=== PATIENT | male | born 1950 | race Caucasian/White ===

== ENCOUNTER 2020-01-06 12:21 | Emergency (ER) | payer MEDICARE, SELFPAY ==
[2020-01-06 12:32] VITALS: BMI 20.9
[2020-01-06 12:35] VITALS: BP 123/62; PULSE 83; RESP 16; TEMP 36.8; O2SAT 92
--- NOTE | 2020-01-06 12:52 | ED_ITS ---
HPI - Extremity Problem General: Chief complaint: Extremity Problem,Nontraumatic Stated complaint: wound check Time Seen by Provider: 01/06/20 12:42 Source: patient and family Mode of arrival: ambulatory Limitations: no limitations History of Present Illness: HPI Narrative: Patient is a 69-year-old male who presents to ED today for evaluation of his bilateral lower extremities. Patient apparently was seen by PCP and recommended to come here for evaluation. Patient tells me over the past 6 months he has had lower extremity swelling and yellow blistering/crusting with ulcer formation to his legs. He admittedly had not been seen for this previously due to COVID and canceling/unavailability of appointments. He states over the past 3 weeks he has noticed redness to both legs. Patient states he has not been running fevers. He has never seen wound care for the extremities. He has no history of CHF or fluid overload. 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 He normally wears 2-3L O2 continuously at home. He has not had to increase this. He does complain of feeling a little short of breath today. He has not had a cough or chest pain. He denies orthop cody or PND. MD Complaint: extremity pain and extremity swelling Onset (ago): month(s) Location: left, right and lower extremity Associated symptoms: Deny chest pain or fever(s) Review of Systems Const: Denies: fever(s), chills or body aches ENMT: Denies: odynophagia Card: Reports: swelling of feet/ankles and dyspnea on exertion (chronic ); Denies: chest pain, palpitations, irregular heart rhythm, edema, lightheadedness, syncope, pre-syncope, orthopnea or acrocyanosis Resp: Reports: dyspnea (chronic ); Denies: productive cough, change in phlegm color or hemoptysis GI: Denies: abdominal pain, nausea or vomiting Musc: Reports: extremity pain and extremity swelling; Denies: neck pain, back pain, joint pain, joint swelling or joint redness Skin/Breast: Reports: changes in skin color (bilateral LEs) Neuro: Denies: numbness in extremities, weakness in extremities or sensory changes Physical Exam Const: COMMON NORMALS: patient oriented x3, no limitations and alert Resp: COMMON NORMALS: normal respiratory effort Cardio: COMMON NORMALS: regular rate and regular rhythm RATE: regular rate RHYTHM: regular rhythm GI: COMMON NORMALS: Normal to inspection, nondistended, normoactive bowel sounds present, Soft to palpation, non-tender, No hepatosplenomegaly present and no masses INSPECTION: Yes normal to inspection PALPATION: Yes Soft to palpation and Yes No hepatosplenomegaly present Extremity: OTHER: bilateral 1+ pitting edema to lower extremities; there is redness/warmth to bilateral lower legs; pt has yellow blistering/crusting to bilateral anterior lower legs with small superficial ulcerations present Neuro: COMMON NORMALS: patient oriented x3 SENSORIUM/ORIENTATION: Yes alert Skin: OTHER: see extremity assessment Course Vital Signs: Vital signs: Vital Signs Temperature 98.2 F 01/06/20 12:35 Pulse Rate 83 01/06/20 12:35 Respiratory Rate 18 01/06/20 13:09 Blood Pressure 123/62 01/06/20 12:35 Pulse Oximetry 92 01/06/20 12:35 MDM - Extremity (Nontraumatic) MDM Narrative: Medical decision making narrative: Patient clinically appears well. He is not tachycardic or febrile. He has not had to increase his oxygen at home. He does not complain of orthopnea or PND. Patient's BNP slightly elevated at 335. CXR showing no fluid overload. He has bilateral lower extremity redness, yellow/purulent ulcerations, and pitting edema. We have set patient up with wound care on Sunday for evaluation. He will be placed on antibiotics and will place him on 3 days of Lasix for the swelling. Patient slightly supratherapeutic on his INR. He was given dosing instructions for this. Recommend he follow-up with PCP for INR recheck early next week. Return to ED precautions given. Lab Data: Labs: Lab Results 01/06/20 01/06/20 01/06/20 Range/Units 13:05 13:05 13:05 WBC 8.1 (4.0-10.0) 10^3/ uL RBC 4.16 (4.1-5.3) 10^6/u L Hgb 13.7 (11.7-16.6) g/dL Hct 41.9 L (42.0-52.0) % MCV 100.7 H (80-94) fL MCH 32.9 (28.0-34.0) pg MCHC 32.7 (30.0-36.0) g/dL RDW 13.1 (12.1-15.1) % Plt Count 281 (130-400) 10^3/c mm MPV 9.5 (7.4-10.4) fL Neut % (Auto) 76.6 % Lymph % (Auto) 11.7 % Desoto % (Auto) 8.8 % Eos % (Auto) 2.3 % Baso % (Auto) 0.4 % Neut # (Auto) 6.2 (1.8-7.7) 10^3/u L Lymph # (Auto) 1.0 (0.8-4.8) 10^3/u L Desoto # (Auto) 0.7 (0.2-0.9) 10^3/u L Eos # (Auto) 0.2 (0.0-0.8) 10^3/u L Baso # (Auto) 0.0 (0.0-0.1) 10^3/u L Nucleated RBC % (a uto) 0 % Nucleated RBCs # 0.0 /100WBC PT 35.80 H (10.5-13.3) SECO NDS INR 3.42 H (0.8-1.2) Sodium 139 (136-145) mmol/L Potassium 4.9 (3.5-5.1) mmol/L Chloride 99 (98-107) mmol/L Carbon Dioxide 33 H (22-29) mmol/L Anion Gap 11.9 (5-19) BUN 10 (8-23) mg/dL Creatinine 0.7 (0.7-1.2) mg/dL GFR Calculation 111.5 (90-130) mL/min Glucose 127 H (65-115) mg/dL Calculated Osmolal ity 286 (285-295) mOsm/k g Lactate (0.5-2.2) mmol/L Calcium 9.4 (8.5-10.5) mg/dL Total Bilirubin 0.5 (0.15-1.2) mg/dL AST 26 (0-40) U/L ALT 18 (0-41) U/L Alkaline Phosphata se 99 (40-130) IU/L C-Reactive Protein 27.0 H (0.0-4.9) mg/L NT-Pro-B Natriuret Pep (0-125) pg/mL Total Protein 7.0 (6.6-8.7) g/dL Albumin 4.1 (3.5-5.2) g/dL Globulin 2.9 (1.3-4.6) g/dL 01/06/20 01/06/20 Range/Units 13:05 13:05 WBC (4.0-10.0) 10^3/ uL RBC (4.1-5.3) 10^6/u L Hgb (11.7-16.6) g/dL Hct (42.0-52.0) % MCV (80-94) fL MCH (28.0-34.0) pg MCHC (30.0-36.0) g/dL RDW (12.1-15.1) % Plt Count (130-400) 10^3/c mm MPV (7.4-10.4) fL Neut % (Auto) % Lymph % (Auto) % Desoto % (Auto) % Eos % (Auto) % Baso % (Auto) % Neut # (Auto) (1.8-7.7) 10^3/u L Lymph # (Auto) (0.8-4.8) 10^3/u L Desoto # (Auto) (0.2-0.9) 10^3/u L Eos # (Auto) (0.0-0.8) 10^3/u L Baso # (Auto) (0.0-0.1) 10^3/u L Nucleated RBC % (a uto) % Nucleated RBCs # /100WBC PT (10.5-13.3) SECO NDS INR (0.8-1.2) Sodium (136-145) mmol/L Potassium (3.5-5.1) mmol/L Chloride (98-107) mmol/L Carbon Dioxide (22-29) mmol/L Anion Gap (5-19) BUN (8-23) mg/dL Creatinine (0.7-1.2) mg/dL GFR Calculation (90-130) mL/min Glucose (65-115) mg/dL Calculated Osmolal ity (285-295) mOsm/k g Lactate 1.4 (0.5-2.2) mmol/L Calcium (8.5-10.5) mg/dL Total Bilirubin (0.15-1.2) mg/dL AST (0-40) U/L ALT (0-41) U/L Alkaline Phosphata se (40-130) IU/L C-Reactive Protein (0.0-4.9) mg/L NT-Pro-B Natriuret Pep 335 H (0-125) pg/mL Total Protein (6.6-8.7) g/dL Albumin (3.5-5.2) g/dL Globulin (1.3-4.6) g/dL Imaging Data^: CXR: Radiologist's impression: [address] [place] [address] XRay Report Signed Patient: Damon King Unit #: [id number] : 1950 7 Age/Sex: 69 / M ADM Date: 01/06/20 Loc: ER Room/Bed: Attending Dr: Ordering Provider/Ordering MD: Jacklyn Khan Date of Service: 01/06/20 Procedure(s): XR chest 1V portable [id number] Accession Number(s): [id number] Report Number: [id number] WS: [id number] PORTABLE CHEST HISTORY: chest pain COMPARISON: 03/10/2019 Pulmonary hyperexpansion. RIGHT apical pleural thickening and scarring is stable. No pneumonia. Normal vasculature. No pleural effusion or pneumothorax. Cardiac size: Normal. Mediastinum/Aorta: Mild atherosclerosis aorta. Prior median sternotomy and cardiac valve replacement. No osseous abnormality seen. XR/XR chest 1V portable [id number] IMPRESSION: Severe chronic emphysema with stable RIGHT apical scarring. Dictated By: Ashlyn Bacon DO Signed By: Ashlyn Bacon DO Signed Date/Time: 01/06/20 1437 DD/ 1436 Discharge Plan Discharge Patient Disposition: Home, Self-Care Clinical Impression: Bilateral edema of lower extremity, Supratherapeutic INR, Bilateral lower leg cellulitis Emphysema/COPD Qualifiers: Emphysema type: unspecified Qualified Code(s): J43.9 - Emphysema, unspecified Condition: Stable Prescriptions: New Lasix 20 mg tablet 20 mg PO DAILY Qty: 3 RF: 0 Keflex 500 mg capsule 500 mg PO Q6H 7 Days Qty: 28 RF: 0 Discharge Orders: Discharge Order (Routine); Ordered 01/06/20 Ordered By: Jacklyn Khan Referrals: Ekaterina Callahan DO [Emergency Department] - 01/12/20 10:30 am () Alexandru Gaspar MD [Primary Care Provider] - Activity Restrictions/Additional Instructions: As discussed we have set you up with wound care on Sunday for evaluation and treatment of your lower legs. I have put you on 3 days of Lasix to help with the swelling. I want you to take 1/2 of your 2mg warfarin tomorrow and then continue normal dose of 2mg on and take 2mg on Sunday (instead of your 2.5mg scheduled dose). From then on continue your normal 2mg daily dose. Please follow up with primary care as soon as possible. Coding Level of Care Code ED Field Technician for Chg Fwd Exam Expanded Problem Focused
[2020-01-06 13:09] VITALS: RESP 18
[2020-01-06 13:14] LABS: Basophils % 0.4 %; Eosinophils # 0.2 10^3/uL (0.0-0.8); Eosinophils % 2.3 %; Hematocrit 41.9 % (42.0-52.0); Hemoglobin 13.7 g/dL (11.7-16.6); Lymphocytes % 11.7 %; Mean Corpuscular HGB Conc 32.7 g/dL (30.0-36.0); Mean Corpuscular Hemoglobin 32.9 pg (28.0-34.0); Mean Corpuscular Volume 100.7 fL (80-94); Mean Platelet Volume 9.5 fL (7.4-10.4); Monocytes # 0.7 10^3/uL (0.2-0.9); Monocytes % 8.8 %; Neutrophils # 6.2 10^3/uL (1.8-7.7); Neutrophils % 76.6 %; Nucleated Red Blood Cells % 0 %; Platelet Count 281 10^3/cmm (130-400); Red Blood Count 4.16 10^6/uL (4.1-5.3); Red Cell Distribution Width 13.1 % (12.1-15.1); White Blood Count 8.1 10^3/uL (4.0-10.0)
[2020-01-06 13:25] LABS: INR 3.42 (0.8-1.2)
[2020-01-06 13:27] LABS: Lactate (Lactic Acid level) 1.4 mmol/L (0.5-2.2)
[2020-01-06 13:31] LABS: Alanine Aminotransferase 18 U/L (0-41); Albumin Level 4.1 g/dL (3.5-5.2); Alkaline Phosphatase 99 IU/L (40-130); Anion Gap 11.9 (5-19); Aspartate Amino Transferase 26 U/L (0-40); Blood Urea Nitrogen 10 mg/dL (8-23); Calcium 9.4 mg/dL (8.5-10.5); Carbon Dioxide 33 mmol/L (22-29); Chloride 99 mmol/L (98-107); Creatinine Clr Calc Pharmacy 90.7603; Globulin 2.9 g/dL (1.3-4.6); Glomerular Filtration Rate 111.5 mL/min (90-130); Glucose 127 mg/dL (65-115); Osmolality Calculated 286 mOsm/kg (285-295); Potassium 4.9 mmol/L (3.5-5.1); Sodium 139 mmol/L (136-145); Total Bilirubin 0.5 mg/dL (0.15-1.2)
[2020-01-06] MEDS: vancomycin 1,000 MG in sodium chloride 0.9% 250 ML 166 MG IV (14:02)
[2020-01-06 14:11] LABS: NT Pro B Type Natriuretic Pept 335 pg/mL (0-125)
--- NOTE | 2020-01-06 14:11 | XR_ITS ---
WS: [id number] PORTABLE CHEST HISTORY: chest pain COMPARISON: 03/10/2019 Pulmonary hyperexpansion. RIGHT apical pleural thickening and scarring is stable. No pneumonia. Valerie l vasculature. No pleural effusion or pneumothorax. Cardiac size: Normal. Mediastinum/Aorta: Mild atherosclerosis aorta. Prior median sternotomy and cardiac valve replacement. No osseous abnormality seen. XR/XR chest 1V portable [id number] IMPRESSION: Severe chronic emphysema with stable RIGHT apical scarring.
--- NOTE | 2020-01-06 14:36 | DCPLANNER ---
hydroelectric production manager was asked to schedule a follow up appointment for patient with Wound Care. hydroelectric production manager called the Wound Care clinic, spoke with Magdalene, gave clinic patients information. A follow up appointment is scheduled for Sunday, January 12, 2020 at 10:[address] Callahan. hydroelectric production manager informed patient and ED physician of the scheduled appointment.
[2020-01-06 15:09] VITALS: BP 151/82; PULSE 82; RESP 22; O2SAT 97
[2020-01-06] MEDS: FUROsemide 10 mg/mL SDV 2mL 20 MG IVP (15:17)
[2020-01-06] MEDS: HYDROcodone-acetaminophen 5-325 mg Tablet 1 TAB PO (15:18)
[2020-01-06 15:41] VITALS: PULSE 82; RESP 22; O2SAT 97
--- NOTE | 2020-01-13 13:27 | DCPLANNER ---
Patient did attend follow up appointment scheduled for 01.06.20 with Wound Care.
== END 2020-01-06 15:44 | disposition home or self-care (01) ==
PROVIDERS: Emergency Provider Physician Assistant; PCP Family Medicine
DX: J43.9 Emphysema, unspecified (principal); R60.0 Localized edema; L03.116 Cellulitis of left lower limb; L03.115 Cellulitis of right lower limb; R07.9 Chest pain, unspecified
CPT/HCPCS: 12345; 36415; 71045; 80053; 83605; 83880; 85025; 85610; 86140; 96360; 96361; 96375; 99283; J1940; J3370; J7050

== ENCOUNTER 2020-01-12 10:24 | Outpatient (CLI) | payer MEDICARE, SELFPAY ==
[2020-01-12 12:56] LABS: INR 2.84 (0.8-1.2)
== END 2020-01-12 10:25 | disposition home or self-care (01) ==
LOC: WOUND 10:27
PROVIDERS: PCP Family Medicine; Visit Provider Emergency Medicine
DX: I96 Gangrene, not elsewhere classified (principal); L97.822 Non-pressure chronic ulcer of other part of left lower leg with fat layer exposed; L97.812 Non-pressure chronic ulcer of other part of right lower leg with fat layer exposed
CPT/HCPCS: 36415; 85610; 87070; 87077; 87176; 87186; 87205; G0463

== ENCOUNTER 2020-01-19 14:05 | Outpatient (CLI) | payer MEDICARE, SELFPAY | END 2020-01-19 14:06 | disposition home or self-care (01) | LOC: WOUND 14:09 | PROVIDERS: Visit Provider Emergency Medicine | DX: I96 Gangrene, not elsewhere classified (principal); L97.822 Non-pressure chronic ulcer of other part of left lower leg with fat layer exposed; L97.812 Non-pressure chronic ulcer of other part of right lower leg with fat layer exposed | CPT/HCPCS: 11042; 11045; 87070; 87077; 87176; 87186; 87205 ==

== ENCOUNTER 2020-02-06 16:54 | Outpatient (CLI) | payer MEDICARE, SELFPAY | END 2020-02-06 16:55 | disposition home or self-care (01) | LOC: LAB 16:58 | PROVIDERS: PCP Family Medicine; Visit Provider Family Medicine | DX: Z79.01 Long term (current) use of anticoagulants (principal) | CPT/HCPCS: 85610 ==

== ENCOUNTER 2020-02-09 14:54 | Outpatient (CLI) | payer MEDICARE, SELFPAY | END 2020-02-09 14:55 | disposition home or self-care (01) | LOC: WOUND 14:55 | PROVIDERS: PCP Family Medicine; Visit Provider Emergency Medicine | DX: I89.0 Lymphedema, not elsewhere classified (principal); L97.812 Non-pressure chronic ulcer of other part of right lower leg with fat layer exposed; L97.822 Non-pressure chronic ulcer of other part of left lower leg with fat layer exposed | CPT/HCPCS: 11042; 11045 ==

== ENCOUNTER 2020-02-23 15:08 | Outpatient (CLI) | payer MEDICARE, SELFPAY | END 2020-02-23 15:09 | disposition home or self-care (01) | LOC: WOUND 15:09 | PROVIDERS: PCP Family Medicine; Visit Provider Emergency Medicine | DX: I89.0 Lymphedema, not elsewhere classified (principal); L97.822 Non-pressure chronic ulcer of other part of left lower leg with fat layer exposed | CPT/HCPCS: 11042 ==

== ENCOUNTER 2020-02-27 12:30 | Outpatient (CLI) | payer MEDICARE, SELFPAY ==
--- NOTE | 2020-02-27 12:36 | USCV_ITS ---
Damon King Age: 69 Gender: M : 1950 Exam Date: 02/27/2020 13:12 Ordering Phys: Ekaterina Callahan DO Technologist: Dillon Greene Exam Location: [facility] [place]_ Indication: HISTORY: PROCEDURES: FINDINGS: There is no evidence of bilateral deep vein thrombosis. No evidence of superficial thrombosis in the bilateral saphenous system. No evidence of reflux was noted in the bilateral deep venous system. No venous reflux noted in the bilateral greater saphenous vein. No venous reflux noted in the bilateral small saphenous vein. Hypoechoic areas were noted in the subcutaneous tissue, bilaterally CONCLUSIONS No evidence of DVT in the above-mentioned identifiable veins. No significant venous reflux were noted Features of fluid retention/edema bilaterally Dr Yuval Morgan MD [facility] (Electronically Signed) Final Date: 28 February 2020 20:44 S
== END 2020-02-27 12:31 | disposition home or self-care (01) ==
LOC: US 12:33
PROVIDERS: PCP Family Medicine; Visit Provider Emergency Medicine
DX: M79.604 Pain in right leg (principal); M79.605 Pain in left leg; L53.9 Erythematous condition, unspecified; L97.829 Non-pressure chronic ulcer of other part of left lower leg with unspecified severity; L97.819 Non-pressure chronic ulcer of other part of right lower leg with unspecified severity
CPT/HCPCS: 93970

== ENCOUNTER 2020-03-02 15:12 | Outpatient (CLI) | payer MEDICARE, SELFPAY ==
--- NOTE | 2020-03-02 15:17 | USCV_ITS ---
Christine Damon Age: 69 Gender: M : 1950 Exam Date: 03/02/2020 15:09 Ordering Phys: Ekaterina Callahan DO Technologist: Dillon Greeen [place] [facility] [place]: PAIN REDNESS NON HEALING ULCER RIGHT LEFT Brachial 120.00 mmHg Brachial 113.00 mmHg FINDINGS PVR waveforms suggesting blunting of the dicrotic notch on the right side at the level of the angle Delayed peaking low amplitude waveforms at the level of the left ankle Severely diminished waveforms at the above-knee and below-knee levels bilaterally CONCLUSIONS 1. Features suggestive of mild arterial disease, based on the PVR waveforms at the right ankle. However the abnormal PVR waveforms at the above knee and the below-knee levels and the lack of detectable waveforms on the toes may suggest severe arterial disease. 2. Features of severe obstructive arterial disease on the left side Compared to the study from 11/06/2017, there is marketed worsening of the disease on both sides Dr Yuval Morgan MD [facility] (Electronically Signed) Final Date: 03 March 2020 23:21 S
== END 2020-03-02 15:13 | disposition home or self-care (01) ==
LOC: US 15:13
PROVIDERS: PCP Family Medicine; Visit Provider Emergency Medicine
DX: M79.604 Pain in right leg (principal); M79.605 Pain in left leg; L53.9 Erythematous condition, unspecified; L97.829 Non-pressure chronic ulcer of other part of left lower leg with unspecified severity; L97.819 Non-pressure chronic ulcer of other part of right lower leg with unspecified severity
CPT/HCPCS: 93923

== ENCOUNTER 2020-03-15 16:12 | Outpatient (CLI) | payer MEDICARE, SELFPAY ==
[2020-03-15 16:45] LABS: Basophils % 0.3 %; Eosinophils # 0.3 10^3/uL (0.0-0.8); Eosinophils % 3.2 %; Hematocrit 40.3 % (42.0-52.0); Hemoglobin 13.3 g/dL (11.7-16.6); Lymphocytes # 0.9 10^3/uL (0.8-4.8); Lymphocytes % 9.1 %; Mean Corpuscular Hemoglobin 31.2 pg (28.0-34.0); Mean Corpuscular Volume 94.6 fL (80-94); Mean Platelet Volume 11.2 fL (7.4-10.4); Monocytes # 0.8 10^3/uL (0.2-0.9); Monocytes % 7.6 %; Neutrophils # 8.26 10^3/uL (1.8-7.7); Neutrophils % 79.5 %; Nucleated Red Blood Cells % 0 %; Platelet Count 268 10^3/cmm (130-400); Red Blood Count 4.26 10^6/uL (4.1-5.3); Red Cell Distribution Width 13.6 % (12.1-15.1); White Blood Count 10.4 10^3/uL (4.0-10.0)
[2020-03-15 18:07] LABS: Alanine Aminotransferase 22 U/L (0-41); Albumin Level 3.9 g/dL (3.5-5.2); Alkaline Phosphatase 135 IU/L (40-130); Aspartate Amino Transferase 27 U/L (0-40); Blood Urea Nitrogen 6 mg/dL (8-23); Calcium 8.6 mg/dL (8.5-10.5); Carbon Dioxide 33 mmol/L (22-29); Chloride 91 mmol/L (98-107); Globulin 2.8 g/dL (1.3-4.6); Glomerular Filtration Rate 164.4 mL/min (90-130); Glucose 125 mg/dL (65-115); Osmolality Calculated 279 mOsm/kg (285-295); Sodium 136 mmol/L (136-145); Thyroid Stimulating Hormone 2.98 uIU/mL (0.27-4.20); Total Bilirubin 0.5 mg/dL (0.15-1.2); Total Protein 6.7 g/dL (6.6-8.7)
== END 2020-03-15 16:13 | disposition home or self-care (01) ==
LOC: LAB 16:16
PROVIDERS: PCP Family Medicine; Visit Provider Family Medicine
DX: I87.2 Venous insufficiency (chronic) (peripheral) (principal)
CPT/HCPCS: 80053; 84443; 85025

== ENCOUNTER 2020-03-17 15:25 | Outpatient (CLI) | payer MEDICARE, SELFPAY | END 2020-03-17 15:26 | disposition home or self-care (01) | LOC: WOUND 15:26 | PROVIDERS: PCP Family Medicine; Visit Provider Emergency Medicine | DX: I89.0 Lymphedema, not elsewhere classified (principal); L97.822 Non-pressure chronic ulcer of other part of left lower leg with fat layer exposed | CPT/HCPCS: 11042 ==

== ENCOUNTER 2020-03-19 16:22 | Outpatient (CLI) | payer MEDICARE, SELFPAY | END 2020-03-19 16:23 | disposition home or self-care (01) | LOC: LAB 16:23 | PROVIDERS: PCP Family Medicine; Visit Provider Family Medicine | DX: I87.2 Venous insufficiency (chronic) (peripheral) (principal) | CPT/HCPCS: 85610 ==

== ENCOUNTER 2020-03-22 15:10 | Outpatient (CLI) | payer MEDICARE, SELFPAY | END 2020-03-22 15:11 | disposition home or self-care (01) | LOC: WOUND 15:11 | PROVIDERS: PCP Family Medicine; Visit Provider Nurse Practitioner Family | DX: I89.0 Lymphedema, not elsewhere classified (principal); L97.822 Non-pressure chronic ulcer of other part of left lower leg with fat layer exposed | CPT/HCPCS: 11042 ==

== ENCOUNTER 2020-04-05 13:54 | Outpatient (CLI) | payer MEDICARE, SELFPAY | END 2020-04-05 13:55 | disposition home or self-care (01) | PROVIDERS: PCP Family Medicine; Visit Provider Nurse Practitioner Family | DX: Z09 Encounter for follow-up examination after completed treatment for conditions other than malignant neoplasm (principal) | CPT/HCPCS: 99212; A6545 ==

== ENCOUNTER 2020-04-05 22:35 | Emergency (ER) | payer MEDICARE, SELFPAY ==
[2020-04-05 22:37] VITALS: BP 166/80; PULSE 109; RESP 24; TEMP 37; O2SAT 100; BMI 20.3
--- NOTE | 2020-04-05 22:48 | CTR_ITS ---
PROCEDURE INFORMATION: Exam: CT Head Without Contrast Exam date and time: 04/05/2020 11:07 PM Age: 69 years old Clinical indication: Weakness, extremity; Right; Prior surgery; Surgery date: 6+ months; Additional info: Right arm weakness TECHNIQUE: Imaging protocol: Computed tomography of the head without contrast. Radiation optimization: All CT scans at this facility use at least one of these dose optimization techniques: automated exposure control; mA and/or kV adjustment per patient size (includes targeted exams where dose is matched to clinical indication); or iterative reconstruction. 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 No midline shift, mass, fluid collection, or evidence of acute hemorrhage. Cerebral ventricles: No ventriculomegaly. Bones/joints: Unremarkable. No acute fracture. Paranasal sinuses: Visualized sinuses are unremarkable. No fluid levels. Mastoid air cells: Visualized mastoid air cells are well aerated. Soft tissues: Unremarkable. CT/CT head wo con* [id number] IMPRESSION: 1. No acute intracranial abnormality. 2. 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 Radiation Dose CTDIVOL = (mGy): DLP = 1448.15 (mGy-cm)
--- NOTE | 2020-04-05 22:48 | ED_ITS ---
HPI - Extremity Problem General: Chief complaint: Extremity Problem,Nontraumatic Stated complaint: UNABLE TO OPEN HAND Time Seen by Provider: 04/05/20 22:41 History of Present Illness: HPI Narrative: Patient arrived via ambulance with a history of unable to open right hand fully here for the last hour or so family is concerned about possible stroke he had a stroke proximately 10 years ago. Patient is able to open his hand fully now and closed without problems has no other neuro deficits has no other complaints that he is hand seems to be doing much better now. MD Complaint: other (Earlier this evening unable to open right hand fully) Onset (ago): hour(s) Associated symptoms: Reports no associated symptoms; Deny chest pain, fever(s) or rash Review of Systems Const: Denies: fever(s), chills or body aches Eyes: Denies: change in vision or blurry vision ENMT: Denies: throat pain or nasal congestion Card: Denies: chest pain or dyspnea on exertion Resp: Denies: dyspnea, productive cough or non-productive cough GI: Denies: abdominal pain, nausea or vomiting : Denies: difficulty urinating Musc: Denies: extremity pain Skin/Breast: Denies: rash Neuro: Reports: other (Patient states he was unable to open his right hand fully for a while is able to do it now though); Denies: headache(s) Psych: Denies: anxiety or depression Ramon/Lymph: Denies: easy bruising Physical Exam Const: COMMON NORMALS: no acute distress, average body habitus and patient oriented x3 HENMT: COMMON NORMALS: normocephalic HEAD & SCALP: normal to inspection and normocephalic FACE & SINUS: normal facial exam Eye: COMMON NORMALS: conjunctivae normal GENERAL EYE: appearance normal, both eyes and all related structures CONJUNCTIVA: Yes conjunctivae normal Neck/C-Spine: COMMON NORMALS: no JVD Chest: COMMONS NORMALS: normal inspection of the chest Resp: COMMON NORMALS: normal respiratory effort and clear to auscultation bilaterally AUSCULTATION: clear to auscultation bilaterally Cardio: COMMON NORMALS: no JVD, regular rate and regular rhythm RATE: regular rate RHYTHM: regular rhythm GI: COMMON NORMALS: Normal to inspection, nondistended, normoactive bowel sounds present Extremity: COMMON NORMALS: normal to inspection and full ROM Neuro: COMMON NORMALS: patient oriented x3, CN's II-XII intact bilaterally, moves all extremities, no focal motor deficits and no sensory deficits noted SENSORY EXAM: Yes extremities (Normal remove hand open and closed without difficulty. Normal pulse good distal neuro) Course Vital Signs: Vital signs: Vital Signs Temperature 98.6 F 04/05/20 22:37 Pulse Rate 88 04/06/20 01:07 Respiratory Rate 18 04/06/20 01:07 Blood Pressure 150/60 04/06/20 01:07 Pulse Oximetry 97 04/06/20 01:07 Discharge Plan Discharge Patient Disposition: Home Clinical Impression: Nerve compression Condition: Stable Prescriptions: No Action Lasix 20 mg tablet 20 mg PO DAILY Qty: 3 RF: 0 Discharge Orders: Discharge Order (Routine); Ordered 04/05/20 Ordered By: Armando Sequeira Referrals: Alexandru Gaspar MD [Primary Care Provider] - Discharge Diet: Usual diet Discharge Activity: Resume usual activity Activity Restrictions/Additional Instructions: Follow-up with your family medical provider as needed Discharge Date/Time: 04/06/20 01:09 Coding Level of Care Code ED Drinking Water Technician for Chg Fwd Exam Comprehensive
[2020-04-06 01:07] VITALS: BP 150/60; PULSE 88; RESP 18; O2SAT 97
== END 2020-04-06 01:09 | disposition home or self-care (01) ==
PROVIDERS: Emergency Provider Nurse Practitioner Family; PCP Family Medicine
DX: G58.9 Mononeuropathy, unspecified (principal)
CPT/HCPCS: 12345; 70450; 99281

== ENCOUNTER 2020-04-07 16:18 | Outpatient (CLI) | payer MEDICARE, SELFPAY ==
[2020-04-07 19:27] LABS: INR 3.41 (0.8-1.2)
== END 2020-04-07 16:19 | disposition home or self-care (01) ==
LOC: LAB 16:28
PROVIDERS: PCP Family Medicine; Visit Provider Family Medicine
DX: I87.2 Venous insufficiency (chronic) (peripheral) (principal)
CPT/HCPCS: 85610

== ENCOUNTER 2020-09-13 13:41 | Outpatient (CLI) | payer MEDICARE, SELFPAY | END 2020-09-13 13:42 | disposition home or self-care (01) | LOC: WOUND 13:42 | PROVIDERS: PCP Family Medicine; Visit Provider Nurse Practitioner Family | DX: I96 Gangrene, not elsewhere classified (principal); L97.529 Non-pressure chronic ulcer of other part of left foot with unspecified severity; L97.519 Non-pressure chronic ulcer of other part of right foot with unspecified severity | CPT/HCPCS: G0463 ==

== ENCOUNTER 2020-09-13 15:01 | Inpatient (IN) | payer MEDICARE, SELFPAY ==
[2020-09-13] VITALS (12 sets, daily range): BP systolic 109–137; BP diastolic 60–78; PULSE 97–126; RESP 14–20; TEMP 36.7; O2SAT 95–100; BMI 20.8
--- NOTE | 2020-09-13 15:05 | ECG_ITS ---
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 Measurements Intervals [place]aling Rate: 114 P: 255 MT: 85 QRS: -70 QRSD: 118 T: 38 QT: 353 QTc: 486 Interpretive Statements Multifocal atrial tachycardia LEFT AXIS DEVIATION [QRS AXIS < -30] RIGHT BUNDLE BRANCH BLOCK [120+ ms QRS DURATION, UPRIGHT V1, 40+ ms S IN I/aVL/V4/V5/V6] Compared to ECG 05/21/2018 14:45:46 Multifocal atrial tachycardia is present Left-axis deviation now present Sinus rhythm no longer present Myocardial infarct finding no longer present Electronically Signed On 09-13-2020 23:59:30 CDT by Yuval Morgan M.D. [id number]
--- NOTE | 2020-09-13 15:23 | XR_ITS ---
WS: [id number] XR foot LT min 3V* [id number] REASON FOR EXAM: foot ulcers FINDINGS: Moderate bony demineralization. Hammertoe deformity. Moderate joint space narrowing in the MIP and DIP joints with subchondral sclero sis. No fracture or dislocation. Metatarsals are intact. No significant abnormality in the midfoot. No significant abnormality in the hindfoot. XR/XR foot LT min 3V* [id number] IMPRESSION: No fracture or dislocation. 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
--- NOTE | 2020-09-13 15:23 | XR_ITS ---
WS: [id number] XR tibia fibula LT 2V [id number] REASON FOR EXAM: leg ulcers FINDINGS: No fracture or other focal bony abnormality. No soft tissue abnormality. XR/XR tibia fibula LT 2V [id number] IMPRESSION: No acute abnormality.
--- NOTE | 2020-09-13 15:23 | XR_ITS ---
WS: [id number] XR tibia fibula RT 2V [id number] REASON FOR EXAM: leg ulcers FINDINGS: No fracture or other focal bony abnormality. No significant soft tissue abnormality. XR/XR tibia fibula RT 2V [id number] IMPRESSION: No acute abnormality. There is extensive calcification of both the right and left distal superficial femoral arteries. Very likely there is significantly diminished blood flow perh aps even occlusion of these arteries. The blood flow below both knees is likely diminished.
--- NOTE | 2020-09-13 15:23 | XR_ITS ---
WS: [id number] XR foot RT min 3V* [id number] REASON FOR EXAM: foot ulcers FINDINGS: Moderate bony demineralization. Moderate narrowing of the MIP and DIP joints of the toes with subchondral sclerosis. Mild hammertoe d eformities. No focal abnormality of the metatarsals. No significant abnormality of the midfoot. No significant abnormality of the hindfoot. XR/XR foot RT min 3V* [id number] IMPRESSION: No acute abnormality.
[2020-09-13 15:27] LABS: Basophils % 0.2 %; Eosinophils % 0.3 %; Hematocrit 42.5 % (42.0-52.0); Hemoglobin 14.3 g/dL (11.7-16.6); Lymphocytes # 0.5 10^3/uL (0.8-4.8); Lymphocytes % 4.5 %; Mean Corpuscular HGB Conc 33.6 g/dL (30.0-36.0); Mean Corpuscular Hemoglobin 32.6 pg (28.0-34.0); Mean Corpuscular Volume 96.8 fL (80-94); Mean Platelet Volume 9.5 fL (7.4-10.4); Monocytes # 0.7 10^3/uL (0.2-0.9); Monocytes % 6.5 %; Neutrophils # 9.38 10^3/uL (1.8-7.7); Neutrophils % 88.2 %; Nucleated Red Blood Cells % 0 %; Platelet Count 310 10^3/cmm (130-400); Red Blood Count 4.39 10^6/uL (4.1-5.3); Red Cell Distribution Width 14.4 % (12.1-15.1); White Blood Count 10.6 10^3/uL (4.0-10.0)
[2020-09-13 15:46] LABS: Alanine Aminotransferase 46 U/L (0-41); Albumin Level 4.1 g/dL (3.5-5.2); Alkaline Phosphatase 163 IU/L (40-130); Anion Gap 11.3 (5-19); Aspartate Amino Transferase 42 U/L (0-40); Blood Urea Nitrogen 10 mg/dL (8-23); Calcium 9.3 mg/dL (8.5-10.5); Carbon Dioxide 40 mmol/L (22-29); Chloride 82 mmol/L (98-107); Creatine Phosphokinase 83 U/L (39-308); Globulin 3.6 g/dL (1.3-4.6); Glucose 153 mg/dL (65-115); Osmolality Calculated 272 mOsm/kg (285-295); Potassium 3.3 mmol/L (3.5-5.1); Sodium 130 mmol/L (136-145); Total Protein 7.7 g/dL (6.6-8.7)
[2020-09-13 16:40] LABS: Add Urine Microscopic? NO
[2020-09-13 16:44] LABS: Urine Appearance Clear (CLEAR); Urine Color Yellow (Yellow); pH Urine 7 (5-7)
[2020-09-13 16:45] LABS: Bilirubin Urine Neg (Negative); Blood Urine Neg (Negative); Glucose Urine UA Norm (Normal); Ketones Urine Negative (Negative); Leukocyte Esterase Urine Negative (Negative); Nitrate Urine Negative (Negative); Protein Urine Neg (Negative); Specific Gravity, Urine 1.005 (1.005-1.030); Urobilinogen Urine Norm (Negative)
[2020-09-13 17:25] LABS: INR 6.51 (0.8-1.2)
--- NOTE | 2020-09-13 18:19 | ED_ITS ---
HPI - Wound/Laceration General: Chief Complaint: Wound/Laceration Stated Complaint: BILATERAL LEG WOUNDS Time Seen by Provider: 09/13/20 15:02 History of Present Illness: HPI narrative: 70-year-old male presents emergency room he has been trying to care for his own wounds at home for the last several months. He has bilateral leg wounds he has wrapped wrappings removed with extremely foul odor combination of caked and dry skin and mucousy eschars. He is not able to clean the wounds do not appear to have been attended to properly for weeks he has an ulcer on the lateral aspect of the right leg. He had wound care up until April of last year. Onset (ago): week(s) Extremity Location: Bilateral: lower leg, ankle and foot Place: home Associated symptoms: Reports chills, fever(s) and pain; Denies nausea or vomiting Review of Systems Const: Reports: fever(s) and chills ENMT: Denies: throat pain, ear or mastoid pain, nasal discharge or nasal congestion Card: Denies: chest pain, edema, dyspnea on exertion or orthopnea Resp: Denies: dyspnea, productive cough or non-productive cough GI: Denies: abdominal pain, nausea, vomiting, hematemesis, coffee ground emesis, diarrhea, constipation, bloating, hematochezia or melena : Denies: flank pain, dysuria, urinary frequency or urinary urgency Skin/Breast: Denies: rash or pruritus [facility] ED PFSH: Medical History Bilateral carotid artery stenosis BPH (benign prostatic hyperplasia) Chronic anticoagulation coumadin, for mechanical AVR COPD (chronic obstructive pulmonary disease) CVA (cerebral vascular accident) Depression GERD (gastroesophageal reflux disease) History of PFTs (~08/2018) 08/20: severe obstructive ventilatory defect, no significant bronchodilator response, severely reduced diffusion capacity Hyperlipidemia Hypertension Nicotine dependence, cigarettes, with other nicotine-induced disorders On home oxygen therapy 3L BNC continuous Osteoarthritis Pulmonary hypertension Right renal artery stenosis >60% Severe peripheral arterial disease Surgical History History of angioplasty of peripheral vessel (~2017) in 2018, unsuccessful by Dr Putnam and later also Dr Calixto per old records, referred to [facility] History of aortic valve replacement (~2008) Dr Bolton, mechanical History of CEA (carotid endarterectomy) right ~2008, left ~2010 History of ear surgery History of testicular surgery right orchiectomy for undescended testicle as a child Family History Other CAD (coronary artery disease) Diabetes Social History Smoking and tobacco status: current every day smoker cigarettes Number of cigarettes per day: 11-20 Alcohol intake: current Alcohol intake frequency: 0-2 Drinks per Day Alcohol use comment: 1 oz whiskey daily with coke Substance/Drug Use: never Household members: family and other Details: son + Physical Exam Const: COMMON NORMALS: no acute distress GENERAL APPEARANCE: cooperative and comfortable HENMT: COMMON NORMALS: normocephalic, atraumatic and hearing grossly normal bilaterally HEAD & SCALP: normocephalic and atraumatic Neck/C-Spine: COMMON NORMALS: no JVD Resp: COMMON NORMALS: normal respiratory effort, No retractions, No use of accessory muscles and clear to auscultation bilaterally AUSCULTATION: clear to auscultation bilaterally Cardio: COMMON NORMALS: no JVD, regular rate, regular rhythm and No murmurs present (Cardio) RATE: regular rate RHYTHM: regular rhythm GI: COMMON NORMALS: Soft to palpation and No hepatosplenomegaly present AUSCULTATION: Yes normoactive bowel sounds PALPATION: Yes Soft to palpation, No Tenderness to palpation present (GI), No Guarding due to palpation present (GI) and Yes No hepatosplenomegaly present Extremity: COMMON NORMALS: normal to inspection, capillary refill normal, no clubbing, cyanosis or edema, no calf tenderness and no pedal edema Skin: NARRATIVE SKIN EXAM: Patient has dry scaled lesions all the way to the level of the knee. There is a few ulcers in various areas laterally particularly noted one on the right lateral calf. He had dressings on the legs that appear to have been in place for some time from the malleolus to the knees. These were taken down with trauma barbara. On the feet there were loose Telfa dressings when these were removed there is a mucousy eschar essentially taking the toes together. The tips of the big toe bilaterally have partial-thickness ulcerations through them there is no exposed bone that I could see. X-rays of the lower legs and toes show no signs of osteomyelitis. The toes are reddened and erythematous around the ulcers as well bilaterally. Particularly noted involvement of the great toe. Course Vital Signs: Vital signs: Vital Signs Temperature 97.3 F L 09/14/20 07:22 Pulse Rate 90 09/14/20 07:22 Respiratory Rate 17 09/14/20 07:22 Blood Pressure 95/58 09/14/20 07:22 Pulse Oximetry 96 09/14/20 07:22 MDM - Wound/Laceration MDM Narrative: Medical decision making narrative: Patient require admission for debridement of the wounds and further assessment evaluation as well as IV antibiotics. Given the extent of this I do not believe it can be accomplished on an outpatient basis. Suspect patient will also need placement for long-term care with ADLs and particularly his wound care. He had previously had home health but it does not look like he has had any visits from and since April. Lab Data: Labs: Lab Results 09/13/20 09/13/20 09/13/20 Range/Units 14:30 15:19 15:19 WBC 10.6 H (4.0-10.0) 10^3/ uL RBC 4.39 (4.1-5.3) 10^6/u L Hgb 14.3 (11.7-16.6) g/dL Hct 42.5 (42.0-52.0) % MCV 96.8 H (80-94) fL MCH 32.6 (28.0-34.0) pg MCHC 33.6 (30.0-36.0) g/dL RDW 14.4 (12.1-15.1) % Plt Count 310 (130-400) 10^3/c mm MPV 9.5 (7.4-10.4) fL Neut % (Auto) 88.2 % Lymph % (Auto) 4.5 % Lawrence % (Auto) 6.5 % Eos % (Auto) 0.3 % Baso % (Auto) 0.2 % Neut # (Auto) 9.38 H (1.8-7.7) 10^3/u L Lymph # (Auto) 0.5 L (0.8-4.8) 10^3/u L Lawrence # (Auto) 0.7 (0.2-0.9) 10^3/u L Eos # (Auto) 0.0 (0.0-0.8) 10^3/u L Baso # (Auto) 0.0 (0.0-0.1) 10^3/u L Nucleated RBC % (a uto) 0 % Nucleated RBCs # 0.0 /100WBC PT 59.70 H (12.1-14.9) SECO NDS INR 6.51 H* (0.8-1.2) Sodium (136-145) mmol/L Potassium (3.5-5.1) mmol/L Chloride (98-107) mmol/L Carbon Dioxide (22-29) mmol/L Anion Gap (5-19) BUN (8-23) mg/dL Creatinine (0.7-1.2) mg/dL GFR Calculation Glucose (65-115) mg/dL Calculated Osmolal ity (285-295) mOsm/k g Calcium (8.5-10.5) mg/dL Total Bilirubin (0.15-1.2) mg/dL AST (0-40) U/L ALT (0-41) U/L Alkaline Phosphata se (40-130) IU/L Creatine Kinase (39-308) U/L Total Protein (6.6-8.7) g/dL Albumin (3.5-5.2) g/dL Globulin (1.3-4.6) g/dL Urine Color Yellow (Yellow) Urine Appearance Clear (CLEAR) Urine pH 7 (5-7) Ur Specific Gravit y 1.005 (1.005-1.030) Urine Protein Neg (Negative) Urine Glucose (UA) Norm (Normal) Urine Ketones Negative (Negative) Urine Blood Neg (Negative) Urine Nitrate Negative (Negative) Urine Bilirubin Neg (Negative) Urine Urobilinogen Norm (Negative) mg/dL Ur Leukocyte Eve ase Negative (Negative) 09/13/20 Range/Units 15:19 WBC (4.0-10.0) 10^3/ uL RBC (4.1-5.3) 10^6/u L Hgb (11.7-16.6) g/dL Hct (42.0-52.0) % MCV (80-94) fL MCH (28.0-34.0) pg MCHC (30.0-36.0) g/dL RDW (12.1-15.1) % Plt Count (130-400) 10^3/c mm MPV (7.4-10.4) fL Neut % (Auto) % Lymph % (Auto) % Lawrence % (Auto) % Eos % (Auto) % Baso % (Auto) % Neut # (Auto) (1.8-7.7) 10^3/u L Lymph # (Auto) (0.8-4.8) 10^3/u L Lawrence # (Auto) (0.2-0.9) 10^3/u L Eos # (Auto) (0.0-0.8) 10^3/u L Baso # (Auto) (0.0-0.1) 10^3/u L Nucleated RBC % (a uto) % Nucleated RBCs # /100WBC PT (12.1-14.9) SECO NDS INR (0.8-1.2) Sodium 130 L (136-145) mmol/L Potassium 3.3 L (3.5-5.1) mmol/L Chloride 82 L (98-107) mmol/L Carbon Dioxide 40 H (22-29) mmol/L Anion Gap 11.3 (5-19) BUN 10 (8-23) mg/dL Creatinine 0.5 L (0.7-1.2) mg/dL GFR Calculation Not Reportable Glucose 153 H (65-115) mg/dL Calculated Osmolal ity 272 L (285-295) mOsm/k g Calcium 9.3 (8.5-10.5) mg/dL Total Bilirubin 1.0 (0.15-1.2) mg/dL AST 42 H (0-40) U/L ALT 46 H (0-41) U/L Alkaline Phosphata se 163 H (40-130) IU/L Creatine Kinase 83 (39-308) U/L Total Protein 7.7 (6.6-8.7) g/dL Albumin 4.1 (3.5-5.2) g/dL Globulin 3.6 (1.3-4.6) g/dL Urine Color (Yellow) Urine Appearance (CLEAR) Urine pH (5-7) Ur Specific Gravit y (1.005-1.030) Urine Protein (Negative) Urine Glucose (UA) (Normal) Urine Ketones (Negative) Urine Blood (Negative) Urine Nitrate (Negative) Urine Bilirubin (Negative) Urine Urobilinogen (Negative) mg/dL Ur Leukocyte Eve ase (Negative) Discharge Plan Discharge Patient Disposition: Admitted As Inpatient Admit Provider: Cricket Madrigal Clinical Impression: Bilateral lower leg cellulitis, Supratherapeutic INR, Pulmonary hypertension, COPD (chronic obstructive pulmonary disease), Severe peripheral arterial disease, Chronic anticoagulation, Ischemic ulcer of both feet, H/O mechanical aortic valve replacement Condition: Stable Coding Level of Care Code ED [employer] for Jose Roberto Washburn
[2020-09-13] MEDS: morphine 4 mg/mL SDV 1 mL IVP (18:37)
[2020-09-13] MEDS: vancomycin 1,000 MG in sodium chloride 0.9% 250 ML 250 MG IV (18:39)
--- NOTE | 2020-09-13 21:02 | P.HP_ITS ---
Providers/Chief Complaint Admitting Physician: Dr. Cates Primary Care Provider: Carmen Bernardo NP Chief Complaint: Sent from wound care clinic, bilateral leg wounds History of Present Illness Damon King is a 70 year old male who was sent to the emergency room from wound care clinic today. He has previously followed there due to non-pressure ulcers of both feet and lower extremities related to severe peripheral artery disease. He had not been seen there for several months. Reports he was trying to manage the wounds at home. He had last been seen in April or May and per Dr. Morgan's note at that time the wounds were nearly completely healed. They came back sometime in the interim. Getting specific details as to when they started looking as bad as they currently do is challenging but from best I can gather he started noticing the black appearance to his distal toes within the last few days. His son saw them and made Mr. King go back to the wound care clinic. There, wounds to both feet today were suggestive of early gangrene and he was sent to the emergency room for further evaluation and initiation of treatment. Imaging studies which included plain films of both feet and both tib/fib's showed no acute bony abnormalities and there was no mention of any air. Extensive calcification of both the right and left distal superficial femoral arteries though was however noted. He was given a dose of vancomycin. He denies any recent fevers. He reports taking his medications as prescribed. Denies any recent antibiotics or adjustments to his Coumadin dosing. INR was noted to be 6. Denies any problems with bleeding. He is chronically short of b reath but denies that it is any change from baseline. He has managed to cut down smoking from 2 packs a day to less than 1 pack a day with the help of Chantix. He is chronically on oxygen at 3 L by nasal cannula. Reports his oxygen saturations at baseline are in the 90s but with exertion will drop into the mid to upper 80s even with oxygen on. Has not had any chest pain, dizziness, falls or syncope. His legs always hurt. When he gets up to try to walk he reports the pain is up to a 7 out of 10. After he takes a few steps the pain improves to around 5 out of 10. Currently at rest he reports pain at 6 out of 10. He has not had his hydrocodone or gabapentin today. He had received some morphine in the emergency room with temporary improvement. He is being admitted to inpatient status for continued evaluation and treatment of wounds to both feet. Family indicated to ER physician that even with them at home it is difficult to manage the wounds and placement may need to be considered. Review of Systems Const: Reports: malaise; Denies: fever(s) or chills Eyes: Denies: change in vision ENMT: Reports: nasal congestion; Denies: throat pain Card: Reports: edema, dyspnea on exertion and leg pain with exertion; Denies: chest pain or palpitations Resp: Reports: dyspnea, productive cough and non-productive cough; Denies: pain on inspiration or hemoptysis GI: Denies: abdominal pain, nausea, diarrhea or constipation : Denies: difficulty urinating Musc: Reports: extremity pain (Both legs particularly at both feet) Skin/Breast: Reports: erythema (Limited to the forefoot), skin tenderness, sores (Toes of both feet, left greater than right), new lesions (Toes of both feet), changes in skin color (At toes of both feet) and other (Chronic skin changes to both legs distally) Neuro: Denies: numbness in extremities or weakness in extremities Psych: Reports: anxiety; Denies: depression Ramon/Lymph: Denies: easy bruising or easy bleeding Medications/Allergies Home Medications Medication Instructions Recorded Confirmed Last Taken Type atorvastatin 80 mg tablet 80 mg PO DAILY@209904/08/20 09/13/20 09/12/20 History budesonide-formoterol HFA 80 2 puff INHALATION BID@07,209904/08/20 09/13/20 09/13/20 History mcg-4.5 mcg/actuation aerosol inhaler gabapentin 300 mg capsule 300 mg PO TID@04/08/20 09/13/20 09/13/20 History hydrocodone 10 mg-acetaminophen 1 tab PO Q6H PRN 04/08/20 09/13/20 Unknown History 325 mg tablet metoprolol tartrate 25 mg tablet 25 mg PO BID@0700,209904/08/20 09/13/20 09/13/20 History potassium chloride 10 mEq 10 meq PO DAILY@0700 04/08/20 09/13/20 09/13/20 History tablet,extended release quetiapine 50 mg tablet 50 mg PO BID@0700,2100 04/08/20 09/13/20 09/13/20 History tamsulosin 0.4 mg capsule 0.4 mg PO DAILY@0700 04/08/20 09/13/20 09/13/20 History warfarin 2 mg tablet See Rx Instructions .ROUTE .COMPLEX 04/08/20 09/13/20 09/12/20 History Allergy Relief (cetirizine) 1 mg PO BID@0700,209909/13/20 09/13/20 09/13/20 History amlodipine 5 mg PO DAILY@0700 09/13/20 09/13/20 09/13/20 History furosemide 40 mg PO DAILY@0700 09/13/20 09/13/20 09/12/20 History varenicline [Chantix Starting 1 ea PO BID@0700,209909/13/20 09/13/20 09/13/20 History Month Box] warfarin See Rx Instructions .ROUTE .COMPLEX 09/13/20 09/13/20 09/13/20 History Allergies Allergy/AdvReac Type Severity Reaction Status Date / Time divalproex sodium AdvReac Mild nausea Verified 04/08/20 15:03 [From Depakote] PFSH Acute PFSH: Medical History (Updated 09/13/20 @ 22:28 by Jocelyn Cates MD) Bilateral carotid artery stenosis BPH (benign prostatic hyperplasia) Chronic anticoagulation coumadin, for mechanical AVR COPD (chronic obstructive pulmonary disease) CVA (cerebral vascular accident) Depression GERD (gastroesophageal reflux disease) History of PFTs (~08/2018) 08/20: severe obstructive ventilatory defect, no significant bronchodilator response, severely reduced diffusion capacity Hyperlipidemia Hypertension Nicotine dependence, cigarettes, with other nicotine-induced disorders On home oxygen therapy 3L [facility] continuous Osteoarthritis Pulmonary hypertension Right renal artery stenosis >60% Severe peripheral arterial disease Surgical History (Updated 09/13/20 @ 22:30 by Jocelyn Cates MD) History of angioplasty of peripheral vessel (~2017) in 2018, unsuccessful by Dr Putnam and later also Dr Calixto per old records, referred to [facility] [place] History of aortic valve replacement (~2008) Dr Bolton, mechanical History of CEA (carotid endarterectomy) right ~2008, left ~2010 History of ear surgery History of testicular surgery right orchiectomy for undescended testicle as a child Family History Other CAD (coronary artery disease) Diabetes Social History (Updated 09/13/20 @ 21:41 by Jocelyn Cates MD) Smoking and tobacco status: current every day smoker cigarettes Number of cigarettes per day: 11-20 Alcohol intake: current Alcohol intake frequency: 0-2 Drinks per Day Alcohol use comment: 1 oz whiskey daily with coke Substance/Drug Use: never Household members: family and other Details: son + Vitals/I&O/Wt Last Vital Signs Temp 98.0 F 09/13/20 15:02 Pulse 103 H 09/13/20 20:41 Resp 15 09/13/20 20:41 BP 134/78 09/13/20 20:41 Pulse Ox 96 09/13/20 20:41 09/13/20 09/13/20 09/13/20 06:59 14:59 22:59 Intake Total 250 / 250 Balance 250 / 250 Weight last 48 hrs Weight 62.142 kg Physical Exam Const: OTHER: Alert, oriented x3, cooperative but uncomfortable due to pain and anxious understandably HENMT: OTHER: Normocephalic atraumatic, moist mucus membranes, clear rhinorrhea, hard of hearing Eye: OTHER: Pupils equally round and reactive to light, extraocular movements intact Neck/C-Spine: OTHER: Supple, JVD to around 9 cm Resp: OTHER: Scattered wheezes and bibasilar Rales, no rhonchi, no accessory muscle use noted, oxygen in place Cardio: OTHER: Tachycardic but regular rhythm, mechanical valve click noted, 2/6 systolic murmur loudest at the left upper sternal border GI: OTHER: Abdomen soft, nontender, nondistended with positive bowel sounds : OTHER: Deferred Extremity: OTHER: Peripheral pulses are dopplerable only. Noted at the dorsa lis pedis on the right and posterior tibialis on the left. Pain limits ability to adequately check capillary refill but appears delayed at all toes. Legs are cool to touch from the ankles down comparatively. Skin findings as noted below. Pitting edema is noted most prominently at the feet and ankle area during attempts to get Doppler pulse and to a lesser degree pretibial although this is hindered by chronic skin changes and pain. No appreciable pain in the upper calf or popliteal area bilaterally. Edema is noted in the thighs. Neuro: OTHER: Face symmetric, speech clear, moves all extremities, no tremors noted Psych: OTHER: Patient can get tearful when talking about his legs but when he can hear well enough he follows discussion appropriately with normal affect Skin: OTHER: Extensive stasis changes with hyperkeratosis noted to both lower extremities. Both feet with erythema from midfoot to toes. Left involves first through fourth toes and right first through third toes. There is eschar formation noted to the distal end of both great toes extending more proximally on the left. Toes 1, 2 and 3 bilaterally with areas of purulence, not as odorous as I would expect given the appearance. Unable to separate toes due to degree of pain. No leaking of purulent material currently. No serous drainage noted. Fourth toes are reddish in color, fifth toes are pink in color bilaterally. Skin is tender with minimal palpation or touching. Beyond the e schar formation, no areas are purple/bluish in color. Patient does have some scabs noted to his upper chest and arms, a scab on his left knee. No large bruises are noted. Data : 09/13/20 15:19 09/13/20 15: Other Labs: Laboratory Last Values WBC 10.6 10^3/uL (4.0-10.0) H 09/13/20 15: RBC 4.39 10^6/uL (4.1-5.3) 09/13/20 15: Hgb 14.3 g/dL (11.7-16.6) 09/13/20 15: Hct 42.5 % (42.0-52.0) 09/13/20 15: MCV 96.8 fL (80-94) H 09/13/20 15: MCH 32.6 pg (28.0-34.0) 09/13/20 15: MCHC 33.6 g/dL (30.0-36.0) 09/13/20 15:19 RDW 14.4 % (12.1-15.1) 09/13/20 15: Plt Count 310 10^3/cmm (130-400) 09/13/20 15: MPV 9.5 fL (7.4-10.4) 09/13/20 15: Neut % (Auto) 88.2 % 09/13/20 15:19 Lymph % (Auto) 4.5 % 09/13/20 15:19 [place] % (Auto) 6.5 % 09/13/20 15:19 Eos % (Auto) 0.3 % 09/13/20 15:19 Baso % (Auto) 0.2 % 09/13/20 15: Neut # (Auto) 9.38 10^3/uL (1.8-7.7) H 09/13/20 15:19 Lymph # (Auto) 0.5 10^3/uL (0.8-4.8) L 09/13/20 15:19 [place] # (Auto) 0.7 10^3/uL (0.2-0.9) 09/13/20 15: Eos # (Auto) 0.0 10^3/uL (0.0-0.8) 09/13/20 15: Baso # (Auto) 0.0 10^3/uL (0.0-0.1) 09/13/20 15: Nucleated RBC % (auto) 0 % 09/13/20 15: Nucleated RBCs # 0.0 /100WBC 09/13/20 15: PT 59.70 SECONDS (12.1-14.9) H 09/13/20 15: INR 6.51 (0.8-1.2) H* 09/13/20 15: Sodium 130 mmol/L (136-145) L 09/13/20 15: Potassium 3.3 mmol/L (3.5-5.1) L 09/13/20 15:19 Chloride 82 mmol/L (98-107) L 09/13/20 15:19 Carbon Dioxide 40 mmol/L (22-29) H 09/13/20 15: Anion Gap 11.3 (5-19) 09/13/20 15: BUN 10 mg/dL (8-23) 09/13/20 15:19 Creatinine 0.5 mg/dL (0.7-1.2) L 09/13/20 15:19 GFR Calculation Not Reportable 09/13/20 15: Glucose 153 mg/dL (65-115) H 09/13/20: Calculated Osmolality 272 mOsm/kg (285-295) L 09/13/20 15: Calcium 9.3 mg/dL (8.5-10.5) 09/13/20 15: Total Bilirubin 1.0 mg/dL (0.15-1.2) 09/13/20 15: AST 42 U/L (0-40) H 09/13/20 15: ALT 46 U/L (0-41) H 09/13/20 15: Alkaline Phosphatase 163 IU/L (40-130) H 09/13/20 15: Creatine Kinase 83 U/L (39-308) 09/13/20 15: Total Protein 7.7 g/dL (6.6-8.7) 09/13/20 15: Albumin 4.1 g/dL (3.5-5.2) 09/13/20 15: Globulin 3.6 g/dL (1.3-4.6) 09/13/20 15: Urine Color Yellow (Yellow) 09/13/20 14:30 Urine Appearance Clear (CLEAR) 09/13/20 14:30 Urine pH 7 (5-7) 09/13/20 14:30 Ur Specific [place] 1.005 (1.005-1.030) 09/13/20 14:30 Urine Protein Neg (Negative) 09/13/20 14:30 Urine Glucose (UA) Norm (Normal) 09/13/20 14:30 Urine Ketones Negative (Negative) 09/13/20 14:30 Urine Blood Neg (Negative) 09/13/20 14:30 Urine Nitrate Negative (Negative) 09/13/20 14:30 Urine Bilirubin Neg (Negative) 09/13/20 14:30 Urine Urobilinogen Norm mg/dL (Negative) 09/13/20 14:30 Ur Leukocyte Esterase Negative (Negative) 09/13/20 14:30 Micro: Microbiology 09/13/20 16:02 Blood Culture - Preliminary Blood SPECIMEN COLLECTED 09/13/20 15: Blood Culture - Preliminary Blood SPECIMEN COLLECTED Bilateral plain films of the lower extremities: Radiologist's impression: Impressions Foot X-Ray RT 09/13/20 15:23 IMPRESSION: No acute abnormality. Foot X-Ray LT 09/13/20 15:23 IMPRESSION: No fracture or dislocation. 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 Tibia/Fibula X-Ray RT 09/13/20 15:23 IMPRESSION: No acute abnormality. There is extensive calcification of both the right and left distal superficial femoral arteries. Very likely there is significantly diminished blood flow perhaps even occlusion of these arteries. The blood flow below both knees is likely diminished. Tibia/Fibula X-Ray LT 09/13/20 15:23 IMPRESSION: No acute abnormality. EKG 1: I personally reviewed and interpreted this EKG as follows: My Interpretation: Tachycardic junctional rhythm at 114, RBBB, no acute st segment changes. QTc 486. Other data: Doppler Arterial US BLE 03/2020 CONCLUSIONS 1. Features suggestive of mild arterial disease, based on the PVR waveforms at the right ankle. However the abnormal PVR waveforms at the above knee and the below-knee levels and the lack of detectable waveforms on the toes may suggest severe arterial disease. 2. Features of severe obstructive arterial disease on the left side Compared to the study from 11/06/2017, there is marketed worsening of the disease on both sides Venous duplex BLE 01/2020 CONCLUSIONS No evidence of DVT in the above-mentioned identifiable veins. No significant venous reflux were noted Features of fluid retention/edema bilaterally A&P Assessment and plan (1) Ischemic ulcer of both feet: With significant pain though currently dopplerable pulses bilaterally as noted Status: Acute Qualifiers: Non-pressure ulcer stage: unspecified non-pressure ulcer stage Q ualified Code(s): L97.519 - Non-pressure chronic ulcer of other part of right foot with unspecified severity; L97.529 - Non-pressure chronic ulcer of other part of left foot with unspecified severity (2) Bilateral lower leg cellulitis: With chronic as well as acute components. Chronic is more pertinent proximally with acute findings distally bilaterally midfoot to toes, left more prominent than right presently. Status: Acute (3) Severe peripheral arterial disease: Previously identified, not amendable to peripheral angiography. Had been referred to [facility] [place] but had clinical improvement in wounds from what I can discern and did not opt to pursue surgical intervention. Status: Chronic (4) Hyperglycemia: without known history of diabetes Status: Acute (5) Supratherapeutic INR: Currently at 6, denies change in medications or Coumadin dosing Status: Acute (6) S/P AVR: Mechanical Status: Chronic (7) Hypertension: Currently at lower range of normal on home medications of amlodipine, metoprolol and Lasix Status: Chronic Qualifiers: Hypertension type: essential hypertension Qualified Code(s): I10 - Essential (primary) hypertension (8) COPD (chronic obstructive pulmonary disease): Not currently acute, chronically on oxygen at 3 L by nasal cannula with exertional hypoxemia Status: Chronic Qualifiers: COPD type: emphysema Emphysema type: unspecified Qualified Code(s): J43.9 - Emphysema, unspecified (9) Nicotine dependence, cigarettes, with other nicotine-induced disorders: Has cut down from 2 packs a day to less than 1 pack a day, is on Chantix to help with attempts at smoking cessation Status: Chronic Additional A&P Information Pain related to peripheral artery disease 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, not currently controlled Hyponatremia, hypochloremia and hypokalemia, related to current volume status Minimal elevation in transaminases History of right renal artery stenosis reported in records Benign prostatic hypertrophy on Flomax Pain related to peripheral artery disease on hydrocodone and gabapentin chronically, not currently controlled Hyperlipidemia on simvastatin Inpatient admission Broad-spectrum antibiotics currently with vancomycin and Zosyn Blood cultures were collected in the emergency room Check sed rate, CRP, lactic acid Check CTA of the lower extremities to evaluate blood flow given findings of severe abnormalities on last attempted ultrasound. I do not think he would tolerate an attempt at a vascular ultrasound from a pain standpoint presently. Covid testing in anticipation of possibility of surgical intervention Hold Coumadin, daily INR We will need to initiate heparin drip or Lovenox once INR is below 2.5 Surgical consultation with wound care provider, may ultimately require BKA rather than just debridement depending on results of CTA and clinical course Cardiology consultation to assist with management the setting of a mechanical valve, chronic anticoagulation, known severe PAD and high probability of needing surgical debridement or even potentially more invasive surgical intervention. I have discussed the case with Dr. Natalie Burnett amlodipine Continue home metoprolol IV diuresis presently, monitoring I's and O's closely, 2 L fluid restriction presently Check BNP Check echocardiogram to evaluate current ejection fraction given volume overlo ad, known mechanical aortic valve and potential for surgery Continue home simvastatin Check hemoglobin A1c, monitor blood sugars for need to intervene Electrolytes in the morning, replace as needed Recheck transaminases in the morning Continue home Flomax Continue home gabapentin and hydrocodone, as needed morphine on top of this, starting at low doses secondary to borderline pressures Continue home long-acting inhaler and add as needed albuterol Continue home oxygen at 3 L by nasal cannula, known to have exertional hypoxemia based on his report Have currently held home Chantix and Seroquel As needed nicotine patch With current INR, pharmacological DVT prophylaxis is contraindicated With severity of peripheral artery disease and current wounds to feet, mechanical DVT prophylaxis is contraindicated Case management for consideration of placement post discharge, family had indicated to ER provider that he would need this but I am not clear if patient concurs presently Supportive care otherwise Full code Attestations Medical Necessity Statement*: Anticipated stay greater than 2 midnights in a gentleman with known severe peripheral artery disease presenting with ischemic ulcers to both feet. He has a currently supratherapeutic INR and is on anticoagulation chronically due to a mechanical aortic valve. Anticipate need for surgical debridement in the very least, IV antibiotics and possibility of amputation. Other issues and plans as noted above. 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
[2020-09-13] MEDS: morphine 4 mg/mL SDV 1 mL 2 MG IVP (22:06)
[2020-09-13] MEDS: sodium chloride 0.9% 1,000 ML 100 ML IV (22:08)
[2020-09-13] MEDS: piperacillin-tazobactam 3.375 GM in sodium chloride 0.9% (plus) 50 ML IV (23:03)
--- NOTE | 2020-09-13 23:10 | PC.PHAR ---
Vancomycin is dosed at 1500mg IVPB every12 hours to produce a predicted trough level of 14.91 (population based pharmacokinetic analysis) A trough level has been ordered from the lab to confirm and adjust if needed. The Zosyn is dose at 3.375gm IVPB every 8 hours on the basis of the creatinine clearance of 78.9.
[2020-09-13] MEDS: FUROsemide 10 mg/mL SDV 2mL 20 MG IVP (23:32)
[2020-09-13] MEDS: gabapentin 300 mg Capsule PO (23:32)
[2020-09-13] MEDS: atorvastatin 40 mg Tablet 80 MG PO (23:32)
[2020-09-13] MEDS: potassium chloride ER 20 mEq Tablet PO (23:32)
[2020-09-13] MEDS: metoprolol tartrate 25 mg Tablet PO (23:32)
[2020-09-13 23:57] LABS: C Reactive Protein 21.2 mg/L (0.0-4.9)
[2020-09-14] VITALS (13 sets, daily range): BP systolic 89–134; BP diastolic 54–78; PULSE 76–110; RESP 15–18; TEMP 36.2–37.4; O2SAT 92–100
[2020-09-14 00:19] LABS: Erythrocyte Sedimentation Rate 13 mm/hr (0-10)
[2020-09-14] MEDS: HYDROcodone-acetaminophen 10-325 mg Tablet 1 TAB PO ×2 (03:02→21:37)
--- NOTE | 2020-09-14 05:35 | PC.NURSE ---
0245 Covid swab obtained for pre procedure rule out. Patient placed on contact/droplet precautions. Patient tolerated well.
[2020-09-14 05:49] LABS: Basophils % 0.2 %; Eosinophils # 0.1 10^3/uL (0.0-0.8); Eosinophils % 0.9 %; Hematocrit 39.3 % (42.0-52.0); Hemoglobin 12.7 g/dL (11.7-16.6); Lymphocytes # 0.4 10^3/uL (0.8-4.8); Lymphocytes % 2.9 %; Mean Corpuscular HGB Conc 32.3 g/dL (30.0-36.0); Mean Corpuscular Hemoglobin 32.4 pg (28.0-34.0); Mean Corpuscular Volume 100.3 fL (80-94); Mean Platelet Volume 9.6 fL (7.4-10.4); Monocytes % 7.3 %; Neutrophils # 11.73 10^3/uL (1.8-7.7); Neutrophils % 88.3 %; Nucleated Red Blood Cells % 0 %; Platelet Count 296 10^3/cmm (130-400); Red Blood Count 3.92 10^6/uL (4.1-5.3); Red Cell Distribution Width 14.6 % (12.1-15.1); White Blood Count 13.3 10^3/uL (4.0-10.0)
[2020-09-14 06:03] LABS: Alanine Aminotransferase 34 U/L (0-41); Alkaline Phosphatase 122 IU/L (40-130); Anion Gap 5.5 (5-19); Aspartate Amino Transferase 35 U/L (0-40); Blood Urea Nitrogen 7 mg/dL (8-23); Calcium 8.2 mg/dL (8.5-10.5); Chloride 87 mmol/L (98-107); Globulin 2.7 g/dL (1.3-4.6); Glucose 132 mg/dL (65-115); Osmolality Calculated 276 mOsm/kg (285-295); Potassium 3.5 mmol/L (3.5-5.1); Sodium 133 mmol/L (136-145); Total Bilirubin 0.9 mg/dL (0.15-1.2); Total Protein 5.7 g/dL (6.6-8.7)
[2020-09-14] MEDS: vancomycin 1,500 MG/300 ML PIGGYBACK 150 MG IV (06:04)
[2020-09-14 06:13] LABS: Estmated Average Glucose 140; Hemoglobin A1C 6.5 % (4.0-6.0); Magnesium 1.9 mg/dL (1.7-2.3); NT Pro B Type Natriuretic Pept 701 pg/mL (0-125); Phosphorus 3.8 mg/dL (2.5-4.5)
[2020-09-14] MEDS: gabapentin 300 mg Capsule PO ×3 (06:14→21:37)
[2020-09-14] MEDS: metoprolol tartrate 25 mg Tablet PO ×2 (06:14→21:37)
[2020-09-14] MEDS: potassium chloride ER 10 mEq Tablet PO (06:14)
[2020-09-14] MEDS: tamsulosin 0.4 mg Capsule PO (06:14)
[2020-09-14 06:17] LABS: INR 6.85 (0.8-1.2)
[2020-09-14 06:20] LABS: Carbon Dioxide 44 mmol/L (22-29)
[2020-09-14] MEDS: cetirizine 10 mg Tablet PO (08:08)
[2020-09-14] MEDS: piperacillin-tazobactam 3.375 GM in sodium chloride 0.9% (plus) 50 ML IV ×3 (08:10→23:09)
[2020-09-14] MEDS: acetaminophen 325 mg Tablet 650 MG PO ×2 (08:14→18:13)
--- NOTE | 2020-09-14 09:00 | CT_ITS ---
WS: [id number] CTA ABDOMINAL AORTA WITH RUNOFF TECHNIQUE: Contrast enhanced CTA of the abdominal aorta with bilateral lower extremity runoff. Multip lanar reformatted images were obtained. MIP reformats were also reviewed. CLINICAL INFORMATION: bilateral foot wounds/gangrene, known severe PAD COMPARISON: None. DLP: 917.[address] scans at [facility] use at least one of these dose optimization techniques: automat ed exposure control; mA and/or kV adjustment per patient size (includes targeted exams where dose is matched to clinical indication); or iterative reconstruction. FINDINGS: Dense vascular calcification involving the common iliac arteries bilaterally. Distal aorta is not included on this examination. Large right hydrocele. Sigmoid constipation. Small amount of micaela e fluid in the pelvis. Subcutaneous edema in both lower extremities extending to the ankles. RIGHT: Right common iliac artery is patent with dense vascular calcification. Moderate to severe sten osis involving the proximal right external iliac artery which remains patent. Internal iliac artery i s densely calcified but patent. Right common femoral artery is densely calcified with multisegmental severe stenosis. Severe stenosis involving the superficial femoral artery origin. Superficial femora l artery is occluded just distal to the origin. Deep femoral artery is patent. Superficial femoral ar adia is occluded in the thigh with reconstitution at the adductor hiatus. Multisegmental severe steno sis involving the popliteal artery with only intermittent flow visualized. Densely calcified poor run off to the right lower extremity. Dominant peroneal artery. LEFT: Dense calcified common iliac artery which is patent. Severe stenosis at the external iliac irvin ry origin. Densely calcified iliac artery is patent. External iliac artery remains patent to the comm on femoral artery origin. Severe stenosis with occlusion of the common femoral artery in the groin. S uperficial femoral artery is occluded. Deep femoral artery is patent. Superficial femoral artery melony ins occluded to the popliteal hiatus. Tiny amount of intermittent flow in the popliteal artery which is densely calcified with intermittent occlusion. Densely calcified trifurcation with poor two-vessel runoff to the ankle. Dominant peroneal and Posterior tibial arteries. CT/[id number] IMPRESSION: 1. Poor bilateral lower extremity runoff with poor inflow. 2. Single vessel runoff to the right lower extremity and two-vessel runoff to the left lower extremity. 3. Bilateral superficial femoral arteries are occluded with high-grade heavily calcified stenosis involving the popliteal arteries bilaterally with intermitt ent flow. 4. Both common iliac arteries are patent and heavily calcified. 5. Left common femoral artery is occluded. Severe stenosis right common femora l artery.
--- NOTE | 2020-09-14 11:24 | P.CONIM_ITS ---
Providers/Reason For Consult Consulting Physican/Specialty*: Dr. Estrada, Cardiology Reason for Consult*: Mechanical AVR on Coumadin and need for surgery or debridement Attending Physician: Cricket Madrigal MD Primary Care Provider: Carmen Bernardo NP History of Present Illness History of Present Illness Damon King is a 70 year old male with complex and long history of peripheral vascular disease. He is known to have carotid artery stenosis s/p bilateral endarterectomy. Patient was diagnosed with bilateral SFA occlusions, iliac disease and underwent prior peripheral angiography in 04/2018. Subsequent attempted intervention to the right SFA, right external iliac system by Dr. Santi art was performed on May 21 2018, but unsuccessful due to inability to obtain adequate access. At one point he was scheduled for left common femoral artery endarterectomy followed by left femoral-popliteal bypass surgery but subsequently changed his mind did not follow-up. He continues to smoke. Patient also has H/O mechanical aortic valve [place] [address] Bolton, mechanical prosthesis on chronic coumadin, HTN, HLD and COPD on oxygen 3 L at baseline. He was seen by Dr. Morgan in 04/2020. He has history of noncompliance. He was sent to the ER from wound care for black appearing toes in both feet. He has a history of poorly healing bilateral lower extremity wound for which he was being followed by wound care in the past. He presented to the wound care yesterday with bilateral lower feet discoloration and pain. From wound care, he was sent to ER for further evaluation. On arrival to the ER he underwent x-rays which did not show any acute abnormalities. He was started on vancomycin, Zosyn and INR was noted to be 6. I have been asked to assist in evaluating further management given supratherapeutic INR, mechanical aortic valve and possible need of debridement/surgery. At the time of evaluation patient complains of significant pain in bilateral legs and feet and is tender to touch. He denies having any chest or abdominal pain or URI or UTI-like symptoms. He underwent CTA aorta with runoff earlier today. Review of Systems Const: Reports: malaise; Denies: fever(s) or chills Eyes: Denies: change in vision ENMT: Reports: nasal congestion; Denies: throat pain Card: Reports: edema, dyspnea on exertion and leg pain with exertion; Denies: chest pain or palpitations Resp: Reports: dyspnea, productive cough and non-productive cough; Denies: pain on inspiration or hemoptysis GI: Denies: abdominal pain, nausea, diarrhea or constipation : Denies: difficulty urinating Musc: Reports: extremity pain (Both legs particularly at both feet) Skin/Breast: Reports: erythema (Limited to the forefoot), skin tenderness, sores (Toes of both feet, left greater than right), new lesions (Toes of both feet), changes in skin color (At toes of both feet) and other (Chronic skin changes to both legs distally) Neuro: Denies: numbness in extremities or weakness in extremities Psych: Reports: anxiety; Denies: depression Ramon/Lymph: Denies: easy bruising or easy bleeding Meds/Allergies Home Medications and Allergies Home Medications Medication Instructions Recorded Confirmed Last Taken Type atorvastatin 80 mg tablet 80 mg PO DAILY@209904/08/20 09/13/20 09/12/20 History budesonide-formoterol HFA 80 2 puff INHALATION BID@07,209904/08/20 09/13/20 09/13/20 History mcg-4.5 mcg/actuation aerosol inhaler gabapentin 300 mg capsule 300 mg PO TID@04/08/20 09/13/20 09/13/20 History hydrocodone 10 mg-acetaminophen 1 tab PO Q6H PRN 04/08/20 09/13/20 Unknown History 325 mg tablet metoprolol tartrate 25 mg tablet 25 mg PO BID@0700,209904/08/20 09/13/20 09/13/20 History potassium chloride 10 mEq 10 meq PO DAILY@0700 04/08/20 09/13/20 09/13/20 History tablet,extended release quetiapine 50 mg tablet 50 mg PO BID@0700,209904/08/20 09/13/20 09/13/20 History tamsulosin 0.4 mg capsule 0.4 mg PO DAILY@0700 04/08/20 09/13/20 09/13/20 History warfarin 2 mg tablet See Rx Instructions .ROUTE .COMPLEX 04/08/20 09/13/20 09/12/20 History Allergy Relief (cetirizine) 1 mg PO BID@0700,209909/13/20 09/13/20 09/13/20 History amlodipine 5 mg PO DAILY@0700 09/13/20 09/13/20 09/13/20 History furosemide 40 mg PO DAILY@0700 09/13/20 09/13/20 09/12/20 History varenicline [Chantix Starting 1 ea PO BID@0700,2100 09/13/20 09/13/20 09/13/20 History Month Box] warfarin See Rx Instructions .ROUTE .COMPLEX 09/13/20 09/13/20 09/13/20 History Allergies Allergy/AdvReac Type Severity Reaction Status Date / Time divalproex sodium AdvReac Mild nausea Verified 04/08/20 15:03 [From Depakote] Current Medications Current Medications Generic Name Dose Route Start Last Admin Trade Name Freq PRN Reason Stop Dose Admin Acetaminophen 650 mg 09/13/20 22:39 09/14/20 08:14 Acetaminophen 325 Mg Tablet PO 650 mg Q6H PRN Administration Mild/Mod Pain Or Temp >/= 101 Atorvastatin Calcium 80 mg 09/13/20 22:45 09/13/20 23:32 Atorvastatin 40 Mg Tablet PO 80 mg BEDTIME NICHOL Administration Cetirizine HCl 10 mg 09/14/20 09:00 09/14/20 08:08 Cetirizine 10 Mg Tablet PO 10 mg DAILY NICHOL Administration Furosemide 20 mg 09/13/20 23:00 09/13/20 23:32 Furosemide 10 Mg/Ml Sdv 2ml IVP 20 mg Q12H NICOHL Administration Gabapentin 300 mg 09/13/20 22:50 09/14/20 06:14 Gabapentin 300 Mg Capsule PO 300 mg TID@ NICHOL Administration Piperacillin Sod/Tazobactam 50 mls @ 12.5 mls/hr 09/13/20 23:00 09/14/20 08:10 Sod 3.375 gm/ Sodium Chloride IV 12.5 mls/hr Q8H NICHOL Administration Protocol As Directed Vancomycin/PEG/NADA/Lysine/Water 1,500 mg in 300 mls @ 150 mls/hr 09/14/20 06:30 09/14/20 10:47 Vancocin IV Infused Q12H NICHOL Infusion Metoprolol Tartrate 25 mg 09/13/20 22:50 09/14/20 06:14 Metoprolol Tartrate 25 Mg Tablet PO 25 mg BID@0700,2100 NICHOL Administration Morphine Sulfate 2 mg 09/13/20 21:22 09/13/20 22:06 Morphine 4 Mg/Ml Sdv 1 Ml IVP 2 mg Q4H PRN Administration SEVERE PAIN Potassium Chloride 10 meq 09/14/20 07:00 09/14/20 06:14 Potassium Chloride Er 10 Meq Tablet PO 10 meq DAILY@0700 NICHOL Administration Tamsulosin HCl 0.4 mg 09/14/20 07:00 09/14/20 06:14 Tamsulosin 0.4 Mg Capsule PO 0.4 mg DAILY@0700 NICHOL Administration PFSH Acute PFSH: Medical History Bilateral carotid artery stenosis BPH (benign prostatic hyperplasia) Chronic anticoagulation coumadin, for mechanical AVR COPD (chronic obstructive pulmonary disease) CVA (cerebral vascular accident) Depression GERD (gastroesophageal reflux disease) History of PFTs (~08/2018) 08/20: severe obstructive ventilatory defect, no significant bronchodilator response, severely reduced diffusion capacity Hyperlipidemia Hypertension Nicotine dependence, cigarettes, with other nicotine-induced disorders On home oxygen therapy 3L BNC continuous Osteoarthritis Pulmonary hypertension Right renal artery stenosis >60% Severe peripheral arterial disease Surgical History History of angioplasty of peripheral vessel (~2017) in 2018, unsuccessful by Dr Putnam and later also Dr Calixto per old records, referred to [facility] [place] History of aortic valve replacement (~2008) Dr Bolton, mechanical History of CEA (carotid endarterectomy) right ~2008, left ~2010 History of ear surgery History of testicular surgery right orchiectomy for undescended testicle as a child Family History Other CAD (coronary artery disease) Diabetes Social History Smoking and tobacco status: current every day smoker cigarettes Number of cigarettes per day: 11-20 Alcohol intake: current Alcohol intake frequency: 0-2 Drinks per Day Alcohol use comment: 1 oz whiskey daily with coke Substance/Drug Use: never Household members: family and other Details: son + Vitals/I&O/Wt Last Vital Signs Temp 97.2 F L 09/14/20 10:31 Pulse 76 09/14/20 10:31 Resp 16 09/14/20 10:31 BP 99/65 09/14/20 10:31 Pulse Ox 99 09/14/20 10:31 09/13/20 09/14/20 09/14/20 22:59 06:59 14:59 Intake Total 370 / 370 976.667 / 1346.667 300 / 300 Output Total 1500 / 1500 200 / 200 Balance 370 / 370 -523.333 / -153.333 100 / 100 Weight last 48 hrs Weight 137 lb Physical Exam Narrative: EXAM NARRATIVE: GENERAL: Averagely built and averagely nourished HEENT: Extraocular movement intact. Pupils equal round reactive to light. No pallor or icterus. NECK: no jugular venous distention. No carotid bruit. CARDIOVASCULAR SYSTEM: S1-S2 regular. Mechanical heart sounds present. no murmur rubs or gallops. RESPIRATORY SYSTEM: Midline sternotomy scar noted, chest clear to auscultation anteriorly. No wheezes rhonchi or rubs heard. No use of accessory muscles. ABDOMEN: Soft, nontender and nondistended. Normal bowel sounds present. EXTREMITIES: No cyanosis or clubbing. Right big toe second and third toe with blackish discoloration (dry gangrene); erythema noted on feet extending all the way to knees. Bilateral feet and legs tender to touch and movement. No palpable pulses; monophasic Doppler signals in right dorsalis pedis noted. 1+ femoral bilaterally PRE BILLING SPECIALIST: Patient is alert oriented ?3. No focal neurological deficits. SKIN: Chronic skin induration and changes bilaterally below knee consistent with chronic vascular disease. Data Micro: Micro: Microbiology 09/13/20 16:02 Blood Culture - Pr eliminary Blood SPECIMEN [facility] 09/13/20 15:19 Blood Culture - Pr eliminary Blood SPECIMEN [facility] Imaging^: Echo: I personally reviewed and interpreted this imaging study as follows: My impression: (11/06/2017) CONCLUSIONS Normal left ventricular cavity size. Mild left ventricular hypertrophy. Normal left ventricular systolic function. No regional wall motion abnormalities. Rhythm precludes evaluation of diastolic function. Left ventricular ejection fraction is estimated at 65 %. Normal right ventricular size and systolic function. Severe pulmonary hypertension, RVSP 63.8 mmHg. Structurally normal mitral valve. Moderate mitral valve regurgitation. Aortic valve is a prosthetic valve. It appears to be a mechanical prosthesis. It is well seated. There is no significant aortic stenosis. There is the expected amount of prosthetic valve stenosis. No significant aortic insufficiency. Study compared to prior echocardiogram of 09/05/11; pulmonary artery pressure is now 64 mmHg. Previously measured at 32 mmHg. Otherwise, no significant change Other Data: Other data: Peripheral angiogram April 2020 Conclusions #1. Severe diffuse disease with heavy calcification the right iliac artery. #2. Total occlusion of the right superficial femoral artery with reconstitution at the distal segment and 1 vessel runoff below the knee. #3. Total occlusion of the left common femoral and superficial femoral artery with reconstitution in the distal segment. 2 vessel runoff below the knee. CTA aorta with runoff IMPRESSION: 1. Poor bilateral lower extremity runoff with poor inflow. 2. Single vessel runoff to the right lower extremity and two-vessel runoff to the left lower extremity. 3. Bilateral superficial femoral arteries are occluded with high-grade heavily calcified stenosis involving the popliteal arteries bilaterally with intermittent flow. 4. Both common iliac arteries are patent and heavily calcified. 5. Left common femoral artery is occluded. Severe stenosis right common femoral artery. Transthoracic echocardiogram May 2018 Normal left ventricular cavity size. Mild left ventricular hypertrophy. Normal left ventricular systolic function. No regional wall motion abnormalities. Rhythm precludes evaluation of diastolic function. Left ventricular ejection fraction is estimated at 65 %. Normal right ventricular size and systolic function. Severe pulmonary hypertension, RVSP 63.8 mmHg. Structurally normal mitral valve. Moderate mitral valve regurgitation. Aortic valve is a prosthetic valve. It appears to be a mechanical prosthesis. It is well seated. There is no significant aortic stenosis. There is the expected amount of prosthetic valve stenosis. No significant aortic insufficiency. Study compared to prior echocardiogram of 09/05/11; pulmonary artery pressure is now 64 mmHg. Previously measured at 32 mmHg. Otherwise, no significant change A&P Assessment and plan (1) Dry gangrene: Status: Acute (2) Severe peripheral arterial disease: I spoke with Dr. Segovia as well as Dr. Montgomery about the patient. Unfortunately at this point patient does not have many good options. -He presently has bilateral cellulitis as well as dry gangrene affecting his left foot. -Continue with IV antibiotics and hold off on warfarin. -He may eventually need revascularization either in form of femoral popliteal bypass/peripheral intervention if feasible along with amputation (extent of amputation probably would be decided based on attempts/extent of success in revascularizing his legs). -Resume heparin gtt once INR <2.5. No signs of active bleeding. -Hemodynamically patient remains stable. -Analgesia as per primary team Status: Chronic (3) H/O mechanical aortic valve replacement: Status: Acute (4) Supratherapeutic INR: Status: Acute Additional A&P Information Bilateral cellulitis Chronic active smoker Severe COPD on home oxygen History of noncompliance For allowing me to participate in patient's care. Please feel free to call with questions or concerns. Consult Attestations Medical Necessity Statement: Needs hospital stay for CLI, severe peripheral vascular disease dry gangrene and cellulitis Time Spent in Patient Care: Greater than 35 minutes (>than 50% of time spent in counselling and/or direct pt care on unit) . 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
[2020-09-14] MEDS: FUROsemide 10 mg/mL SDV 2mL 20 MG IVP (13:06)
[2020-09-14] MEDS: morphine 4 mg/mL SDV 1 mL 2 MG IVP (13:06)
--- NOTE | 2020-09-14 13:14 | P.PN_ITS ---
Subjective Subjective: Interval history: This morning I discussed pain level Mr. King is endorsing 12/09 He was moaning in pain when I entered the room Discussed case with Dr. Estrada and Dr. Segovia Patient stopped going to wound care clinic for his nonhealing arterial ulcers, had intervention in 2017 for bilateral SFA occlusion status post intervention to the right SFA, right iliac by Dr. Garcia May 21, could not get adequate access. INR worsening for mechanical prosthesis history of aortic valve replacement [address] Bolton. Vitals/I&O/Wt Last Vital Signs Temp 97.2 F L 09/14/20 10:31 Pulse 76 09/14/20 10:31 Resp 16 09/14/20 13:06 BP 99/65 09/14/20 10:31 Pulse Ox 99 09/14/20 13:06 09/13/20 09/14/20 09/14/20 22:59 06:59 14:59 Intake Total 370 / 370 976.667 / 1346.667 590 / 590 Output Total 1500 / 1500 700 / 700 Balance 370 / 370 -523.333 / -153.333 -110 / -110 Weight last 48 hrs Weight 62.142 kg Physical Exam Narrative: EXAM NARRATIVE: Patient was seen and examined at the bedside He was moaning in pain when entered the room S1, S2 systolic murmur appreciated, no active cardiac CHF Patient was in semi-Padilla position doing well on 3 to nasal cannula Abdomen soft nontender Lower extremity very sensitive to touch Arterial ulcer dry gangrene of left toes with purulent cellulitis, cellulitis extending up to his [place] laterally however no purulence around tibial area Extremely weak pulses dorsalis pedis EOMI, PERRLA no active neurological deficits Data : 09/14/20 05:23 09/14/20 05:23 Micro: Microbiology 09/13/20 16:02 Blood Culture - Preliminary Blood SPECIMEN COLLECTED 09/13/20 15:19 Blood Culture - Preliminary Blood SPECIMEN COLLECTED Other data: CONCLUSIONS Normal left ventricular cavity size. Mild left ventricular hypertrophy. Normal left ventricular systolic function. No regional wall motion abnormalities. Rhythm precludes evaluation of diastolic function. Left ventricular ejection fraction is estimated at 65 %. Normal right ventricular size and systolic function. Severe pulmonary hypertension, RVSP 63.8 mmHg. Structurally normal mitral valve. Moderate mitral valve regurgitation. Aortic valve is a prosthetic valve. It appears to be a mechanical prosthesis. It is well seated. There is no significant aortic stenosis. There is the expected amount of prosthetic valve stenosis. No significant aortic insufficiency. Study compared to prior echocardiogram of 09/05/11; pulmonary artery pressure is now 64 mmHg. Previously measured at 32 mmHg. Otherwise, no significant change A&P Assessment and plan (1) Dry gangrene: Status: Acute (2) Bilateral lower leg cellulitis: Status: Acute (3) H/O mechanical aortic valve replacement: Status: Acute (4) Supratherapeutic INR: Status: Acute (5) Ischemic ulcer of both feet: Status: Acute (6) Chronic anticoagulation: Status: Chronic (7) Nicotine dependence, cigarettes, with other nicotine-induced disorders: Status: Chronic (8) On home oxygen therapy: Status: Chronic Additional A&P Information Severe peripheral vascular disease with dry gangrene of left toe Purulent cellulitis also noticed Nonhealing chronic ulcers, unsuccessful intervention right SFA by Dr. Wilson in 2018 Extremely tender to touch Patient experiencing pain at rest Currently not on heparin secondary to supratherapeutic INR Hemoglobin stable, creatinine is normal I have discussed his case with Dr. Segovia and Dr. Estrada. We will follow up with cardiology recommendations I will escalate his analgesia to Dilaudid from [place] and continue SNRI CTA of lower extremity revealed 1. Poor bilateral lower extremity runoff with poor inflow. 2. Single vessel runoff to the right lower extremity and two-vessel runoff to the left lower extremity. 3. Bilateral superficial femoral arteries are occluded with high-grade heavily calcified stenosis involving the popliteal arteries bilaterally with intermittent flow. 4. Both common iliac arteries are patent and heavily calcified. 5. Left common femoral artery is occluded. Severe stenosis right common femoral artery. History of mechanical aortic valve [address] Bolton Supratherapeutic INR currently Coumadin on hold not on anticoagulating agent Low systolic blood pressure, hemoglobin stable Supratherapeutic INR No active bleeding His coagulopathy has not been reversed, hold Coumadin for next 48 hours once his creatinine is less than 3 we will start heparin Contraction alkalosis with hypokalemia Most likely because of Lasix 40 mg that he was taking at home , no active vomiting Clinically looks euvolemic Chronic hypoxic respiratory failure without acute exacerbation continue 2 L oxygen supplementation Full code Cardiac diet DVT prophylaxis not indicated due to supratherapeutic INR Guarded prognosis Attestations Medical Necessity Statement*: Continue inpatient hospitalization for management of dry gangrene severe vasculopathy Time Spent in Patient Care: 40mins including coordination of care with Dr. Juliette Estrada Coding Level of Care Code Acute Cell Operation Supervisor for g Fwd Diagnoses Dry gangrene I96 Bilateral lower leg cellulitis L03.116; L03.115 H/O mechanical aortic valve replacement Z95.2 Supratherapeutic INR R79.1 Ischemic ulcer of both feet L97.519; L97.529 Chronic anticoagulation Z79.01 Nicotine dependence, cigarettes, with other nicotine-induced disorders F17.218 On home oxygen therapy Z99.81
[2020-09-14] MEDS: HYDROmorphone 1 mg/mL INJ 1 mL 0.4 MG IVP (15:28)
[2020-09-14] MEDS: lidocaine 2% viscous 15 mL UDC TOPICAL (15:29)
[2020-09-14 16:18] LABS: Coronavirus Test Green County Not Detected
--- NOTE | 2020-09-14 16:52 | PM.CONSULT ---
Providers/Reason For Consult Consulting Physican/Specialty*: Dr. Segovia/cardiothoracic surgery Reason for Consult*: Severe peripheral vascular disease with dry gangrene left foot Attending Physician: Cricket Madrigal MD Primary Care Provider: Carmen Bernardo NP History of Present Illness History of Present Illness Damon King is a 70 year old male who was admitted to [facility] yesterday afternoon after originally presenting to the wound care clinic with bilateral lower extremity severe ischemic changes including dry gangrene of the left lower extremity as well as cellulitis of the lower extremities bilaterally. He has a long history of peripheral vascular disease and prior interventions including an attempted intervention in a retrograde fashion to the occluded left SFA last year by Dr. Putnam. Mr. King has a long history tobacco use and currently states he smokes greater than 1 pack/day. There is a history of prior peripheral intervention in 2018 to the lower extremities though it is unclear exactly which vessels received therapy and the mechanism of that therapy. Previous AVR by Dr. Bolton in 2010 with mechanical prosthesis. He currently is on Coumadin and noted to be supratherapeutic with an INR of 6 upon admission. Currently he has been Placed on vancomycin. Vital signs are stable. Temperature 99.3. White count is 13,000. I spoke with Dr. Madrigal on the phone earlier today and I been asked to assess surgical options in relation to his current condition. His feet bilaterally are quite tender to any manipulation but he appears to be reasonably comfortable at rest. Review of Systems Const: Reports: fatigue Card: Reports: dyspnea on exertion, leg pain with exertion and acrocyanosis; Denies: palpitations or syncope Resp: Reports: dyspnea; Denies: pain on inspiration, hemoptysis or chest congestion GI: Denies: abdominal pain, nausea or vomiting Musc: Reports: extremity pain, limited range of motion and muscle cramps Neuro: Reports: numbness in extremities, weakness in extremities and difficulty walking; Denies: headache(s) Meds/Allergies Home Medications and Allergies Home Medications Medication Instructions Recorded Confirmed Last Taken Type atorvastatin 80 mg tablet 80 mg PO DAILY@209904/08/20 09/13/20 09/12/20 History budesonide-formoterol HFA 80 2 puff INHALATION BID@0700,209904/08/20 09/13/20 09/13/20 History mcg-4.5 mcg/actuation aerosol inhaler gabapentin 300 mg capsule 300 mg PO TID@,04/08/20 09/13/20 09/13/20 History hydrocodone 10 mg-acetaminophen 1 tab PO Q6H PRN 04/08/20 09/13/20 Unknown History 325 mg tablet metoprolol tartrate 25 mg tablet 25 mg PO BID@0700,2100 04/08/20 09/13/20 09/13/20 History potassium chloride 10 mEq 10 meq PO DAILY@0700 04/08/20 09/13/20 09/13/20 History tablet,extended release quetiapine 50 mg tablet 50 mg PO BID@0700,2100 04/08/20 09/13/20 09/13/20 History tamsulosin 0.4 mg capsule 0.4 mg PO DAILY@0700 04/08/20 09/13/20 09/13/20 History warfarin 2 mg tablet See Rx Instructions .ROUTE .COMPLEX 04/08/20 09/13/20 09/12/20 History Allergy Relief (cetirizine) 1 mg PO BID@0700,209909/13/20 09/13/20 09/13/20 History amlodipine 5 mg PO DAILY@0700 09/13/20 09/13/20 09/13/20 History furosemide 40 mg PO DAILY@0700 09/13/20 09/13/20 09/12/20 History varenicline [Chantix Starting 1 ea PO BID@0700,209909/13/20 09/13/20 09/13/20 History Month Box] warfarin See Rx Instructions .ROUTE .COMPLEX 09/13/20 09/13/20 09/13/20 History Allergies Allergy/AdvReac Type Severity Reaction Status Date / Time divalproex sodium AdvReac Mild nausea Verified 04/08/20 15:03 [From Depakote] Current Medications Current Medications Generic Name Dose Route Start Last Admin Trade Name Freq PRN Reason Stop Dose Admin Acetaminophen 650 mg 09/13/20 22:39 09/14/20 08:14 Acetaminophen 325 Mg Tablet PO 650 mg Q6H PRN Administration Mild/Mod Pain Or Temp >/= 101 Atorvastatin Calcium 80 mg 09/13/20 22:45 09/13/20 23:32 Atorvastatin 40 Mg Tablet PO 80 mg BEDTIME NICHOL Administration Gabapentin 300 mg 09/13/20 22:50 09/14/20 15:29 Gabapentin 300 Mg Capsule PO 300 mg TID@ NICHOL Administration Hydromorphone HCl 0.4 mg 09/14/20 10:31 09/14/20 15:28 Hydromorphone 1 Mg/Ml Inj 1 Ml IVP 0.4 mg Q4H PRN Administration PAIN Piperacillin Sod/Tazobactam 50 mls @ 12.5 mls/hr 09/13/20 23:00 09/14/20 15:29 Sod 3.375 gm/ Sodium Chloride IV 50 mls/hr Q8H NICHOL Administration Protocol As Directed Vancomycin/PEG/NADA/Lysine/Water 1,500 mg in 300 mls @ 150 mls/hr 09/14/20 06:30 09/14/20 10:47 Vancocin IV Infused Q12H NICHOL Infusion Metoprolol Tartrate 25 mg 09/13/20 22:50 09/14/20 06:14 Metoprolol Tartrate 25 Mg Tablet PO 25 mg BID@0700,2100 NICHOL Administration Potassium Chloride 10 meq 09/14/20 07:00 09/14/20 06:14 Potassium Chloride Er 10 Meq Tablet PO 10 meq DAILY@0700 NICHOL Administration Tamsulosin HCl 0.4 mg 09/14/20 07:00 09/14/20 06:14 Tamsulosin 0.4 Mg Capsule PO 0.4 mg DAILY@0700 NICHOL Administration PFSH Acute PFSH: Medical History Bilateral carotid artery stenosis BPH (benign prostatic hyperplasia) Chronic anticoagulation coumadin, for mechanical AVR COPD (chronic obstructive pulmonary disease) CVA (cerebral vascular accident) Depression GERD (gastroesophageal reflux disease) History of PFTs (~08/2018) 08/20: severe obstructive ventilatory defect, no significant bronchodilator response, severely reduced diffusion capacity Hyperlipidemia Hypertension Nicotine dependence, cigarettes, with other nicotine-induced disorders On home oxygen therapy 3L BNC continuous Osteoarthritis Pulmonary hypertension Right renal artery stenosis >60% Severe peripheral arterial disease Surgical History History of angioplasty of peripheral vessel (~2017) in 2018, unsuccessful by Dr Putnam and later also Dr Calixto per old records, referred to [facility] History of aortic valve replacement (~2008) Dr Bolton, mechanical History of CEA (carotid endarterectomy) right ~2008, left ~2010 History of ear surgery History of testicular surgery right orchiectomy for undescended testicle as a child Family History Other CAD (coronary artery disease) Diabetes Social History Smoking and tobacco status: current every day smoker cigarettes Number of cigarettes per day: 11-20 Alcohol intake: current Alcohol intake frequency: 0-2 Drinks per Day Alcohol use comment: 1 oz whiskey daily with coke Substance/Drug Use: never Household members: family and other Details: son + Vitals/I&O/Wt Last Vital Signs Temp 99.3 F 09/14/20 14:42 Pulse 100 09/14/20 14:42 Resp 15 09/14/20 15:28 BP 111/69 09/14/20 14:42 Pulse Ox 92 09/14/20 15:28 09/14/20 09/14/20 09/14/20 06:59 14:59 22:59 Intake Total 976.667 / 1346.667 590 / 590 Output Total 1500 / 1500 1350 / 1350 Balance -523.333 / -153.333 -760 / -760 Weight last 48 hrs Weight 137 lb Physical Exam Const: COMMON NORMALS: patient oriented x3 Neck/C-Spine: COMMON NORMALS: supple; negative for full ROM GENERAL: Yes normal visual inspection, Yes trachea midline, No anterior neck swelling and No tracheal deviation CAROTIDS: No bruit Chest: COMMONS NORMALS: normal inspection of the chest CHEST: Yes Symmetrical chest wall rise OTHER: Healed sternotomy incision. Sternum stable to palpation. Easily palpable sternal wires. Resp: EFFORT & INSPECTION: Yes able to speak in complete sentences, Yes symmetric chest movement and Yes prolonged expiratory phase AUSCULTATION: abnormal I/E ratio Cardio: COMMON NORMALS: regular rate and regular rhythm; negative for No gallops present (Cardio) and negative for No murmurs present (Cardio) RATE: regular rate RHYTHM: regular rhythm HEART SOUNDS: Murmur heart sound present systolic Location: left sternal border Intensity: II/ Timing: mid BRUITS: no carotid bruits PERIPHERAL PULSES: femoral pulses present positive right 1+ and positive left 2+, popliteal pulses not present, posterior tibial pulses not present and dorsalis pedis pulses not present OTHER: Easily audible prosthetic valve click GI: COMMON NORMALS: Normal to inspection, nondistended, normoactive bowel sounds present, Soft to palpation, non-tender and no bruits PALPATION: Yes Soft to palpation Extremity: COMMON NORMALS: negative for full ROM, negative for capillary refill normal and negative for no clubbing, cyanosis or edema GENERAL: Yes cyanosis, Yes edema and Yes mottling OTHER: Chronic skin changes below the knees bilaterally consistent with chronic vascular disease. Dry gangrenous changes to the right great toe second toe and portion of the third toe. There is erythema on the dorsum up to near the ankle of the left foot as well as erythema of the right lower extremity from the ankle to just below the knee. Both legs are moderately tender to any type of manipulation particular the feet. He has no palpable pulses from the knee distally on either side which is not surprising. Interestingly he does have palpable groin pulses left actually greater than right, though clearly this may not actually represent the degree of flow through these severely calcified vessel which are easily seen on plain tibial/fibular films. I have personally reviewed the CTA performed earlier today. Severe calcific disease from the iliac system distally bilaterally. Bilateral SFA occlusions as well as what appears to be a left common femoral artery occlusion. Poor runoff distally what appears to be one vessel on the right and two-vessel on the left. Neuro: COMMON NORMALS: patient oriented x3 GAIT: Yes Unable to assess gait OTHER: For static and hypoesthesia of the lower extremities from mid calf region distally consistent with his chronic vascular disease. Data Micro: Micro: Microbiology 09/13/20 16:02 Blood Culture - Pr eliminary Blood NEGATIVE TO CUCO E 09/13/20 15:19 Blood Culture - Pr eliminary Blood NEGATIVE TO CUCO E A&P Assessment and plan (1) Dry gangrene: This is a very difficult situation for Mr. King. He clearly has a dry gangrene of the distal aspect of the left forefoot, particular involving his right great toe second toe and portion of the third toe. There is cellulitis of the dorsum of the left foot as well as cellulitis more intensely of the right lower extremity from the ankle proximally to just below the knee. He has severe calcific disease and prior interventions in 2018 in an attempt intervention valiantly by Dr. Putnam last year through a retrograde fashion of the left popliteal artery which was unsuccessful. Tertiary referral did not provide any further success. While he does have palpable pulses in the femoral region left, actually greater than right, this does not portend necessarily adequate flow. As well due to his severe calcific disease these may be very difficult vessel to intervene on either percutaneously or through an open technique. He also remains supratherapeutic with an INR of 6. To the chronic skin changes of the lower extremities bilaterally, it is unclear at this time relation to both skin integrity and also his vascular status at what level amputation might have a high degree of success if it were not above the knee. As he is now on his first full hospital day and initiation of antibiotics, I think it would be prudent to consider continued IV antibiotic therapy and assessment of his cellulitis response. As well, his INR will need to become more appropriate for any type of interventional therapy, whether close or open could be considered. It is my initial impression that I doubt we will have much success with any approach though in an attempt to save as much of the lower extremity, I feel some improvement in his vascular status will probably be required. My initial impression would be to continue IV antibiotic therapy allow his coagulation parameters become more normalized and also await the learned opinion of our interventional colleagues as to whether they feel there is an approach that they may build to provide for him due to his overall debilitated condition he is a poor candidate for open procedure though this may be the only option we have. If this were the case, it would most probably be some type of bypass initiating in the iliac arteries. Given his asthenic and rather cachectic body frame this would probably be above the inguinal ligament, though target vessels distally are clearly questionable given the severe calcific nature as well as poor runoff to the feet bilaterally. Despite the limitation of the dry gangrene to the distal left forefoot, it is certainly unclear at this time as to whether we can save his leg below the knee. Also of concern is the cellulitis noted in the right leg from just below knee to ankle. I could actually foresee this unfortunate situation resulting in potential for bilateral AKA's. We will await his response to antibiotic treatment and medical management, stabilization of his coagulation parameters, and the input from our interventional colleagues. Status: Acute Consult Attestations Medical Necessity Statement: Severe PVD with tissue loss Time Spent in Patient Care: Greater than 35 minutes Coding Level of Care Code Acute [employer] [facility] Fwd Diagnoses Dry gangrene I96
[2020-09-14] MEDS: sennosides-docusate Tablet 1 TAB PO (18:13)
[2020-09-14] MEDS: vancomycin 1,500 MG/300 ML PIGGYBACK 300 MG IV (19:19)
[2020-09-14] MEDS: atorvastatin 40 mg Tablet 80 MG PO (21:37)
--- NOTE | 2020-09-14 22:54 | USCV_ITS ---
Damon King Age: 70 Gender: M : 1950 Exam Date: 09/14/2020 06:06 Ordering Phys: Jocelyn Cates MD Technologist: Ely Henry Exam Location: [facility] [place] Indication: PREP OP BP: 106 / 62 HR: 88 Rhythm: Other Technical Quality: Adequate MEASUREMENTS (Male / Female) Normal Values 2D ECHO LV Diastolic Diameter PLAX 3.3 cm 4.2 - 5.9 / 3.9 - 5.3 cm LV Systolic Diameter PLAX 2.4 cm IVS Diastolic Thickness 1.0 cm 0.6 - 1.0 / 0.6 - 0.9 cm IVS Systolic Thickness 1.1 cm LVPW Diastolic Thickness 1.6 cm 0.6 - 1.0 / 0.6 - 0.9 cm LVPW Systolic Thickness 1.3 cm LVOT Diameter 2.0 cm LV Ejection Fraction 2D Teich 55.1 % LV Ejection Fraction MOD 2C 39.9 % LV Ejection Fraction 2C AL 37.9 % LA Diameter 3.2 cm LA Width 3.3 cm LA Height 3.6 cm RA Width 3.6 cm RA Height 3.7 cm Aorta at Sinotubular Diameter 3.5 cm M-MODE LV Diastolic Diameter MM 4.4 cm 4.2 - 5.9 / 3.9 - 5.3 cm LV Systolic Diameter MM 2.1 cm LV Ejection Fraction MM Teich 83.5 % IVS Diastolic Thickness MM 0.8 cm 0.6 - 1.0 / 0.6 - 0.9 cm IVS Systolic Thickness MM 1.2 cm LVPW Diastolic Thickness MM 1.1 cm 0.6 - 1.0 / 0.6 - 0.9 cm LVPW Systolic Thickness MM 1.3 cm RV Diastolic Diameter MM 0.8 cm Aortic Annulus Diameter 2.5 cm LA Ao Ratio MM 1.5 MV E Point Septal Separation 0.0 cm DOPPLER AV Peak Velocity 245.0 cm/s LVOT Peak Velocity 101.0 cm/s AV Area Cont Eq vti 1.6 cm squared AV Area Cont Eq pk 1.3 cm squared MV Area PHT 4.5 cm squared MV E' Velocity 61.5 cm/s Mitral E to MV E' Ratio 10.9 Mitral E to LV E' Lateral Ratio 11.6 Mitral E to LV E' Septal Ratio 10.2 TR Peak Velocity 271.9 cm/s TR Peak Gradient 29.6 mmHg TR Mean Velocity 207.2 cm/s TR Mean Gradient 19.2 mmHg TR Velocity Time Integral 67.7 cm TV Peak E Velocity 78.0 cm/s Right Atrial Pressure 8.0 mmHg Pulmonary Artery Systolic Pressu 37.6 mmHg PV Peak Velocity 95.0 cm/s RV Acceleration Time 0.1 s RV Ejection Time 0.3 s RV AcT/ET 0.5 FINDINGS Left Ventricle Normal left ventricular cavity size. Normal left ventricular systolic function. Left ventricular ejection fraction is estimated at 60 %. Grade I/IV diastolic dysfunction (abnormal relaxation filling pattern), normal to mildly elevated filling pressures. Right Ventricle The right ventricle is normal in size and function. Mild pulmonary hypertension, RVSP 37.6 mmHg. Right Atrium The right atrium is normal in size. Left Atrium The left atrium is normal in size. Mitral Valve Moderately thickened mitral valve. Mild mitral annular calcification. No mitral valve stenosis. Mild mitral valve regurgitation. Aortic Valve Prosthetic aortic valve sitting in normal position without significant valvular or paravalvular leak. Tricuspid Valve Moderate tricuspid valve regurgitation. Pulmonic Valve Structurally normal pulmonic valve without significant stenosis. There is no pulmonic regurgitation. Pericardium Normal pericardium without effusion. Aorta Normal ascending aorta dimension. CONCLUSIONS 1-Normal left ventricular cavity size. Normal left ventricular systolic function. Left ventricular ejection fraction is estimated at 60 %. Grade I/IV diastolic dysfunction (abnormal relaxation filling pattern), normal to mildly elevated filling pressures. 2-The right ventricle is normal in size and function. Mild pulmonary hypertension, RVSP 37.6 mmHg. 3-Moderately thickened mitral valve. Mild mitral annular calcification. No mitral valve stenosis. Mild mitral valve regurgitation. 4-Prosthetic aortic valve sitting in normal position without significant valvular or paravalvular leak. 5-Moderate tricuspid valve regurgitation. 6-There is no pericardial effusion. 7-Right atrial pressure is around 5 mm of mercury. 8-When compared to the prior echocardiogram dated 06 Nov 2017 there is improvement in pulmonary artery systolic pressure from 68 mmHg which was severe to mild 37 mmHg. Cricket Montgomery MD (Electronically Signed) Final Date: 14 September 2020 19:14 S
[2020-09-15] VITALS (17 sets, daily range): BP systolic 95–134; BP diastolic 53–75; PULSE 78–110; RESP 16–20; TEMP 36.6–37.1; O2SAT 88–100
[2020-09-15] MEDS: HYDROmorphone 1 mg/mL INJ 1 mL 0.4 MG IVP ×2 (02:01→09:25)
[2020-09-15] MEDS: HYDROcodone-acetaminophen 10-325 mg Tablet 1 TAB PO ×2 (03:17→10:11)
[2020-09-15 05:47] LABS: Basophils % 0.3 %; Eosinophils # 0.2 10^3/uL (0.0-0.8); Hematocrit 36.9 % (42.0-52.0); Hemoglobin 11.8 g/dL (11.7-16.6); Lymphocytes # 0.6 10^3/uL (0.8-4.8); Lymphocytes % 4.7 %; Mean Platelet Volume 9.7 fL (7.4-10.4); Monocytes # 0.9 10^3/uL (0.2-0.9); Monocytes % 7.1 %; Neutrophils # 10.35 10^3/uL (1.8-7.7); Neutrophils % 85.6 %; Nucleated Red Blood Cells % 0 %; Platelet Count 269 10^3/cmm (130-400); Red Blood Count 3.69 10^6/uL (4.1-5.3); Red Cell Distribution Width 14.6 % (12.1-15.1); White Blood Count 12.1 10^3/uL (4.0-10.0)
[2020-09-15] MEDS: tamsulosin 0.4 mg Capsule PO (05:57)
[2020-09-15] MEDS: potassium chloride ER 10 mEq Tablet PO (05:57)
[2020-09-15] MEDS: metoprolol tartrate 25 mg Tablet PO ×2 (05:57→21:45)
[2020-09-15] MEDS: gabapentin 300 mg Capsule PO ×3 (05:58→21:43)
[2020-09-15] MEDS: vancomycin 1,500 MG/300 ML PIGGYBACK 150 MG IV ×2 (05:58→17:48)
[2020-09-15 06:10] LABS: Blood Urea Nitrogen 7 mg/dL (8-23); Calcium 8.2 mg/dL (8.5-10.5); Chloride 91 mmol/L (98-107); Glucose 135 mg/dL (65-115); Osmolality Calculated 284 mOsm/kg (285-295); Sodium 137 mmol/L (136-145)
[2020-09-15 06:13] LABS: Anion Gap 4.5 (5-19); INR 5.95 (0.8-1.2); Potassium 3.5 mmol/L (3.5-5.1)
[2020-09-15 06:14] LABS: Carbon Dioxide 45 mmol/L (22-29)
[2020-09-15] MEDS: FUROsemide 20 mg Tablet PO (08:44)
[2020-09-15] MEDS: sennosides-docusate Tablet 1 TAB PO ×2 (08:45→17:48)
[2020-09-15] MEDS: piperacillin-tazobactam 3.375 GM in sodium chloride 0.9% (plus) 50 ML IV ×3 (09:24→23:37)
--- NOTE | 2020-09-15 10:20 | PC.NURSE ---
using the urinal
--- NOTE | 2020-09-15 13:00 | P.PN_ITS ---
Subjective Subjective: Interval history: Patient was seen and examined this morning. He was moaning in pain when I entered the room however he rates his pain 5-6 which I believe is a confounder. I requested his nurse to give him IV Dilaudid if he rates his pain 5-6 along p.o. opioids. Systolic blood pressure soft heart rate in 90s, he has stayed afebrile white count is improving hemoglobin stable INR is 5.9 Patient is not endorsing chest pain shortness of breath abdominal pain is a bit distressed because of lower extremity constant pain at rest Vitals/I&O/Wt Last Vital Signs Temp 98.0 F 09/15/20 11:11 Pulse 94 09/15/20 11:11 Resp 18 09/15/20 11:11 BP 108/56 09/15/20 11:11 Pulse Ox 93 09/15/20 11:11 09/14/20 09/15/20 09/15/20 22:59 06:59 14:59 Intake Total 710 / 1300 50 / 1350 420 / 420 Output Total 375 / 1725 150 / 1875 200 / 200 Balance 335 / -425 -100 / -525 220 / 220 Weight last 48 hrs Weight 62.142 kg Physical Exam Narrative: EXAM NARRATIVE: elderly male He was moaning in pain when I entered the room, he is constantly moving his lower extremities due to pain However lower extremities are much more drY and less purulent as compared to yesterday, dry gangrene left TOES, hyperemia of right toes noted, cellulitis extending from foot up till knees with mild regression and improvement Loud S1, S2 no signs of heart failure Abdomen soft nontender Bilateral breath sound without adventitial rhonchi or crackles Distressed secondary to pain EOMI, PERRLA no acute neurological deficits Data : 09/15/20 05:17 09/15/20 05:17 Micro: Microbiology 09/13/20 16:02 Blood Culture - Preliminary Blood NEGATIVE TO DATE 09/13/20 15:19 Blood Culture - Preliminary Blood NEGATIVE TO DATE A&P Assessment and plan (1) Dry gangrene: Status: Acute (2) H/O mechanical aortic valve replacement: Status: Acute (3) Hyperglycemia: Status: Acute (4) Bilateral lower leg cellulitis: Status: Acute (5) Supratherapeutic INR: Status: Acute (6) Ischemic ulcer of both feet: Status: Acute (7) Chronic anticoagulation: Status: Chronic (8) Nicotine dependence, cigarettes, with other nicotine-induced disorders: Status: Chronic (9) On home oxygen therapy: Status: Chronic (10) Severe peripheral arterial disease: Status: Chronic (11) Bilateral carotid artery stenosis: Status: Chronic (12) Pulmonary hypertension: Status: Chronic Additional A&P Information Dry gangrene with underlying severe peripheral vascular disease Purulent cellulitis seems to be improving today Improvement in leukocytosis also noted he has stayed afebrile Nonhealing chronic arterial ulcers Patient is moaning in pain while laying flat in bed, will uptitrate his opioid regimen, noted overnight p.o. opioids were also added Not anticoagulated due to supratherapeutic INR will start once INR is less than 2.5, discussed with Dr. Estrada, appreciate cardiology and cardiothoracic re commendations Continue IV antibiotics, although he has poor vascular supply but his purulence has definitely decreased in last 24 hours I do believe this is due to mild collateral blood flow that he has in his extremities, I discussed with the patient the complications of peripheral vascular disease, poor vascular supply and risk of bilateral amputation, patient seemed very receptive of this infor mation, did not asked me to many questions I believe due to his lower extremity pain, will discuss with him again Mechanical aortic valve [address] Bolton Currently off Coumadin supratherapeutic INR, there is some literature supporting drug to drug interaction with Tylenol and Coumadin, would avoid opioids with Tylenol Start heparin once INR less than 2.5 No active bleeding hemodynamically stable Chronic hypoxic respiratory failure currently doing well on 2 L nasal cannula Contraction alkalosis potassium is better today He is not on diuretics I do believe his p.o. intake is poor, he is a negative balance of about 200 mL, total urine output 1375 mL he is also on 2 L fluid restriction input is only 1.2 L I will hydrate him gently, will start him on normal saline lower maintenance rat e can discontinue tomorrow morning Full code Cardiac diet DVT prophylaxis not indicated due to supratherapeutic INR not a candidate to be on SCDs because of peripheral vascular disease Attestations Medical Necessity Statement*: Anticipating prolonged hospitalization due to peripheral vascular disease supratherapeutic INR and cellulitis Time Spent in Patient Care: 35mins Coding Level of Care Code Acute Brim [employer] for [facility] Diagnoses Dry gangrene I96 H/O mechanical aortic valve replacement Z95.2 Hyperglycemia R73.9 Bilateral lower leg cellulitis L03.116; L03.115 Supratherapeutic INR R79.1 Ischemic ulcer of both feet L97.519; L97.529 Chronic anticoagulation Z79.01 Nicotine dependence, cigarettes, with other nicotine-induced disorders F17.218 On home oxygen therapy Z99.81 Severe peripheral arterial disease I73.9 Bilateral carotid artery stenosis I65.23 Pulmonary hypertension I27.20
[2020-09-15] MEDS: HYDROmorphone 1 mg/mL INJ 1 mL 0.5 MG IVP (13:52)
[2020-09-15] MEDS: sodium chloride 0.9% 1,000 ML 30 ML IV (14:08)
[2020-09-15] MEDS: oxyCODONE 5 mg IR Tab/Cap 10 MG PO ×2 (17:48→21:43)
[2020-09-15] MEDS: atorvastatin 40 mg Tablet 80 MG PO (21:43)
--- NOTE | 2020-09-15 21:52 | PM.PN ---
Subjective Subjective: Interval history: I have been asked by Dr. Estrada and Dr. Segovia to assist in patient's care for possible revascularization. He has critical limb ischemia with gangrene us left foot. When I walked in the room patient was complaining of moderate to high pain in the toes of the left foot more than right. He is on oxycodone and Dilaudid. His INR is more than 5.0 Vitals/I&O/Wt Last Vital Signs Temp 98.7 F 09/15/20 20:00 Pulse 108 H 09/15/20 20:21 Resp 16 09/15/20 21:43 BP 122/67 09/15/20 20:00 Pulse Ox 92 09/15/20 20:21 09/15/20 09/15/20 09/15/20 06:59 14:59 22:59 Intake Total 50 / 1350 590 / 590 590 / 1180 Output Total 150 / 1875 200 / 200 Balance -100 / -525 390 / 390 590 / 980 Physical Exam Narrative: EXAM NARRATIVE: GENERAL: Patient is alert, awake and oriented x3. Moderate distress. Not in good mood, flail physique NECK: No jugular vein distension. HEENT: No cyanosis. No icterus. No pallor. HEART: Regular S1 and S2. No murmur, rub or gallop. LUNGS: Decreased breathing bilaterally. CENTRAL NERVOUS SYSTEM: Grossly nonfocal. EXTREMITIES: Lower extremities excoriating skin, warm, gangrenous toes Data : 09/16/20 02:40 09/16/20 02:40 A&P Assessment and plan (1) Dry gangrene: Status: Acute (2) Severe peripheral arterial disease: This is a complicated patient with severe peripheral vascular disease in the past attempts were made to revascularize but remained unsuccessful. I have reviewed his films and willing to give another attempt through popliteal approach in a hope if I can go through left common femoral artery chances of which are low but worth attempting as patient at the moment is not in favor of bypass or surgical approach. He appeared to be in a lot of pain I would therefore add morphine instead of Dilaudid which will be discontinued for breakthrough pain as according to patient is not helping him and he refusing it due to not liking it. In between we can also use Toradol since his renal function is good. I have detailed discussion with the patient though he was in pain but he would like me to attempt to revascularize. Currently his INR is more than 5.0 he has mechanical aortic valve I would like to bring INR around 1.7 before attempting revascularization. I have detailed discussion with the patient as he is high risk. I have explained all risk benefit and alternative for the procedure. He understand the risk of acute limb ischemia during the procedure leading to amputation of the leg above the knee. He understand the risk of major minor bleed, he understand the risk of retroperitoneal hemorrhage and laceration or perforation of the vasculature leading to urgent or emergent surgery or in worse case scenario . He would like to proceed with it. Continue IV antibiotics. Status: Chronic (3) H/O mechanical aortic valve replacement: INR is supratherapeutic Status: Acute (4) Supratherapeutic INR: Warfarin on hold continue to monitor Status: Acute Additional A&P Information Bilateral cellulitis Chronic active smoker Severe COPD on home oxygen History of noncompliance For allowing me to participate in patient's care. Please feel free to call with questions or concerns. 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
[2020-09-16] VITALS (15 sets, daily range): BP systolic 117–133; BP diastolic 65–74; PULSE 85–105; RESP 16–20; TEMP 36.4–36.9; O2SAT 92–98
[2020-09-16 02:50] LABS: Basophils % 0.3 %; Eosinophils # 0.2 10^3/uL (0.0-0.8); Eosinophils % 1.6 %; Hematocrit 39.8 % (42.0-52.0); Hemoglobin 12.7 g/dL (11.7-16.6); Lymphocytes # 0.6 10^3/uL (0.8-4.8); Lymphocytes % 4.3 %; Mean Corpuscular HGB Conc 31.9 g/dL (30.0-36.0); Mean Corpuscular Hemoglobin 32.3 pg (28.0-34.0); Mean Corpuscular Volume 101.3 fL (80-94); Mean Platelet Volume 9.5 fL (7.4-10.4); Monocytes % 6.8 %; Neutrophils # 12.21 10^3/uL (1.8-7.7); Neutrophils % 86.6 %; Nucleated Red Blood Cells % 0 %; Platelet Count 277 10^3/cmm (130-400); Red Blood Count 3.93 10^6/uL (4.1-5.3); Red Cell Distribution Width 14.5 % (12.1-15.1); White Blood Count 14.1 10^3/uL (4.0-10.0)
[2020-09-16 03:02] LABS: INR 3.92 (0.8-1.2)
[2020-09-16 03:11] LABS: Anion Gap 5.7 (5-19); Blood Urea Nitrogen 7 mg/dL (8-23); Calcium 8.2 mg/dL (8.5-10.5); Chloride 91 mmol/L (98-107); Glucose 126 mg/dL (65-115); Osmolality Calculated 286 mOsm/kg (285-295); Potassium 3.7 mmol/L (3.5-5.1); Sodium 138 mmol/L (136-145)
[2020-09-16 03:15] LABS: Carbon Dioxide 45 mmol/L (22-29)
--- NOTE | 2020-09-16 03:18 | PC.NURSE ---
FAMILY UPDATED: THIS NURSE CALLED AND SPOKE WITH THE PATIENT'S SON ABOUT THE NEW OPTIONS BROUGHT TO HIM FOR TREATMENT FROM DR. NIX. IF THE PATIENT'S INR IMPROVED, HE WOULD CONSIDER TAKING THE PATIENT DOWN FOR A CATH. REPORTED THAT THE PATIENT STATES HE UNDERSTANDS WHAT TO EXPECT WITH THE PROCEDURE. THE SEVERITY OF THE GANGRENE WAS ALSO EXPLAINED TO THE PATIENT WELL THE OUTCOME WITHOUT PROPER TREATMENT, TO WHICH STATES HE UNDERSTANDS. THIS ALL WAS ALSO EXPLAINED TO THE SON.
[2020-09-16] MEDS: morphine 4 mg/mL SDV 1 mL 2 MG IVP ×4 (03:51→17:40)
[2020-09-16] MEDS: ketorolac 30 mg/mL INJ 15 MG IVP ×4 (04:37→21:04)
[2020-09-16] MEDS: vancomycin 1,500 MG/300 ML PIGGYBACK 150 MG IV ×2 (06:06→19:02)
[2020-09-16] MEDS: tamsulosin 0.4 mg Capsule PO (06:07)
[2020-09-16] MEDS: potassium chloride ER 10 mEq Tablet PO (06:07)
[2020-09-16] MEDS: gabapentin 300 mg Capsule PO ×3 (06:07→20:53)
[2020-09-16] MEDS: oxyCODONE 5 mg IR Tab/Cap 10 MG PO (06:07)
[2020-09-16] MEDS: metoprolol tartrate 25 mg Tablet PO ×2 (06:07→20:53)
[2020-09-16] MEDS: piperacillin-tazobactam 3.375 GM in sodium chloride 0.9% (plus) 50 ML IV ×3 (08:15→23:46)
[2020-09-16] MEDS: sennosides-docusate Tablet 1 TAB PO (08:15)
--- NOTE | 2020-09-16 11:40 | P.PN_ITS ---
Subjective Subjective: Interval history: Cardiology/Dr. Montgomery added morphine and anti-inflammatory medication which seemed to help with his leg pain, today patient endorsed that his pain seems to be little bit well controlled, he is denying chest pain shortness of breath abdominal pain, he is endorsing anorexia has had no bowel movement yet however passing flatus Today INR 3.9 Hemoglobin stable, creatinine 0.4 Purulent cellulitis seems to be improving however no good blood supply of bilateral lower extremities with dry gangrene left toes Fluid restriction 2 L, Vitals/I&O/Wt Last Vital Signs Temp 97.9 F 09/16/20 11:26 Pulse 96 09/16/20 11:26 Resp 16 09/16/20 11:26 BP 120/69 09/16/20 11:26 Pulse Ox 97 09/16/20 11:26 09/15/20 09/16/20 09/16/20 22:59 06:59 14:59 Intake Total 590 / 1180 50 / 1230 300 / 300 Output Total 50 / 250 375 / 625 100 / 100 Balance 540 / 930 -325 / 605 200 / 200 Physical Exam Narrative: EXAM NARRATIVE: Patient was sitting in semi-Padilla position saturating well on 2 L nasal Did not complain of active chest pain, S1, S2 loud systolic murmur all over precordium No active signs of CHF Abdomen soft nontender bowel sounds present No active neurological deficit EOMI, PERRLA Bilateral lower extremity arterial ulcers left dry gangrene his toes, cellulitis seems to be improving, less purulent drainage as compared to yesterday, legs with skin wrinkling Poor vascular pulsation of lower extremities, extremely tender to touch Data : 09/16/20 02:40 09/16/20 02:40 A&P Assessment and plan (1) Dry gangrene: Status: Acute (2) H/O mechanical aortic valve replacement: Status: Acute (3) Bilateral lower leg cellulitis: Status: Acute (4) Supratherapeutic INR: Status: Acute (5) Ischemic ulcer of both feet: Status: Acute (6) Chronic anticoagulation: Status: Chronic (7) On home oxygen therapy: Status: Chronic (8) Nicotine dependence, cigarettes, with other nicotine-induced disorders: Status: Chronic (9) Severe peripheral arterial disease: Status: Chronic (10) COPD (chronic obstructive pulmonary disease): Status: Chronic (11) Pulmonary hypertension: Status: Chronic Additional A&P Information Dry gangrene with underlying severe peripheral vascular disease Patient has stayed afebrile, there is mild worsening of leukocytosis Hemoglobin stable Blood cultures negative to date Purulent cellulitis of the left leg seems to be improving Continue IV antibiotics patient stopped going to wound care clinic for his nonhealing arterial ulcers, had 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 Putnam May 21, could not get adequate access. Yesterday cardiology recommendations reviewed, will start heparin once INR less than 2.5, he is awaiting vascular intervention subjective to correction of INR, he is also at risk of bilateral leg amputation if his vascular intervention failed, patient knows all the risk factors and complications and is very receptive of his prognosis and current clinical findings, right now he is very anxious for vascular intervention because of worsening of pain however today anti-inflammatory morphine seem to decrease his pain intensity Mechanical aortic valve, start heparin once INR less than 2.5 No active chest pain shortness of breath signs of heart failure Mechanical aortic valve 2010 Dr. Bolton Contraction alkalosis: Discontinued Lasix 09/16 I kept him on normal saline for about 10 to 12 hours yesterday however his bi carb is still 45, his p.o. 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
--- NOTE | 2020-09-16 14:08 | PC.SOCIAL ---
IMM update: Pg 2 IMM update given to patient. Patient verbalized an understanding, initialed, dated, and copy placed in chart.
[2020-09-16] MEDS: acetaminophen 325 mg Tablet 650 MG PO (14:19)
--- NOTE | 2020-09-16 15:48 | PC.NURSE ---
Pt has been complaining of pain today in his legs. Have been rotating pain medication and lidocaine gel. Patient is resting in bed and appears to be pain free at this time. nurse will continue to monitor
[2020-09-16 18:59] LABS: Vancomycin Trough 12.7 ug/mL (10-15)
[2020-09-16] MEDS: atorvastatin 40 mg Tablet 80 MG PO (20:54)
--- NOTE | 2020-09-16 21:22 | PM.PN ---
Subjective Subjective: Interval history: Patient is sleepy denies at the moment any pain places at rest Medications: Reviewed: Yes Vitals/I&O/Wt Last Vital Signs Temp 98.0 F 09/16/20 19:51 Pulse 89 09/16/20 20:26 Resp 18 09/16/20 20:26 BP 133/74 09/16/20 19:51 Pulse Ox 96 09/16/20 20:26 09/16/20 09/16/20 09/16/20 06:59 14:59 22:59 Intake Total 50 / 1230 590 / 590 650 / 1240 Output Total 375 / 625 100 / 100 Balance -325 / 605 490 / 490 650 / 1140 Physical Exam Narrative: EXAM NARRATIVE: GENERAL: Patient is alert, awake and oriented x3. Moderate distress. Not in good mood, flail physique NECK: No jugular vein distension. HEENT: No cyanosis. No icterus. No pallor. HEART: Regular S1 and S2. No murmur, rub or gallop. LUNGS: Decreased breathing bilaterally. CENTRAL NERVOUS SYSTEM: Grossly nonfocal. EXTREMITIES: Lower extremities excoriating skin, warm, gangrenous toes Data : 09/16/20 02:40 09/16/20 02:40 Other Labs: LP: 917.[address] scans at [facility] use at least one of these dose optimization techniques: automated exposure control; mA and/or kV adjustment per patient size (includes targeted exams where dose is matched to clinical indication); or iterative reconstruction. FINDINGS: Dense vascular calcification involving the common iliac arteries bilaterally. Distal aorta is not included on this examination. Large right hydrocele. Sigmoid constipation. Small amount of free fluid in the pelvis. Subcutaneous edema in both lower extremities extending to the ankles. RIGHT: Right common iliac artery is patent with dense vascular calcification. Moderate to severe stenosis involving the proximal right external iliac artery which remains patent. Internal iliac artery is densely calcified but patent. Right common femoral artery is densely calcified with multisegmental severe stenosis. Severe stenosis involving the superficial femoral artery origin. Superficial femoral artery is occluded just distal to the origin. Deep femoral artery is patent. Superficial femoral artery is occluded in the thigh with reconstitution at the adductor hiatus. Multisegmental severe stenosis involving the popliteal artery with only intermittent flow visualized. Densely calcified poor runoff to the right lower extremity. Dominant peroneal artery. LEFT: Dense calcified common iliac artery which is patent. Severe stenosis at the external iliac artery origin. Densely calcified iliac artery is patent. External iliac artery remains patent to the common femoral artery origin. Severe stenosis with occlusion of the common femoral artery in the groin. Superficial femoral artery is occluded. Deep femoral artery is patent. Superficial femoral artery remains occluded to the popliteal hiatus. Tiny amount of intermittent flow in the popliteal artery which is densely calcified with intermittent occlusion. Densely calcified trifurcation with poor two-vessel runoff to the ankle. Dominant peroneal and Posterior tibial [place]. [place] [id number] IMPRESSION: 1. Poor bilateral lower extremity runoff with poor inflow. 2. Single vessel runoff to the right lower extremity and two-vessel runoff to the left lower extremity. 3. Bilateral superficial femoral arteries are occluded with high-grade heavily calcified stenosis involving the popliteal arteries bilaterally with intermittent flow. 4. Both common iliac arteries are patent and heavily calcified. 5. Left common femoral artery is occluded. Severe stenosis right common femoral artery. A&P Assessment and plan (1) Dry gangrene: Status: Acute (2) Severe peripheral arterial disease: This is a complicated patient with severe peripheral vascular disease in the past attempts were made to revascularize but remained unsuccessful. I have reviewed his films and willing to give another attempt through popliteal approach in a hope if I can go through left common femoral artery chances of which are low but worth attempting as patient at the moment is not in favor of bypass or surgical approach. He appeared to be in a lot of pain I would therefore add morphine instead of Dilaudid which will be discontinued for breakthrough pain as according to patient is not helping him and he refusing it due to not liking it. In between we can also use Toradol since his renal function is good. I have detailed discussion with the patient though he was in pain but he would like me to attempt to revascularize. Currently his INR is more than 5.0 he has mechanical aortic valve I would like to bring INR around 1.7 before attempting revascularization. I have detailed discussion with the patient as he is high risk. I have explained all risk benefit and alternative for the procedure. He understand the risk of acute limb ischemia during the procedure leading to amputation of the leg above the knee. He understand the risk of major minor bleed, he understand the risk of retroperitoneal hemorrhage and laceration or perforation of the vasculature leading to urgent or emergent surgery or in worse case scenario . He would like to proceed with it. Continue IV antibiotics. Patient INR is 3.9 tomorrow I will ask for left lower leg vascular ultrasound to assess anterior tibial/posterior tibial for possible access. Patient is little confused and not showed about the procedure. I will talk to his family and him tomorrow. Status: Chronic (3) H/O mechanical aortic valve replacement: INR is supratherapeutic. Continue to hold warfarin Status: Acute (4) Supratherapeutic INR: Warfarin on hold continue to monitor Status: Acute Additional A&P Information Bilateral cellulitis Chronic active smoker Severe COPD on home oxygen History of noncompliance For allowing me to participate in patient's care. Please feel free to call with questions or concerns. Attestations Medical Necessity Statement*: Patient require continuation hospitalization for above defined care. 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
--- NOTE | 2020-09-16 21:30 | PC.NURSE ---
Streetcar Operator arrived to discuss the procedure with the patient, and that the aviation electronic warfare operator needed to identify points of entry for the procedure via ultrasound.
[2020-09-17] VITALS (14 sets, daily range): BP systolic 107–156; BP diastolic 55–90; PULSE 78–115; RESP 16–24; TEMP 36.1–36.9; O2SAT 90–98
[2020-09-17] MEDS: morphine 4 mg/mL SDV 1 mL 2 MG IVP ×2 (00:39→06:11)
[2020-09-17] MEDS: ketorolac 30 mg/mL INJ 15 MG IVP ×3 (01:12→23:18)
[2020-09-17] MEDS: acetaminophen 325 mg Tablet 650 MG PO ×2 (02:18→09:41)
[2020-09-17] MEDS: sodium chloride 0.9% 1,000 ML 30 ML IV (05:12)
[2020-09-17] MEDS: vancomycin 1,500 MG/300 ML PIGGYBACK 150 MG IV ×2 (06:13→18:06)
[2020-09-17 06:22] LABS: Basophils % 0.2 %; Eosinophils # 0.3 10^3/uL (0.0-0.8); Eosinophils % 2.2 %; Hematocrit 37.9 % (42.0-52.0); Hemoglobin 12.1 g/dL (11.7-16.6); Lymphocytes # 0.7 10^3/uL (0.8-4.8); Lymphocytes % 4.8 %; Mean Corpuscular HGB Conc 31.9 g/dL (30.0-36.0); Mean Corpuscular Hemoglobin 32.5 pg (28.0-34.0); Mean Corpuscular Volume 101.9 fL (80-94); Mean Platelet Volume 9.8 fL (7.4-10.4); Monocytes # 0.9 10^3/uL (0.2-0.9); Monocytes % 6.6 %; Neutrophils # 11.86 10^3/uL (1.8-7.7); Neutrophils % 85.8 %; Nucleated Red Blood Cells % 0 %; Platelet Count 248 10^3/cmm (130-400); Red Blood Count 3.72 10^6/uL (4.1-5.3); Red Cell Distribution Width 14.6 % (12.1-15.1); White Blood Count 13.8 10^3/uL (4.0-10.0)
[2020-09-17] MEDS: metoprolol tartrate 25 mg Tablet PO ×2 (06:36→21:03)
[2020-09-17] MEDS: gabapentin 300 mg Capsule PO ×3 (06:36→21:03)
[2020-09-17] MEDS: tamsulosin 0.4 mg Capsule PO (06:36)
[2020-09-17] MEDS: potassium chloride ER 10 mEq Tablet PO (06:37)
[2020-09-17] MEDS: piperacillin-tazobactam 3.375 GM in sodium chloride 0.9% (plus) 50 ML IV ×3 (06:45→23:18)
[2020-09-17 07:23] LABS: Anion Gap 7.5 (5-19); Blood Urea Nitrogen 11 mg/dL (8-23); Calcium 8.1 mg/dL (8.5-10.5); Carbon Dioxide 39 mmol/L (22-29); Chloride 94 mmol/L (98-107); Glucose 127 mg/dL (65-115); Osmolality Calculated 285 mOsm/kg (285-295); Potassium 3.5 mmol/L (3.5-5.1); Sodium 137 mmol/L (136-145)
[2020-09-17] MEDS: sennosides-docusate Tablet 1 TAB PO (08:10)
[2020-09-17] MEDS: HYDROmorphone 1 mg/mL INJ 1 mL 2 MG IVP (10:28)
--- NOTE | 2020-09-17 15:12 | P.PN_ITS ---
Subjective Subjective: Interval history: Afebrile, hemodynamically stable. No acute overnight events Medications: Reviewed: Yes Vitals/I&O/Wt Last Vital Signs Temp 97.7 F 09/17/20 14:46 Pulse 111 H 09/17/20 14:46 Resp 16 09/17/20 14:46 BP 156/85 09/17/20 14:46 Pulse Ox 92 09/17/20 14:46 09/17/20 09/17/20 09/17/20 06:59 14:59 22:59 Intake Total 1080 / 2320 350 / 350 Output Total 300 / 400 150 / 150 Balance 780 / 1920 200 / 200 Data : 09/17/20 05:40 09/17/20 05:40 A&P Assessment and plan (1) Dry gangrene: Status: Acute (2) H/O mechanical aortic valve replacement: Status: Acute (3) Bilateral lower leg cellulitis: Status: Acute (4) Supratherapeutic INR: Status: Acute (5) Ischemic ulcer of both feet: Status: Acute (6) Chronic anticoagulation: Status: Chronic (7) On home oxygen therapy: Status: Chronic (8) Nicotine dependence, cigarettes, with other nicotine-induced disorders: Has cut down from 2 packs a day to less than 1 pack a day, is on Chantix to help with attempts at smoking cessation Status: Chronic (9) Severe peripheral arterial disease: Status: Chronic (10) COPD (chronic obstructive pulmonary disease): Not currently acute, chronically on oxygen at 3 L by nasal cannula with exertional hypoxemia Status: Chronic (11) Pulmonary hypertension: Status: Chronic Additional A&P Information Dry gangrene with underlying severe peripheral vascular disease Patient has stayed afebrile, stable leukocytosis Hemoglobin stable Blood cultures negative to date Purulent cellulitis of the left leg seems to be improving Continue IV antibiotics plan for peripheral angiogram once INR <2. 5 patient knows all the risk factors and complications and is very receptive of his prognosis and current clinical findings, right now he is very anxious for vascular intervention because of worsening of pain Mechanical aortic valve, start heparin once INR less than 2.5 No active chest pain shortness of breath signs of heart failure Mechanical aortic valve 2010 Dr. Bolton Contraction alkalosis: Discontinued Lasix 09/16 I kept him on normal saline for about 10 to 12 hours yesterday however his bicarb is still 45, his p.o. 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
[2020-09-17] MEDS: TRAMadol 50 mg Tablet PO (17:58)
[2020-09-17] MEDS: sodium chloride 0.9% 1,000 ML 50 ML IV (17:58)
--- NOTE | 2020-09-17 20:52 | P.PN_ITS ---
Subjective Subjective: Interval history: Patient states pain is not under control he would like to get more medicine. Advised patient that due to narcotics analgesics breathing suppression can happen. He will says that he is not sure about any intervention he would like to discuss it tomorrow. I have given the him the option to go to [place] with vascular surgery Dr. Sean Friend but at the moment he declined it. Medications: Reviewed: Yes Vitals/I&O/Wt Last Vital Signs Temp 98.5 F 09/17/20 19:12 Pulse 89 09/17/20 20:01 Resp 16 09/17/20 20:01 BP 154/89 09/17/20 19:12 Pulse Ox 95 09/17/20 20:01 09/17/20 09/17/20 09/17/20 06:59 14:59 22:59 Intake Total 1080 / 2320 350 / 350 50 / 400 Output Total 300 / 400 150 / 150 50 / 200 Balance 780 / 1920 200 / 200 0 / 200 Physical Exam Narrative: EXAM NARRATIVE: GENERAL: Patient is alert, awake and oriented x3. Moderate distress, flail physique NECK: No jugular vein distension. HEENT: No cyanosis. No icterus. No pallor. HEART: Regular S1 and S2. No murmur, rub or gallop. LUNGS: Decreased breathing bilaterally. CENTRAL NERVOUS SYSTEM: Grossly nonfocal. EXTREMITIES: Lower extremities excoriating skin, warm, gangrenous toes bilaterally Data : 09/17/20 05:40 09/17/20 05:40 A&P Assessment and plan (1) Dry gangrene: Status: Acute (2) Severe peripheral arterial disease: This is a complicated patient with severe peripheral vascular disease in the past attempts were made to revascularize but remained unsuccessful. I have reviewed his films and willing to give another attempt through popliteal approach in a hope if I can go through left common femoral artery chances of which are low but worth attempting as patient at the moment is not in favor of bypass or surgical approach. He appeared to be in a lot of pain I would therefore add morphine instead of Dilaudid which will be discontinued for breakthrough pain as according to patient is not helping him and he refusing it due to not liking it. In between we can also use Toradol since his renal function is good. I have detailed discussion with the patient though he was in pain but he would like me to attempt to revascularize. Currently his INR is more than 5.0 he has mechanical aortic valve I would like to bring INR around 1.7 before attempting revascularization. I have detailed discussion with the patient as he is high risk. I have explained all risk benefit and alternative for the procedure. He understand the risk of acute limb ischemia during the procedure leading to amputation of the leg above the knee. He understand the risk of major minor bleed, he understand the risk of retroperitoneal hemorrhage and laceration or perforation of the vasculature leading to urgent or emergent surgery or in worse case scenario . He would like to proceed with it. Continue IV antibiotics. Patient INR is 3.9 tomorrow I will ask for left lower leg vascular ultrasound to assess anterior tibial/posterior tibial for possible access. Patient is little confused and not showed about the procedure. I will talk to his family and him tomorrow. Today INR is 3.0 we will continue holding warfarin patient is not ready yet will discuss him again tomorrow morning. Patient has been given option for vascular surgery which he declined he does not wanted to be cut open. I will discontinue Dilaudid and start patient on had oxycodone for breakthrough pain we will use Toradol and morphine Status: Chronic (3) H/O mechanical aortic valve replacement: INR is supratherapeutic. Continue to hold warfarin, INR 3.0 Status: Acute (4) Supratherapeutic INR: Continue to hold warfarin Status: Acute Additional A&P Information Bilateral cellulitis Chronic active smoker Severe COPD on home oxygen History of noncompliance For allowing me to participate in patient's care. Please feel free to call with questions or concerns. Attestations Medical Necessity Statement*: Patient require continuation hospitalization for above defined care. 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
[2020-09-17] MEDS: atorvastatin 40 mg Tablet 80 MG PO (21:03)
--- NOTE | 2020-09-17 21:44 | USCV_ITS ---
ChristineDamon haddad Age: 70 Gender: M : 1950 Exam Date: 09/17/2020 06:11 Ordering Phys: Cricket Montgomery MD Technologist: Kaley Thayer [place] [facility] [place]AL FOR [place]ESS Findings EQUINE DENTIST and DPA were identified, no blood flow identified. POP was identified with monophasic flow. Conclusions Possible occlusion of the posterior tibial and dorsalis pedis arteries Popliteal artery appears to be patent Diffuse moderate to heavy heterogeneous plaques are noted in the popliteal artery, which was found to be patent Dr Yuval Morgan MD [facility] (Electronically Signed) Final Date: 17 September 2020 22:35 S
[2020-09-18] VITALS (17 sets, daily range): BP systolic 138–165; BP diastolic 70–83; PULSE 75–114; RESP 15–22; TEMP 36.1–36.8; O2SAT 94–98
[2020-09-18] MEDS: ketorolac 30 mg/mL INJ 15 MG IVP ×3 (04:04→13:35)
[2020-09-18] MEDS: morphine 4 mg/mL SDV 1 mL 2 MG IVP ×3 (05:09→13:35)
[2020-09-18] MEDS: metoprolol tartrate 25 mg Tablet PO ×2 (06:00→22:05)
[2020-09-18] MEDS: gabapentin 300 mg Capsule PO ×3 (06:00→22:05)
[2020-09-18] MEDS: potassium chloride ER 10 mEq Tablet PO (06:00)
[2020-09-18] MEDS: tamsulosin 0.4 mg Capsule PO (06:01)
[2020-09-18] MEDS: diphenhydrAMINE 50 mg Capsule PO (06:04)
[2020-09-18 07:36] LABS: Basophils % 0.3 %; Eosinophils # 0.3 10^3/uL (0.0-0.8); Eosinophils % 2.3 %; Hematocrit 34.3 % (42.0-52.0); Hemoglobin 10.9 g/dL (11.7-16.6); Lymphocytes # 0.5 10^3/uL (0.8-4.8); Lymphocytes % 4.6 %; Mean Corpuscular HGB Conc 31.8 g/dL (30.0-36.0); Mean Corpuscular Hemoglobin 32.2 pg (28.0-34.0); Mean Corpuscular Volume 101.2 fL (80-94); Mean Platelet Volume 9.5 fL (7.4-10.4); Monocytes # 0.8 10^3/uL (0.2-0.9); Neutrophils # 9.69 10^3/uL (1.8-7.7); Neutrophils % 85.5 %; Nucleated Red Blood Cells % 0 %; Platelet Count 234 10^3/cmm (130-400); Red Blood Count 3.39 10^6/uL (4.1-5.3); Red Cell Distribution Width 14.5 % (12.1-15.1); White Blood Count 11.3 10^3/uL (4.0-10.0)
[2020-09-18 07:50] LABS: INR 2.62 (0.8-1.2)
[2020-09-18] MEDS: vancomycin 1,500 MG/300 ML PIGGYBACK 150 MG IV ×2 (07:50→17:24)
[2020-09-18] MEDS: piperacillin-tazobactam 3.375 GM in sodium chloride 0.9% (plus) 50 ML IV ×2 (07:53→14:50)
[2020-09-18 07:55] LABS: Anion Gap 7.7 (5-19); Blood Urea Nitrogen 12 mg/dL (8-23); Calcium 8.1 mg/dL (8.5-10.5); Carbon Dioxide 38 mmol/L (22-29); Chloride 100 mmol/L (98-107); Glucose 122 mg/dL (65-115); Osmolality Calculated 295 mOsm/kg (285-295); Potassium 3.7 mmol/L (3.5-5.1); Sodium 142 mmol/L (136-145)
[2020-09-18] MEDS: sennosides-docusate Tablet 1 TAB PO (07:55)
[2020-09-18] MEDS: TRAMadol 50 mg Tablet PO (09:24)
[2020-09-18] MEDS: acetaminophen 325 mg Tablet 650 MG PO ×2 (10:06→14:53)
--- NOTE | 2020-09-18 10:12 | PC.SOCIAL ---
IMM Updated Updated pt on Pg 2 IMM. No questions voiced. Provided pt a copy. Initialed, dated, & timed copy in chart.
--- NOTE | 2020-09-18 11:03 | PC.NURSE ---
pt stated earlier that if he is restin to keep the lights off and not bother him. pt was sleeping for vitals will retry in a little bit.
--- NOTE | 2020-09-18 16:33 | PM.PN ---
Subjective Subjective: Interval history: Patient seen in bed sitting somewhat upright. He is complaining of severe pain and states his current pain regimen is not adequate. He also states that when he wants the pain meds it takes a while before he actually received some. He explained to me his regimen he used at home of hydrocodone 10 mg tablets 4 times a day. He says that this was fairly effective. Also he said he is frustrated not eating. He states every day the surgeons place him on n.p.o. status and then do not perform a procedure. I explained to him that we are waiting for his INR to drift down to a safe level for procedure. Medications: Reviewed: Yes Vitals/I&O/Wt Last Vital Signs Temp 97.3 F L 09/18/20 15:05 Pulse 101 H 09/18/20 15:05 Resp 18 09/18/20 15:05 BP 138/77 09/18/20 15:05 Pulse Ox 97 09/18/20 15:05 09/18/20 09/18/20 09/18/20 06:59 14:59 22:59 Intake Total 550 / 1250 1350 / 1350 Output Total 100 / 470 Balance 450 / 780 1350 / 1350 Physical Exam Narrative: EXAM NARRATIVE: General patient is a thin man in mild distress due to pain. He appears slightly older than stated age of 70 Heart: Normal S1 with mechanical S2. No murmur auscultated. Regular rate Lungs: Severely diminished breath sounds throughout with prolonged expiratory phase. Expiratory wheezes also heard throughout. Abdomen: Thin soft nontender nondistended normal bowel sounds Extremities bilateral lower extremities with skin thickening on anterior aspect of lower extremity. Erythema of bilateral toes with necrotic tissue particularly on the left lateral toes Data : 09/18/20 07:25 09/18/20 07:25 Micro: Microbiology 09/13/20 16:02 Blood Culture - Final Blood NO GROWTH AFTER 5 DAYS 09/13/20 15:19 Blood Culture - Final Blood NO GROWTH AFTER 5 DAYS A&P Assessment and plan (1) Dry gangrene: Awaiting INR to drop below 2. Plans for angiogram? May require amputation. Place on oral medications scheduled with prn breakthrough pain meds available. Status: Acute (2) H/O mechanical aortic valve replacement: INR goal of 2.5-3.5. presented with INR of 6. Today he is 2.6. Status: Acute (3) Bilateral lower leg cellulitis: on antibiotics Status: Acute (4) Supratherapeutic INR: improving while holding coumadin. Anticipate close to 2 tomorrow. Then would start heparin which can be held 2 hours prior to procedure or continued if angiogram. I do not anticipate being able to perform procedure until Sunday. will allow to eat. Status: Acute (5) Chronic anticoagulation: for MVR Status: Chronic (6) Nicotine dependence, cigarettes, with other nicotine-induced disorders: was on chantix having some success. was down to 1 ppd. Status: Chronic (7) On home oxygen therapy: he says he was taking off oxygen while smoking. Status: Chronic (8) S/P AVR: as above Status: Chronic (9) Severe peripheral arterial disease: as above Status: Chronic (10) Hypertension: Status: Chronic Qualifiers: Hypertension type: essential hypertension Qualified Code(s): I10 - Essential (primary) hypertension (11) Bilateral carotid artery stenosis: Status: Chronic (12) Hyperlipidemia: continue home meds Status: Chronic Qualifiers: Hyperlipidemia type: mixed hyperlipidemia Qualified Code(s): E78.2 - Mixed hyperlipidemia (13) COPD (chronic obstructive pulmonary disease): Status: Chronic (14) Pulmonary hypertension: Status: Chronic Attestations Medical Necessity Statement*: dry gangrene. pain management Coding Level of Care Code Acute Respiratory Technician for [facility] Diagnoses Dry gangrene I96 H/O mechanical aortic valve replacement Z95.2 Bilateral lower leg cellulitis L03.116; L03.115 Supratherapeutic INR R79.1 Chronic anticoagulation Z79.01 Nicotine dependence, cigarettes, with other nicotine-induced disorders F17.218 On home oxygen therapy Z99.81 S/P AVR Z95.2 Severe peripheral arterial disease I73.9 Hypertension I10 Hypertension type: essential hypertension Bilateral carotid artery stenosis I65.23 Hyperlipidemia E78.2 Hyperlipidemia type: mixed hyperlipidemia COPD (chronic obstructive pulmonary disease) J44.9 Pulmonary hypertension I27.20
[2020-09-18] MEDS: oxyCODONE-APAP 10-325 mg Tablet 1 TAB PO ×2 (16:42→21:10)
--- NOTE | 2020-09-18 20:18 | PM.PN ---
Subjective Subjective: Interval history: INR is 2.4. Pain is better controlled. Medications: Reviewed: Yes Vitals/I&O/Wt Last Vital Signs Temp 98.2 F 09/18/20 19:38 Pulse 101 H 09/18/20 19:38 Resp 18 09/18/20 19:38 BP 165/73 09/18/20 19:38 Pulse Ox 94 09/18/20 19:38 09/18/20 09/18/20 09/18/20 06:59 14:59 22:59 Intake Total 550 / 1250 1350 / 1350 1290 / 2640 Output Total 100 / 470 Balance 450 / 780 1350 / 1350 1290 / 2640 Physical Exam Narrative: EXAM NARRATIVE: GENERAL: Patient is alert, awake and oriented x3. Moderate distress, flail physique NECK: No jugular vein distension. HEENT: No cyanosis. No icterus. No pallor. HEART: Regular S1 and S2. No murmur, rub or gallop. LUNGS: Decreased breathing bilaterally. CENTRAL NERVOUS SYSTEM: Grossly nonfocal. EXTREMITIES: Lower extremities excoriating skin, warm, gangrenous toes bilaterally Data : 09/19/20 05:05 09/19/20 05:05 Micro: Microbiology 09/13/20 16:02 Blood Culture - Final Blood NO GROWTH AFTER 5 DAYS 09/13/20 15:19 Blood Culture - Final Blood NO GROWTH AFTER 5 DAYS A&P Assessment and plan (1) Dry gangrene: Status: Acute (2) Severe peripheral arterial disease: This is a complicated patient with severe peripheral vascular disease in the past attempts were made to revascularize but remained unsuccessful. I have reviewed his films and willing to give another attempt through popliteal approach in a hope if I can go through left common femoral artery chances of which are low but worth attempting as patient at the moment is not in favor of bypass or surgical approach. He appeared to be in a lot of pain I would therefore add morphine instead of Dilaudid which will be discontinued for breakthrough pain as according to patient is not helping him and he refusing it due to not liking it. In between we can also use Toradol since his renal function is good. I have detailed discussion with the patient though he was in pain but he would like me to attempt to revascularize. Currently his INR is more than 5.0 he has mechanical aortic valve I would like to bring INR around 1.7 before attempting revascularization. I have detailed discussion with the patient as he is high risk. I have explained all risk benefit and alternative for the procedure. He understand the risk of acute limb ischemia during the procedure leading to amputation of the leg above the knee. He understand the risk of major minor bleed, he understand the risk of retroperitoneal hemorrhage and laceration or perforation of the vasculature leading to urgent or emergent surgery or in worse case scenario . He would like to proceed with it. Continue IV antibiotics. Patient INR is 3.9 tomorrow I will ask for left lower leg vascular ultrasound to assess anterior tibial/posterior tibial for possible access. Patient is little confused and not showed about the procedure. I will talk to his family and him tomorrow. Today INR is 3.0 we will continue holding warfarin patient is not ready yet will discuss him again tomorrow morning. Patient has been given option for vascular surgery which he declined he does not wanted to be cut open. I will discontinue Dilaudid and start patient on had oxycodone for breakthrough pain we will use Toradol and morphine Continue to monitor INR once below 1.7 we will proceed with angiogram. Again discussed with the patient details of procedure most likely I will try from wrist to visualize the lower extremity vessels depending upon availability will access accordingly and try to revascularize. Status: Chronic (3) H/O mechanical aortic valve replacement: INR is supratherapeutic. Continue to hold warfarin, INR 3.0 Status: Acute (4) Supratherapeutic INR: Continue to hold warfarin Status: Acute Additional A&P Information Bilateral cellulitis Chronic active smoker Severe COPD on home oxygen History of noncompliance For allowing me to participate in patient's care. Please feel free to call with questions or concerns. 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
[2020-09-18] MEDS: atorvastatin 40 mg Tablet 80 MG PO (22:05)
[2020-09-19] VITALS (14 sets, daily range): BP systolic 104–146; BP diastolic 65–78; PULSE 79–97; RESP 16–18; TEMP 36.1–36.6; O2SAT 94–99
[2020-09-19] MEDS: piperacillin-tazobactam 3.375 GM in sodium chloride 0.9% (plus) 50 ML IV ×3 (00:16→16:01)
[2020-09-19] MEDS: oxyCODONE-APAP 10-325 mg Tablet 1 TAB PO ×6 (00:17→21:38)
[2020-09-19 05:16] LABS: Basophils # 0.1 10^3/uL (0.0-0.1); Basophils % 0.5 %; Eosinophils # 0.4 10^3/uL (0.0-0.8); Eosinophils % 3.7 %; Hematocrit 39.5 % (42.0-52.0); Hemoglobin 12.1 g/dL (11.7-16.6); Lymphocytes # 0.7 10^3/uL (0.8-4.8); Lymphocytes % 6.4 %; Mean Corpuscular HGB Conc 30.6 g/dL (30.0-36.0); Mean Corpuscular Hemoglobin 31.9 pg (28.0-34.0); Mean Corpuscular Volume 104.2 fL (80-94); Mean Platelet Volume 9.6 fL (7.4-10.4); Monocytes # 0.8 10^3/uL (0.2-0.9); Monocytes % 7.5 %; Neutrophils # 8.94 10^3/uL (1.8-7.7); Neutrophils % 81.7 %; Nucleated Red Blood Cells % 0 %; Platelet Count 245 10^3/cmm (130-400); Red Blood Count 3.79 10^6/uL (4.1-5.3); Red Cell Distribution Width 14.6 % (12.1-15.1); White Blood Count 10.9 10^3/uL (4.0-10.0)
[2020-09-19 05:31] LABS: INR 2.03 (0.8-1.2)
[2020-09-19 05:37] LABS: Blood Urea Nitrogen 9 mg/dL (8-23); Calcium 8.3 mg/dL (8.5-10.5); Carbon Dioxide 33 mmol/L (22-29); Chloride 100 mmol/L (98-107); Glucose 123 mg/dL (65-115); Osmolality Calculated 284 mOsm/kg (285-295); Sodium 137 mmol/L (136-145)
[2020-09-19] MEDS: vancomycin 1,500 MG/300 ML PIGGYBACK 150 MG IV ×2 (06:11→17:21)
[2020-09-19] MEDS: gabapentin 300 mg Capsule PO ×3 (06:14→21:38)
[2020-09-19] MEDS: potassium chloride ER 10 mEq Tablet PO (06:14)
[2020-09-19] MEDS: tamsulosin 0.4 mg Capsule PO (06:14)
[2020-09-19] MEDS: metoprolol tartrate 25 mg Tablet PO ×2 (06:14→21:38)
[2020-09-19] MEDS: sennosides-docusate Tablet 1 TAB PO ×2 (08:39→17:21)
--- NOTE | 2020-09-19 15:08 | PM.PN ---
Subjective Subjective: Interval history: INR is 2.0. Pain is much better and well controlled. Medications: Reviewed: Yes Vitals/I&O/Wt Last Vital Signs Temp 97.2 F L 09/19/20 11:15 Pulse 81 09/19/20 11:15 Resp 17 09/19/20 12:22 BP 115/67 09/19/20 11:15 Pulse Ox 98 09/19/20 11:15 09/19/20 09/19/20 09/19/20 06:59 14:59 22:59 Intake Total 50 / 3230 590 / 590 Output Total 200 / 425 100 / 100 Balance -150 / 2805 490 / 490 Physical Exam Narrative: EXAM NARRATIVE: GENERAL: Patient is alert, awake and oriented x3. Moderate distress, flail physique NECK: No jugular vein distension. HEENT: No cyanosis. No icterus. No pallor. HEART: Regular S1 and S2. No murmur, rub or gallop. LUNGS: Decreased breathing bilaterally. CENTRAL NERVOUS SYSTEM: Grossly nonfocal. EXTREMITIES: Lower extremities excoriating skin, warm, gangrenous toes bilaterally Data : 09/19/20 05:05 09/19/20 05:05 Micro: Microbiology 09/13/20 16:02 Blood Culture - Final Blood NO GROWTH AFTER 5 DAYS 09/13/20 15:19 Blood Culture - Final Blood NO GROWTH AFTER 5 DAYS A&P Assessment and plan (1) Dry gangrene: Status: Acute (2) Severe peripheral arterial disease: This is a complicated patient with severe peripheral vascular disease in the past attempts were made to revascularize but remained unsuccessful. I have reviewed his films and willing to give another attempt through popliteal approach in a hope if I can go through left common femoral artery chances of which are low but worth attempting as patient at the moment is not in favor of bypass or surgical approach. He appeared to be in a lot of pain I would therefore add morphine instead of Dilaudid which will be discontinued for breakthrough pain as according to patient is not helping him and he refusing it due to not liking it. In between we can also use Toradol since his renal function is good. I have detailed discussion with the patient though he was in pain but he would like me to attempt to revascularize. Currently his INR is more than 5.0 he has mechanical aortic valve I would like to bring INR around 1.7 before attempting revascularization. I have detailed discussion with the patient as he is high risk. I have explained all risk benefit and alternative for the procedure. He understand the risk of acute limb ischemia during the procedure leading to amputation of the leg above the knee. He understand the risk of major minor bleed, he understand the risk of retroperitoneal hemorrhage and laceration or perforation of the vasculature leading to urgent or emergent surgery or in worse case scenario . He would like to proceed with it. Continue IV antibiotics. Patient INR is 3.9 tomorrow I will ask for left lower leg vascular ultrasound to assess anterior tibial/posterior tibial for possible access. Patient is little confused and not showed about the procedure. I will talk to his family and him tomorrow. Today INR is 3.0 we will continue holding warfarin patient is not ready yet will discuss him again tomorrow morning. Patient has been given option for vascular surgery which he declined he does not wanted to be cut open. I will discontinue Dilaudid and start patient on had oxycodone for breakthrough pain we will use Toradol and morphine Continue to monitor INR once below 1.7 we will proceed with angiogram. Again discussed with the patient details of procedure most likely I will try from wrist to visualize the lower extremity vessels depending upon availability will access accordingly and try to revascularize. Will check INR in the morning once below 1.7 we will proceed with angiogram. I have discussed with anesthesia most likely we will shoot for 4:30 PM. I have detailed discussion with the patient regarding all risk benefits alternative for the procedure he understand the risk for further deterioration amputation vascular injury leading to urgent emergent surgery transfer to outside hospital major minor bleed and in worse case scenario . Patient is high risk he has advanced COPD and congestive heart failure. He is not very cooperative therefore may will be using anesthesia. I have discussed with Dr. Donahue who will talk to Dr. Rowley tomorrow Status: Chronic (3) H/O mechanical aortic valve replacement: INR is supratherapeutic. Continue to hold warfarin, INR 2.0, will switch him to heparin from tomorrow Status: Acute (4) Supratherapeutic INR: Continue holding warfarin now INR is within subtherapeutic for the valve. We will bridge with heparin from tomorrow Status: Acute Additional A&P Information Bilateral cellulitis Chronic active smoker Severe COPD on home oxygen History of noncompliance For allowing me to participate in patient's care. Please feel free to call with questions or concerns. Attestations Medical Necessity Statement*: Patient require continued hospitalization for above defined care. 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
--- NOTE | 2020-09-19 15:13 | P.PN_ITS ---
Subjective Subjective: Interval history: Pain is much better controlled. And his is not aggitated like yesterday. Medications: Reviewed: Yes Vitals/I&O/Wt Last Vital Signs Temp 97.2 F L 09/19/20 11:15 Pulse 81 09/19/20 11:15 Resp 17 09/19/20 12:22 BP 115/67 09/19/20 11:15 Pulse Ox 98 09/19/20 11:15 09/19/20 09/19/20 09/19/20 06:59 14:59 22:59 Intake Total 50 / 3230 590 / 590 Output Total 200 / 425 100 / 100 Balance -150 / 2805 490 / 490 Physical Exam Narrative: EXAM NARRATIVE: General patient is a thin man in no distress He appears slightly older than stated age of 70 Heart: Normal S1 with mechanical S2. No murmur auscultated. Regular rate Lungs: Severely diminished breath sounds throughout with prolonged expiratory phase. Expiratory wheezes also heard throughout. Abdomen: Thin soft nontender nondistended normal bowel sounds Extremities bilateral lower extremities with skin thickening on anterior aspect of lower extremity. Erythema of bilateral toes with necrotic tissue worse on the left toes Data : 09/19/20 05:05 09/19/20 05:05 Micro: Microbiology 09/13/20 16:02 Blood Culture - Final Blood NO GROWTH AFTER 5 DAYS 09/13/20 15:19 Blood Culture - Final Blood NO GROWTH AFTER 5 DAYS A&P Assessment and plan (1) Dry gangrene: Awaiting INR to drop to about 1.7. Suspect that will be tomorrow. Discussed with Dr. Montgomery. Planning on 430 pm angiogram; attempt angioplasty if possible otherwise mapping for amputation. continue oxycodone orally and even when NPO. do not allow pt to get behind in pain meds. Status: Acute (2) H/O mechanical aortic valve replacement: INR goal of 2.5-3.5. presented with INR of 6. Today he is 2.0 Status: Acute (3) Bilateral lower leg cellulitis: on antibiotics Status: Acute (4) Supratherapeutic INR: improving while holding coumadin. Anticipate 1.5-1.6 tomorrow. heparin will be started with angiogram tomorrow. Status: Acute (5) Chronic anticoagulation: for MVR Status: Chronic (6) Nicotine dependence, cigarettes, with other nicotine-induced disorders: was on chantix having some success. was down to 1 ppd. Currently on patch Status: Chronic (7) On home oxygen therapy: he says he was taking off oxygen while smoking. Status: Chronic (8) S/P AVR: as above Status: Chronic (9) Severe peripheral arterial disease: as above Status: Chronic (10) Hypertension: Status: Chronic Qualifiers: Hypertension type: essential hypertension Qualified Code(s): I10 - Essential (primary) hypertension (11) Bilateral carotid artery stenosis: Status: Chronic (12) Hyperlipidemia: continue home meds Status: Chronic Qualifiers: Hyperlipidemia type: mixed hyperlipidemia Qualified Code(s): E78.2 - Mixed hyperlipidemia (13) COPD (chronic obstructive pulmonary disease): Status: Chronic (14) Pulmonary hypertension: Status: Chronic Additional A&P Information Full code Cardiac diet DVT prophylaxis not indicated due to supratherapeutic INR Anticipating prolonged hospitalization Attestations Medical Necessity Statement*: IV antibiotics, MVR with anticipated procedures and surgery will require IV heparin therapy. Suspect need for amputation. Coding Level of Care Code Acute Delivery Room Clerk for [facility] Diagnoses Dry gangrene I96 H/O mechanical aortic valve replacement Z95.2 Bilateral lower leg cellulitis L03.116; L03.115 Supratherapeutic INR R79.1 Chronic anticoagulation Z79.01 Nicotine dependence, cigarettes, with other nicotine-induced disorders F17.218 On home oxygen therapy Z99.81 S/P AVR Z95.2 Severe peripheral arterial disease I73.9 Hypertension I10 Hypertension type: essential hypertension Bilateral carotid artery stenosis I65.23 Hyperlipidemia E78.2 Hyperlipidemia type: mixed hyperlipidemia COPD (chronic obstructive pulmonary disease) J44.9 Pulmonary hypertension I27.20
[2020-09-19] MEDS: ketorolac 30 mg/mL INJ 15 MG IVP (15:32)
[2020-09-19] MEDS: sodium chloride 0.9% 1,000 ML 50 ML IV (16:00)
[2020-09-19] MEDS: morphine 4 mg/mL SDV 1 mL 2 MG IVP (18:40)
[2020-09-19] MEDS: atorvastatin 40 mg Tablet 80 MG PO (21:38)
[2020-09-20] VITALS (49 sets, daily range): BP systolic 103–156; BP diastolic 45–107; PULSE 75–113; RESP 10–38; TEMP 36.4–37; O2SAT 86–100
--- NOTE | 2020-09-20 | USCV_ITS ---
Damon King Age: 70 Gender: M : 1950 Exam Date: 09/20/2020 18:41 Ordering Phys: Suzie Mireles MD Technologist: [place] [facility] [place]: Findings ACCESS GAINED The artery was identified and found to be patent Diffuse plaques were noted Conclusions Patent artery with a diffuse plaques Dr Yuval Morgan MD FACC (Electronically Signed) Final Date: 21 September 2020 15:13 S
[2020-09-20] MEDS: piperacillin-tazobactam 3.375 GM in sodium chloride 0.9% (plus) 50 ML IV ×3 (00:05→15:21)
[2020-09-20] MEDS: oxyCODONE-APAP 10-325 mg Tablet 1 TAB PO ×5 (01:43→16:10)
[2020-09-20] MEDS: ketorolac 30 mg/mL INJ 15 MG IVP (04:03)
[2020-09-20] MEDS: vancomycin 1,500 MG/300 ML PIGGYBACK 150 MG IV ×2 (06:04→23:22)
[2020-09-20] MEDS: potassium chloride ER 10 mEq Tablet PO (06:06)
[2020-09-20] MEDS: metoprolol tartrate 25 mg Tablet PO ×2 (06:07→22:23)
[2020-09-20] MEDS: tamsulosin 0.4 mg Capsule PO (06:07)
[2020-09-20] MEDS: gabapentin 300 mg Capsule PO ×3 (06:07→22:23)
[2020-09-20] MEDS: morphine 4 mg/mL SDV 1 mL 2 MG IVP ×2 (07:28→15:20)
[2020-09-20] MEDS: sennosides-docusate Tablet 1 TAB PO (08:48)
--- NOTE | 2020-09-20 13:53 | P.ANESASSM_ITS ---
Pre-Anesthetic Assessment Pre-Anesthetic Assessment: Height/Weight: Height 1.73 m Weight 62.142 kg Temp Pulse Resp BP Pulse Ox 98.2 F 84 18 131/72 96 09/20/20 11:24 09/20/20 11:24 09/20/20 11:24 09/20/20 11:24 09/20/20 11:24 Preop Diagnosis: dry gangrene Proposed Procedure: Operation Date: 09/17/20 16:30 Proposed Procedures p left Cardiac Catheterization 63440 I73.9(Left) - Cricket Montgomery MD Operation Date: 09/20/20 16:30 Proposed Procedures p Cardiac Catheterization(Left) - Cricket Montgomery MD Familial anesthetic complications: None Was Beta Yony taken within 24 hours: Yes Was Clonidine taken within 24 hours: N/A Last intake: NPO > 8 hrs Social: Social History: Tobacco and No alcohol Exam: Pre-Anes Outpt Exam: alert, oriented x 3 and regular rate & rhythm Additional Exam Findings (including area of procedure): diminished b/l Airway: Cervical ROM: WNL MP: 2 Dentition: False Pulmonary: Pulmonary: COPD (on o2) CV/HEM: CV/HEM: HTN and PVD Comments: mechanical aortic valve Metabolic: Metabolic: Hyperlipidemia Anesthetic Plan: ASA status: 4 Anesthesia: MAC Risk of > 500 ml blood loss (7ml/kg in children): No Meds/Allergies Current Medications: Current Medications Generic Name Dose Route Start Last Admin Trade Name Freq PRN Reason Stop Dose Admin Albuterol Sulfate 2.5 mg 09/13/20 23:00 09/18/20 08:21 Albuterol 2.5 Mg /0.5 Ml Neb INHALATION 2.5 mg Q4H.RESPIRATORY P RN Administration SHORTNESS OF PORFIRIO TH Atorvastatin Calci um 80 mg 09/13/20 22:45 09/19/20 21:38 Atorvastatin 40 Mg Tablet PO 80 mg BEDTIME NICHOL Administration Gabapentin 300 mg 09/13/20 22:50 09/20/20 06:07 Gabapentin 300 M g Capsule PO 300 mg TID@ NICHOL Administration Piperacillin Sod/T azobactam 50 mls @ 12.5 mls /hr 09/13/20 23:00 09/20/20 08:47 Sod 3.375 gm/ So dium Chloride IV 12.5 mls/hr Q8H NICHOL Administration Protocol As Directed Vancomycin/PEG/NAD A/Lysine/Water 1,500 mg in 300 m ls @ 150 mls/hr 09/14/20 06:30 09/20/20 06:04 Vancocin IV 150 mls/hr Q12H NICHOL Administration Ketorolac Trometha mine 15 mg 09/15/20 23:11 09/20/20 04:03 Ketorolac 30 Mg/ Ml Inj IVP 09/20/20 23:10 15 mg Q4H PRN Administration BREAKTHROUGH PAIN Lidocaine HCl 1 applic 09/15/20 13:18 09/16/20 14:24 Lidocaine 2% Jel ly 5 Ml TOPICAL 1 applic PRN PRN Administration leg pain Metoprolol Tartrat e 25 mg 09/13/20 22:50 09/20/20 06:07 Metoprolol Tartr ate 25 Mg Tablet PO 25 mg BID@0700,2100 NICHOL Administration Morphine Sulfate 2 mg 09/15/20 23:09 09/20/20 07:28 Morphine 4 Mg/Ml Sdv 1 Ml IVP 2 mg Q4H PRN Administration BREAKTHROUGH PAIN Oxycodone/Acetamin ophen 1 tab 09/18/20 16:45 09/20/20 12:32 Oxycodone-Apap 1 0-325 Mg Tablet PO 1 tab Q4H NICHOL Administration Potassium Chloride 10 meq 09/14/20 07:00 09/20/20 06:06 Potassium Chlori de Er 10 Meq Table t PO 10 meq DAILY@0700 NICHOL Administration Fluticasone/Salmet demetrice 1 puff 09/19/20 20:00 09/20/20 07:51 Fluticasone-Salm eterol 250-50 Disk us INHALATION 1 puff BID.RESPIRATORY S CH Administration Senna/Docusate Sod ium 1 tab 09/14/20 18:00 09/20/20 08:48 Sennosides-Docus ate Tablet PO 1 tab BID NICHOL Administration Tamsulosin HCl 0.4 mg 09/14/20 07:00 09/20/20 06:07 Tamsulosin 0.4 M g Capsule PO 0.4 mg DAILY@0700 NICHOL Administration Tramadol HCl 50 mg 09/17/20 15:16 09/18/20 09:24 Tramadol 50 Mg T ablet PO 50 mg Q8H PRN Administration MODERATE PAIN PFSH Anesthesia PFSH: Medical History Bilateral carotid artery stenosis BPH (benign prostatic hyperplasia) Chronic anticoagulation coumadin, for mechanical AVR COPD (chronic obstructive pulmonary disease) CVA (cerebral vascular accident) Depression GERD (gastroesophageal reflux disease) History of PFTs (~08/2018) 08/20: severe obstructive ventilatory defect, no significant bronchodilator response, severely reduced diffusion capacity Hyperlipidemia Hypertension Nicotine dependence, cigarettes, with other nicotine-induced disorders On home oxygen therapy 3L BNC continuous Osteoarthritis Pulmonary hypertension Right renal artery stenosis >60% Severe peripheral arterial disease Surgical History History of angioplasty of peripheral vessel (~2017) in 2018, unsuccessful by Dr Putnam and later also Dr Calixto per old records, [place] [facility] [place] of [place] valve replacement (~2008) Dr Bolton, mechanical History of CEA (carotid endarterectomy) right ~2008, left ~2010 History of ear surgery History of testicular surgery right orchiectomy for undescended testicle as a child Family History Other CAD (coronary artery disease) Diabetes Social History Smoking and tobacco status: current every day smoker cigarettes Number of cigarettes per day: 11-20 Alcohol intake: current Alcohol intake frequency: 0-2 Drinks per Day Alcohol use comment: 1 oz whiskey daily with coke Substance/Drug Use: never Household members: family and other Details: son + Data Anesthesia CBC & Chem 7: 09/19/20 05:05 09/19/20 05:05 Other Labs: Laboratory Results - last 48 hr 09/19/20 09/19/20 09/19/20 05:05 05:05 05:05 WBC 10.9 H RBC 3.79 L Hgb 12.1 Hct 39.5 L MCV 104.2 H MCH 31.9 MCHC 30.6 RDW 14.6 Plt Count 245 MPV 9.6 Neut % (Auto) 81.7 Lymph % (Auto) 6.4 [place] % (Auto) 7.5 Eos % (Auto) 3.7 Baso % (Auto) 0.5 Neut # (Auto) 8.94 H Lymph # (Auto) 0.7 L [place] # (Auto) 0.8 Eos # (Auto) 0.4 Baso # (Auto) 0.1 Nucleated RBC % (auto) 0 Nucleated RBCs # 0.0 PT 23.70 H INR 2.03 H Sodium 137 Potassium 4.0 Chloride 100 Carbon Dioxide 33 H Anion Gap 8.0 BUN 9 Creatinine 0.3 L GFR Calculation Not Reportable Glucose 123 H Calculated Osmolality 284 L Calcium 8.3 L 09/20/20 06:15 WBC RBC Hgb Hct MCV MCH MCHC RDW Plt Count MPV Neut % (Auto) Lymph % (Auto) [place] % (Auto) Eos % (Auto) Baso % (Auto) Neut # (Auto) Lymph # (Auto) [place] # (Auto) Eos # (Auto) Baso # (Auto) Nucleated RBC % (auto) Nucleated RBCs # PT 21.60 H INR 1.80 H Sodium Potassium Chloride Carbon Dioxide Anion Gap BUN Creatinine GFR Calculation Glucose Calculated Osmolality Calcium Cardiac Studies: No Data to Display
--- NOTE | 2020-09-20 14:12 | P.PN_ITS ---
Subjective Subjective: Interval history: Planned for peripheral angiogram later this afternoon. No acute events overnight. Continues to complain of pain Medications: Reviewed: Yes Vitals/I&O/Wt Last Vital Signs Temp 98.2 F 09/20/20 11:24 Pulse 84 09/20/20 11:24 Resp 18 09/20/20 11:24 BP 131/72 09/20/20 11:24 Pulse Ox 96 09/20/20 11:24 09/19/20 09/20/20 09/20/20 22:59 06:59 14:59 Intake Total 710 / 1300 50 / 1350 Output Total 400 / 500 Balance 710 / 1200 -350 / 850 Physical Exam Narrative: EXAM NARRATIVE: GEN: Awake, alert and oriented, no acute distress CVS: S1S2 N RS: CTA B/L Abd: Soft, nt/nd , bs+ [employer]: no focal neuro deficits Data : 09/19/20 05:05 09/19/20 05:05 A&P Assessment and plan (1) Dry gangrene: Status: Acute (2) H/O mechanical aortic valve replacement: Status: Acute (3) Bilateral lower leg cellulitis: Status: Acute (4) Supratherapeutic INR: Status: Acute (5) Ischemic ulcer of both feet: Status: Acute (6) Chronic anticoagulation: Status: Chronic (7) On home oxygen therapy: Status: Chronic (8) Nicotine dependence, cigarettes, with other nicotine-induced disorders: Status: Chronic (9) Severe peripheral arterial disease: Status: Chronic (10) COPD (chronic obstructive pulmonary disease): Status: Chronic (11) Pulmonary hypertension: Status: Chronic Additional A&P Information Dry gangrene with underlying severe peripheral vascular disease Patient has stayed afebrile, stable leukocytosis Hemoglobin stable Blood cultures negative to date Purulent cellulitis of the left leg seems to be improving Continue IV antibiotics plan for peripheral angiogram this afternoon patient knows all the risk factors and complications and is very receptive of his prognosis and current clinical findings, right now he is very anxious for vascular intervention because of worsening of pain Mechanical aortic valve, start heparin once INR less than 2.5 No active chest pain shortness of breath signs of heart failure Mechanical aortic valve 2010 Dr. Bolton Contraction alkalosis: Discontinued Lasix 09/16 I kept him on normal saline for about 10 to 12 hours yesterday however his bicarb is still 45, his p.o. intake is very poor, I will keep him on normal saline for now, closer monitoring needed in case of worsening and fluid overload Pulmonary hypertension with COPD And he saturating well on 2 to 3 L nasal cannula no acute exacerbation Full code Cardiac diet DVT prophylaxis not indicated due to supratherapeutic INR Anticipating prolonged hospitalization Attestations Medical Necessity Statement*: planned for angiogram this afternoon Coding Level of Care Code Acute Solar Project Coordination Specialist for Jose Roberto Washburn Diagnoses Dry gangrene I96 H/O mechanical aortic valve replacement Z95.2 Bilateral lower leg cellulitis L03.116; L03.115 Supratherapeutic INR R79.1 Ischemic ulcer of both feet L97.519; L97.529 Chronic anticoagulation Z79.01 On home oxygen therapy Z99.81 Nicotine dependence, cigarettes, with other nicotine-induced disorders F17.218 Severe peripheral arterial disease I73.9 COPD (chronic obstructive pulmonary disease) J44.9 Pulmonary hypertension I27.20
--- NOTE | 2020-09-20 16:06 | PC.CHAP ---
Pastoral Care Encounter/Spiritual Assessment Type of Contact [] Declined maintenance tech visit [x] Patient/Family/Request visit [] Outpatient visit [] Follow-up visit [] Physician referral [] Code/Alert [] Routine visit [] Staff referral [] Actively dying [] Patient sleeping [] Family support [] [] Out of room [] Palliative care [] [] Receiving care in room [x] Pre-surgical visit [] Trauma [x] Long length of stay [] ICU visit [] Other: Relational/Emotional Strength [x] Patient feels connected with others/family/visitors/staff [] Distress [] Loneliness/isolation [] Abandonment Spirituality of Patient [x] Person of Yomaira [x] Attends Latter-Day of their [place]om[place]a [x] Believes in Prayer [x] Reads Bible or Yarsanism materials [] There are Spiritual issues to be addressed Market Consultant 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 [x] Prayer [x] Active listening [x] Non-anxious presence [x] Spiritual/emotional support [] Crisis/trauma care [] Spiritual counseling [] Bereavement support [] Provided bereavement packet [] Provided Bible/devotional materials [] Provided toy/stuffed animal, coloring book to patient or family member [] Provided Communion [] Anointing/[place] [] Salvation [x] Completed spiritual assessment [] Other: Impact on Illness or Injury [] Angry [] Fearful [] Anxious [] Often cries [] Exhaustion [] Unable to work [] Unable to attend synagogue [x] Unable to walk/stand [] Unable to read [x] Unable to drive [] Unable to eat/drink [] Unable to sleep [] Unable to be with family [] Patient intubated [] Other: Summary Patient was praying as maintenance tech entered the room. He was to go for a procedure within the next half hour. Patient is very up beat and is planning ahead. He realizes he may lose both legs and will be in long-term with his for an extended stay, then plans on going home. His son and daughter -in-law are live in caregivers. Patient would like a giant print Bible unfortunately there are none in our supply of bibles. this Market Consultant went to a couple of stores in town but failed to find a giant print, however maintenance tech will continue to search. Market Consultant prayer for the patient and offered words of encouragement. Time spent with patient 15 min
[2020-09-20] MEDS: diphenhydrAMINE 50 mg Capsule PO (16:10)
--- NOTE | 2020-09-20 16:20 | XACV_ITS ---
Ht: 173 cm Wt: 62 kg BSA: 1.72 m2 Any Known Allergies: Other Gender: Male : 1950 Exam Type: Invasive Peripheral Vascular Procedure(s): Procedure Description: Peripheral Cath Diagnostic Procedure Exam Priority: Routine Lower Extremity Interventional Findings Through right radial approach abdominal aortogram with runoff was performed. Due to short catheter injection of the contrast was not adequate. Right common femoral approach was adopted on the way right ostial external iliac and distal common iliac segment was dilated using [place] 6.0x40mm balloon. Posterior tibial on the left side was used to cannulate. I was able to cross with somewhat difficulty through the SFA on the left side until the left common femoral which remained unsuccessful to cross. I believe I was through collateral into external and common iliac dissection plane. Through contralateral injection potentially of was confirmed again. It appeared to me that left common highly calcified lesion is pretty resilient and high risk. At this point I stopped the procedure without any complication. We will refer the patient to vascular surgery.. Conclusions Critical limb ischemia with gangrene S bilateral toesThrough radial artery abdominal angiogram was performed, abdominal aorta has moderate atherosclerosis with distal moderate narrowing.Right and left common iliac are highly calcified but patent vessels.Right ostial external iliac has highly calcified severely stenotic eccentric lesion.Right common femoral is calcified but patent vesselRight profundofemoral is patent with luminal irregularityChronically occluded ostial SFA which reconstitute in the distal segmentRight popliteal and tibioperoneal trunk is free of diseaseRight anterior tibial and peroneal artery has good runoffRight posterior tibial appeared to be occluded as not visualizedLeft common iliac artery has luminal irregularity it is highly calcified vessel, ostial external iliac has moderate lesion, left common femoral is chronically occluded, left SFA is chronically occluded, left popliteal artery has luminal irregularity, left tibioperoneal trunk as luminal irregularity with distal moderate disease. Two-vessel runoff with left posterior tibial and peroneal was visualized. Left anterior tibial was not well visualized.. Recommendations 1-Return to inpatient for close monitoring and routine cath care2-Risk factor modification for secondary prevention3-Statin and aspirin 81 mg life--long, if tolerated4-Refer to vascular surgery 5-bridged with heparin for aortic valve. Hemodynamic Data Phase:Rest AO : 107.0 / 76.0 ( 91.0 ) @ 1:22:00 PM Access Site Site: Right Radial artery Sheath Size: 6 Fr Hemost... Success: Unsuccessful Site: Right Femoral artery Sheath Size: 6 Fr Hemost... Success: Unsuccessful Procedure Details Findings Procedure Consent Obtained. Pre-Procedure Time Out. Identified patient by full name and date of as verbalized by the patient/guarantor. Does the consent match the physician's order: Yes. Accurate & Complete Informed Consent: Yes. Inpatient/Outpatient History & Physical on Chart: Yes. If H&P is completed, is and addenduem needed: No; If yes, is the addendum complete: N/A. Visualize and Verify Site with Patient/Guarantor: N/A. Relevant Radiology Images available: N/A. Pre-op teaching completed and patient verbalized understanding. The risks, benefits, and alternatives of sedation and/or procedure were discussed by physician. The patient agrees to continue. Physician arrived. Equipment: Peripheral. Procedure started. Correct patient, site and procedure confirmed by cath team. PERRLA. Strong, equal hand trackmobile operator bilaterally. Lungs clear x 5 lobes. IV Site on Arrival: 20 gauge in the left forearm. Pre Procedural Pulses: bilateral dorsalis pedis was Doppled. Pre Procedural Pulses: bilateral posterior tibial was Doppled. Oxygen started at 4liters/min via nasal canula. right radial was prepped with chloroprep then draped in the usual sterile fashion. Called Jacques from ultrasound to come assist. Baseline sample Acquired. HR: 96 BPM. Prateek from anesthesia present to manage sedation, airway, and fluids. Jacques from ultrasound arrived. Physician scrubbed in. Immediate Pre-Procedure Time Out. Time out performed with cath team. Lidocaine 1% infiltrated to the right radial. Arterial access obtained. A 5 maldivian Angled Pig catheter in over wire. Catheter removed over the exchange wire. A 5 maldivian JR4 catheter in over wire. Inventory is TR Glidewire Angled Stiff Shaft .035 260cm. Cardiac Cath Pack. ACIST Manifold Kit Model BT 2000. Heparinized Saline (2 units/mL), 1000 mL bag. Exchange wire out. Glidewire inserted. Wire out. Hand injection. Glidewire inserted. Catheter out over wire. A 5 maldivian Angled Pig catheter in over wire. Wire out. Aortogram performed in [place]OAT[place] @ 10 mL/sec for a total of 30 mL. Catheter removed over the glide wire. A [place] 5 Fr Pedro Radial Catheter, 110cm was advanced over the wire and used to advance the wire. Catheter removed over the glide wire. A 5 maldivian Angled Pig catheter in over wire. Wire out. Abdominal aortogram performed in ALLISON @ 10 mL/sec for a total of 40 mL. Lidocaine 1% infiltrated to the right groin. Arterial access obtained with micropuncture set. Glidewire inserted. Manpreet Pagan RRT was relieved by NELIDA Paulino as monitoring person. catheter out of radial sheath. hand injection right femoral. Balloon inserted over the wire to the common femoral. Inflation number : 1 A AB ARMADA 35 OTW [id number] was prepped and advanced across the Common Femoral, Right Common Femoral, Right , then inflated to 4 GENE for 0:32 seconds. Inflation number: 2 The AB ARMADA 35 OTW [id number] was reinflated across the Common Femoral, Right Common Femoral, Right, to 10 GENE for 0:29 seconds. Balloon out over wire. rim catheter inserted. A JJ 5F RIM 65 cm Diagnostic Catheter was advanced over the wire and used for. catheter out. Pigtail postioned above the bifurcation of the iliacs. Aortagram performed @ 10 mL/sec for a total of 30 mL. lidocaine left lower leg. sheath inserted left posterior tibial with micro punctural kit. glidewire insterted. 6 fr sheath inserted over the wire. A 5FrFr Trailblazer catheter in over wire. hand injection from the right femoral sheath. hand injection right femoral sheath. wire out. hand injection left posterior sheath. glidewire inserted. wire out. hand injection left posterior sheath. glidewire inserted. wire out. hand injection left posterior sheath. right femoral sheath rim catheter inserted. wire out. hand injection right femoral sheath. A 5FrFr RIM catheter in over wire. wire out. command guide wire inserted. Catheter out. wire out. TR band placed. Hemostasis obtained right radial. TR band placed. Hemostasis obtained. left posterior tibial. Aortic arch arteriogram performed in ALLISON @ 10 ml/sec for a total of 30 mL. Sheath(s) sutured into position with 2-0 silk and sterile 4x4's and Op-site applied over the site. No oozing or signs and symptoms of hematoma noted. right femoral sheath. Complications: none. Post-op diagnosis: severe peripheral artery disease. Estimated blood loss: 5mL-10mL. PERRLA. Strong, equal hand trackmobile operator bilaterally. No VTE prophylaxis required. Arterial sheath flushed and connected to tranducer and pressure bag with heparinized saline. Procedure completed. Medication's Wasted: Lidocaine 1% = 14 mg. Medication's Wasted: Heparin = 2000 units. Patient transferred by bed to 1st floor. Vital chart was stopped. I, the attending physician, have reviewed and verified all procedure medications. Yes, all medications given per verbal order History/Risk Factors Hypertension: No Dyslipidemia: No Peripheral Arterial Disease (PAD): Yes Obesity: No Renal Disease: No Prior 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 PCI: No CABG: No Valve Surgery: No Report Signatures Finalized by Cricket Montgomery MD on 09/21/2020 05:51 PM
--- NOTE | 2020-09-20 17:11 | PC.NURSE ---
Belongings Pt belongings taken to [facility]. Report given to Timoteo BOWEN.
--- NOTE | 2020-09-20 17:50 | W.PM.OPSUD ---
Surgery/Procedure H&P Update DATE OF PROCEDURE: September 20, 2020 DATE H&P PERFORMED: 09/13/20 H&P UPDATE INFORMATION: I have reviewed H&P completed within last 30 days, I have examined patient prior to procedure and No changes to prior documentation PREOP DIAGNOSIS: dry gangrene PLANNED PROCEDURE: Operation Date: 09/17/20 16:30 Proposed Procedures p left Cardiac Catheterization 12165 I73.9(Left) - Cricket Montgomery MD Operation Date: 09/20/20 16:30 Proposed Procedures p Cardiac Catheterization(Left) - Cricket Montgomery MD AIRWAY EVAL/ANESTHESIA PLAN: Risks, benefits & alternatives of sedation and/or procedure discussed and Patient agrees to continue as planned ADDITIONAL INFORMATION: Please see anesthesia note Related Problem List Diagnoses (1) Dry gangrene: (2) Severe peripheral arterial disease: (3) H/O mechanical aortic valve replacement: (4) Supratherapeutic INR:
[2020-09-20 21:17] LABS: Partial Thromboplastin Time 54.9 SECONDS (23.9-36.7)
[2020-09-20 21:27] LABS: Vancomycin Trough 12.5 ug/mL (10-15)
--- NOTE | 2020-09-20 21:51 | PC.NURSE ---
Pt arrived via pt bed from laborer cheesemaking at 2047. Report from cathlab RN at bedside. Dr Montgomery at bedside. States that pt did not have any pulse in lower extremties. Pt attached to ICU monitor and resting comfortable. Denies pain. Will monitor for bleeding and pulses.
--- NOTE | 2020-09-20 22:11 | PM.PN ---
Subjective Subjective: Interval history: Patient underwent peripheral angiogram noted to have highly calcified chronically occluded left common femoral, proximal to distal left SFA with moderately diffusely diseased left popliteal artery. Two-vessel runoff with anterior posterior tibial was noted. There was highly calcified distal right common iliac lesion noted treated with balloon angioplasty. Right SFA is chronically was occluded, two-vessel runoff was noted below the right knee. By using left posterior tibial artery we were able to cross SFA in a retrograde fashion but were not able to cross the left common femoral artery however through the collateral we entered in dissection plane in the left common vessel. Flow in the left common and external iliac remained stable as evident by the contralateral injection. At this point since left common is highly calcified vessel and may not amenable to percutaneous intervention we thought patient should be better off with vascular surgery. Final injection through the contralateral common femoral approach reconfirmed patent bilateral common, external iliac arteries with two-vessel runoff bilaterally. we recommend consulting with Dr. Segovia for iiliofemoral bypass. Medications: Reviewed: Yes Vitals/I&O/Wt Last Vital Signs Temp 98.1 F 09/20/20 20:16 Pulse 95 09/20/20 20:16 Resp 16 09/20/20 20:16 BP 134/69 09/20/20 20:16 Pulse Ox 96 09/20/20 15:52 09/20/20 09/20/20 09/20/20 06:59 14:59 22:59 Intake Total 50 / 1350 1350 / 1350 Output Total 400 / 500 400 / 400 Balance -350 / 850 950 / 950 Physical Exam Narrative: EXAM NARRATIVE: GENERAL: Patient is alert, awake and oriented x3. Moderate distress, flail physique NECK: No jugular vein distension. HEENT: No cyanosis. No icterus. No pallor. HEART: Regular S1 and S2. No murmur, rub or gallop. LUNGS: Decreased breathing bilaterally. CENTRAL NERVOUS SYSTEM: Grossly nonfocal. EXTREMITIES: Lower extremities excoriating skin, warm, gangrenous toes bilaterally Data : 09/19/20 05:05 09/19/20 05:05 A&P Assessment and plan (1) Dry gangrene: Status: Acute (2) Severe peripheral arterial disease: This is a complicated patient with severe peripheral vascular disease in the past attempts were made to revascularize but remained unsuccessful. I have reviewed his films and willing to give another attempt through popliteal approach in a hope if I can go through left common femoral artery chances of which are low but worth attempting as patient at the moment is not in favor of bypass or surgical approach. He appeared to be in a lot of pain I would therefore add morphine instead of Dilaudid which will be discontinued for breakthrough pain as according to patient is not helping him and he refusing it due to not liking it. In between we can also use Toradol since his renal function is good. I have detailed discussion with the patient though he was in pain but he would like me to attempt to revascularize. Currently his INR is more than 5.0 he has mechanical aortic valve I would like to bring INR around 1.7 before attempting revascularization. I have detailed discussion with the patient as he is high risk. I have explained all risk benefit and alternative for the procedure. He understand the risk of acute limb ischemia during the procedure leading to amputation of the leg above the knee. He understand the risk of major minor bleed, he understand the risk of retroperitoneal hemorrhage and laceration or perforation of the vasculature leading to urgent or emergent surgery or in worse case scenario . He would like to proceed with it. Continue IV antibiotics. Patient INR is 3.9 tomorrow I will ask for left lower leg vascular ultrasound to assess anterior tibial/posterior tibial for possible access. Patient is little confused and not showed about the procedure. I will talk to his family and him tomorrow. Today INR is 3.0 we will continue holding warfarin patient is not ready yet will discuss him again tomorrow morning. Patient has been given option for vascular surgery which he declined he does not wanted to be cut open. I will discontinue Dilaudid and start patient on had oxycodone for breakthrough pain we will use Toradol and morphine Continue to monitor INR once below 1.7 we will proceed with angiogram. Again discussed with the patient details of procedure most likely I will try from wrist to visualize the lower extremity vessels depending upon availability will access accordingly and try to revascularize. Will check INR in the morning once below 1.7 we will proceed with angiogram. I have discussed with anesthesia most likely we will shoot for 4:30 PM. I have detailed discussion with the patient regarding all risk benefits alternative for the procedure he understand the risk for further deterioration amputation vascular injury leading to urgent emergent surgery transfer to outside hospital major minor bleed and in worse case scenario . Patient is high risk he has advanced COPD and congestive heart failure. He is not very cooperative therefore may will be using anesthesia. I have discussed with Dr. Donahue who will talk to Dr. Rowley tomorrow Today 09/20/2020 Patient underwent peripheral angiogram noted to have highly calcified chronically occluded left common femoral, proximal to distal left SFA with moderately diffusely diseased left popliteal artery. Two-vessel runoff with anterior posterior tibial was noted. There was highly calcified distal right common iliac lesion noted treated with balloon angioplasty. Right SFA is chronically was occluded, two-vessel runoff was noted below the right knee. By using left posterior tibial artery we were able to cross SFA in a retrograde fashion but were not able to cross the left common femoral artery however through the collateral we entered in dissection plane in the left common vessel. Flow in the left common and external iliac remained stable as evident by the contralateral injection. At this point since left common is highly calcified vessel and may not amenable to percutaneous intervention we thought patient should be better off with vascular surgery. Final injection through the contralateral common femoral approach reconfirmed patent bilateral common, external iliac arteries with two-vessel runoff bilaterally. we recommend consulting with Dr. Segovia for iiliofemoral bypass. Patient without complication transferred back to ICU. Due to noncooperation will continue Precedex until bedrest will be completed as patient moves a lot which can lead to right groin bleed hematoma or common femoral artery perforation Status: Chronic (3) H/O mechanical aortic valve replacement: Bridged with heparin once complete bedrest. Status: Acute (4) Supratherapeutic INR: Subtherapeutic, bridged with heparin Status: Acute Additional A&P Information Bilateral cellulitis Chronic active smoker Severe COPD on home oxygen History of noncompliance For allowing me to participate in patient's care. Please feel free to call with questions or concerns. Attestations Medical Necessity Statement*: Patient require continuation hospitalization for above defined care Coding Level of Care Code Established Pt Acute Instructional Design Consultant for Jose Roberto Washburn Patient Type Established History Detailed Exam Detailed Medical Decision Making Moderate Complexity Diagnoses Dry gangrene I96 Severe peripheral arterial disease I73.9 H/O mechanical aortic valve replacement Z95.2 Supratherapeutic INR R79.1
[2020-09-20] MEDS: atorvastatin 40 mg Tablet 80 MG PO (22:22)
[2020-09-20] MEDS: sodium chloride 0.9% 1,000 ML 100 ML IV (22:33)
[2020-09-20] MEDS: dexmedetomidine 400 MCG in sodium chloride 0.9% (100 ml) 100 ML IV (23:08)
[2020-09-21] VITALS (176 sets, daily range): BP systolic 76–163; BP diastolic 42–116; PULSE 60–115; RESP 11–41; TEMP 36.1–37; O2SAT 74–100
[2020-09-21] MEDS: piperacillin-tazobactam 3.375 GM in sodium chloride 0.9% (plus) 50 ML IV ×3 (00:20→16:02)
--- NOTE | 2020-09-21 02:08 | PC.NURSE ---
TR bands to the right radial and Left Post Tibial removed. No bleeding and will continue to monitor. Pt arterial sheath to right femoral art removed. Manual pressure held for 30 minutes. No bleeding and dressing applied. Pt provided with comfort bath and linen change. Pulses to right dorsalis pedis obtained via ultrasound doppler. Left dorsalis pedis was weak with minimal flow noted.
[2020-09-21 04:18] LABS: Basophils % 0.3 %; Eosinophils # 0.3 10^3/uL (0.0-0.8); Eosinophils % 2.3 %; Hematocrit 34.4 % (42.0-52.0); Hemoglobin 10.6 g/dL (11.7-16.6); Lymphocytes # 0.5 10^3/uL (0.8-4.8); Lymphocytes % 4.1 %; Mean Corpuscular HGB Conc 30.8 g/dL (30.0-36.0); Mean Corpuscular Hemoglobin 32.6 pg (28.0-34.0); Mean Corpuscular Volume 105.8 fL (80-94); Mean Platelet Volume 10.2 fL (7.4-10.4); Monocytes # 0.9 10^3/uL (0.2-0.9); Monocytes % 7.3 %; Neutrophils # 10.52 10^3/uL (1.8-7.7); Neutrophils % 85.3 %; Nucleated Red Blood Cells % 0 %; Platelet Count 230 10^3/cmm (130-400); Red Blood Count 3.25 10^6/uL (4.1-5.3); Red Cell Distribution Width 14.3 % (12.1-15.1); White Blood Count 12.3 10^3/uL (4.0-10.0)
[2020-09-21 04:27] LABS: Anion Gap 5.3 (5-19); Blood Urea Nitrogen 6 mg/dL (8-23); Calcium 7.9 mg/dL (8.5-10.5); Carbon Dioxide 38 mmol/L (22-29); Chloride 101 mmol/L (98-107); Glucose 94 mg/dL (65-115); Osmolality Calculated 287 mOsm/kg (285-295); Potassium 4.3 mmol/L (3.5-5.1); Sodium 140 mmol/L (136-145)
[2020-09-21] MEDS: oxyCODONE-APAP 10-325 mg Tablet 1 TAB PO ×5 (04:43→20:15)
[2020-09-21] MEDS: sodium chloride 0.9% 1,000 ML 100 ML IV ×2 (07:26→16:03)
[2020-09-21] MEDS: metoprolol tartrate 25 mg Tablet PO ×2 (07:27→20:17)
[2020-09-21] MEDS: tamsulosin 0.4 mg Capsule PO (07:27)
[2020-09-21] MEDS: potassium chloride ER 10 mEq Tablet PO (07:27)
[2020-09-21] MEDS: gabapentin 300 mg Capsule PO ×3 (07:27→20:28)
[2020-09-21] MEDS: sennosides-docusate Tablet 1 TAB PO (08:26)
--- NOTE | 2020-09-21 10:33 | PC.CHAP ---
Pastoral Care Encounter/Spiritual Assessment Type of Contact [] Declined continuous washer operator visit [] Patient/Family/Request visit [] Outpatient visit [] Follow-up visit [] Physician referral [] Code/Alert [x] Routine visit [] Staff referral [] Actively dying [] Patient sleeping [] Family support [] [] Out of room [] Palliative care [] [] Receiving care in room [] Pre-surgical visit [] Trauma [] Long length of stay [x] ICU visit [] Other: Relational/Emotional Strength [] Patient feels connected with others/family/visitors/staff [] Distress [] Loneliness/isolation [] Abandonment Spirituality of Patient [] Person of Yomaira [] Attends Alevism of their Yomaira [] Believes in Prayer [] Reads Bible or Protestant materials [] There are Spiritual issues to be addressed Train Master 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 [x] Prayer [] Active listening [] Non-anxious presence [] Spiritual/emotional support [] Crisis/trauma care [] Spiritual counseling [] Bereavement support [] Provided bereavement packet [] Provided Bible/devotional materials [] Provided toy/stuffed animal, coloring book to patient or family member [] Provided Communion [] Anointing/[place] [] Salvation [x] Completed spiritual assessment [] Other: Impact on Illness or Injury [] Angry [] Fearful [] Anxious [] Often cries [] Exhaustion [] Unable to work [] Unable to attend anabaptism [] Unable to walk/stand [] Unable to read [] Unable to drive [] Unable to eat/drink [] Unable to sleep [] Unable to be with family [] Patient intubated [] Other: Summary patient deaf in left ear.. but hearing in right ear is loud.. must whisper when speaking to patient or praying.. patient states he is feeling better... Time spent with patient 10 min
--- NOTE | 2020-09-21 11:30 | PM.PN ---
Subjective Subjective: Interval history: Patient is on Precedex for bedrest and in order to avoid bleeding due to agitation after sheath pulling. We will taper him off slowly.. Medications: Reviewed: Yes Vitals/I&O/Wt Last Vital Signs Temp 97.6 F 09/21/20 08:00 Pulse 70 09/21/20 09:45 Resp 25 H 09/21/20 09:45 BP 93/57 09/21/20 09:45 Pulse Ox 95 09/21/20 09:45 09/20/20 09/21/20 09/21/20 22:59 06:59 14:59 Intake Total 1400 / 1400 350 / 1750 1113.320 / 1113.320 Output Total 400 / 400 975 / 1375 Balance 1000 / 1000 -625 / 375 1113.320 / 1113.320 Physical Exam Narrative: EXAM NARRATIVE: GENERAL: Patient is alert, awake and oriented x3, is feeling sleepy, open his eyes and talk then go back to NECK: No jugular vein distension. HEENT: No cyanosis. No icterus. No pallor. HEART: Regular S1 and S2. No murmur, rub or gallop. LUNGS: Decreased breathing bilaterally. CENTRAL NERVOUS SYSTEM: Grossly nonfocal. EXTREMITIES: Lower extremities excoriating skin, warm, gangrenous toes bilaterally Data : 09/21/20 03:10 09/21/20 03:10 A&P Assessment and plan (1) Dry gangrene: Status: Acute (2) Severe peripheral arterial disease: This is a complicated patient with severe peripheral vascular disease in the past attempts were made to revascularize but remained unsuccessful. I have reviewed his films and willing to give another attempt through popliteal approach in a hope if I can go through left common femoral artery chances of which are low but worth attempting as patient at the moment is not in favor of bypass or surgical approach. He appeared to be in a lot of pain I would therefore add morphine instead of Dilaudid which will be discontinued for breakthrough pain as according to patient is not helping him and he refusing it due to not liking it. In between we can also use Toradol since his renal function is good. I have detailed discussion with the patient though he was in pain but he would like me to attempt to revascularize. Currently his INR is more than 5.0 he has mechanical aortic valve I would like to bring INR around 1.7 before attempting revascularization. I have detailed discussion with the patient as he is high risk. I have explained all risk benefit and alternative for the procedure. He understand the risk of acute limb ischemia during the procedure leading to amputation of the leg above the knee. He understand the risk of major minor bleed, he understand the risk of retroperitoneal hemorrhage and laceration or perforation of the vasculature leading to urgent or emergent surgery or in worse case scenario . He would like to proceed with it. Continue IV antibiotics. Patient INR is 3.9 tomorrow I will ask for left lower leg vascular ultrasound to assess anterior tibial/posterior tibial for possible access. Patient is little confused and not showed about the procedure. I will talk to his family and him tomorrow. Today INR is 3.0 we will continue holding warfarin patient is not ready yet will discuss him again tomorrow morning. Patient has been given option for vascular surgery which he declined he does not wanted to be cut open. I will discontinue Dilaudid and start patient on had oxycodone for breakthrough pain we will use Toradol and morphine Continue to monitor INR once below 1.7 we will proceed with angiogram. Again discussed with the patient details of procedure most likely I will try from wrist to visualize the lower extremity vessels depending upon availability will access accordingly and try to revascularize. Will check INR in the morning once below 1.7 we will proceed with angiogram. I have discussed with anesthesia most likely we will shoot for 4:30 PM. I have detailed discussion with the patient regarding all risk benefits alternative for the procedure he understand the risk for further deterioration amputation vascular injury leading to urgent emergent surgery transfer to outside hospital major minor bleed and in worse case scenario . Patient is high risk he has advanced COPD and congestive heart failure. He is not very cooperative therefore may will be using anesthesia. I have discussed with Dr. Donahue who will talk to Dr. Rowley tomorrow Today 09/20/2020 Patient underwent peripheral angiogram noted to have highly calcified chronically occluded left common femoral, proximal to distal left SFA with moderately diffusely diseased left popliteal artery. Two-vessel runoff with anterior posterior tibial was noted. There was highly calcified distal right common iliac lesion noted treated with balloon angioplasty. Right SFA is chronically was occluded, two-vessel runoff was noted below the right knee. By using left posterior tibial artery we were able to cross SFA in a retrograde fashion but were not able to cross the left common femoral artery however through the collateral we entered in dissection plane in the left common vessel. Flow in the left common and external iliac remained stable as evident by the contralateral injection. At this point since left common is highly calcified vessel and may not amenable to percutaneous intervention we thought patient should be better off with vascular surgery. Final injection through the contralateral common femoral approach reconfirmed patent bilateral common, external iliac arteries with two-vessel runoff bilaterally. we recommend consulting with Dr. Segovia for iiliofemoral bypass. Patient without complication transferred back to ICU. Due to noncooperation will continue Precedex until bedrest will be completed as patient moves a lot which can lead to right groin bleed hematoma or common femoral artery perforation. As above best option is possible ileofemoral/popliteal bypass or arteriotomy of the left common femoral artery followed by atherectomy and balloon angioplasty of left SFA. We will run it by Dr. Segovia other scenario is transferring the case to vascular surgery at [facility] which patient at the moment and in the past has not agreed to it. But there is no other viable option except amputation, without reasonable revascularization I do not see much chance of healing of stump in case amputation Status: Chronic (3) H/O mechanical aortic valve replacement: Advise stopping heparin for bridging Status: Acute (4) Supratherapeutic INR: Subtherapeutic, bridged with heparin Status: Acute Additional A&P Information Bilateral cellulitis Chronic active smoker Severe COPD on home oxygen History of noncompliance For allowing me to participate in patient's care. Please feel free to call with questions or concerns. Attestations Medical Necessity Statement*: Patient require continuation hospitalization for above defined care. Coding Level of Care Code Established Pt Acute Instructor Bus Trolley And Taxi for Chg Fwd Patient Type Established History Detailed Exam Detailed Medical Decision Making Moderate Complexity Diagnoses Dry gangrene I96 Severe peripheral arterial disease I73.9 H/O mechanical aortic valve replacement Z95.2 Supratherapeutic INR R79.1
[2020-09-21] MEDS: vancomycin 1,500 MG/300 ML PIGGYBACK 150 MG IV (12:48)
[2020-09-21 14:56] LABS: INR 1.81 (0.8-1.2)
--- NOTE | 2020-09-21 15:50 | PM.PN ---
Subjective Subjective: Interval history: Pain better controlled today, rates 5 out of 10. Patient underwent peripheral angiogram yesterday and was brought to ICU thereafter as he was agitated and pulling at that sheath and needed Precedex. Attempted revascularization yesterday, however remained unsuccessful. Peripheral angiogram showed highly calcified chronically occluded left common femoral, proximal to distal SFA and moderately diffusely diseased left popliteal artery. Right SFA was chronically occluded. Overall not amenable to percutaneous intervention. Awaiting vascular surgery assessment for possible iliofemoral/iliopopliteal bypass, started on heparin infusion in the interim. Medications: Reviewed: Yes Vitals/I&O/Wt Last Vital Signs Temp 97.6 F 09/21/20 08:00 Pulse 70 09/21/20 09:45 Resp 32 H 09/21/20 12:44 BP 93/57 09/21/20 09:45 Pulse Ox 94 09/21/20 12:44 09/21/20 09/21/20 09/21/20 06:59 14:59 22:59 Intake Total 350 / 1750 1163.320 / 1163.320 Output Total 975 / 1375 Balance -625 / 375 1163.320 / 1163.320 Physical Exam Narrative: EXAM NARRATIVE: GEN: Awake, alert and oriented, no acute distress CVS: S1S2 N RS: CTA B/L Abd: Soft, nt/nd , bs+ EXT: Dry gangrene affecting multiple toes of B/L LE. Data : 09/21/20 03:10 09/21/20 03:10 A&P Assessment and plan (1) Dry gangrene: Status: Acute (2) H/O mechanical aortic valve replacement: Status: Acute (3) Bilateral lower leg cellulitis: Status: Acute (4) Supratherapeutic INR: Status: Acute (5) Ischemic ulcer of both feet: Status: Acute (6) Chronic anticoagulation: Status: Chronic (7) On home oxygen therapy: Status: Chronic (8) Nicotine dependence, cigarettes, with other nicotine-induced disorders: Status: Chronic (9) Severe peripheral arterial disease: Status: Chronic (10) COPD (chronic obstructive pulmonary disease): Status: Chronic (11) Pulmonary hypertension: Status: Chronic Additional A&P Information Dry gangrene with underlying severe peripheral vascular disease Unsuccessful attempt at revascularization yesterday evening as noted above. Surgery consult with Dr. Mc Emmanuel to assess for possible ilifem/ilio pop bypass Patient has stayed afebrile, stable leukocytosis Cellulitis noted on admission is significantly improved Discontinue vancomycin and pip/tazo today NO gross signs of sepsis Leukocytosis ranigng 10-12 since 03/2020 Hemoglobin stable Blood cultures negative to date Mechanical aortic valve, start heparin today No active chest pain shortness of breath Mechanical aortic valve 2010 Dr. Bolton Contraction alkalosis: Discontinued Lasix 09/16, currently euvolemic, on IVF NS @ 100cc/hr Pulmonary hypertension with COPD And he saturating well on 2 to 3 L nasal cannula no acute exacerbation Full code Cardiac diet DVT prophylaxis not indicated due to supratherapeutic INR Anticipating prolonged hospitalization Attestations Medical Necessity Statement*: critical limb ischemia ,failed revascularization, surgical assessment for possible bypass, pain management Coding Level of Care Code Acute Sewing Pattern Layout Technician for g Fwd Diagnoses Dry gangrene I96 H/O mechanical aortic valve replacement Z95.2 Bilateral lower leg cellulitis L03.116; L03.115 Supratherapeutic INR R79.1 Ischemic ulcer of both feet L97.519; L97.529 Chronic anticoagulation Z79.01 On home oxygen therapy Z99.81 Nicotine dependence, cigarettes, with other nicotine-induced disorders F17.218 Severe peripheral arterial disease I73.9 COPD (chronic obstructive pulmonary disease) J44.9 Pulmonary hypertension I27.20
[2020-09-21 17:01] LABS: Hematocrit 34.2 % (42.0-52.0); Hemoglobin 10.5 g/dL (11.7-16.6)
[2020-09-21] MEDS: pantoprazole DR 40 mg Tablet PO (17:10)
--- NOTE | 2020-09-21 18:39 | PC.NURSE ---
Patient has been amira agitated early in the day, just very particular on location of items, He has been off precidex since 1000 and has tolerated it well. He has been pleasant and cooperative all day, has improved on appetite and is still adamant about not going to [facility] to see a vascular surgeon. Dr Montgomery and Ela came by and discussed goals of care with patient and consulted surgery doctor Juliette, to see of an alternative plan to keep patient from going to [place]. Dr Segovia came by at 1800 and talked to patient and they decided to do a L above the knee amputation tomorrow, due to what patient prefers. He will manage the Right another time so the patient has time to recover from the left side. Patient is happy and compliant with plan at this time. Juliette will put in orders and patient will be NPO with pending early am labs for coagulation in the morning. Dr Montgomery wanted patient on a heparin drip in the meantime but then patient had a dark tarry stool, positive for occult blood. Ela notified of dark stool and positive occult so we are not starting the heparin drip at this time, instead started him on protonix and monitoring his H and H.
--- NOTE | 2020-09-21 19:04 | P.PN_ITS ---
Subjective Subjective: Interval history: I have conferred with Dr. Montgomery. I had a lengthy discussion with Mr. King this evening while he was having dinner. I discussed the option to consider an ileopopliteal bypass on the left side, though I cannot give him absolute assurance of its success. He was rather katherine and quickly declined to consideration for such and wanted the most definitive p rocedure available. In my opinion, I told him this would be an above-knee amputation of the left side, given his severe peripheral arterial disease. He actually seemed rather relieved at this option. Anticoagulation has been discontinued due to melanotic stools. Vitals/I&O/Wt Last Vital Signs Temp 97 F L 09/21/20 16:00 Pulse 99 09/21/20 16:15 Resp 19 H 09/21/20 16:15 BP 153/80 09/21/20 16:15 Pulse Ox 88 L 09/21/20 16:15 09/21/20 09/21/20 09/21/20 06:59 14:59 22:59 Intake Total 350 / 1750 1263.320 / 5588.605 3598.667 / 2674.987 Output Total 975 / 1375 525 / 525 Balance -625 / 375 1263.320 / 1263.320 886.667 / 2149.987 Physical Exam Resp: EFFORT & INSPECTION: Yes symmetric chest movement, Yes abnormal respiratory pattern, Yes labored (Mild) and Yes prolonged expiratory phase Cardio: COMMON NORMALS: regular rate RATE: regular rate HEART SOUNDS: Murmur heart sound present systolic OTHER: Static valve click Extremity: OTHER: Maintains gangrenous changes to the left forefoot, particularly the great toe second toe and third toes. Pain appears to be under better control. Bilateral erythema and cellulitic changes are clearly improved since admission and antibiotics. Data : 09/21/20 16:46 09/21/20 03:10 A&P Assessment and plan (1) Dry gangrene: Discussion concerning various options to attempt revascularization and Dr. Montgomery's valliant attempt at percutaneous therapy, Mr. King wishes to proceed with plans for a left above-knee amputation tomorrow afternoon. I cannot assure him that this would be guaranteed to heal, I did discuss that this would be the most likely option. He does have an open left femoral profunda artery. We will plan to proceed tomorrow afternoon. Status: Acute (2) Severe peripheral arterial disease: Status: Chronic Attestations Medical Necessity Statement*: Gangrene left foot with severe peripheral arterial disease Time Spent in Patient Care: 16 - 35 minutes Coding Level of Care Code Acute Atlassian Administrator for Jose Roberto Washburn Diagnoses Dry gangrene I96 Severe peripheral arterial disease I73.9
[2020-09-21] MEDS: atorvastatin 40 mg Tablet 80 MG PO (20:17)
[2020-09-22] VITALS (84 sets, daily range): BP systolic 115–162; BP diastolic 56–86; PULSE 80–114; RESP 13–35; TEMP 36.6; O2SAT 82–100
[2020-09-22] MEDS: oxyCODONE-APAP 10-325 mg Tablet 1 TAB PO ×6 (01:26→21:11)
[2020-09-22] MEDS: morphine 4 mg/mL SDV 1 mL 2 MG IVP ×6 (03:06→22:38)
[2020-09-22 03:55] LABS: Basophils % 0.3 %; Eosinophils # 0.2 10^3/uL (0.0-0.8); Eosinophils % 2.1 %; Hematocrit 31.8 % (42.0-52.0); Hemoglobin 9.9 g/dL (11.7-16.6); Lymphocytes # 0.5 10^3/uL (0.8-4.8); Lymphocytes % 4.8 %; Mean Corpuscular HGB Conc 31.1 g/dL (30.0-36.0); Mean Corpuscular Hemoglobin 32.2 pg (28.0-34.0); Mean Corpuscular Volume 103.6 fL (80-94); Monocytes # 0.7 10^3/uL (0.2-0.9); Monocytes % 7.1 %; Neutrophils % 85.1 %; Nucleated Red Blood Cells % 0 %; Platelet Count 241 10^3/cmm (130-400); Red Blood Count 3.07 10^6/uL (4.1-5.3); Red Cell Distribution Width 14.2 % (12.1-15.1); White Blood Count 10.1 10^3/uL (4.0-10.0)
[2020-09-22 04:07] LABS: Alanine Aminotransferase 60 U/L (0-41); Albumin Level 2.4 g/dL (3.5-5.2); Alkaline Phosphatase 96 IU/L (40-130); Anion Gap 6.8 (5-19); Aspartate Amino Transferase 39 U/L (0-40); Blood Urea Nitrogen 6 mg/dL (8-23); Calcium 7.8 mg/dL (8.5-10.5); Carbon Dioxide 35 mmol/L (22-29); Chloride 106 mmol/L (98-107); Globulin 2.4 g/dL (1.3-4.6); Glucose 131 mg/dL (65-115); Osmolality Calculated 297 mOsm/kg (285-295); Potassium 3.8 mmol/L (3.5-5.1); Sodium 144 mmol/L (136-145); Total Bilirubin 0.3 mg/dL (0.15-1.2); Total Protein 4.8 g/dL (6.6-8.7)
[2020-09-22] MEDS: sodium chloride 0.9% 1,000 ML 100 ML IV ×2 (04:08→12:44)
--- NOTE | 2020-09-22 05:24 | PC.NURSE ---
ASSUMING CARE 0 Patient lying in bed on nasal cannula at 3 L. Patient is alert and oriented x 4 and is expressing that he is in pain. Instructed that he cannot have pain medications until 2044. Arellano catheter in place and draining.
--- NOTE | 2020-09-22 05:32 | PC.NURSE ---
PAIN MEDICATION Patient crying out and appears agitated and frustrated. Dr. Barker gave persmission to renew morphine 2 mg IVP Q4H PRN for breakthrough pain.
--- NOTE | 2020-09-22 06:59 | P.PN_ITS ---
Subjective Subjective: Interval history: Mr. King had an uneventful night. Still a fair amount of discomfort in his left foot. On the phone this morning. N.p.o. since midnight. Still wishes to proceed with plans for left above-knee amputation this afternoon. Vitals/I&O/Wt Last Vital Signs Temp 98.6 F 09/21/20 19:10 Pulse 96 09/22/20 05:10 Resp 22 H 09/22/20 05:21 BP 162/85 09/22/20 05:10 Pulse Ox 100 09/22/20 05:21 09/21/20 09/21/20 09/22/20 14:59 22:59 06:59 Intake Total 1263.320 / 2027.224 9882.667 / 3154.987 1000 / 4154.987 Output Total 525 / 525 Balance 1263.320 / 0728.876 6822.667 / 2629.987 1000 / 3629.987 Physical Exam Resp: EFFORT & INSPECTION: Yes abnormal respiratory pattern and Yes prolonged expiratory phase AUSCULTATION: abnormal I/E ratio PERCUSSION: hyperresonance Cardio: COMMON NORMALS: regular rate and regular rhythm RATE: regular rate RHYTHM: regular rhythm Extremity: OTHER: Gangrenous changes left forefoot. Substantial skin te mperature change from lower one third of the left leg through foot Data : 09/22/20 03:35 09/22/20 03:35 A&P Assessment and plan (1) Dry gangrene: Will plan for left above-knee amputation this afternoon. Details and risk of the procedure again carefully and frankly discussed. Status: Acute Attestations Medical Necessity Statement*: Severe PAD with gangrene left foot. Patient does not wish to consider further attempts at revascularization procedures and desires major amputation. Time Spent in Patient Care: less than 15 minutes Coding Level of Care Code Acute Motor Vehicles Inspector for Jose Roberto Washburn Diagnoses Dry gangrene I96
[2020-09-22] MEDS: potassium chloride ER 10 mEq Tablet PO (07:44)
[2020-09-22] MEDS: gabapentin 300 mg Capsule PO ×2 (07:44→21:11)
[2020-09-22] MEDS: metoprolol tartrate 25 mg Tablet PO ×2 (07:44→21:11)
[2020-09-22] MEDS: tamsulosin 0.4 mg Capsule PO (07:44)
[2020-09-22] MEDS: sennosides-docusate Tablet 1 TAB PO (08:27)
[2020-09-22] MEDS: ALPRAZolam 0.25 mg Tablet PO (08:27)
[2020-09-22] MEDS: pantoprazole DR 40 mg Tablet PO ×2 (08:27→18:21)
--- NOTE | 2020-09-22 09:28 | PC.CHAP ---
Pastoral Care Encounter/Spiritual Assessment Type of Contact [] Declined manager mission visit [] Patient/Family/Request visit [] Outpatient visit [] Follow-up visit [] Physician referral [] Code/Alert [x] Routine visit [] Staff referral [] Actively dying [] Patient sleeping [] Family support [] [] Out of room [] Palliative care [] [x] Receiving care in room [] Pre-surgical visit [] Trauma [] Long length of stay [x] ICU visit [] Other: Relational/Emotional Strength [] Patient feels connected with others/family/visitors/staff [] Distress [] Loneliness/isolation [] Abandonment Spirituality of Patient [] Person of Yomaira [] Attends Mu-Ism of their Yomaira [] Believes in Prayer [] Reads Bible or Christian materials [] There are Spiritual issues to be addressed Wall Covering Contractor 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 [x] Prayer [] Active listening [] Non-anxious presence [] Spiritual/emotional support [] Crisis/trauma care [] Spiritual counseling [] Bereavement support [] Provided bereavement packet [] Provided Bible/devotional materials [] Provided toy/stuffed animal, coloring book to patient or family member [] Provided Communion [] Anointing/[place] [] Salvation [x] Completed spiritual assessment [] Other: Impact on Illness or Injury [] Angry [] Fearful [] Anxious [] Often cries [] Exhaustion [] Unable to work [] Unable to attend caodaism [] Unable to walk/stand [] Unable to read [] Unable to drive [] Unable to eat/drink [] Unable to sleep [] Unable to be with family [] Patient intubated [] Other: Summary Time spent with patient
--- NOTE | 2020-09-22 12:00 | P.PN_ITS ---
Subjective Subjective: Interval history: Plan for left AKA later today, no new complaints, pain currently controlled. No further episodes of melena, hemoglobin stable at 9.9 Medications: Reviewed: Yes Vitals/I&O/Wt Last Vital Signs Temp 97.9 F 09/22/20 12:00 Pulse 93 09/22/20 14:00 Resp 22 H 09/22/20 14:43 BP 161/56 09/22/20 13:00 Pulse Ox 96 09/22/20 14:43 09/22/20 09/22/20 09/22/20 06:59 14:59 22:59 Intake Total 1000 / 4154.987 860 / 860 Output Total 600 / 600 Balance 1000 / 3629.987 260 / 260 Physical Exam Narrative: EXAM NARRATIVE: GEN: Awake, alert and oriented, no acute distress CVS: S1S2 N RS: CTA B/L Abd: Soft, nt/nd , bs+ EXT: Dry gangrene affecting multiple toes of B/L LE. Data : 09/22/20 03:35 09/22/20 03:35 A&P Assessment and plan (1) Dry gangrene: Status: Acute (2) H/O mechanical aortic valve replacement: Status: Acute (3) Bilateral lower leg cellulitis: Status: Acute (4) Supratherapeutic INR: Status: Acute (5) Ischemic ulcer of both feet: Status: Acute (6) Chronic anticoagulation: Status: Chronic (7) On home oxygen therapy: Status: Chronic (8) Nicotine dependence, cigarettes, with other nicotine-induced disorders: Has cut down from 2 packs a day to less than 1 pack a day, is on Chantix to help with attempts at smoking cessation Status: Chronic (9) Severe peripheral arterial disease: Status: Chronic (10) COPD (chronic obstructive pulmonary disease): Not currently acute, chronically on oxygen at 3 L by nasal cannula with exertional hypoxemia Status: Chronic (11) Pulmonary hypertension: Status: Chronic Additional A&P Information Dry gangrene with underlying severe peripheral vascular disease. Unsuccessful attempt at revascularization peripherally planned for AKA later today on the left side Patient has stayed afebrile, stable leukocytosis Cellulitis noted on admission is resolved s/p vancomycin and pip/tazo 09/13-09/21 No gross signs of sepsis Leukocytosis ranigng 10-12 since 03/2020 Hemoglobin stable Blood cultures negative to date Mechanical aortic valve, started heparin infusion yesterday due to anticipated surgical procedure, however this needed to be discontinued due to brittany. No further episodes today. No active chest pain shortness of breath Mechanical aortic valve 2010 Dr. Bolton Contraction alkalosis: Discontinued Lasix 09/16, currently euvolemic, discotinue IVF after surgery today Pulmonary hypertension with COPD And he saturating well on 2 to 3 L nasal cannula no acute exacerbation Full code Cardiac diet DVT prophylaxis: contrandicated due to GI bleed Full code Attestations Medical Necessity Statement*: ANNIE planned today Coding Level of Care Code Acute Adobe Flex Developer for Chg Fwd Diagnoses Dry gangrene I96 H/O mechanical aortic valve replacement Z95.2 Bilateral lower leg cellulitis L03.116; L03.115 Supratherapeutic INR R79.1 Ischemic ulcer of both feet L97.519; L97.529 Chronic anticoagulation Z79.01 On home oxygen therapy Z99.81 Nicotine dependence, cigarettes, with other nicotine-induced disorders F17.218 Severe peripheral arterial disease I73.9 COPD (chronic obstructive pulmonary disease) J44.9 Pulmonary hypertension I27.20
--- NOTE | 2020-09-22 12:54 | P.ANESASSM_ITS ---
Pre-Anesthetic Assessment Pre-Anesthetic Assessment: Height/Weight: Height 1.73 m Weight 62.142 kg Temp Pulse Resp BP Pulse Ox 97.9 F 86 30 H 127/68 94 09/22/20 08:00 09/22/20 11:00 09/22/20 12:43 09/22/20 11:00 09/22/20 12:43 Preop Diagnosis: dry gangrene Proposed Procedure: Operation Date: 09/17/20 16:30 Proposed Procedures p left Cardiac Catheterization 28370 I73.9(Left) - Cricket Montgomery MD Operation Date: 09/20/20 16:30 Proposed Procedures p Cardiac Catheterization(Left) - Cricket Montgomery MD Operation Date: 09/22/20 15:00 Proposed Procedures p Above Knee Amputation(Left) - Olayinka Segovia MD Familial anesthetic complications: None Was Beta Yony taken within 24 hours: Yes Was Clonidine taken within 24 hours: Yes Social: Social History: No alcohol and No tobacco Exam: Pre-Anes Outpt Exam: alert, oriented x 3, clear to auscultation bilaterally and regular rate & rhythm Airway: Cervical ROM: WNL MP: 3 Dentition: False Pulmonary: Pulmonary: COPD (on O2) CV/HEM: CV/HEM: CAD, HTN and PVD Comments: mechanical AVR Anesthetic Plan: ASA status: 4 Anesthesia: General Risk of > 500 ml blood loss (7ml/kg in children): No Meds/Allergies Current Medications: Current Medications Generic Name Dose Route Start Last Admin Trade Name Freq PRN Reason Stop Dose Admin Albuterol Sulfate 2.5 mg 09/13/20 23:00 09/18/20 08:21 Albuterol 2.5 Mg /0.5 Ml Neb INHALATION 2.5 mg Q4H.RESPIRATORY P RN Administration SHORTNESS OF PORFIRIO TH Alprazolam 0.25 mg 09/20/20 20:16 09/22/20 08:27 Alprazolam 0.25 Mg Tablet PO 0.25 mg TID PRN Administration ANXIETY Atorvastatin Calci um 80 mg 09/13/20 22:45 09/21/20 20:17 Atorvastatin 40 Mg Tablet PO 80 mg BEDTIME NICHOL Administration Gabapentin 300 mg 09/13/20 22:50 09/22/20 07:44 Gabapentin 300 M g Capsule PO 300 mg TID@ NICHOL Administration Sodium Chloride 1,000 mls @ 100 m ls/hr 09/20/20 20:30 09/22/20 12:44 Sodium Chloride 0.9% IV 100 mls/hr .Q10H NICHOL Administration Dexmedetomidine HC l 400 mcg/ 104 mls @ 0 mls/h r 09/20/20 22:30 09/21/20 10:15 Sodium Chloride IV 0 mcg/kg/hr .Q0M NICHOL 0 mls/hr Titration Protocol Per Protocol Lidocaine HCl 1 applic 09/15/20 13:18 09/16/20 14:24 Lidocaine 2% Jel ly 5 Ml TOPICAL 1 applic PRN PRN Administration leg pain Metoprolol Tartrat e 25 mg 09/13/20 22:50 09/22/20 07:44 Metoprolol Tartr ate 25 Mg Tablet PO 25 mg BID@0700,2100 NICHOL Administration Morphine Sulfate 2 mg 09/22/20 03:00 09/22/20 10:48 Morphine 4 Mg/Ml Sdv 1 Ml IVP 2 mg Q4H PRN Administration BREAKTHROUGH PAIN Oxycodone/Acetamin ophen 1 tab 09/18/20 16:45 09/22/20 12:43 Oxycodone-Apap 1 0-325 Mg Tablet PO 1 tab Q4H NICHOL Administration Pantoprazole Sodiu m 40 mg 09/21/20 18:00 09/22/20 08:[address] 40 Mg Tablet PO 40 mg BID NICHOL Administration Potassium Chloride 10 meq 09/14/20 07:00 09/22/20 07:44 Potassium Chlori de Er 10 Meq Table t PO 10 meq DAILY@0700 NICHOL Administration Fluticasone/Salmet demetrice 1 puff 09/19/20 20:00 09/22/20 08:42 Fluticasone-Salm eterol 250-50 Disk us INHALATION 1 inhalation BID.RESPIRATORY S CH Administration Senna/Docusate Sod ium 1 tab 09/14/20 18:00 09/22/20 08:27 Sennosides-Docus ate Tablet PO 1 tab BID NICHOL Administration Tamsulosin HCl 0.4 mg 09/14/20 07:00 09/22/20 07:44 Tamsulosin 0.4 M g Capsule PO 0.4 mg DAILY@0700 NICHOL Administration PFSH Anesthesia PFSH: Medical History Bilateral carotid artery stenosis BPH (benign prostatic hyperplasia) Chronic anticoagulation coumadin, for mechanical AVR COPD (chronic obstructive pulmonary disease) CVA (cerebral vascular accident) Depression GERD (gastroesophageal reflux disease) History of PFTs (~08/2018) 08/20: severe obstructive ventilatory defect, no significant bronchodilator response, severely reduced diffusion capacity Hyperlipidemia Hypertension Nicotine dependence, cigarettes, with other nicotine-induced disorders On home oxygen therapy 3L BNC continuous Osteoarthritis Pulmonary hypertension Right renal artery stenosis >60% Severe peripheral arterial disease Surgical History History of angioplasty of peripheral vessel (~2017) in 2018, unsuccessful by Dr Putnam and later also Dr Calixto per old records, referred to [facility] [place] History of aortic valve replacement (~2008) Dr Bolton, mechanical History of CEA (carotid endarterectomy) right ~2008, left ~2010 History of ear surgery History of testicular surgery right orchiectomy for undescended testicle as a child Family History Other CAD (coronary artery disease) Diabetes Social History Smoking and tobacco status: current every day smoker cigarettes Number of cigarettes per day: 11-20 Alcohol intake: current Alcohol intake frequency: 0-2 Drinks per Day Alcohol use comment: 1 oz whiskey daily with coke Substance/Drug Use: never Household members: family and other Details: son + Data Anesthesia CBC & Chem 7: 09/22/20 03:35 09/22/20 03:35 Other Labs: Laboratory Results - last 48 hr 09/20/20 09/20/20 09/21/20 20:05 20:05 03:10 WBC 12.3 H RBC 3.25 L Hgb 10.6 L Hct 34.4 L MCV 105.8 H MCH 32.6 MCHC 30.8 RDW 14.3 Plt Count 230 MPV 10.2 Neut % (Auto) 85.3 Lymph % (Auto) 4.1 [place] % (Auto) 7.3 Eos % (Auto) 2.3 Baso % (Auto) 0.3 Neut # (Auto) 10.52 H Lymph # (Auto) 0.5 L [place] # (Auto) 0.9 Eos # (Auto) 0.3 Baso # (Auto) 0.0 Nucleated RBC % (auto) 0 Nucleated RBCs # 0.0 PT INR APTT 54.9 H Sodium Potassium Chloride Carbon Dioxide Anion Gap BUN Creatinine GFR Calculation Glucose Calculated Osmolality Calcium Total Bilirubin AST ALT Alkaline Phosphatase Total Protein Albumin Globulin Vancomycin Trough 12.5 Blood Type Rho(D) Type Antibody Screen Crossmatch 09/21/20 09/21/20 09/21/20 03:10 13:30 14:24 WBC RBC Hgb Hct MCV MCH MCHC RDW Plt Count MPV Neut % (Auto) Lymph % (Auto) [place] % (Auto) Eos % (Auto) Baso % (Auto) Neut # (Auto) Lymph # (Auto) [place] # (Auto) Eos # (Auto) Baso # (Auto) Nucleated RBC % (auto) Nucleated RBCs # PT Cancelled 21.60 H INR Cancelled 1.81 H APTT Sodium 140 Potassium 4.3 Chloride 101 Carbon Dioxide 38 H Anion Gap 5.3 BUN 6 L Creatinine 0.3 L GFR Calculation Not Reportable Glucose 94 Calculated Osmolality 287 Calcium 7.9 L Total Bilirubin AST ALT Alkaline Phosphatase Total Protein Albumin Globulin Vancomycin Trough Blood Type Rho(D) Type Antibody Screen Crossmatch 09/21/20 09/21/20 09/22/20 16:46 20:21 03:35 WBC 10.1 H RBC 3.07 L Hgb 10.5 L 9.9 L Hct 34.2 L 31.8 L MCV 103.6 H MCH 32.2 MCHC 31.1 RDW 14.2 Plt Count 241 MPV 10.0 Neut % (Auto) 85.1 Lymph % (Auto) 4.8 [place] % (Auto) 7.1 Eos % (Auto) 2.1 Baso % (Auto) 0.3 Neut # (Auto) 8.60 H Lymph # (Auto) 0.5 L [place] # (Auto) 0.7 Eos # (Auto) 0.2 Baso # (Auto) 0.0 Nucleated RBC % (auto) 0 Nucleated RBCs # 0.0 PT INR APTT Sodium Potassium Chloride Carbon Dioxide Anion Gap BUN Creatinine GFR Calculation Glucose Calculated Osmolality Calcium Total Bilirubin AST ALT Alkaline Phosphatase Total Protein Albumin Globulin Vancomycin Trough Blood Type A Positive Rho(D) Type Positive / 4+ Antibody Screen Negative Crossmatch See Detail 09/22/20 03:35 WBC RBC Hgb Hct MCV MCH MCHC RDW Plt Count MPV Neut % (Auto) Lymph % (Auto) [place] % (Auto) Eos % (Auto) Baso % (Auto) Neut # (Auto) Lymph # (Auto) [place] # (Auto) Eos # (Auto) Baso # (Auto) Nucleated RBC % (auto) Nucleated RBCs # PT INR APTT Sodium 144 Potassium 3.8 Chloride 106 Carbon Dioxide 35 H Anion Gap 6.8 BUN 6 L Creatinine 0.3 L GFR Calculation Not Reportable Glucose 131 H Calculated Osmolality 297 H Calcium 7.8 L Total Bilirubin 0.3 AST 39 ALT 60 H Alkaline Phosphatase 96 Total Protein 4.8 L Albumin 2.4 L Globulin 2.4 Vancomycin Trough Blood Type Rho(D) Type Antibody Screen Crossmatch Cardiac Studies: No Data to Display
--- NOTE | 2020-09-22 13:17 | ANES.PREANE2 ---
Pre-Anesthetic Assessment Pre-Anesthetic Assessment: Height/Weight: Height 1.73 m Weight 62.142 kg Temp Pulse Resp BP Pulse Ox 97.9 F 92 24 H 161/56 94 09/22/20 12:00 09/22/20 13:00 09/22/20 13:00 09/22/20 13:00 09/22/20 12:43 Preop Diagnosis: dry gangrene Proposed Procedure: Operation Date: 09/17/20 16:30 Proposed Procedures p left Cardiac Catheterization 93890 I73.9(Left) - Cricket Montgomery MD Operation Date: 09/20/20 16:30 Proposed Procedures p Cardiac Catheterization(Left) - Cricket Montgomery MD Operation Date: 09/22/20 15:00 Proposed Procedures p Above Knee Amputation(Left) - Olayinka Segovia MD Familial anesthetic complications: None Was Beta Yony taken within 24 hours: Yes Was Clonidine taken within 24 hours: Yes Last intake: 8 hrs Social: Social History: Tobacco and No alcohol Exam: Pre-Anes Outpt Exam: alert, oriented x 3 and regular rate & rhythm Additional Exam Findings (including area of procedure): coarse Airway: MP: 3 Dentition: False Pulmonary: Pulmonary: COPD CV/HEM: CV/HEM: PVD Comments: mechanical valve Anesthetic Plan: ASA status: 4 Anesthesia: General Other: A-line patient refuses spinal anesthesia Risk of > 500 ml blood loss (7ml/kg in children): No Meds/Allergies Current Medications: Current Medications Generic Name Dose Route Start Last Admin Trade Name Freq PRN Reason Stop Dose Admin Albuterol Sulfate 2.5 mg 09/13/20 23:00 09/18/20 08:21 Albuterol 2.5 Mg /0.5 Ml Neb INHALATION 2.5 mg Q4H.RESPIRATORY P RN Administration SHORTNESS OF PORFIRIO TH Alprazolam 0.25 mg 09/20/20 20:16 09/22/20 08:27 Alprazolam 0.25 Mg Tablet PO 0.25 mg TID PRN Administration ANXIETY Atorvastatin Calci um 80 mg 09/13/20 22:45 09/21/20 20:17 Atorvastatin 40 Mg Tablet PO 80 mg BEDTIME NICHOL Administration Gabapentin 300 mg 09/13/20 22:50 09/22/20 07:44 Gabapentin 300 M g Capsule PO 300 mg TID@ NICHOL Administration Sodium Chloride 1,000 mls @ 100 m ls/hr 09/20/20 20:30 09/22/20 12:44 Sodium Chloride 0.9% IV 100 mls/hr .Q10H NICHOL Administration Dexmedetomidine HC l 400 mcg/ 104 mls @ 0 mls/h r 09/20/20 22:30 09/21/20 10:15 Sodium Chloride IV 0 mcg/kg/hr .Q0M NICHOL 0 mls/hr Titration Protocol Per Protocol Lidocaine HCl 1 applic 09/15/20 13:18 09/16/20 14:24 Lidocaine 2% Jel ly 5 Ml TOPICAL 1 applic PRN PRN Administration leg pain Metoprolol Tartrat e 25 mg 09/13/20 22:50 09/22/20 07:44 Metoprolol Tartr ate 25 Mg Tablet PO 25 mg BID@0700,2100 NICHOL Administration Morphine Sulfate 2 mg 09/22/20 03:00 09/22/20 10:48 Morphine 4 Mg/Ml Sdv 1 Ml IVP 2 mg Q4H PRN Administration BREAKTHROUGH PAIN Oxycodone/Acetamin ophen 1 tab 09/18/20 16:45 09/22/20 12:43 Oxycodone-Apap 1 0-325 Mg Tablet PO 1 tab Q4H NICHOL Administration Pantoprazole Sodiu m 40 mg 09/21/20 18:00 09/22/20 08:[address] 40 Mg Tablet PO 40 mg BID NICHOL Administration Potassium Chloride 10 meq 09/14/20 07:00 09/22/20 07:44 Potassium Chlori de Er 10 Meq Table t PO 10 meq DAILY@0700 NICHOL Administration Fluticasone/Salmet demetrice 1 puff 09/19/20 20:00 09/22/20 08:42 Fluticasone-Salm eterol 250-50 Disk us INHALATION 1 inhalation BID.RESPIRATORY S CH Administration Senna/Docusate Sod ium 1 tab 09/14/20 18:00 09/22/20 08:27 Sennosides-Docus ate Tablet PO 1 tab BID NICHOL Administration Tamsulosin HCl 0.4 mg 09/14/20 07:00 09/22/20 07:44 Tamsulosin 0.4 M g Capsule PO 0.4 mg DAILY@0700 NICHOL Administration PFSH Anesthesia PFSH: Medical History Bilateral carotid artery stenosis BPH (benign prostatic hyperplasia) Chronic anticoagulation coumadin, for mechanical AVR COPD (chronic obstructive pulmonary disease) CVA (cerebral vascular accident) Depression GERD (gastroesophageal reflux disease) History of PFTs (~08/2018) 08/20: severe obstructive ventilatory defect, no significant bronchodilator response, severely reduced diffusion capacity Hyperlipidemia Hypertension Nicotine dependence, cigarettes, with other nicotine-induced disorders On home oxygen therapy 3L BNC continuous Osteoarthritis Pulmonary hypertension Right renal artery stenosis >60% Severe peripheral arterial disease Surgical History History of angioplasty of peripheral vessel (~2017) in 2018, unsuccessful by Dr Putnam and later also Dr Calixto per old records, referred to [facility] [place] History of aortic valve replacement (~2008) Dr Bolton, mechanical History of CEA (carotid endarterectomy) right ~2008, left ~2010 History of ear surgery History of testicular surgery right orchiectomy for undescended testicle as a child Family History Other CAD (coronary artery disease) Diabetes Social History Smoking and tobacco status: current every day smoker cigarettes Number of cigarettes per day: 11-20 Alcohol intake: current Alcohol intake frequency: 0-2 Drinks per Day Alcohol use comment: 1 oz whiskey daily with coke Substance/Drug Use: never Household members: family and other Details: son + Data Anesthesia CBC & Chem 7: 09/22/20 03:35 09/22/20 03:35 Other Labs: Laboratory Results - last 48 hr 09/20/20 09/20/20 09/21/20 20:05 20:05 03:10 WBC 12.3 H RBC 3.25 L Hgb 10.6 L Hct 34.4 L MCV 105.8 H MCH 32.6 MCHC 30.8 RDW 14.3 Plt Count 230 MPV 10.2 Neut % (Auto) 85.3 Lymph % (Auto) 4.1 [place] % (Auto) 7.3 Eos % (Auto) 2.3 Baso % (Auto) 0.3 Neut # (Auto) 10.52 H Lymph # (Auto) 0.5 L [place] # (Auto) 0.9 Eos # (Auto) 0.3 Baso # (Auto) 0.0 Nucleated RBC % (auto) 0 Nucleated RBCs # 0.0 PT INR APTT 54.9 H Sodium Potassium Chloride Carbon Dioxide Anion Gap BUN Creatinine GFR Calculation Glucose Calculated Osmolality Calcium Total Bilirubin AST ALT Alkaline Phosphatase Total Protein Albumin Globulin Vancomycin Trough 12.5 Blood Type Rho(D) Type Antibody Screen Crossmatch 09/21/20 09/21/20 09/21/20 03:10 13:30 14:24 WBC RBC Hgb Hct MCV MCH MCHC RDW Plt Count MPV Neut % (Auto) Lymph % (Auto) [place] % (Auto) Eos % (Auto) Baso % (Auto) Neut # (Auto) Lymph # (Auto) [place] # (Auto) Eos # (Auto) Baso # (Auto) Nucleated RBC % (auto) Nucleated RBCs # PT Cancelled 21.60 H INR Cancelled 1.81 H APTT Sodium 140 Potassium 4.3 Chloride 101 Carbon Dioxide 38 H Anion Gap 5.3 BUN 6 L Creatinine 0.3 L GFR Calculation Not Reportable Glucose 94 Calculated Osmolality 287 Calcium 7.9 L Total Bilirubin AST ALT Alkaline Phosphatase Total Protein Albumin Globulin Vancomycin Trough Blood Type Rho(D) Type Antibody Screen Crossmatch 09/21/20 09/21/20 09/22/20 16:46 20:21 03:35 WBC 10.1 H RBC 3.07 L Hgb 10.5 L 9.9 L Hct 34.2 L 31.8 L MCV 103.6 H MCH 32.2 MCHC 31.1 RDW 14.2 Plt Count 241 MPV 10.0 Neut % (Auto) 85.1 Lymph % (Auto) 4.8 [place] % (Auto) 7.1 Eos % (Auto) 2.1 Baso % (Auto) 0.3 Neut # (Auto) 8.60 H Lymph # (Auto) 0.5 L [place] # (Auto) 0.7 Eos # (Auto) 0.2 Baso # (Auto) 0.0 Nucleated RBC % (auto) 0 Nucleated RBCs # 0.0 PT INR APTT Sodium Potassium Chloride Carbon Dioxide Anion Gap BUN Creatinine GFR Calculation Glucose Calculated Osmolality Calcium Total Bilirubin AST ALT Alkaline Phosphatase Total Protein Albumin Globulin Vancomycin Trough Blood Type A Positive Rho(D) Type Positive / 4+ Antibody Screen Negative Crossmatch See Detail 09/22/20 03:35 WBC RBC Hgb Hct MCV MCH MCHC RDW Plt Count MPV Neut % (Auto) Lymph % (Auto) [place] % (Auto) Eos % (Auto) Baso % (Auto) Neut # (Auto) Lymph # (Auto) [place] # (Auto) Eos # (Auto) Baso # (Auto) Nucleated RBC % (auto) Nucleated RBCs # PT INR APTT Sodium 144 Potassium 3.8 Chloride 106 Carbon Dioxide 35 H Anion Gap 6.8 BUN 6 L Creatinine 0.3 L GFR Calculation Not Reportable Glucose 131 H Calculated Osmolality 297 H Calcium 7.8 L Total Bilirubin 0.3 AST 39 ALT 60 H Alkaline Phosphatase 96 Total Protein 4.8 L Albumin 2.4 L Globulin 2.4 Vancomycin Trough Blood Type Rho(D) Type Antibody Screen Crossmatch Cardiac Studies: No Data to Display
--- NOTE | 2020-09-22 14:11 | PC.NURSE ---
Patient unwilling to sign surgical consent until Dr. Segovia comes to talk to him. Notified Dr. Segovia of patient's request. Dr. Segovia will come over to discuss surgical options with patient.
--- NOTE | 2020-09-22 14:21 | PC.NURSE ---
Called pharmacy to get vancomycin and bactroban ready for OR.
[2020-09-22] MEDS: mupirocin oint 22 gm 1 APPLIC NOSTRIL-B ×2 (15:08→15:09)
--- NOTE | 2020-09-22 15:24 | PC.NURSE ---
Dr. Segovia at bedside to speak to patient. Dr. Segovia informed patient of procedure. Patient wishes to get a second opinion with a different surgeon who would possibly amputate both legs. Dr. Segovia instructed me to notify Dr. Mireles. Will notify.
[2020-09-22 15:33] LABS: INR 1.42 (0.8-1.2)
--- NOTE | 2020-09-22 15:37 | P.PN_ITS ---
Subjective Subjective: Interval history: I met with Mr. King at bedside at his request just prior to his planned left above-knee amputation. He is desiring bilateral above-knee amputations. Clinically, I do not think that is warranted. While he does have some early mild gangrenous changes to the lateral aspect of the right great toe, which clearly could worsen, I do not think it is warranted at this time to perform a bilateral AKA. I did discuss with him very frankly that I thought it would be important to maintain his right lower extremity as long as possible to allow for appropriate transfers and position changes following a left above-knee amputation. He clearly was not pleased with my rationale though he did admit he understood it. He feels we are prolonging the inevitable, which certainly may be true, though from the standpoint of the viability and soft tissue integrity of his right lower extremity, I cannot warrant major amputation to that extremity at this time. Vitals/I&O/Wt Last Vital Signs Temp 97.9 F 09/22/20 12:00 Pulse 93 09/22/20 14:00 Resp 22 H 09/22/20 14:43 BP 161/56 09/22/20 13:00 Pulse Ox 96 09/22/20 14:43 09/22/20 09/22/20 09/22/20 06:59 14:59 22:59 Intake Total 1000 / 4154.987 860 / 860 Output Total 600 / 600 Balance 1000 / 3629.987 260 / 260 Physical Exam Extremity: OTHER: Gangrene of left forefoot involving the right great toe second toe third toe, portion of the fourth toe and distal forefoot. Early skin changes to the lateral aspect of the right great toe. Data : 09/22/20 03:35 09/22/20 03:35 A&P Assessment and plan (1) Dry gangrene: Planned left above-knee amputation has now been counseled at the request of Mr. King as he desires a second surgical opinion wishing for approval for bilateral AKA under the same operative setting. I will ask our hospitalist colleagues to seek referral for another surgical opinion to see if they will honor Mr. King's request. As he is not systemic from his dry gangrene of the left lower extremity, I do not feel his life is in immediate jeopardy, and it is prudent to try to honor his request for a second opinion to see if there is a surgical colleague who will perform the procedure that he desires. Status: Acute Attestations Medical Necessity Statement*: Severe PAD with dry gangrene left lower extremity and ongoing pain Time Spent in Patient Care: 16 - 35 minutes Coding Level of Care Code Acute Regulatory Leader for Jose Roberto Washburn Diagnoses Dry gangrene I96
--- NOTE | 2020-09-22 15:55 | PC.NURSE ---
Dr. Mireles to see patient. Updated on patient's choice to not go through with the operation today.Dr. Mireles spoke with patient about different options. Patient agrees with getting one leg amputated on another day. She will contact Dr. Segovia.
--- NOTE | 2020-09-22 16:28 | P.PN_ITS ---
Subjective Subjective: Interval history: Patient has been feeling well. Complains of bilateral lower extremity pain. Plan was to perform left lower extremity above knee amputation with Dr Segovia but pt wants second opinion as he thinks he should get bilateral lower extremity amputation. Vitals/I&O/Wt Last Vital Signs Temp 97.9 F 09/22/20 12:00 Pulse 93 09/22/20 14:00 Resp 22 H 09/22/20 14:43 BP 161/56 09/22/20 13:00 Pulse Ox 96 09/22/20 14:43 09/22/20 09/22/20 09/22/20 06:59 14:59 22:59 Intake Total 1000 / 4154.987 860 / 860 Output Total 600 / 600 Balance 1000 / 3629.987 260 / 260 Physical Exam Narrative: EXAM NARRATIVE: GENERAL: Patient is alert, awake and oriented x3, is feeling sleepy, open his eyes and talk then go back to NECK: No jugular vein distension. HEENT: No cyanosis. No icterus. No pallor. HEART: Regular S1 and S2. No murmur, rub or gallop. LUNGS: Decreased breathing bilaterally. CENTRAL NERVOUS SYSTEM: Grossly nonfocal. EXTREMITIES: Lower extremities excoriating skin, warm, gangrenous toes bilaterally Data : 09/22/20 03:35 09/22/20 03:35 A&P Assessment and plan (1) Dry gangrene: Status: Acute (2) Severe peripheral arterial disease: Patient had unsuccessful attempt at revascularization of left lower extremity. Patient underwent peripheral angiogram noted to have highly calcified chronically occluded left common femoral, proximal to distal left SFA with m oderately diffusely diseased left popliteal artery. Two-vessel runoff with anterior posterior tibial was noted. There was highly calcified distal right common iliac lesion noted treated with balloon angioplasty. Right SFA is chronically was occluded, two-vessel runoff was noted below the right knee. By using left posterior tibial artery we were able to cross SFA in a retrograde fashion but were not able to cross the left common femoral artery however through the collateral we entered in dissection plane in the left common vessel. Flow in the left common and external iliac remained stable as evident by the contralateral injection. At this point since left common is highly calcified vessel and may not amenable to percutaneous intervention we thought patient should be better off with vascular surgery. Final injection through the contralateral common femoral approach reconfirmed patent bilateral common, external iliac arteries with two-vessel runoff bilaterally. we recommend cons ulting with Dr. Segovia for iiliofemoral bypass. Patient without complication transferred back to ICU. Plan was for above knee amputation with Dr Segovia today but patient wants to get second opinion regarding possibility of bilateral lower extremity amputation at the same time. Status: Chronic (3) H/O mechanical aortic valve replacement: Status: Acute (4) Supratherapeutic INR: Subtherapeutic, bridged with heparin. Can hold heparin but continue coumadin to bring it to goal range of 2-3 Status: Acute Additional A&P Information Bilateral cellulitis Chronic active smoker Severe COPD on home oxygen History of noncompliance For allowing me to participate in patient's care. Please feel free to call with questions or concerns. Attestations Medical Necessity Statement*: Care expected to cross 2 midnights. Coding Level of Care Code Acute Cloth Spreader Screen Printing for Jose Roberto Washburn Diagnoses Dry gangrene I96 Severe peripheral arterial disease I73.9 H/O mechanical aortic valve replacement Z95.2 Supratherapeutic INR R79.1
--- NOTE | 2020-09-22 19:48 | PC.NURSE ---
ASSUMING CARE Patient is alert and oriented x 4 sitting up in bed watching TV. Patient is on nasal cannula at 3L and requesting pain mediation. Morphine given and patient denies any needs at this time.
[2020-09-22] MEDS: atorvastatin 40 mg Tablet 80 MG PO (21:11)
[2020-09-23] VITALS (30 sets, daily range): BP systolic 85–148; BP diastolic 51–78; PULSE 74–107; RESP 9–26; TEMP 36.6–36.8; O2SAT 92–99
[2020-09-23] MEDS: oxyCODONE-APAP 10-325 mg Tablet 1 TAB PO ×6 (01:08→20:17)
[2020-09-23] MEDS: morphine 4 mg/mL SDV 1 mL 2 MG IVP ×4 (02:43→15:15)
--- NOTE | 2020-09-23 06:09 | PC.NURSE ---
SHIFT SUMMARY Patient remained alert and oriented x 4 this shift. 600 mL urine output. Patient expressed to nurse that he still was unsure of his thought regarding planned procedure from yesterday (09/22). Afebrile. Patient requiring scheduled pain medication and also PRN morphine every 4 hours for breakthrough pain. Patient does appear to get frustrated at times over small issues that he feels are out of his control.
[2020-09-23] MEDS: gabapentin 300 mg Capsule PO ×3 (06:23→20:17)
[2020-09-23] MEDS: tamsulosin 0.4 mg Capsule PO (06:23)
[2020-09-23] MEDS: potassium chloride ER 10 mEq Tablet PO (06:23)
[2020-09-23] MEDS: metoprolol tartrate 25 mg Tablet PO ×2 (06:23→20:17)
[2020-09-23] MEDS: sennosides-docusate Tablet 1 TAB PO ×2 (08:45→17:34)
[2020-09-23] MEDS: pantoprazole DR 40 mg Tablet PO ×2 (08:45→17:34)
--- NOTE | 2020-09-23 10:49 | PM.PN ---
Subjective Subjective: Interval history: Patient surgery was canceled yesterday as patient had requested a bilateral amputation as against unilateral amputation. This was discussed extensively with him by Dr. Segovia , and overall bilateral amputation is not medically warranted at this time. It would be more appropriate to maintain his right lower extremity as long as possible to allow for transfers and position changes following the left above-knee amputation. Patient requested a second surgical opinion as he still wished to proceed with bilateral AKA. I had an extensive discussion with the patient later that evening and also this morning, patient stated to me that he just needed a little more time to process the idea of any amputation, did not feel ready for OR yesterday, states that he understands the rationale of proceeding with unilateral amputation only. His rationale for bilateral amputation was based on preventing psychological trauma of having to go through an amputation twice if he does in the future need a right side amputation as well. While he does have some early mild gangrenous changes to the lateral aspect of the right great toe, the right limb appears appropriate to be salvaged at this time. I did offer to consult with one of our general surgeons for a second opinion as requested by him yesterday and also offered transfer to [facility], however he has declined both these options. He states that he feels ready now to proceed with unilateral AKA only with Dr. Segovia. Denies any new complaints, no chest pain, dyspnea. Medications: Reviewed: Yes Vitals/I&O/Wt Last Vital Signs Temp 98.0 F 09/23/20 08:00 Pulse 81 09/23/20 09:18 Resp 18 09/23/20 09:16 BP 104/61 09/23/20 08:00 Pulse Ox 99 09/23/20 09:16 09/22/20 09/23/20 09/23/20 22:59 06:59 14:59 Intake Total 1250 / 2110 250 / 250 Output Total 700 / 1300 600 / 1900 0 / 0 Balance 550 / 810 -600 / 210 250 / 250 Weight last 48 hrs Weight 62.505 kg Physical Exam Narrative: EXAM NARRATIVE: GEN: Awake, alert and oriented, no acute distress CVS: S1S2 N RS: CTA B/L Abd: Soft, nt/nd , bs+ CARTOONIST SPECIAL EFFECTS: no focal neuro deficits Ext: unchanged dry gangrene over B/L toes, left worse than right Data : 09/22/20 03:35 09/22/20 03:35 A&P Assessment and plan (1) Dry gangrene: Status: Acute (2) H/O mechanical aortic valve replacement: Status: Acute (3) Bilateral lower leg cellulitis: Status: Acute (4) Supratherapeutic INR: now subtherapeutic Status: Acute (5) Ischemic ulcer of both feet: Status: Acute (6) Chronic anticoagulation: Status: Chronic (7) On home oxygen therapy: Status: Chronic (8) Nicotine dependence, cigarettes, with other nicotine-induced disorders: Status: Chronic (9) Severe peripheral arterial disease: Status: Chronic (10) COPD (chronic obstructive pulmonary disease): Not currently acute, chronically on oxygen at 3 L by nasal cannula with exertional hypoxemia Status: Chronic (11) Pulmonary hypertension: Status: Chronic Additional A&P Information #Dry gangrene with underlying severe peripheral vascular disease. Unsuccessful attempt at revascularization peripherally planned for left AKA with Dr. Segovia, please see interval events as listed above #Patient has stayed afebrile, stable leukocytosis Cellulitis noted on admission is resolved s/p vancomycin and pip/tazo 09/13-09/21 No gross signs of sepsis Blood cultures negative to date # Mechanical aortic valve, on coumadin as outpatient, supratherapeutic INR on admission, Coumadin was held, peripheral angiogram attempted once INR was less than 2, started heparin infusion after procedure, however this needed to be discontinued due to brittany. FOBT card test was positive at bedside. No further episodes on September 22 today.. No active chest pain shortness of breath. Fluids were discontinued yesterday due to developing mild dependent edema. Lasix currently on hold, urine output 1.3 L over last 24 hours. Check CXR, if signs of developing edema, will resume Lasix. Mechanical aortic valve 2010 Dr. Bolton #Melena, 2 episodes on September 21, hemoglobin stable now at 9.9 no further episodes., Continue to hold anticoagulation for now. Discussed with Dr. Oswald. 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
--- NOTE | 2020-09-23 11:10 | XR_ITS ---
WS: [id number] Exam: XR chest 1V portable [id number] Date/Time of Exam: 09/23/2020 11:10 AM Reason For Exam: pulmonary edema Comparison 01/06/2020. The lungs are hyperinflated. No acute infiltrates are noted. Extensive pulmonary parenchymal scarring and fibrotic change. Bullous emphysema. Small bibasal pleural effusions are noted. The heart is norm al in size. The mediastinum and osseous thorax are unremarkable. Surgical clips in the right and left neck. Signs of median sternotomy and cardiac valve replacement. XR/XR chest 1V portable [id number] IMPRESSION: 1. Advanced changes of bullous emphysema with the fibrosis and ulnar parenchyma l scarring. 2. Small bibasal pleural effusions.
--- NOTE | 2020-09-23 16:02 | P.PN_ITS ---
Subjective Subjective: Interval history: Leg, Dr. Ewing has spoken with Mr. King concerning Mr. King desire for bilateral above-knee amputations. Dr. Ewing has communicated to me that he was in agreement that unilateral AKA was most appropriate at this time. Ms. King, as expected, was not pleased with this decision but has agreed to proceed with left above-knee amputation, but not today. He wishes for surgery tomorrow. Vitals/I&O/Wt Last Vital Signs Temp 98.0 F 09/23/20 08:00 Pulse 97 09/23/20 15:00 Resp 16 09/23/20 15:15 BP 146/78 09/23/20 15:00 Pulse Ox 96 09/23/20 15:15 09/23/20 09/23/20 09/23/20 06:59 14:59 22:59 Intake Total 500 / 500 Output Total 600 / 1900 0 / 0 Balance -600 / 210 500 / 500 Weight last 48 hrs Weight 137 lb 12.8 oz Physical Exam Extremity: OTHER: There are further gangrenous changes to the left foot which now involves the forefoot and a portion of the midfoot dorsally. This remains dry. No substantial erythema in the lower extremity on the left. Right foot remains unchanged. Data : 09/22/20 03:35 09/22/20 03:35 A&P Assessment and plan (1) Dry gangrene: Unreconstructable severe peripheral vascular disease of the lower extremities with dry gangrene of the left foot and ischemic changes to the left leg. Mr. King has now again agreed to unilateral left above-knee amputation. We will tentatively schedule this for 7 AM tomorrow morning. Details and risk of the procedure have again been carefully reviewed as they have been previously. He has no questions and wishes to proceed with surgery tomorrow. Status: Acute Attestations Medical Necessity Statement*: Severe PAD with gangrene left lower extremity. 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
[2020-09-23] MEDS: atorvastatin 40 mg Tablet 80 MG PO (20:17)
--- NOTE | 2020-09-23 21:04 | P.PN_ITS ---
Subjective Subjective: Interval history: Patient still has lower extremity discomfort. He has agreed to unilateral amputation of the left lower extremity. However wants to have it tomorrow. Vitals/I&O/Wt Last Vital Signs Temp 98.3 F 09/23/20 20:00 Pulse 104 H 09/23/20 20:00 Resp 18 09/23/20 20:17 BP 139/72 09/23/20 20:00 Pulse Ox 92 09/23/20 20:00 09/23/20 09/23/20 09/23/20 06:59 14:59 22:59 Intake Total 500 / 500 Output Total 600 / 1900 0 / 0 Balance -600 / 210 500 / 500 Weight last 48 hrs Weight 137 lb 12.8 oz Physical Exam Narrative: EXAM NARRATIVE: GENERAL: Patient is alert, awake and oriented x3, is feeling sleepy, open his eyes and talk then go back to NECK: No jugular vein distension. HEENT: No cyanosis. No icterus. No pallor. HEART: Regular S1 and S2. No murmur, rub or gallop. LUNGS: Decreased breathing bilaterally. CENTRAL NERVOUS SYSTEM: Grossly nonfocal. EXTREMITIES: Lower extremities excoriating skin, warm, gangrenous toes bilate rally Data : 09/24/20 05:46 09/24/20 05:46 A&P Assessment and plan (1) Dry gangrene: Status: Acute (2) Severe peripheral arterial disease: Patient had unsuccessful attempt at revascularization of left lower extremity. Patient underwent peripheral angiogram noted to have highly calcified chronically occluded left common femoral, proximal to distal left SFA with moderately diffusely diseased left popliteal artery. Two-vessel runoff with anterior posterior tibial was noted. There was highly calcified distal right common iliac lesion noted treated with balloon angioplasty. Right SFA is chronically was occluded, two-vessel runoff was noted below the right knee. By using left posterior tibial artery we were able to cross SFA in a retrograde fashion but were not able to cross the left common femoral artery however through the collateral we entered in dissection plane in the left common vessel. Flow in the left common and external iliac remained stable as evident by the contralateral injection. At this point since left common is highly calcified vessel and may not amenable to percutaneous intervention we thought patient should be better off with vascular surgery. Final injection through the contralateral common femoral approach reconfirmed patent bilateral common, external iliac arteries with two-vessel runoff bilaterally. we recommend consulting with Dr. Segovia for iiliofemoral bypass. Patient without complication transferred back to ICU. Patient has agreed to proceed with amputation of the left lower extremity. Procedure will be planned to be done tomorrow Status: Chronic (3) H/O mechanical aortic valve replacement: Recommend EGD as patient has melena and will need [facility] anticoagulation because of mechanical aortic valve. Will recommend restarting coumadin as soon as possible Status: Acute (4) Supratherapeutic INR: Plan for EGD for assessment of melena Status: Acute Additional A&P Information Bilateral cellulitis Chronic active smoker Severe COPD on home oxygen History of noncompliance For allowing me to participate in patient's care. Please feel free to call with questions or concerns. 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
--- NOTE | 2020-09-23 22:00 | PC.NURSE ---
IV Patient IV noted to be out of date. Patient refusing any sticks at this time stating They are still working, no no no, you will not be putting any new IVs in me. They had to stick me 6 times for what I got, I refuse. This nurse educated patient on the risks of infection of IVs left in too long, patient still refuses new IV placement at this time. Patient is scheduled for surgery in the AM and is agreeable to letting surgery attempt IV placement during surgery since he will not be awake then.
[2020-09-24] VITALS (20 sets, daily range): BP systolic 93–148; BP diastolic 54–80; PULSE 81–104; RESP 15–24; TEMP 36.6–37.4; O2SAT 90–97
[2020-09-24] MEDS: oxyCODONE-APAP 10-325 mg Tablet 1 TAB PO ×5 (00:08→20:45)
--- NOTE | 2020-09-24 04:20 | PC.NURSE ---
Pain meds At 0415 scheduled Oxycodone pass patient became agitated and verbally upset. Patient stated that My meds are an hour late and have been all night and you are lying to me. You have been giving them late and lying about writing on the board. This nurse explained to patient what times Oxycodone were given, as scheduled, and that board was only updated this morning as this nurse was not aware that schedule had been written on the board. Charge nurse came into room and also verbally verified and wrote down times from scanning of medications to ensure patient that he had received his pain medication as ordered. Patient then became tearful and apologetic for his agitation, assured patient that nursing staff would keep patient board up to date per patient request for medication schedule. Patient was then agreeable with current medication schedule and current plan of care.
[2020-09-24] MEDS: morphine 4 mg/mL SDV 1 mL 2 MG IVP ×3 (05:03→12:02)
--- NOTE | 2020-09-24 06:00 | PC.NURSE ---
Patient off unit at 0615 to surgery via bed. Dentures and glasses left at bedside on bedside table.
[2020-09-24 06:15] LABS: Basophils % 0.4 %; Eosinophils # 0.3 10^3/uL (0.0-0.8); Eosinophils % 2.9 %; Hematocrit 32.6 % (42.0-52.0); Hemoglobin 10.4 g/dL (11.7-16.6); Lymphocytes # 0.6 10^3/uL (0.8-4.8); Lymphocytes % 5.7 %; Mean Corpuscular HGB Conc 31.9 g/dL (30.0-36.0); Mean Corpuscular Hemoglobin 32.3 pg (28.0-34.0); Mean Corpuscular Volume 101.2 fL (80-94); Mean Platelet Volume 10.2 fL (7.4-10.4); Monocytes # 0.7 10^3/uL (0.2-0.9); Monocytes % 6.9 %; Neutrophils # 8.36 10^3/uL (1.8-7.7); Neutrophils % 83.8 %; Nucleated Red Blood Cells % 0 %; Platelet Count 285 10^3/cmm (130-400); Red Blood Count 3.22 10^6/uL (4.1-5.3); Red Cell Distribution Width 14.2 % (12.1-15.1)
[2020-09-24 06:18] LABS: INR 1.29 (0.8-1.2)
[2020-09-24 06:33] LABS: Alanine Aminotransferase 57 U/L (0-41); Albumin Level 2.6 g/dL (3.5-5.2); Alkaline Phosphatase 106 IU/L (40-130); Aspartate Amino Transferase 42 U/L (0-40); Blood Urea Nitrogen 4 mg/dL (8-23); Calcium 7.7 mg/dL (8.5-10.5); Carbon Dioxide 39 mmol/L (22-29); Chloride 99 mmol/L (98-107); Globulin 2.5 g/dL (1.3-4.6); Glucose 126 mg/dL (65-115); Osmolality Calculated 288 mOsm/kg (285-295); Sodium 140 mmol/L (136-145); Total Bilirubin 0.5 mg/dL (0.15-1.2); Total Protein 5.1 g/dL (6.6-8.7)
--- NOTE | 2020-09-24 06:39 | PM.PN ---
Subjective Subjective: Interval history: Uneventful night. Transferred to the medical/surgical [place]. Mr. King is ready to proceed with plans for left above-knee amputation. Vitals/I&O/Wt Last Vital Signs Temp 98.1 F 09/24/20 04:00 Pulse 104 H 09/24/20 04:00 Resp 18 09/24/20 05:03 BP 127/76 09/24/20 04:00 Pulse Ox 90 09/24/20 04:00 09/23/20 09/23/20 09/24/20 14:59 22:59 06:59 Intake Total 500 / 500 Output Total 0 / 0 Balance 500 / 500 Weight last 48 hrs Weight 137 lb 12.8 oz Physical Exam Extremity: OTHER: Gangrenous changes to the left toes and forefoot remain unchanged. Abrupt skin temperature change in the mid/distal left leg. Right leg remains unchanged. Data : 09/24/20 05:46 09/24/20 05:46 A&P Assessment and plan (1) Dry gangrene: Will plan to proceed with a left above-knee amputation this morning. Mr. King is aware that we will not be addressing his right lower extremity. Details and risk of the procedure again carefully reviewed. He states understanding and appears to be ready to proceed. 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
[2020-09-24 06:45] LABS: Anion Gap 5.9 (5-19); Potassium 3.9 mmol/L (3.5-5.1)
[2020-09-24] MEDS: vancomycin 1,000 MG in sodium chloride 0.9% 250 ML 250 MG IV (06:58)
--- NOTE | 2020-09-24 06:58 | P.CONIM_ITS ---
Providers/Reason For Consult Consulting Physican/Specialty*: Gastrointestinal call Reason for Consult*: Melena. Evaluate upper gastrointestinal tract for ulcers due to need for chronic anticoagulation Attending Physician: Suzie Mireles MD Primary Care Provider: Carmen Bernardo NP History of Present Illness History of Present Illness Damon King is a 70 year old male with multiple medical problems who is scheduled for an AKA of his left leg. He had an episode of melena during his hospitalization during which his hemoglobin dropped. Because he will likely require anticoagulation after the procedure, I was asked to perform an EGD to evaluate for gastric and duodenal ulcers in order to assess risk for future anticoagulation Review of Systems General: Reports: 10 or more systems reviewed and unremarkable except in HPI and below Const: Denies: fever(s) ENMT: Reports: other (Hard of hearing) Card: Denies: chest pain GI: Reports: abdominal pain and melena Musc: Reports: extremity pain (In his lower extremities bilaterally. Says he is going to lose his legs.) Endo: Reports: tired all the time Meds/Allergies Home Medications and Allergies Home Medications Medication Instructions Recorded Confirmed Last Taken Type atorvastatin 80 mg tablet 80 mg PO DAILY@209904/08/20 09/13/20 09/12/20 History budesonide-formoterol HFA 80 2 puff INHALATION BID@07,209904/08/20 09/13/20 09/13/20 History mcg-4.5 mcg/actuation aerosol inhaler gabapentin 300 mg capsule 300 mg PO TID@,04/08/20 09/13/20 09/13/20 History hydrocodone 10 mg-acetaminophen 1 tab PO Q6H PRN 04/08/20 09/13/20 Unknown History 325 mg tablet metoprolol tartrate 25 mg tablet 25 mg PO BID@0700,209904/08/20 09/13/20 09/13/20 History potassium chloride 10 mEq 10 meq PO DAILY@0700 04/08/20 09/13/20 09/13/20 History tablet,extended release quetiapine 50 mg tablet 50 mg PO BID@0700,209904/08/20 09/13/20 09/13/20 History tamsulosin 0.4 mg capsule 0.4 mg PO DAILY@0700 04/08/20 09/13/20 09/13/20 History warfarin 2 mg tablet See Rx Instructions .ROUTE .COMPLEX 04/08/20 09/13/20 09/12/20 History Allergy Relief (cetirizine) 1 mg PO BID@0700,2100 09/13/20 09/13/20 09/13/20 History amlodipine 5 mg PO DAILY@0700 09/13/20 09/13/20 09/13/20 History furosemide 40 mg PO DAILY@0700 09/13/20 09/13/20 09/12/20 History varenicline [Chantix Starting 1 ea PO BID@0700,2100 09/13/20 09/13/20 09/13/20 History Month Box] warfarin See Rx Instructions .ROUTE .COMPLEX 09/13/20 09/13/20 09/13/20 History Allergies Allergy/AdvReac Type Severity Reaction Status Date / Time divalproex sodium AdvReac Mild nausea Verified 04/08/20 15:03 [facility] Current Medications Current Medications Generic Name Dose Route Start Last Admin Trade Name Freq PRN Reason Stop Dose Admin Albuterol Sulfate 2.5 mg 09/13/20 23:00 09/18/20 08:21 Albuterol 2.5 Mg/0.5 Ml Neb INHALATION 2.5 mg Q4H.RESPIRATORY PRN Administration SHORTNESS OF BREATH Alprazolam 0.25 mg 09/20/20 20:16 09/22/20 08:27 Alprazolam 0.25 Mg Tablet PO 0.25 mg TID PRN Administration ANXIETY Atorvastatin Calcium 80 mg 09/13/20 22:45 09/23/20 20:17 Atorvastatin 40 Mg Tablet PO 80 mg BEDTIME NICHOL Administration Gabapentin 300 mg 09/13/20 22:50 09/23/20 20:17 Gabapentin 300 Mg Capsule PO 300 mg TID@ NICHOL Administration Lidocaine HCl 1 applic 09/15/20 13:18 09/16/20 14:24 Lidocaine 2% Jelly 5 Ml TOPICAL 1 applic PRN PRN Administration leg pain Metoprolol Tartrate 25 mg 09/13/20 22:50 09/23/20 20:17 Metoprolol Tartrate 25 Mg Tablet PO 25 mg BID@0700,2100 NICHOL Administration Morphine Sulfate 2 mg 09/22/20 03:00 09/24/20 05:03 Morphine 4 Mg/Ml Sdv 1 Ml IVP 2 mg Q4H PRN Administration BREAKTHROUGH PAIN Oxycodone/Acetaminophen 1 tab 09/18/20 16:45 09/24/20 04:12 Oxycodone-Apap 10-325 Mg Tablet PO 1 tab Q4H NICHOL Administration Pantoprazole Sodium 40 mg 09/21/20 18:00 09/23/20 17:[address] 40 Mg Tablet PO 40 mg BID NICHOL Administration Potassium Chloride 10 meq 09/14/20 07:00 09/23/20 06:23 Potassium Chloride Er 10 Meq Tablet PO 10 meq DAILY@0700 NICHOL Administration Fluticasone/Salmeterol 1 puff 09/19/20 20:00 09/24/20 01:34 Fluticasone-Salmeterol 250-50 Diskus INHALATION Not Given BID.RESPIRATORY NICHOL Senna/Docusate Sodium 1 tab 09/14/20 18:00 09/23/20 17:34 Sennosides-Docusate Tablet PO 1 tab BID NICHOL Administration Tamsulosin HCl 0.4 mg 09/14/20 07:00 09/23/20 06:23 Tamsulosin 0.4 Mg Capsule PO 0.4 mg DAILY@0700 NICHOL Administration PFSH Acute PFSH: Medical History Bilateral carotid artery stenosis BPH (benign prostatic hyperplasia) Chronic anticoagulation coumadin, for mechanical AVR COPD (chronic obstructive pulmonary disease) CVA (cerebral vascular accident) Depression GERD (gastroesophageal reflux disease) History of PFTs (~08/2018) 08/20: severe obstructive ventilatory defect, no significant bronchodilator response, severely reduced diffusion capacity Hyperlipidemia Hypertension Nicotine dependence, cigarettes, with other nicotine-induced disorders On home oxygen therapy 3L [facility] continuous Osteoarthritis Pulmonary hypertension Right renal artery stenosis >60% Severe peripheral arterial disease Surgical History History of angioplasty of peripheral vessel (~2017) in 2018, unsuccessful by Dr Putnam and later also Dr Calixto per old records, referred to [facility] [place] History of aortic valve replacement (~2008) Dr Bolton, mechanical History of CEA (carotid endarterectomy) right ~2008, left ~2010 History of ear surgery History of testicular surgery right orchiectomy for undescended testicle as a child Family History Other CAD (coronary artery disease) Diabetes Social History Smoking and tobacco status: current every day smoker cigarettes Number of cigarettes per day: 11-20 Alcohol intake: current Alcohol intake frequency: 0-2 Drinks per Day Alcohol use comment: 1 oz whiskey daily with coke Substance/Drug Use: never Household members: family and other Details: son + Vitals/I&O/Wt Last Vital Signs Temp 99.3 F 09/24/20 06:43 Pulse 92 09/24/20 06:43 Resp 18 09/24/20 06:43 BP 148/80 09/24/20 06:43 Pulse Ox 97 09/24/20 06:43 09/23/20 09/23/20 09/24/20 14:59 22:59 06:59 Intake Total 500 / 500 Output Total 0 / 0 Balance 500 / 500 Weight last 48 hrs Weight 137 lb 12.8 oz Physical Exam Const: COMMON NORMALS: no acute distress and patient oriented x3 GENERAL APPEARANCE: cooperative, comfortable and well developed HENMT: COMMON NORMALS: normocephalic and moist oral mucous membranes HEAD & SCALP: normocephalic Chest: COMMONS NORMALS: normal inspection of the chest Resp: COMMON NORMALS: normal respiratory effort and clear to auscultation bilaterally AUSCULTATION: clear to auscultation bilaterally Cardio: COMMON NORMALS: regular rate, regular rhythm, No gallops present (Cardio), No murmurs present (Cardio) and No rub (Cardio) RATE: regular rate RHYTHM: regular rhythm Extremity: COMMON NORMALS: normal to inspection Neuro: COMMON NORMALS: patient oriented x3 and no focal motor deficits A&P Assessment and plan (1) Melena: Given the patient's dependence on long-term anticoagulation, and his history of melena with associated decrease in hemoglobin, the benefits of proceeding with an EGD outweigh the risks. I discussed the risks of the procedure with the patient including the risks of bleeding, perforation, and sedation. He did not want to do the procedure, unless it could be done at the same time he was having his amputation performed. We agreed to perform the procedure while he is being sedated for the amputation.. Status: Acute (2) Chronic anticoagulation: Status: Chronic Consult Attestations Medical Necessity Statement: The patient's hospital stay will be dictated by other medical problems including healing from his amputation. 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
[2020-09-24] MEDS: vancomycin 1,000 MG SDV 1000 MG IRRIGATION (07:31)
--- NOTE | 2020-09-24 07:47 | SUR.OPER ---
egd scope #[id number]
--- NOTE | 2020-09-24 08:35 | PM.OP ---
Operative Report Date of procedure: September 24, 2020 Pre-op Diagnosis: dry gangrene; severe nonreconstructable peripheral artery disease Post-op diagnosis: same Procedure Done: Left above-knee amputation Specimens removed/disposition: Left leg Surgeon: Olayinka Segovia Anesthesia: General Estimated blood loss (mL): 100 Complications: None Condition: stable Disposition: PACU Brief History: 70-year-old gentleman with severe peripheral vascular disease status post interventions who underwent attempted percutaneous intervention to his left leg after presenting with dry gangrene of the left toes and forefoot. Unfortunately, this was unsuccessful and he has severe disease in the iliac distally with minimal runoff at the trifurcation. Given the degree of tissue loss and ongoing pain, as well as his desire for the most billable procedure that would result in healing, we recommended a left above-knee amputation. He initially wanted to amputation of both legs above the knee, though I refuse as I feel his right leg is not at a stage that warrant such a major procedure. Secondary opinion was obtained from Dr. Ewing who concurred with the original recommendation and after a couple of days, Mr. King has now agreed and wishes to proceed. Details of risk the procedure were carefully and frankly discussed. He has numerous comorbidities which will increase his perioperative risk. Appropriate consents have been reviewed and signed. Procedure: Mr. King was taken to the operating room and placed on the OR table in the supine position. He underwent general endotracheal anesthesia. Initially, EGD was performed by Dr. Beltran under this anesthetic as part of an evaluation for melena. This will be dictated under a separate heading by Dr. Beltran. Next, the entire left lower extremity was sterilely prepped and draped. Left thigh was marked for incision line. #10 scalpel blade was utilized to circumferentially incise the skin in a fishmouth pattern. Anterior musculature was sharply divided utilizing scalpel and minimal use of cautery. Periosteal elevator was used for dissecting the periosteum off of the femur. Oscillating saw was utilized to divide the femur. Amputation knife was then used posteriorly to complete amputation of the left lower extremity. Meticulous inspection was carried out and hemostasis was controlled with minimal use of cautery, surgical clips, and suture ligature as required. The superficial femoral artery was controlled, retracted proximally, ligated and divided. The sciatic nerve was dissected proximally, ligated, and divided. The wound was irrigated with large amounts of antibiotic solution. Hemostasis was confirmed. A large Hemovac drain was placed beneath the fascia. The fascia was reapproximated with interrupted 0 and 2-0 Vicryl suture. Skin was reapproximated in an interrupted mattress fashion with monofilament suture. Sterile dressings were applied followed by a bulky dressing. Mr. King tolerated the procedure well and was taken to PACU.
[2020-09-24] MEDS: fentaNYL 50 mcg/mL INJ 2mL IVP (08:42)
[2020-09-24] MEDS: ALPRAZolam 0.25 mg Tablet PO (10:35)
[2020-09-24 12:01] LABS: Glucose Point of Care 112 mg/dL (70-110)
--- NOTE | 2020-09-24 13:40 | ANE.PACU2 ---
Inpatient post-anesthesia follow up: Airway intact: Yes Vital signs: Temperature 98.9 F Pulse Rate [Monito r] 110 Pulse Rate 97 Respiratory Rate 16 Blood Pressure [Le ft Arm] 117/68 Blood Pressure 107/58 Pulse Oximetry 92 Oxygen Delivery Me thod Nasal Cannula Oxygen Flow Rate 4 Fraction of Inspir ed Oxygen Hydration adequate: Yes Nausea and vomiting: No Pain level: 2 Mental status: Baseline
[2020-09-24] MEDS: ceFAZolin 1,000 MG in sodium chloride 0.9% (plus) 50 ML 100 MG IV ×2 (15:00→18:00)
[2020-09-24] MEDS: metoprolol tartrate 25 mg Tablet PO ×2 (15:00→20:52)
[2020-09-24] MEDS: gabapentin 300 mg Capsule PO ×2 (15:00→20:45)
[2020-09-24] MEDS: tamsulosin 0.4 mg Capsule PO (15:00)
[2020-09-24] MEDS: potassium chloride ER 10 mEq Tablet PO (15:00)
--- NOTE | 2020-09-24 16:39 | P.PN_ITS ---
Subjective Subjective: Interval history: Status post left TKA this morning, tolerated procedure well, pain is currently well controlled. Medications: Reviewed: Yes Vitals/I&O/Wt Last Vital Signs Temp 98.9 F 09/24/20 11:29 Pulse 97 09/24/20 11:29 Resp 16 09/24/20 12:02 BP 107/58 09/24/20 11:29 Pulse Ox 92 09/24/20 11:29 09/24/20 09/24/20 09/24/20 06:59 14:59 22:59 Intake Total 120 / 620 250 / 250 Output Total 700 / 700 200 / 200 Balance -580 / -80 50 / 50 Weight last 48 hrs Weight 62.505 kg Physical Exam Narrative: EXAM NARRATIVE: GEN: Awake, alert and oriented, no acute distress CVS: S1S2 N RS: CTA B/L Abd: Soft, nt/nd , bs+ ATHLETIC TEAM PHYSICIAN: no focal neuro deficits Extremities status post left AKA, postsurgical dressing and drain in place, not open for exam. Data : 09/24/20 05:46 09/24/20 05:46 A&P Assessment and plan (1) Dry gangrene: Status: Acute (2) H/O mechanical aortic valve replacement: Status: Acute (3) Bilateral lower leg cellulitis: Status: Acute (4) Supratherapeutic INR: now subtherapeutic Status: Acute (5) Ischemic ulcer of both feet: Status: Acute (6) Chronic anticoagulation: Status: Chronic (7) On home oxygen therapy: Status: Chronic (8) Nicotine dependence, cigarettes, with other nicotine-induced disorders: Status: Chronic (9) Severe peripheral arterial disease: Status: Chronic (10) COPD (chronic obstructive pulmonary disease): Not currently acute, chronically on oxygen at 3 L by nasal cannula with exertional hypoxemia Status: Chronic (11) Pulmonary hypertension: Status: Chronic Additional A&P Information #Dry gangrene with underlying severe peripheral vascular disease Unsuccessful attempt at revascularization peripherally Status post AKA today #Patient has stayed afebrile, stable leukocytosis Cellulitis noted on admission is resolved s/p vancomycin and pip/tazo 09/13-09/21 No gross signs of sepsis Blood cultures negative to date # Mechanical aortic valve, on coumadin as outpatient, supratherapeutic INR on admission, Coumadin was held, peripheral angiogram attempted once INR was less than 2, started heparin infusion after procedure, however this needed to be discontinued due to brittany. FOBT card test was positive at bedside. No further episodes. Underwent EGD today while in the OR, gastritis, 2 superficial ulcers were noted, minimal black residual blood was noted in the stomach ulcer. Continue to hold anticoagulation for now, plan is to hold it at least over the next week, and then resume Coumadin. Discussed with cardiology Mechanical aortic valve 2010 Dr. Bolton #Melena, 2 episodes on September 21, hemoglobin stable now at 9.9 no further episodes., Continue to hold anticoagulation for now. Upper GI endoscopy as above #Pulmonary hypertension with COPD No acute exacerbation, continue scheduled nebulization Full code Cardiac diet DVT prophylaxis: SCDs due to GIB Full code Attestations Medical Necessity Statement*: Status post AKA today, postop care and monitoring Coding Level of Care Code Acute Food Checkers And Cashiers Supervisor for Chg Fwd Diagnoses Dry gangrene I96 H/O mechanical aortic valve replacement Z95.2 Bilateral lower leg cellulitis L03.116; L03.115 Supratherapeutic INR R79.1 Ischemic ulcer of both feet L97.519; L97.529 Chronic anticoagulation Z79.01 On home oxygen therapy Z99.81 Nicotine dependence, cigarettes, with other nicotine-induced disorders F17.218 Severe peripheral arterial disease I73.9 COPD (chronic obstructive pulmonary disease) J44.9 Pulmonary hypertension I27.20
[2020-09-24 17:00] LABS: Glucose Point of Care 128 mg/dL (70-110)
--- NOTE | 2020-09-24 17:36 | DCPLANNER ---
Pg 2 of IM updated and reviewed with pt. No questions, copy provided.
[2020-09-24] MEDS: lactated ringers 1,000 ML 100 ML IV (17:59)
[2020-09-24] MEDS: sennosides-docusate Tablet 1 TAB PO (18:00)
[2020-09-24] MEDS: pantoprazole DR 40 mg Tablet PO (18:00)
[2020-09-24 20:19] LABS: Glucose Point of Care 143 mg/dL (70-110)
[2020-09-24] MEDS: atorvastatin 40 mg Tablet 80 MG PO (20:45)
--- NOTE | 2020-09-24 21:24 | PC.NURSE ---
SHIFT SUMMARY PT ARRIVED BACK TO THIS UNIT AT AROUND 1000 THIS MORNING. PT WAS IMMEDIATELY HOOKED UP TO A VITALS CART. PTS OXYGEN WAS SHOWING 52% REGARDLESS TO WHAT REPORT FROM THE SURGICAL NURSE GAVE. PT WAS ASYMPTOMATIC. I PUT THE PT ON 5L NC AND PTS STAT QUICKLY CAME UP. PT WAS TURNED DOWN TO 3L, WHICH IS HIS BASELINE, AND HAS DONE WELL ALL DAY. PT WAS IN SIGNIFICANT PAIN THIS MORNING. AFTER A FEW DOSES OF MORPHINE AND SCHEDULED OXYCODONE, PATIENTS PAIN HAS APPEARED TO BE WELL CONTROLLED. HE HAS BEEN RESTING AND DOING WELL THIS AFTERNOON. PTS DRAIN WAS DRAINED THIS AFTERNOON AND A TOTAL OF 140ML WAS DRAINED. MINIMAL COMPLAINTS OF PAIN THIS AFTERNOON. WILL CONTINUE TO MONITOR PT.
--- NOTE | 2020-09-24 23:00 | PM.PN ---
Subjective Subjective: Interval history: Patient is s/p left leg AKA performed today. Patient is sleepy. Denies any pain currently. Vitals/I&O/Wt Last Vital Signs Temp 99.0 F 09/24/20 19:39 Pulse 84 09/24/20 20:46 Resp 18 09/24/20 20:45 BP 96/59 09/24/20 19:39 Pulse Ox 92 09/24/20 20:41 09/24/20 09/24/20 09/25/20 14:59 22:59 06:59 Intake Total 250 / 250 220 / 470 Output Total 200 / 200 140 / 340 Balance 50 / 50 80 / 130 Weight last 48 hrs Weight 137 lb 12.8 oz Physical Exam Narrative: EXAM NARRATIVE: GENERAL: Patient is alert, awake and oriented x3, is feeling sleepy, open his eyes and talk then go back to NECK: No jugular vein distension. HEENT: No cyanosis. No icterus. No pallor. HEART: Regular S1 and S2. No murmur, rub or gallop. LUNGS: Decreased breathing bilaterally. CENTRAL NERVOUS SYSTEM: Grossly nonfocal. EXTREMITIES: Dressing on left AKA stump Data : 09/24/20 05:46 09/24/20 05:46 A&P Assessment and plan (1) Dry gangrene: Status: Acute (2) Severe peripheral arterial disease: Patient had unsuccessful attempt at revascularization of left lower extremity. Patient underwent peripheral angiogram noted to have highly calcified chronically occluded left common femoral, proximal to distal left SFA with moderately diffusely diseased left popliteal artery. Two-vessel runoff with anterior posterior tibial was noted. There was highly calcified distal right common iliac lesion noted treated with balloon angioplasty. Right SFA is chronically was occluded, two-vessel runoff was noted below the right knee. By using left posterior tibial artery we were able to cross SFA in a retrograde fashion but were not able to cross the left common femoral artery however through the collateral we entered in dissection plane in the left common vessel. Flow in the left common and external iliac remained stable as evident by the contralateral injection. At this point since left common is highly calcified vessel and may not amenable to percutaneous intervention we thought patient should be better off with vascular surgery. Final injection through the contralateral common femoral approach reconfirmed patent bilateral common, external iliac arteries with two-vessel runoff bilaterally. Dr Segovia was consulted and patient has underwent AKA today. Status: Chronic (3) H/O mechanical aortic valve replacement: Patient had melena and anticoagulation was held. Patient underwent endoscopy today that showed ulcerations with no active bleeding. Will recommend restarting anticoagulation DWAYNE once safe from bleeding standpoint (should not be off anticoagulation completely for more than a week) Status: Acute (4) Supratherapeutic INR: Status: Acute Additional A&P Information Bilateral cellulitis Chronic active smoker Severe COPD on home oxygen History of noncompliance For allowing me to participate in patient's care. Please feel free to call with questions or concerns. Attestations Medical Necessity Statement*: Care expected to cross 2 midnights. Coding Level of Care Code Acute Accounting Software Specialist for Jose Roberto Washburn Diagnoses Dry gangrene I96 Severe peripheral arterial disease I73.9 H/O mechanical aortic valve replacement Z95.2 Supratherapeutic INR R79.1
[2020-09-25] VITALS (18 sets, daily range): BP systolic 99–115; BP diastolic 52–68; PULSE 79–101; RESP 16–22; TEMP 36.5–37.3; O2SAT 83–98
[2020-09-25] MEDS: oxyCODONE-APAP 10-325 mg Tablet 1 TAB PO ×6 (00:40→21:19)
[2020-09-25] MEDS: ceFAZolin 1,000 MG in sodium chloride 0.9% (plus) 50 ML 100 MG IV (02:41)
[2020-09-25] MEDS: lactated ringers 1,000 ML 100 ML IV ×2 (04:41→13:40)
[2020-09-25] MEDS: morphine 4 mg/mL SDV 1 mL 2 MG IVP (05:22)
[2020-09-25 06:26] LABS: Glucose Point of Care 236 mg/dL (70-110)
[2020-09-25] MEDS: potassium chloride ER 10 mEq Tablet PO (06:36)
[2020-09-25] MEDS: metoprolol tartrate 25 mg Tablet PO ×2 (06:36→21:19)
[2020-09-25] MEDS: tamsulosin 0.4 mg Capsule PO (06:36)
[2020-09-25] MEDS: gabapentin 300 mg Capsule PO ×3 (06:36→21:19)
[2020-09-25 06:40] LABS: Basophils # 0.1 10^3/uL (0.0-0.1); Basophils % 0.5 %; Eosinophils # 0.3 10^3/uL (0.0-0.8); Eosinophils % 2.7 %; Hemoglobin 9.6 g/dL (11.7-16.6); Lymphocytes # 0.7 10^3/uL (0.8-4.8); Mean Corpuscular Hemoglobin 32.5 pg (28.0-34.0); Mean Corpuscular Volume 105.1 fL (80-94); Mean Platelet Volume 10.2 fL (7.4-10.4); Monocytes # 0.8 10^3/uL (0.2-0.9); Monocytes % 7.1 %; Neutrophils # 9.09 10^3/uL (1.8-7.7); Neutrophils % 83.2 %; Nucleated Red Blood Cells % 0 %; Platelet Count 301 10^3/cmm (130-400); Red Blood Count 2.95 10^6/uL (4.1-5.3); Red Cell Distribution Width 14.5 % (12.1-15.1); White Blood Count 10.9 10^3/uL (4.0-10.0)
[2020-09-25 07:18] LABS: Anion Gap 4.5 (5-19); Blood Urea Nitrogen 6 mg/dL (8-23); Calcium 7.8 mg/dL (8.5-10.5); Chloride 101 mmol/L (98-107); Glucose 194 mg/dL (65-115); Osmolality Calculated 297 mOsm/kg (285-295); Potassium 4.5 mmol/L (3.5-5.1); Sodium 142 mmol/L (136-145)
[2020-09-25 07:23] LABS: Carbon Dioxide 41 mmol/L (22-29)
[2020-09-25] MEDS: sennosides-docusate Tablet 1 TAB PO ×2 (08:35→17:36)
[2020-09-25] MEDS: pantoprazole DR 40 mg Tablet PO ×2 (08:35→17:36)
--- NOTE | 2020-09-25 09:06 | PM.PN ---
Subjective Subjective: Interval history: POD #1 left AKA. Drain output 70 cc overnight. Approximately 200 cc since surgery. Vital signs stable. Vitals/I&O/Wt Last Vital Signs Temp 97.7 F 09/25/20 08:00 Pulse 87 09/25/20 08:14 Resp 16 09/25/20 08:35 BP 115/59 09/25/20 08:00 Pulse Ox 91 09/25/20 08:35 09/24/20 09/25/20 09/25/20 22:59 06:59 14:59 Intake Total 220 / 470 1290 / 1760 Output Total 140 / 340 1510 / 1850 Balance 80 / 130 -220 / -90 Weight last 48 hrs Weight 129 lb 6.4 oz Physical Exam Extremity: OTHER: Surgical dressing and drain in position. Postoperative discomfort appears to be under good control. Small area on great toe and dorsum of second toe which show some tissue loss. These areas will need to be observed carefully, therefore I would recommend painting with Betadine daily. Data : 09/25/20 05:54 09/25/20 05:54 A&P Assessment and plan (1) Melena: POD #1 status post left AKA Will plan to remove surgical dressing and drain tomorrow. Status: Acute Attestations Medical Necessity Statement*: Status post above-knee amputation secondary to dry gangrene Time Spent in Patient Care: 16 - 35 minutes Coding Level of Care Code Acute Stoneworking Belt Sander for Jose Roberto Washburn Diagnoses Melena K92.1
[2020-09-25] MEDS: sulfamethoxazole-trimeth DS 160-800 mg Tablet 1 TAB PO ×2 (10:32→21:19)
--- NOTE | 2020-09-25 12:34 | PC.CHAP ---
Pastoral Care Encounter/Spiritual Assessment Type of Contact [] Declined lead assistant manager visit [] Patient/Family/Request visit [] Outpatient visit [XX] Follow-up visit [] Physician referral [] Code/Alert [XX] Routine visit [] Staff referral [] Actively dying [] Patient sleeping [] Family support [] [] Out of room [] Palliative care [] [] Receiving care in room [] Pre-surgical visit [] Trauma [] Long length of stay [] ICU visit [] Other: Relational/Emotional Strength [XX] Patient feels connected with others/family/visitors/staff [] Distress [] Loneliness/isolation [] Abandonment Spirituality of Patient [XX] Person of Yomaira [XX] Attends Sabianism of their Yomaira [XX] Believes in Prayer [XX] Reads Bible or Voodoo materials [] There are Spiritual issues to be addressed Master Barber 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 [XX] Prayer [XX] Active listening [] Non-anxious presence [] Spiritual/emotional support [] Crisis/trauma care [] Spiritual counseling [] Bereavement support [] Provided bereavement packet [] Provided Bible/devotional materials [] Provided toy/stuffed animal, coloring book to patient or family member [] Provided Communion [] Anointing/[place] [] Salvation [XX] Completed spiritual assessment [] Other: Impact on Illness or Injury [] Angry [] Fearful [] Anxious [] Often cries [] Exhaustion [] Unable to work [] Unable to attend restorationism [] Unable to walk/stand [] Unable to read [] Unable to drive [] Unable to eat/drink [] Unable to sleep [] Unable to be with family [] Patient intubated [] Other: Summary: Pt has leg wounds severe enough to require amputation of left lower leg. Pt reports being at peace with this decision but is dreading the rehab until the right leg is surgically addressed. Pt has good support system and strong yomaira. Pt was pale, in some pain, and had received lunch when lead assistant manager arrived, so visit was limited. Master Barber will stop by pt's room again tomorrow. Time spent with patient: 15 mins
--- NOTE | 2020-09-25 13:50 | PC.NURSE ---
Attempted to cleanse patient's toes on his right foot with Betadine swabs at this time. Patient began yelling at this nurse stating, Why don't you understand. You can not touch the dark spots on those toes or I am going to be screaming in pain. Explained that Dr. Segovia asked that we cleanse them with the Betadine. Patient states, I do not care I was told I would be under anaesthesia before any cleaning was done on those toes and you not touching them. Patient continued yelling at this nurse about how nothing is done right here. Patient refused. This nurse apologized to the patient for upsetting him.
[2020-09-25] MEDS: ALPRAZolam 0.25 mg Tablet PO (15:19)
--- NOTE | 2020-09-25 15:51 | PM.PN ---
Subjective Subjective: Interval history: s/p Left AKA yesetrday, no new compaints today , T max 99.1, pain currently controlled Medications: Reviewed: Yes Vitals/I&O/Wt Last Vital Signs Temp 99.1 F 09/25/20 15:40 Pulse 100 09/25/20 15:40 Resp 18 09/25/20 15:40 BP 101/58 09/25/20 15:40 Pulse Ox 98 09/25/20 15:40 09/25/20 09/25/20 09/25/20 06:59 14:59 22:59 Intake Total 1290 / 1760 1398.333 / 1398.333 Output Total 1510 / 1850 Balance -220 / -90 1398.333 / 1398.333 Weight last 48 hrs Weight 58.695 kg Physical Exam Narrative: EXAM NARRATIVE: GEN: Awake, alert and oriented, no acute distress CVS: S1S2 N RS: CTA B/L Abd: Soft, nt/nd , bs+ COMPOSITOR APPRENTICE: no focal neuro deficits Extremities status post left AKA, postsurgical dressing and drain in place, not opened for exam. Data : 09/25/20 05:54 09/25/20 05:54 A&P Assessment and plan (1) Dry gangrene: Status: Acute (2) H/O mechanical aortic valve replacement: Status: Acute (3) Bilateral lower leg cellulitis: Status: Acute (4) Supratherapeutic INR: now subtherapeutic Status: Acute (5) Ischemic ulcer of both feet: Status: Acute (6) Chronic anticoagulation: Status: Chronic (7) On home oxygen therapy: Status: Chronic (8) Nicotine dependence, cigarettes, with other nicotine-induced disorders: Status: Chronic (9) Severe peripheral arterial disease: Status: Chronic (10) COPD (chronic obstructive pulmonary disease): Not currently acute, chronically on oxygen at 3 L by nasal cannula with exertional hypoxemia Status: Chronic (11) Pulmonary hypertension: Status: Chronic Additional A&P Information #Dry gangrene with underlying severe peripheral vascular disease Unsuccessful attempt at revascularization peripherally Status post AKA on 09/24 #Patient has stayed afebrile, stable leukocytosis Cellulitis noted on admission is resolved s/p vancomycin and pip/tazo 09/13-09/21 No gross signs of sepsis Blood cultures negative to date # Mechanical aortic valve, on coumadin as outpatient, supratherapeutic INR on admission, Coumadin was held, peripheral angiogram attempted once INR was less than 2, started heparin infusion after procedure, however this needed to be discontinued due to brittany. FOBT card test was positive at bedside. No further episodes. Underwent EGD today while in the OR, gastritis, 2 superficial ulcers were noted, minimal black residual blood was noted in the stomach ulcer. Continue to hold anticoagulation for now, plan is to hold it at least over the next week, and then resume Coumadin. Discussed with cardiology Mechanical aortic valve 2010 Dr. Bolton #Melena, 2 episodes on September 21, hemoglobin stable now at 9.9 no further episodes., Continue to hold anticoagulation for now. Upper GI endoscopy as above #Pulmonary hypertension with COPD No acute exacerbation, continue scheduled nebulization Disposition: D/c to SNF when ready Cardiac diet DVT prophylaxis: SCDs due to GIB Full code Attestations Medical Necessity Statement*: s/p AKA, drain removal tomorrow, pending prior auth to discharge to SNF Coding Level of Care Code Acute Hall Director for [facility] Fwd Diagnoses Dry gangrene I96 H/O mechanical aortic valve replacement Z95.2 Bilateral lower leg cellulitis L03.116; L03.115 Supratherapeutic INR R79.1 Ischemic ulcer of both feet L97.519; L97.529 Chronic anticoagulation Z79.01 On home oxygen therapy Z99.81 Nicotine dependence, cigarettes, with other nicotine-induced disorders F17.218 Severe peripheral arterial disease I73.9 COPD (chronic obstructive pulmonary disease) J44.9 Pulmonary hypertension I27.20
--- NOTE | 2020-09-25 18:55 | PC.NURSE ---
Report to Mariam BOWEN at this time.
[2020-09-25] MEDS: atorvastatin 40 mg Tablet 80 MG PO (21:19)
--- NOTE | 2020-09-25 23:02 | P.PN_ITS ---
Subjective Subjective: Interval history: Patient is overall doing well. Denies significant pain. Vitals/I&O/Wt Last Vital Signs Temp 98.8 F 09/25/20 19:13 Pulse 96 09/25/20 20:24 Resp 22 H 09/25/20 20:22 BP 108/66 09/25/20 19:13 Pulse Ox 93 09/25/20 20:22 09/25/20 09/25/20 09/26/20 14:59 22:59 06:59 Intake Total 1398.333 / 1398.333 513.333 / 1911.666 Output Total 700 / 700 Balance 1398.333 / 1398.333 -186.667 / 1211.666 Weight last 48 hrs Weight 129 lb 6.4 oz Physical Exam Narrative: EXAM NARRATIVE: GENERAL: Patient is alert, awake and oriented x3, is feeling sleepy, open his eyes and talk then go back to NECK: No jugular vein distension. HEENT: No cyanosis. No icterus. No pallor. HEART: Regular S1 and S2. No murmur, rub or gallop. LUNGS: Decreased breathing bilaterally. CENTRAL NERVOUS SYSTEM: Grossly nonfocal. EXTREMITIES: Dressing on left AKA stump Data : 09/26/20 05:26 09/26/20 05:26 A&P Assessment and plan (1) Dry gangrene: Status: Acute (2) Severe peripheral arterial disease: Patient had unsuccessful attempt at revascularization of left lower extremity. Patient underwent peripheral angiogram noted to have highly calcified chronically occluded left common femoral, proximal to distal left SFA with moderately diffusely diseased left popliteal artery. Two-vessel runoff with anterior posterior tibial was noted. There was highly calcified distal right common iliac lesion noted treated with balloon angioplasty. Right SFA is chronically was occluded, two-vessel runoff was noted below the right knee. By using left posterior tibial artery we were able to cross SFA in a retrograde fashion but were not able to cross the left common femoral artery however through the collateral we entered in dissection plane in the left common vessel. Flow in the left common and external iliac remained stable as evident by the contralateral injection. At this point since left common is highly ca lcified vessel and may not amenable to percutaneous intervention we thought patient should be better off with vascular surgery. Final injection through the contralateral common femoral approach reconfirmed patent bilateral common, external iliac arteries with two-vessel runoff bilaterally. Dr Segovia was consulted and patient has underwent AKA on Sunday. Doing well Status: Chronic (3) H/O mechanical aortic valve replacement: Patient had melena and anticoagulation was held. Patient underwent endoscopy on Sunday that showed ulcerations with no active bleeding. Will recommend restarting anticoagulation DWAYNE once safe from bleeding standpoint (should not be off anticoagulation completely for more than a week) Status: Acute (4) Supratherapeutic INR: Status: Acute Additional A&P Information Bilateral cellulitis Chronic active smoker Severe COPD on home oxygen History of noncompliance For allowing me to participate in patient's care. Please feel free to call with questions or concerns. Attestations Medical Necessity Statement*: Care expected to cross 2 midnights. Coding Level of Care Code Acute Development Rep for Jose Roberto Washburn Diagnoses Dry gangrene I96 Severe peripheral arterial disease I73.9 H/O mechanical aortic valve replacement Z95.2 Supratherapeutic INR R79.1
[2020-09-26] VITALS (16 sets, daily range): BP systolic 106–137; BP diastolic 64–75; PULSE 0–97; RESP 16–20; TEMP 36.5–37.8; O2SAT 90–96
[2020-09-26] MEDS: oxyCODONE-APAP 10-325 mg Tablet 1 TAB PO ×6 (01:54→21:17)
--- NOTE | 2020-09-26 04:00 | XRR_ITS ---
PROCEDURE INFORMATION: Exam: XR Chest Exam date and time: 09/26/2020 5:03 AM Age: 70 years old Clinical indication: Other: Chf; Additional info: Chf, pulmonary edema TECHNIQUE: Imaging protocol: XR of the chest Views: 1 view. COMPARISON: CR XR chest 1V portable [id number] 09/23/2020 11:28 AM FINDINGS: Lungs: There is overinflation of the lungs with flattening of the diaphragm indicating emphysema. There are extensive bulla bilaterally. There is increasing bibasilar pulmonary consolidation most likely due to bibasilar pneumonia. Pleural spaces: Small effusions blunt the costophrenic angles. Heart/Mediastinum: Unremarkable. No cardiomegaly. Bones/joints: Unremarkable. XR/XR chest 1V portable [id number] IMPRESSION: 1. Bullous emphysema. 2. Increasing bibasilar consolidation consistent with pneumonia. 3. Small pleural effusions.
[2020-09-26 05:58] LABS: Basophils % 0.3 %; Eosinophils # 0.2 10^3/uL (0.0-0.8); Eosinophils % 2.1 %; Hematocrit 29.5 % (42.0-52.0); Hemoglobin 9.1 g/dL (11.7-16.6); Lymphocytes # 0.6 10^3/uL (0.8-4.8); Lymphocytes % 4.9 %; Mean Corpuscular HGB Conc 30.8 g/dL (30.0-36.0); Mean Corpuscular Hemoglobin 32.2 pg (28.0-34.0); Mean Corpuscular Volume 104.2 fL (80-94); Mean Platelet Volume 10.3 fL (7.4-10.4); Monocytes # 0.8 10^3/uL (0.2-0.9); Monocytes % 6.8 %; Neutrophils # 9.63 10^3/uL (1.8-7.7); Neutrophils % 85.5 %; Nucleated Red Blood Cells % 0 %; Platelet Count 290 10^3/cmm (130-400); Red Blood Count 2.83 10^6/uL (4.1-5.3); Red Cell Distribution Width 14.6 % (12.1-15.1); White Blood Count 11.3 10^3/uL (4.0-10.0)
[2020-09-26 06:17] LABS: Alanine Aminotransferase 38 U/L (0-41); Albumin Level 2.7 g/dL (3.5-5.2); Alkaline Phosphatase 107 IU/L (40-130); Anion Gap 5.3 (5-19); Aspartate Amino Transferase 32 U/L (0-40); Blood Urea Nitrogen 4 mg/dL (8-23); Calcium 7.9 mg/dL (8.5-10.5); Chloride 99 mmol/L (98-107); Globulin 2.6 g/dL (1.3-4.6); Glucose 117 mg/dL (65-115); Osmolality Calculated 290 mOsm/kg (285-295); Potassium 4.3 mmol/L (3.5-5.1); Sodium 141 mmol/L (136-145); Total Bilirubin 0.4 mg/dL (0.15-1.2); Total Protein 5.3 g/dL (6.6-8.7)
[2020-09-26 06:20] LABS: Carbon Dioxide 41 mmol/L (22-29)
[2020-09-26] MEDS: potassium chloride ER 10 mEq Tablet PO (07:16)
[2020-09-26] MEDS: gabapentin 300 mg Capsule PO ×3 (07:16→21:17)
[2020-09-26] MEDS: tamsulosin 0.4 mg Capsule PO (07:16)
[2020-09-26] MEDS: metoprolol tartrate 25 mg Tablet PO ×2 (07:16→21:17)
[2020-09-26] MEDS: lactated ringers 1,000 ML 50 ML IV (07:21)
[2020-09-26] MEDS: ALPRAZolam 0.25 mg Tablet PO ×2 (09:23→15:25)
[2020-09-26] MEDS: sennosides-docusate Tablet 1 TAB PO ×2 (09:23→17:23)
[2020-09-26] MEDS: pantoprazole DR 40 mg Tablet PO ×2 (09:23→17:24)
[2020-09-26] MEDS: sulfamethoxazole-trimeth DS 160-800 mg Tablet 1 TAB PO ×2 (09:23→17:22)
--- NOTE | 2020-09-26 09:47 | PM.PN ---
Subjective Subjective: Interval history: POD #2 status post left AKA. Drain output over the past 24 hours equals 60 cc. Vitals/I&O/Wt Last Vital Signs Temp 98.6 F 09/26/20 07:40 Pulse 89 09/26/20 08:54 Resp 18 09/26/20 09:23 BP 122/64 09/26/20 07:40 Pulse Ox 92 09/26/20 09:23 09/25/20 09/26/20 09/26/20 22:59 06:59 14:59 Intake Total 513.333 / 1911.666 736.667 / 736.667 Output Total 700 / 700 500 / 1200 Balance -186.667 / 1211.666 -500 / 711.666 736.667 / 736.667 Weight last 48 hrs Weight 134 lb 11.2 oz Weight 129 lb 6.4 oz Physical Exam Extremity: OTHER: Surgical dressings removed. Hemovac drain removed. Incision line clean, dry, and intact. Minimal swelling. Incision painted with Betadine and redressed. He tolerated dressing change reasonably well. Data : 09/26/20 05:26 09/26/20 05:26 A&P Assessment and plan (1) Dry gangrene: Postop day #2 status post left above-knee amputation. Progressing well. 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
--- NOTE | 2020-09-26 12:46 | PM.PN ---
Subjective Subjective: Interval history: Patient is stale. Sleepy. Denies pain Vitals/I&O/Wt Last Vital Signs Temp 98.2 F 09/26/20 11:11 Pulse 80 09/26/20 11:11 Resp 18 09/26/20 11:11 BP 106/64 09/26/20 11:11 Pulse Ox 92 09/26/20 11:11 09/25/20 09/26/20 09/26/20 22:59 06:59 14:59 Intake Total 513.333 / 1911.666 736.667 / 736.667 Output Total 700 / 700 500 / 1200 Balance -186.667 / 1211.666 -500 / 711.666 736.667 / 736.667 Weight last 48 hrs Weight 134 lb 11.2 oz Weight 129 lb 6.4 oz Physical Exam Narrative: EXAM NARRATIVE: GENERAL: Patient is alert, awake and oriented x3, is feeling sleepy, open his eyes and talk then go back to NECK: No jugular vein distension. HEENT: No cyanosis. No icterus. No pallor. HEART: Regular S1 and S2. No murmur, rub or gallop. LUNGS: Decreased breathing bilaterally. CENTRAL NERVOUS SYSTEM: Grossly nonfocal. EXTREMITIES: Dressing on left AKA stump Data : 09/26/20 05:26 09/26/20 05:26 A&P Assessment and plan (1) Dry gangrene: Status: Acute (2) Severe peripheral arterial disease: Patient had unsuccessful attempt at revascularization of left lower extremity. Patient underwent peripheral angiogram noted to have highly calcified chronically occluded left common femoral, proximal to distal left SFA with moderately diffusely diseased left popliteal artery. Two-vessel runoff with anterior posterior tibial was noted. There was highly calcified distal right common iliac lesion noted treated with balloon angioplasty. Right SFA is chronically was occluded, two-vessel runoff was noted below the right knee. By using left posterior tibial artery we were able to cross SFA in a retrograde fashion but were not able to cross the left common femoral artery however through the collateral we entered in dissection plane in the left common vessel. Flow in the left common and external iliac remained stable as evident by the contralateral injection. At this point since left common is highly calcified vessel and may not amenable to percutaneous intervention we thought patient should be better off with vascular surgery. Final injection through the contralateral common femoral approach reconfirmed patent bilateral common, external iliac arteries with two-vessel runoff bilaterally. Dr Segovia was consulted and patient has underwent AKA on Sunday. Doing well Status: Chronic (3) H/O mechanical aortic valve replacement: Patient had melena and anticoagulation was held. Patient underwent endoscopy on Sunday that showed ulcerations with no active bleeding. Will recommend restarting anticoagulation DWAYNE once safe from bleeding standpoint (should not be off anticoagulation completely for more than a week) Status: Acute (4) Supratherapeutic INR: Status: Acute Additional A&P Information Bilateral cellulitis Chronic active smoker Severe COPD on home oxygen History of noncompliance For allowing me to participate in patient's care. Please feel free to call with questions or concerns. 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
--- NOTE | 2020-09-26 13:59 | PC.CHAP ---
Pastoral Care Encounter/Spiritual Assessment Type of Contact [] Declined credit relationship manager visit [] Patient/Family/Request visit [] Outpatient visit [XX] Follow-up visit [] Physician referral [] Code/Alert [] Routine visit [] Staff referral [] Actively dying [] Patient sleeping [] Family support [] [] Out of room [] Palliative care [] [] Receiving care in room [] Pre-surgical visit [] Trauma [] Long length of stay [] ICU visit [] Other: Relational/Emotional Strength [XX] Patient feels connected with others/family/visitors/staff [] Distress [] Loneliness/isolation [] Abandonment Spirituality of Patient [XX] Person of Yomaira [XX] Attends Sikh of their Yomaira [XX] Believes in Prayer [XX] Reads Bible or Sabianist materials [] There are Spiritual issues to be addressed Cigarette Filter Inspector 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 [] Prayer [] Active listening [] Non-anxious presence [] Spiritual/emotional support [] Crisis/trauma care [] Spiritual counseling [] Bereavement support [] Provided bereavement packet [] Provided Bible/devotional materials [] Provided toy/stuffed animal, coloring book to patient or family member [] Provided Communion [] Anointing/[place] [] Salvation [] Completed spiritual assessment [] Other: Impact on Illness or Injury [] Angry [] Fearful [] Anxious [] Often cries [] Exhaustion [] Unable to work [] Unable to attend congregational [] Unable to walk/stand [] Unable to read [] Unable to drive [] Unable to eat/drink [] Unable to sleep [] Unable to be with family [] Patient intubated [] Other: Summary: Cigarette Filter Inspector met with pt yesterday and had promised to stop back by today to check on him. Pt's pain level was better but his breathing was labored and oxygen low. He clearly needed to focus on deep breathing and eating lunch. His demeanor was one of stress today. Cigarette Filter Inspector will continue to keep him in prayer. Time spent with patient: 5 mins
--- NOTE | 2020-09-26 17:23 | PM.PN ---
Subjective Subjective: Interval history: Afebrile, hemodynamically stable, no acute complaints, drain removed today, hemoglobin remained stable at 9.1 Medications: Reviewed: Yes Vitals/I&O/Wt Last Vital Signs Temp 97.7 F 09/26/20 15:12 Pulse 90 09/26/20 15:12 Resp 18 09/26/20 15:12 BP 115/70 09/26/20 15:12 Pulse Ox 90 09/26/20 15:12 09/26/20 09/26/20 09/26/20 06:59 14:59 22:59 Intake Total 936.667 / 936.667 Output Total 500 / 1200 Balance -500 / 711.666 936.667 / 936.667 Weight last 48 hrs Weight 61.099 kg Weight 58.695 kg Physical Exam Narrative: EXAM NARRATIVE: GEN: Awake, alert and oriented, no acute distress CVS: S1S2 N RS: CTA B/L Abd: Soft, nt/nd , bs+ CLINICAL TRIAL EDUCATOR: no focal neuro deficits Extremities status post left AKA, postsurgical dressing in place, not opened for exam. Data : 09/26/20 05:26 09/26/20 05:26 A&P Assessment and plan (1) Dry gangrene: Status: Acute (2) H/O mechanical aortic valve replacement: Status: Acute (3) Bilateral lower leg cellulitis: Status: Acute (4) Supratherapeutic INR: now subtherapeutic Status: Acute (5) Ischemic ulcer of both feet: Status: Acute (6) Chronic anticoagulation: Status: Chronic (7) On home oxygen therapy: Status: Chronic (8) Nicotine dependence, cigarettes, with other nicotine-induced disorders: Status: Chronic (9) Severe peripheral arterial disease: Status: Chronic (10) COPD (chronic obstructive pulmonary disease): Not currently acute, chronically on oxygen at 3 L by nasal cannula with exertional hypoxemia Status: Chronic (11) Pulmonary hypertension: Status: Chronic Additional A&P Information #Dry gangrene with underlying severe peripheral vascular disease Unsuccessful attempt at revascularization peripherally Status post AKA on 09/24, tolerated well, pain is much improved #Patient has stayed afebrile, stable leukocytosis Cellulitis noted on admission is resolved s/p vancomycin and pip/tazo 09/13-09/21 No gross signs of sepsis Blood cultures negative to date # Mechanical aortic valve, on coumadin as outpatient, supratherapeutic INR on admission, Coumadin was held, peripheral angiogram attempted once INR was less than 2, started heparin infusion after procedure on 09/21, however this needed to be discontinued due to brittany. FOBT card test was positive at bedside. No further episodes. Underwent EGD today while in the OR, gastritis, 2 superficial ulcers were noted, minimal black residual blood was noted in the stomach ulcer. Continue to hold anticoagulation until 1 week after EGD, then resume Coumadin Mechanical aortic valve 2010 Dr. Bolton #Melena, 2 episodes on September 21, hemoglobin stable now at 9.1 no further episodes., Continue to hold anticoagulation until September 27 Upper GI endoscopy as above #Pulmonary hypertension with COPD No acute exacerbation, continue scheduled nebulization Disposition: D/c to SNF , prior Auth pending Cardiac diet DVT prophylaxis: SCDs due to GIB Full code Attestations Medical Necessity Statement*: Status post AKA, drain removed today, postop care, pending prior Auth for discharge back to SNF. Coding Level of Care Code Acute Quality Control Representative for [facility] Fwd Diagnoses Dry gangrene I96 H/O mechanical aortic valve replacement Z95.2 Bilateral lower leg cellulitis L03.116; L03.115 Supratherapeutic INR R79.1 Ischemic ulcer of both feet L97.519; L97.529 Chronic anticoagulation Z79.01 On home oxygen therapy Z99.81 Nicotine dependence, cigarettes, with other nicotine-induced disorders F17.218 Severe peripheral arterial disease I73.9 COPD (chronic obstructive pulmonary disease) J44.9 Pulmonary hypertension I27.20
--- NOTE | 2020-09-26 17:26 | PC.NURSE ---
Attempted to get patient up to a chair or even to the side of the bed to eat his dinner Sunny with PT at bedside at this time. Patient's savanna bandage wrap had worked it's way down on the end of his left stump. Patient began screaming and stating get a doctor don't touch that you don't know what your dong. You people thing I can get up when I am in so much pain. I can not even eat now because you have upset me so bad. Offered to get patient some more pain medications as I just gave him his scheduled pain pill. Patient states, I don't need anymore pain medication just leave me alone. Sunny from Physical Therapy states, we can try again in the morning.
--- NOTE | 2020-09-26 19:07 | PC.NURSE ---
Dr. Segovia removed Hemovac today.
[2020-09-26] MEDS: atorvastatin 40 mg Tablet 80 MG PO (21:17)
[2020-09-27] VITALS (15 sets, daily range): BP systolic 105–155; BP diastolic 60–84; PULSE 69–103; RESP 15–20; TEMP 36.4–36.7; O2SAT 90–99
[2020-09-27] MEDS: oxyCODONE-APAP 10-325 mg Tablet 1 TAB PO ×6 (00:58→20:59)
[2020-09-27] MEDS: metoprolol tartrate 25 mg Tablet PO ×2 (06:07→22:10)
[2020-09-27] MEDS: potassium chloride ER 10 mEq Tablet PO (06:07)
[2020-09-27] MEDS: gabapentin 300 mg Capsule PO ×3 (06:07→22:10)
[2020-09-27] MEDS: tamsulosin 0.4 mg Capsule PO (06:07)
[2020-09-27] MEDS: sennosides-docusate Tablet 1 TAB PO ×2 (08:55→17:30)
[2020-09-27] MEDS: sulfamethoxazole-trimeth DS 160-800 mg Tablet 1 TAB PO ×2 (08:55→17:30)
[2020-09-27] MEDS: pantoprazole DR 40 mg Tablet PO ×2 (08:58→17:30)
[2020-09-27] MEDS: TRAMadol 50 mg Tablet PO (09:18)
[2020-09-27] MEDS: lactated ringers 1,000 ML 50 ML IV (09:36)
--- NOTE | 2020-09-27 09:38 | PM.PN ---
Subjective Subjective: Interval history: Patient was seen and examined this morning. No acute events overnight, he remained afebrile. His other vitals and labs have been reviewed. Medications: Reviewed: Yes Vitals/I&O/Wt Last Vital Signs Temp 97.7 F 09/27/20 07:31 Pulse 73 09/27/20 07:55 Resp 20 H 09/27/20 08:56 BP 132/77 09/27/20 07:31 Pulse Ox 98 09/27/20 08:56 09/26/20 09/27/20 09/27/20 22:59 06:59 14:59 Intake Total 487 / 8510.207 8376 / 1120 Output Total 1000 / 1000 725 / 1725 Balance -513 / 423.667 -725 / -079.119 7829 / 1120 Weight last 48 hrs Weight 56.472 kg Weight 61.099 kg Physical Exam Const: COMMON NORMALS: patient oriented x3 Chest: CHEST: Yes Symmetrical chest wall rise Resp: COMMON NORMALS: clear to auscultation bilaterally EFFORT & INSPECTION: Yes symmetric chest movement AUSCULTATION: clear to auscultation bilaterally Cardio: COMMON NORMALS: regular rate, regular rhythm, S1 normal heart sound present, S2 normal heart sound present, No gallops present (Cardio) and Peripheral pulses 2+ throughout RATE: regular rate RHYTHM: regular rhythm HEART SOUNDS: S1 normal heart sound present and S2 normal heart sound present PERIPHERAL PULSES: Peripheral pulses 2+ throughout OTHER: Mechanical click present in aortic area GI: COMMON NORMALS: Soft to palpation AUSCULTATION: Yes normoactive bowel sounds PALPATION: Yes Soft to palpation Extremity: COMMON NORMALS: no pedal edema NARRATIVE EXTREMITY EXAM: status post left AKA, postsurgical dressing in place, not opened for exam. Neuro: COMMON NORMALS: patient oriented x3 Data : 09/26/20 05:26 09/26/20 05:26 A&P Assessment and plan (1) Dry gangrene: Status: Acute (2) H/O mechanical aortic valve replacement: Status: Acute (3) Bilateral lower leg cellulitis: Status: Acute (4) Supratherapeutic INR: now subtherapeutic Status: Acute (5) Ischemic ulcer of both feet: Status: Acute (6) Chronic anticoagulation: Status: Chronic (7) On home oxygen therapy: Status: Chronic (8) Nicotine dependence, cigarettes, with other nicotine-induced disorders: Status: Chronic (9) Severe peripheral arterial disease: Status: Chronic (10) COPD (chronic obstructive pulmonary disease): Not currently acute, chronically on oxygen at 3 L by nasal cannula with exertional hypoxemia Status: Chronic (11) Pulmonary hypertension: Status: Chronic Additional A&P Information #Dry gangrene with underlying severe peripheral vascular disease Unsuccessful attempt at revascularization peripherally Status post AKA on 09/24, tolerated well, pain is much improved #Patient has stayed afebrile, stable leukocytosis Cellulitis noted on admission is resolved s/p vancomycin and pip/tazo 09/13-09/21 No gross signs of sepsis Blood cultures negative to date # Mechanical aortic valve, on coumadin as outpatient, supratherapeutic INR on admission, Coumadin was held, peripheral angiogram attempted once INR was less than 2, started heparin infusion after procedure on 09/21, however this needed to be discontinued due to brittany. FOBT card test was positive at bedside. No further episodes. Underwent EGD (09/24) while in the OR, gastritis, 2 superficial ulcers were noted, minimal black residual blood was noted in the stomach ulcer. Continue to hold anticoagulation until 1 week after EGD, then resume Coumadin ( 09/30) Mechanical aortic valve 2010 Dr. Bolton #Melena, 2 episodes on September 21, hemoglobin stable now at 9.1 no further episodes., Continue to hold anticoagulation until September 27 Upper GI endoscopy as above #Pulmonary hypertension with COPD No acute exacerbation, continue scheduled nebulization Disposition: D/c to SNF , prior Auth pending Cardiac diet DVT prophylaxis: SCDs due to GIB Full code Attestations Medical Necessity Statement*: Status post AKA, postop care, pending prior Auth for discharge back to SNF. 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
--- NOTE | 2020-09-27 11:58 | PC.NURSE ---
No telemetry available at this time. will apply one when available.
[2020-09-27 13:06] LABS: H. Pylori / CLO Test Negative
--- NOTE | 2020-09-27 14:31 | PC.NURSE ---
Addendum entered by Adry Mitchell RN 09/27/20 15:13: it is patient's left eye NOT right eye Original Note: patient complained of no right peripheral vision for about an hour. Dr Segovia and charge nurse Ester notified. Dr Hubbard notified too.
--- NOTE | 2020-09-27 14:46 | PC.NURSE ---
Telemetry available and telemetry placed on patient.
[2020-09-27] MEDS: atorvastatin 40 mg Tablet 80 MG PO (22:10)
[2020-09-28] VITALS (19 sets, daily range): BP systolic 122–181; BP diastolic 68–79; PULSE 76–108; RESP 14–20; TEMP 36.5–36.8; O2SAT 90–99
[2020-09-28] MEDS: oxyCODONE-APAP 10-325 mg Tablet 1 TAB PO ×6 (00:53→23:31)
[2020-09-28 03:17] LABS: Basophils % 0.2 %; Eosinophils # 0.2 10^3/uL (0.0-0.8); Eosinophils % 1.3 %; Hematocrit 31.5 % (42.0-52.0); Hemoglobin 9.9 g/dL (11.7-16.6); Lymphocytes # 0.5 10^3/uL (0.8-4.8); Lymphocytes % 3.7 %; Mean Corpuscular HGB Conc 31.4 g/dL (30.0-36.0); Mean Corpuscular Hemoglobin 32.6 pg (28.0-34.0); Mean Corpuscular Volume 103.6 fL (80-94); Mean Platelet Volume 10.2 fL (7.4-10.4); Monocytes # 0.7 10^3/uL (0.2-0.9); Monocytes % 5.1 %; Neutrophils # 11.94 10^3/uL (1.8-7.7); Neutrophils % 89.3 %; Nucleated Red Blood Cells % 0 %; Platelet Count 385 10^3/cmm (130-400); Red Blood Count 3.04 10^6/uL (4.1-5.3); Red Cell Distribution Width 14.6 % (12.1-15.1); White Blood Count 13.4 10^3/uL (4.0-10.0)
[2020-09-28 03:30] LABS: Anion Gap 5.8 (5-19); Blood Urea Nitrogen 3 mg/dL (8-23); Calcium 8.5 mg/dL (8.5-10.5); Carbon Dioxide 40 mmol/L (22-29); Chloride 95 mmol/L (98-107); Glucose 135 mg/dL (65-115); Osmolality Calculated 281 mOsm/kg (285-295); Potassium 4.8 mmol/L (3.5-5.1); Sodium 136 mmol/L (136-145)
[2020-09-28] MEDS: lactated ringers 1,000 ML 50 ML IV (06:05)
[2020-09-28] MEDS: tamsulosin 0.4 mg Capsule PO (06:06)
[2020-09-28] MEDS: metoprolol tartrate 25 mg Tablet PO ×2 (06:07→20:59)
[2020-09-28] MEDS: potassium chloride ER 10 mEq Tablet PO (06:07)
[2020-09-28] MEDS: gabapentin 300 mg Capsule PO ×3 (06:07→20:59)
[2020-09-28] MEDS: sulfamethoxazole-trimeth DS 160-800 mg Tablet 1 TAB PO ×2 (08:19→17:48)
[2020-09-28] MEDS: sennosides-docusate Tablet 1 TAB PO ×2 (08:21→17:48)
[2020-09-28] MEDS: pantoprazole DR 40 mg Tablet PO ×2 (08:21→17:48)
--- NOTE | 2020-09-28 09:24 | CT_ITS ---
WS: [id number] CT CHEST WITHOUT INTRAVENOUS CONTRAST HISTORY: SOB TECHNIQUE: Contiguous 5 mm axial imaging performed on the thorax. Coronal and sagittal reformats are submitted. All CT scans at [facility] use at least one of these dose optimization techniq ues: automated exposure control; mA and/or kV adjustment per patient size (includes targeted exams wh ere dose is matched to clinical indication); or iterative reconstruction. CONTRAST: None DLP: 377.04 mGy.cm COMPARISON: 05/02/2019 Lungs and central airway: Severe emphysematous changes bilaterally. Scarring with pleural thickening and retraction at the apices. Mild progression of pleural thickening at the RIGHT apex. Pleura: Small bilateral pleural effusions. Mildly lobulated contour of the LEFT pleural effusion may be partially loculated. These effusions are new since the prior study. RIGHT greater than LEFT. Heart and pericardium: Normal size heart. Mediastinum and yuliana: No mediastinum or hilar adenopathy. Vessels: Marked dilatation with atherosclerotic plaque involving the ascending aorta. Aneurysmal dila tation of the ascending aorta to 4.5 cm. There is also evidence for an aortic valve replacement. As c ompared to the prior study no significant increase in size of the ascending aorta. Chest wall and lower neck: Prior median sternotomy. Upper abdomen: Mesenteric edema and anasarca. Calcification continues into the suprarenal aorta and t he mesenteric arteries. Osseous structures: Mild increase in thoracic kyphosis. No osteoblastic or osteolytic bone disease. CT/CT chest wo con [id number] IMPRESSION: 1. Severe emphysema. 2. New small bilateral pleural effusions, RIGHT greater than LEFT. 3. Status post aortic valve replacement with stable aneurysmal dilatation of t he ascending aorta. 4. Mild progression of pulmonary fibrotic changes at the apices. No pneumonia.
--- NOTE | 2020-09-28 09:26 | PC.NURSE ---
added fluid restriciton to diet order
--- NOTE | 2020-09-28 11:48 | P.PN_ITS ---
Subjective Subjective: Interval history: Patient was seen and examined this morning. No acute events overnight, he remained afebrile. His other vitals and labs have been reviewed. Medications: Reviewed: Yes Vitals/I&O/Wt Last Vital Signs Temp 97.9 F 09/28/20 08:00 Pulse 76 09/28/20 08:05 Resp 16 09/28/20 08:19 BP 151/75 09/28/20 08:00 Pulse Ox 97 09/28/20 08:19 09/27/20 09/28/20 09/28/20 22:59 06:59 14:59 Intake Total 1000 / 2120 240 / 240 Output Total 1100 / 1700 525 / 2225 Balance -1100 / -580 475 / -105 240 / 240 Weight last 48 hrs Weight 56.744 kg Weight 56.472 kg Physical Exam Const: COMMON NORMALS: patient oriented x3 Chest: CHEST: Yes Symmetrical chest wall rise Resp: COMMON NORMALS: clear to auscultation bilaterally EFFORT & INSPECTION: Yes symmetric chest movement AUSCULTATION: clear to auscultation bilaterally Cardio: COMMON NORMALS: regular rate, regular rhythm, S1 normal heart sound present, S2 normal heart sound present, No gallops present (Cardio) and Peripheral pulses 2+ throughout RATE: regular rate RHYTHM: regular rhythm HEART SOUNDS: S1 normal heart sound present and S2 normal heart sound present PERIPHERAL PULSES: Peripheral pulses 2+ throughout OTHER: Mechanical click present in aortic area GI: COMMON NORMALS: Soft to palpation AUSCULTATION: Yes normoactive bowel sounds PALPATION: Yes Soft to palpation Extremity: COMMON NORMALS: no pedal edema NARRATIVE EXTREMITY EXAM: status post left AKA, postsurgical dressing in place, not opened for exam. Neuro: COMMON NORMALS: patient oriented x3 Data : 09/28/20 02:37 09/28/20 02:37 A&P Assessment and plan (1) Dry gangrene: Status: Acute (2) H/O mechanical aortic valve replacement: Status: Acute (3) Bilateral lower leg cellulitis: Status: Acute (4) Supratherapeutic INR: now subtherapeutic Status: Acute (5) Ischemic ulcer of both feet: Status: Acute (6) Chronic anticoagulation: Status: Chronic (7) On home oxygen therapy: Status: Chronic (8) Nicotine dependence, cigarettes, with other nicotine-induced disorders: Status: Chronic (9) Severe peripheral arterial disease: Status: Chronic (10) COPD (chronic obstructive pulmonary disease): Not currently acute, chronically on oxygen at 3 L by nasal cannula with exertional hypoxemia Status: Chronic (11) Pulmonary hypertension: Status: Chronic Additional A&P Information #Dry gangrene with underlying severe peripheral vascular disease Unsuccessful attempt at revascularization peripherally Status post AKA on 09/24, tolerated well, pain is much improved #Patient has stayed afebrile, stable leukocytosis Cellulitis noted on admission is resolved s/p vancomycin and pip/tazo 09/13-09/21 No gross signs of sepsis Blood cultures negative to date # Mechanical aortic valve, on coumadin as outpatient, supratherapeutic INR on admission, Coumadin was held, peripheral angiogram attempted once INR was less than 2, started heparin infusion after procedure on 09/21, however this needed to be discontinued due to brittany. FOBT card test was positive at bedside. No further episodes. Underwent EGD (09/24) while in the OR, gastritis, 2 superficial ulcers were noted, minimal black residual blood was noted in the stomach ulcer. Continue to hold anticoagulation until 1 week after EGD, then resume Coumadin ( 09/30) Mechanical aortic valve 2010 Dr. Bolton #Melena, 2 episodes on September 21, hemoglobin stable now at 9.1 no further episodes., Continue to hold anticoagulation until September 27 Upper GI endoscopy as above #Pulmonary hypertension with COPD No acute exacerbation, continue scheduled nebulization Disposition: D/c to SNF , prior Auth pending Cardiac diet DVT prophylaxis: SCDs due to GIB Full code Attestations Medical Necessity Statement*: Status post AKA, postop care, pending prior Auth for discharge back to SNF. Coding Level of Care Code Acute Optometric Tech for [facility] Fwd Exam Detailed Diagnoses Dry gangrene I96 H/O mechanical aortic valve replacement Z95.2 Bilateral lower leg cellulitis L03.116; L03.115 Supratherapeutic INR R79.1 Ischemic ulcer of both feet L97.519; L97.529 Chronic anticoagulation Z79.01 On home oxygen therapy Z99.81 Nicotine dependence, cigarettes, with other nicotine-induced disorders F17.218 Severe peripheral arterial disease I73.9 COPD (chronic obstructive pulmonary disease) J44.9 Pulmonary hypertension I27.20
--- NOTE | 2020-09-28 13:06 | DCPLANNER ---
Pg 2 of IM updated and reviewed with pt. He just waves his hand. Copy provided.
--- NOTE | 2020-09-28 15:19 | PC.NURSE ---
patient's pain med order . Per Dr Hubbard, renew pain medications. Certified Composites Technician renewed Morphine and Percocet.
[2020-09-28] MEDS: morphine 4 mg/mL SDV 1 mL 2 MG IVP (17:48)
[2020-09-28] MEDS: atorvastatin 40 mg Tablet 80 MG PO (20:59)
[2020-09-29] VITALS (18 sets, daily range): BP systolic 108–180; BP diastolic 68–90; PULSE 78–115; RESP 16–24; TEMP 36.3–36.6; O2SAT 92–99
[2020-09-29] MEDS: oxyCODONE-APAP 10-325 mg Tablet 1 TAB PO ×6 (03:37→22:47)
[2020-09-29 04:35] LABS: Basophils % 0.2 %; Eosinophils # 0.1 10^3/uL (0.0-0.8); Eosinophils % 0.8 %; Hematocrit 33.1 % (42.0-52.0); Hemoglobin 10.8 g/dL (11.7-16.6); Lymphocytes # 0.4 10^3/uL (0.8-4.8); Lymphocytes % 3.4 %; Mean Corpuscular HGB Conc 32.6 g/dL (30.0-36.0); Mean Corpuscular Hemoglobin 32.5 pg (28.0-34.0); Mean Corpuscular Volume 99.7 fL (80-94); Mean Platelet Volume 10.5 fL (7.4-10.4); Monocytes # 0.6 10^3/uL (0.2-0.9); Monocytes % 5.3 %; Neutrophils # 9.63 10^3/uL (1.8-7.7); Neutrophils % 89.9 %; Nucleated Red Blood Cells % 0 %; Platelet Count 312 10^3/cmm (130-400); Red Blood Count 3.32 10^6/uL (4.1-5.3); Red Cell Distribution Width 14.4 % (12.1-15.1); White Blood Count 10.7 10^3/uL (4.0-10.0)
[2020-09-29 06:20] LABS: Blood Urea Nitrogen 4 mg/dL (8-23); Calcium 8.7 mg/dL (8.5-10.5); Carbon Dioxide 40 mmol/L (22-29); Chloride 97 mmol/L (98-107); Glucose 133 mg/dL (65-115); Osmolality Calculated 287 mOsm/kg (285-295); Sodium 139 mmol/L (136-145)
[2020-09-29] MEDS: metoprolol tartrate 25 mg Tablet PO ×2 (06:25→21:54)
[2020-09-29] MEDS: gabapentin 300 mg Capsule PO ×3 (06:25→21:54)
[2020-09-29] MEDS: tamsulosin 0.4 mg Capsule PO (06:25)
[2020-09-29] MEDS: potassium chloride ER 10 mEq Tablet PO (06:25)
[2020-09-29] MEDS: pantoprazole DR 40 mg Tablet PO ×2 (08:24→16:58)
[2020-09-29] MEDS: sennosides-docusate Tablet 1 TAB PO ×2 (08:24→16:58)
[2020-09-29] MEDS: sulfamethoxazole-trimeth DS 160-800 mg Tablet 1 TAB PO ×2 (08:24→16:58)
--- NOTE | 2020-09-29 09:55 | PC.NURSE ---
AM ASSESSMENT NOTE NOTED PT TO HAVE LEFT ABOVE KNEE AMPUTATION WITH DRESSING C/D/I - NOTED RIGHT LEG/ULLOA TO HAVE LARGE AREAS OF DRYNESS/CALLOUSING SKIN - RIGHT FOOT NOTED TO HAVE LOOSE SKIN FROM DECREASE IN EDEMA - DARKENED AREAS NOTED ON ALL 5 TOES - POOR PULSE NOTED - RIGHT HEEL NOTED TO HAVE NICKEL SIZED AREA COVERED WITH DARK, SCABBING - WILL MONITOR
--- NOTE | 2020-09-29 15:43 | PM.PN ---
Subjective Subjective: Interval history: Patient was seen and examined this morning. No acute events overnight, he remained afebrile. His other vitals and labs have been reviewed. Medications: Reviewed: Yes Vitals/I&O/Wt Last Vital Signs Temp 97.4 F L 09/29/20 12:00 Pulse 105 H 09/29/20 12:00 Resp 18 09/29/20 12:00 BP 180/90 09/29/20 12:00 Pulse Ox 94 09/29/20 12:00 09/29/20 09/29/20 09/29/20 06:59 14:59 22:59 Intake Total 200 / 440 480 / 480 Output Total 1700 / 4500 800 / 800 Balance -1500 / -4060 -320 / -320 Weight last 48 hrs Weight 53.977 kg Weight 56.744 kg Physical Exam Const: COMMON NORMALS: patient oriented x3 Chest: CHEST: Yes Symmetrical chest wall rise Resp: COMMON NORMALS: clear to auscultation bilaterally EFFORT & INSPECTION: Yes symmetric chest movement AUSCULTATION: clear to auscultation bilaterally Cardio: COMMON NORMALS: regular rate, regular rhythm, S1 normal heart sound present, S2 normal heart sound present, No gallops present (Cardio) and Peripheral pulses 2+ throughout RATE: regular rate RHYTHM: regular rhythm HEART SOUNDS: S1 normal heart sound present and S2 normal heart sound present PERIPHERAL PULSES: Peripheral pulses 2+ throughout OTHER: Mechanical click present in aortic area GI: COMMON NORMALS: Soft to palpation AUSCULTATION: Yes normoactive bowel sounds PALPATION: Yes Soft to palpation Extremity: COMMON NORMALS: no pedal edema NARRATIVE EXTREMITY EXAM: status post left AKA, postsurgical dressing in place, not opened for exam. Neuro: COMMON NORMALS: patient oriented x3 Data : 09/29/20 04:20 09/29/20 05:50 A&P Assessment and plan (1) Dry gangrene: Status: Acute (2) H/O mechanical aortic valve replacement: Status: Acute (3) Bilateral lower leg cellulitis: Status: Acute (4) Supratherapeutic INR: now subtherapeutic Status: Acute (5) Ischemic ulcer of both feet: Status: Acute (6) Chronic anticoagulation: Status: Chronic (7) On home oxygen therapy: Status: Chronic (8) Nicotine dependence, cigarettes, with other nicotine-induced disorders: Status: Chronic (9) Severe peripheral arterial disease: Status: Chronic (10) COPD (chronic obstructive pulmonary disease): Not currently acute, chronically on oxygen at 3 L by nasal cannula with exertional hypoxemia Status: Chronic (11) Pulmonary hypertension: Status: Chronic Additional A&P Information #Dry gangrene with underlying severe peripheral vascular disease Unsuccessful attempt at revascularization peripherally Status post AKA on 09/24, tolerated well, pain is much improved #Patient has stayed afebrile, stable leukocytosis Cellulitis noted on admission is resolved s/p vancomycin and pip/tazo 09/13-09/21 No gross signs of sepsis Blood cultures negative to date # Mechanical aortic valve, on coumadin as outpatient, supratherapeutic INR on admission, Coumadin was held, peripheral angiogram attempted once INR was less than 2, started heparin infusion after procedure on 09/21, however this needed to be discontinued due to brittany. FOBT card test was positive at bedside. No further episodes. Underwent EGD (09/24) while in the OR, gastritis, 2 superficial ulcers were noted, minimal black residual blood was noted in the stomach ulcer. Continue to hold anticoagulation until 1 week after EGD, then resume Coumadin ( 09/30) Mechanical aortic valve 2010 Dr. Bolton #Melena, 2 episodes on September 21, hemoglobin stable now at 9.1 no further episodes., Continue to hold anticoagulation until September 27 Upper GI endoscopy as above #Pulmonary hypertension with COPD No acute exacerbation, continue scheduled nebulization Disposition: D/c to SNF , prior Auth pending Cardiac diet DVT prophylaxis: SCDs due to GIB Full code Attestations Medical Necessity Statement*: Status post AKA, postop care, pending prior Auth for discharge back to SNF. 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 Fwd Diagnoses Dry gangrene I96 H/O mechanical aortic valve replacement Z95.2 Bilateral lower leg cellulitis L03.116; L03.115 Supratherapeutic INR R79.1 Ischemic ulcer of both feet L97.519; L97.529 Chronic anticoagulation Z79.01 On home oxygen therapy Z99.81 Nicotine dependence, cigarettes, with other nicotine-induced disorders F17.218 Severe peripheral arterial disease I73.9 COPD (chronic obstructive pulmonary disease) J44.9 Pulmonary hypertension I27.20
[2020-09-29] MEDS: guaiFENesin 600 mg Tablet PO (16:57)
--- NOTE | 2020-09-29 17:57 | PC.NURSE ---
END OF SHIFT SUMMARY PT CURRENTLY RESTING IN BED WITH EYES CLOSED - IV CHANGED THIS SHIFT TO RIGHT WRIST AREA - PT PULLED LEFT WRIST IV OUT - LEFT ABOVE THE KNEE AMPUTATION NOTED TO BE C/D/I - OPTIFOAM REMAINS ON SACRUM C/D/I - PT HAS WAXED AND WANED REGARDING COOPERATIVENESS WITH STAFF ON CARE - AT TIMES PLEASANT AT TIMES YELLING AT STAFF AND SCREAMING SUCH THINGS THIS IS NOT MY FAULT - NOONE HAS TIME FOR ME - AT TIMES COMPLAINS OF SHOFRTNESS OF BREATH AND REFUSES TO MOVE IN ANY WAY - PT HAS PERSONAL PULSE OX AT SIDE AND HAS REMAINED WITH [address] THROUGHOUT THIS SHIFT - NOTED AT ONE POINT SATS AT 89% WITH IMMEDIATE RETURN TO 93% WITH SLOW NASAL BREATHING - VSS THROUGHOUT SHIFT - JEROMY REMAINS PATENT WITH YELLOW URINE - WILL CONTINUE TO MONITOR
[2020-09-29] MEDS: atorvastatin 40 mg Tablet 80 MG PO (21:54)
[2020-09-30] VITALS (20 sets, daily range): BP systolic 104–143; BP diastolic 55–76; PULSE 83–115; RESP 16–20; TEMP 36.7–37.1; O2SAT 92–97
[2020-09-30] MEDS: oxyCODONE-APAP 10-325 mg Tablet 1 TAB PO ×6 (02:35→23:45)
[2020-09-30] MEDS: gabapentin 300 mg Capsule PO ×3 (06:37→20:23)
[2020-09-30] MEDS: potassium chloride ER 10 mEq Tablet PO (06:37)
[2020-09-30] MEDS: metoprolol tartrate 25 mg Tablet PO ×2 (06:39→20:23)
[2020-09-30] MEDS: tamsulosin 0.4 mg Capsule PO (06:39)
[2020-09-30] MEDS: sulfamethoxazole-trimeth DS 160-800 mg Tablet 1 TAB PO ×2 (08:56→17:49)
[2020-09-30] MEDS: pantoprazole DR 40 mg Tablet PO ×2 (08:56→17:49)
[2020-09-30] MEDS: guaiFENesin 600 mg Tablet PO ×2 (08:56→17:49)
[2020-09-30] MEDS: sennosides-docusate Tablet 1 TAB PO ×2 (08:56→17:49)
--- NOTE | 2020-09-30 10:29 | PM.PN ---
Subjective Subjective: Interval history: Patient was seen and examined this morning. No acute events overnight, he remained afebrile.Lt AKA site is clean. Patient was concerned about his rt l/e PAD. He was explained that as told by in the past that he will need to wait for now, he will have to follow The surgeon as outpatient for further course of action. Patient was restarted on warfarin.He has refused his labs today. Medications: Reviewed: Yes Vitals/I&O/Wt Last Vital Signs Temp 98.3 F 09/30/20 08:00 Pulse 94 09/30/20 08:31 Resp 18 09/30/20 08:25 BP 125/70 09/30/20 08:00 Pulse Ox 95 09/30/20 08:25 09/29/20 09/30/20 09/30/20 22:59 06:59 14:59 Intake Total 1040 / 1520 Output Total 1100 / 1900 575 / 2475 725 / 725 Balance -60 / -380 -575 / -955 -725 / -725 Weight last 48 hrs Weight 52.39 kg Weight 53.977 kg Physical Exam Const: COMMON NORMALS: patient oriented x3 Chest: CHEST: Yes Symmetrical chest wall rise Resp: COMMON NORMALS: clear to auscultation bilaterally EFFORT & INSPECTION: Yes symmetric chest movement AUSCULTATION: clear to auscultation bilaterally Cardio: COMMON NORMALS: regular rate, regular rhythm, S1 normal heart sound present, S2 normal heart sound present, No gallops present (Cardio) and Peripheral pulses 2+ throughout RATE: regular rate RHYTHM: regular rhythm HEART SOUNDS: S1 normal heart sound present and S2 normal heart sound present PERIPHERAL PULSES: Peripheral pulses 2+ throughout OTHER: Mechanical click present in aortic area GI: COMMON NORMALS: Soft to palpation AUSCULTATION: Yes normoactive bowel sounds PALPATION: Yes Soft to palpation Extremity: COMMON NORMALS: no pedal edema NARRATIVE EXTREMITY EXAM: status post left AKA, postsurgical dressing in place, not opened for exam. Neuro: COMMON NORMALS: patient oriented x3 Data : 09/29/20 04:20 09/29/20 05:50 A&P Assessment and plan (1) Dry gangrene: Status: Acute (2) H/O mechanical aortic valve replacement: Status: Acute (3) Bilateral lower leg cellulitis: Status: Acute (4) Supratherapeutic INR: now subtherapeutic Status: Acute (5) Ischemic ulcer of both feet: Status: Acute (6) Chronic anticoagulation: Status: Chronic (7) On home oxygen therapy: Status: Chronic (8) Nicotine dependence, cigarettes, with other nicotine-induced disorders: Status: Chronic (9) Severe peripheral arterial disease: Status: Chronic (10) COPD (chronic obstructive pulmonary disease): Not currently acute, chronically on oxygen at 3 L by nasal cannula with exertional hypoxemia Status: Chronic (11) Pulmonary hypertension: Status: Chronic Additional A&P Information #Dry gangrene with underlying severe peripheral vascular disease Unsuccessful attempt at revascularization peripherally Status post AKA on 09/24, tolerated well, pain is much improved. #Patient has stayed afebrile, stable leukocytosis Cellulitis noted on admission is resolved s/p vancomycin and pip/tazo 09/13-09/21 No gross signs of sepsis Blood cultures negative to date # Mechanical aortic valve, on coumadin as outpatient, supratherapeutic INR on admission, Coumadin was held, peripheral angiogram attempted once INR was less than 2, started heparin infusion after procedure on 09/21, however this needed to be discontinued due to brittany. FOBT card test was positive at bedside. No further episodes. Underwent EGD (09/24) while in the OR, gastritis, 2 superficial ulcers were noted, minimal black residual blood was noted in the stomach ulcer. Continue to hold anticoagulation until 1 week after EGD, then resume Coumadin ( 09/30). Coumadin resumed on 07/05. Mechanical aortic valve 2010 Dr. Bolton #Melena, 2 episodes on September 21, hemoglobin stable now at 9.1 no further episodes., Continue to hold anticoagulation until September 27 Upper GI endoscopy as above #Pulmonary hypertension with COPD No acute exacerbation, continue scheduled nebulization Disposition: D/c to SNF , prior Auth pending Cardiac diet DVT prophylaxis: on warfarin Full code Attestations Medical Necessity Statement*: Status post AKA, postop care, pending prior Auth for discharge back to SNF. 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
[2020-09-30] MEDS: warfarin 2 mg Tablet PO (14:34)
--- NOTE | 2020-09-30 18:09 | PC.NURSE ---
patient has been compliant with turns q2H and elevation of scrotum due to edema, patient does get aggravated easily but calms himself with deep breathing exercises, pain tolerable with scheduled pain medication.
[2020-09-30] MEDS: atorvastatin 40 mg Tablet 80 MG PO (20:23)
[2020-10-01] VITALS (16 sets, daily range): BP systolic 94–135; BP diastolic 59–76; PULSE 84–107; RESP 16–18; TEMP 36.4–37.1; O2SAT 94–100; BMI 17.5
[2020-10-01] MEDS: oxyCODONE-APAP 10-325 mg Tablet 1 TAB PO ×5 (03:57→23:32)
[2020-10-01] MEDS: tamsulosin 0.4 mg Capsule PO (06:03)
[2020-10-01] MEDS: gabapentin 300 mg Capsule PO ×3 (06:03→21:27)
[2020-10-01] MEDS: metoprolol tartrate 25 mg Tablet PO (06:03)
[2020-10-01] MEDS: potassium chloride ER 10 mEq Tablet PO (06:03)
[2020-10-01] MEDS: sulfamethoxazole-trimeth DS 160-800 mg Tablet 1 TAB PO ×2 (08:13→17:32)
[2020-10-01] MEDS: guaiFENesin 600 mg Tablet PO ×2 (08:13→17:32)
[2020-10-01] MEDS: pantoprazole DR 40 mg Tablet PO ×2 (08:14→17:32)
[2020-10-01] MEDS: sennosides-docusate Tablet 1 TAB PO ×2 (08:14→17:32)
[2020-10-01] MEDS: ALPRAZolam 0.25 mg Tablet PO ×2 (11:07→19:12)
[2020-10-01] MEDS: warfarin 3 mg Tablet 1.5 MG PO (14:22)
--- NOTE | 2020-10-01 14:48 | P.PN_ITS ---
Subjective Subjective: Interval history: Patient was seen and examined this morning. No acute events overnight, he remained afebrile.Lt AKA site is clean. Medications: Reviewed: Yes Vitals/I&O/Wt Last Vital Signs Temp 98.8 F 10/01/20 12:00 Pulse 91 10/01/20 12:00 Resp 16 10/01/20 12:00 BP 119/72 10/01/20 12:00 Pulse Ox 100 10/01/20 12:00 09/30/20 10/01/20 10/01/20 22:59 06:59 14:59 Intake Total 240 / 720 480 / 1200 140 / 140 Output Total 475 / 1200 450 / 1650 Balance -235 / -480 30 / -450 140 / 140 Weight last 48 hrs Weight 52.39 kg Weight 51.165 kg Weight 52.39 kg Physical Exam Const: COMMON NORMALS: patient oriented x3 Chest: CHEST: Yes Symmetrical chest wall rise Resp: COMMON NORMALS: clear to auscultation bilaterally EFFORT & INSPECTION: Yes symmetric chest movement AUSCULTATION: clear to auscultation bilaterally Cardio: COMMON NORMALS: regular rate, regular rhythm, S1 normal heart sound present, S2 normal heart sound present, No gallops present (Cardio) and Pe ripheral pulses 2+ throughout RATE: regular rate RHYTHM: regular rhythm HEART SOUNDS: S1 normal heart sound present and S2 normal heart sound present PERIPHERAL PULSES: Peripheral pulses 2+ throughout OTHER: Mechanical click present in aortic area GI: COMMON NORMALS: Soft to palpation AUSCULTATION: Yes normoactive bowel sounds PALPATION: Yes Soft to palpation Extremity: COMMON NORMALS: no pedal edema NARRATIVE EXTREMITY EXAM: status post left AKA, postsurgical dressing in place, not opened for exam. Neuro: COMMON NORMALS: patient oriented x3 Data : 09/29/20 04:20 09/29/20 05:50 A&P Assessment and plan (1) Dry gangrene: Status: Acute (2) H/O mechanical aortic valve replacement: Status: Acute (3) Bilateral lower leg cellulitis: Status: Acute (4) Supratherapeutic INR: now subtherapeutic Status: Acute (5) Ischemic ulcer of both feet: Status: Acute (6) Chronic anticoagulation: Status: Chronic (7) On home oxygen therapy: Status: Chronic (8) Nicotine dependence, cigarettes, with other nicotine-induced disorders: Status: Chronic (9) Severe peripheral arterial disease: Status: Chronic (10) COPD (chronic obstructive pulmonary disease): Not currently acute, chronically on oxygen at 3 L by nasal cannula with exertional hypoxemia Status: Chronic (11) Pulmonary hypertension: Status: Chronic Additional A&P Information #Dry gangrene with underlying severe peripheral vascular disease Unsuccessful attempt at revascularization peripherally Status post AKA on 09/24, tolerated well, pain is much improved. #Patient has stayed afebrile, stable leukocytosis Cellulitis noted on admission is resolved s/p vancomycin and pip/tazo 09/13-09/21 No gross signs of sepsis Blood cultures negative to date # Mechanical aortic valve, on coumadin as outpatient, supratherapeutic INR on admission, Coumadin was held, peripheral angiogram attempted once INR was less than 2, started heparin infusion after procedure on 09/21, however this needed to be discontinued due to brittany. FOBT card test was positive at bedside. No further episodes. Underwent EGD (09/24) while in the OR, gastritis, 2 superficial ulcers were noted, minimal black residual blood was noted in the stomach ulcer. Continue to hold anticoagulation until 1 week after EGD, then resume Coumadin ( 09/30). Coumadin resumed on 07/05. Mechanical aortic valve 2010 Dr. 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
[2020-10-01] MEDS: atorvastatin 40 mg Tablet 80 MG PO (21:27)
[2020-10-02] VITALS (12 sets, daily range): BP systolic 96–114; BP diastolic 58–73; PULSE 81–104; RESP 16–20; TEMP 37–37.1; O2SAT 94–98
[2020-10-02] MEDS: morphine 4 mg/mL SDV 1 mL 2 MG IVP (01:42)
[2020-10-02] MEDS: oxyCODONE-APAP 10-325 mg Tablet 1 TAB PO ×5 (04:12→20:48)
[2020-10-02] MEDS: gabapentin 300 mg Capsule PO ×3 (06:49→20:47)
[2020-10-02] MEDS: potassium chloride ER 10 mEq Tablet PO (06:49)
[2020-10-02] MEDS: tamsulosin 0.4 mg Capsule PO (06:49)
[2020-10-02] MEDS: metoprolol tartrate 25 mg Tablet PO ×2 (06:49→20:47)
[2020-10-02 06:54] LABS: Basophils % 0.2 %; Eosinophils # 0.4 10^3/uL (0.0-0.8); Eosinophils % 3.8 %; Hematocrit 32.9 % (42.0-52.0); Hemoglobin 10.3 g/dL (11.7-16.6); Lymphocytes # 0.4 10^3/uL (0.8-4.8); Lymphocytes % 4.6 %; Mean Corpuscular HGB Conc 31.3 g/dL (30.0-36.0); Mean Corpuscular Hemoglobin 32.1 pg (28.0-34.0); Mean Corpuscular Volume 102.5 fL (80-94); Mean Platelet Volume 9.6 fL (7.4-10.4); Monocytes # 0.7 10^3/uL (0.2-0.9); Monocytes % 7.5 %; Neutrophils # 7.96 10^3/uL (1.8-7.7); Neutrophils % 83.7 %; Nucleated Red Blood Cells % 0 %; Platelet Count 415 10^3/cmm (130-400); Red Blood Count 3.21 10^6/uL (4.1-5.3); Red Cell Distribution Width 14.7 % (12.1-15.1); White Blood Count 9.5 10^3/uL (4.0-10.0)
--- NOTE | 2020-10-02 09:18 | PC.SOCIAL ---
IMM Updated Updated pt on Pg 2 IMM. No questions voiced. Provided pt a copy. Signed, dated, & timed copy in chart.
[2020-10-02] MEDS: guaiFENesin 600 mg Tablet PO ×2 (09:52→17:44)
[2020-10-02] MEDS: sennosides-docusate Tablet 1 TAB PO ×2 (09:52→17:44)
[2020-10-02] MEDS: sulfamethoxazole-trimeth DS 160-800 mg Tablet 1 TAB PO ×2 (09:52→17:44)
[2020-10-02] MEDS: pantoprazole DR 40 mg Tablet PO ×2 (09:52→17:44)
[2020-10-02 15:51] LABS: INR 2.68 (0.8-1.2)
[2020-10-02 15:52] LABS: Partial Thromboplastin Time 41.2 SECONDS (23.9-36.7)
[2020-10-02] MEDS: warfarin 2 mg Tablet PO (16:03)
--- NOTE | 2020-10-02 17:28 | PM.PN ---
Subjective Subjective: Interval history: Patient was seen and examined this morning. No acute events overnight, he remained afebrile.Lt AKA site is clean. Medications: Reviewed: Yes Vitals/I&O/Wt Last Vital Signs Temp 98.6 F 10/02/20 16:00 Pulse 95 10/02/20 16:00 Resp 16 10/02/20 16:00 BP 96/64 10/02/20 16:00 Pulse Ox 98 10/02/20 16:00 10/02/20 10/02/20 10/02/20 06:59 14:59 22:59 Intake Total 120 / 400 480 / 480 Output Total 200 / 1500 Balance -80 / -1100 480 / 480 Weight last 48 hrs Weight 48.988 kg Weight 52.39 kg Weight 51.165 kg Physical Exam Const: COMMON NORMALS: patient oriented x3 Chest: CHEST: Yes Symmetrical chest wall rise Resp: COMMON NORMALS: clear to auscultation bilaterally EFFORT & INSPECTION: Yes symmetric chest movement AUSCULTATION: clear to auscultation bilaterally Cardio: COMMON NORMALS: regular rate, regular rhythm, S1 normal heart sound present, S2 normal heart sound present, No gallops present (Cardio) and Peripheral pulses 2+ throughout RATE: regular rate RHYTHM: regular rhythm HEART SOUNDS: S1 normal heart sound present and S2 normal heart sound present PERIPHERAL PULSES: Peripheral pulses 2+ throughout OTHER: Mechanical click present in aortic area GI: COMMON NORMALS: Soft to palpation AUSCULTATION: Yes normoactive bowel sounds PALPATION: Yes Soft to palpation Extremity: COMMON NORMALS: no pedal edema NARRATIVE EXTREMITY EXAM: status post left AKA, postsurgical dressing in place, not opened for exam. Neuro: COMMON NORMALS: patient oriented x3 Data : 10/02/20 06:42 09/29/20 05:50 A&P Assessment and plan (1) Dry gangrene: Status: Acute (2) H/O mechanical aortic valve replacement: Status: Acute (3) Bilateral lower leg cellulitis: Status: Acute (4) Supratherapeutic INR: now subtherapeutic Status: Acute (5) Ischemic ulcer of both feet: Status: Acute (6) Chronic anticoagulation: Status: Chronic (7) On home oxygen therapy: Status: Chronic (8) Nicotine dependence, cigarettes, with other nicotine-induced disorders: Status: Chronic (9) Severe peripheral arterial disease: Status: Chronic (10) COPD (chronic obstructive pulmonary disease): Not currently acute, chronically on oxygen at 3 L by nasal cannula with exertional hypoxemia Status: Chronic (11) Pulmonary hypertension: Status: Chronic Additional A&P Information #Dry gangrene with underlying severe peripheral vascular disease Unsuccessful attempt at revascularization peripherally Status post AKA on 09/24, tolerated well, pain is much improved. #Patient has stayed afebrile, stable leukocytosis Cellulitis noted on admission is resolved s/p vancomycin and pip/tazo 09/13-09/21 No gross signs of sepsis Blood cultures negative to date # Mechanical aortic valve, on coumadin as outpatient, supratherapeutic INR on admission, Coumadin was held, peripheral angiogram attempted once INR was less than 2, started heparin infusion after procedure on 09/21, however this needed to be discontinued due to brittany. FOBT card test was positive at bedside. No further episodes. Underwent EGD (09/24) while in the OR, gastritis, 2 superficial ulcers were noted, minimal black residual blood was noted in the stomach ulcer. Continue to hold anticoagulation until 1 week after EGD, then resume Coumadin ( 09/30). Coumadin resumed on 07/05. Mechanical aortic valve 2010 Dr. 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
[2020-10-02] MEDS: atorvastatin 40 mg Tablet 80 MG PO (20:47)
[2020-10-03] VITALS (9 sets, daily range): BP systolic 88–123; BP diastolic 53–69; PULSE 79–97; RESP 17–21; TEMP 36.2–37.2; O2SAT 90–100
[2020-10-03] MEDS: oxyCODONE-APAP 10-325 mg Tablet 1 TAB PO ×6 (00:10→20:04)
[2020-10-03] MEDS: metoprolol tartrate 25 mg Tablet PO ×2 (06:26→22:29)
[2020-10-03] MEDS: gabapentin 300 mg Capsule PO ×3 (06:27→22:29)
[2020-10-03] MEDS: tamsulosin 0.4 mg Capsule PO (06:27)
[2020-10-03] MEDS: potassium chloride ER 10 mEq Tablet PO (06:27)
[2020-10-03 06:50] LABS: Basophils % 0.4 %; Eosinophils # 0.6 10^3/uL (0.0-0.8); Eosinophils % 6.1 %; Hematocrit 34.6 % (42.0-52.0); Hemoglobin 10.2 g/dL (11.7-16.6); Lymphocytes # 0.7 10^3/uL (0.8-4.8); Lymphocytes % 7.6 %; Mean Corpuscular HGB Conc 29.5 g/dL (30.0-36.0); Mean Corpuscular Hemoglobin 32.9 pg (28.0-34.0); Mean Corpuscular Volume 111.6 fL (80-94); Mean Platelet Volume 9.9 fL (7.4-10.4); Monocytes # 0.8 10^3/uL (0.2-0.9); Monocytes % 8.7 %; Neutrophils # 7.38 10^3/uL (1.8-7.7); Neutrophils % 76.9 %; Nucleated Red Blood Cells % 0 %; Platelet Count 391 10^3/cmm (130-400); Red Cell Distribution Width 14.7 % (12.1-15.1); White Blood Count 9.6 10^3/uL (4.0-10.0)
[2020-10-03] MEDS: guaiFENesin 600 mg Tablet PO ×2 (10:02→20:04)
[2020-10-03] MEDS: sennosides-docusate Tablet 1 TAB PO ×2 (10:02→20:04)
[2020-10-03] MEDS: sulfamethoxazole-trimeth DS 160-800 mg Tablet 1 TAB PO ×2 (10:02→20:03)
[2020-10-03] MEDS: pantoprazole DR 40 mg Tablet PO ×2 (10:02→20:05)
--- NOTE | 2020-10-03 12:22 | P.PN_ITS ---
Subjective Subjective: Interval history: Patient was seen and examined this morning. No acute events overnight, he remained afebrile.Lt AKA site is clean. Medications: Reviewed: Yes Vitals/I&O/Wt Last Vital Signs Temp 98.7 F 10/03/20 11:33 Pulse 82 10/03/20 11:33 Resp 18 10/03/20 11:33 BP 120/68 10/03/20 11:33 Pulse Ox 95 10/03/20 11:33 10/02/20 10/03/20 10/03/20 22:59 06:59 14:59 Intake Total 260 / 740 300 / 1040 120 / 120 Output Total 500 / 500 825 / 1325 Balance -240 / 240 -525 / -285 120 / 120 Weight last 48 hrs Weight 65.589 kg Weight 48.988 kg Physical Exam Const: COMMON NORMALS: patient oriented x3 Chest: CHEST: Yes Symmetrical chest wall rise Resp: COMMON NORMALS: clear to auscultation bilaterally EFFORT & INSPEC TION: Yes symmetric chest movement AUSCULTATION: clear to auscultation bilaterally Cardio: COMMON NORMALS: regular rate, regular rhythm, S1 normal heart sound present, S2 normal heart sound present, No gallops present (Cardio) and Peripheral pulses 2+ throughout RATE: regular rate RHYTHM: regular rhythm HEART SOUNDS: S1 normal heart sound present and S2 normal heart sound present PERIPHERAL PULSES: Peripheral pulses 2+ throughout OTHER: Mechanical click present in aortic area GI: COMMON NORMALS: Soft to palpation AUSCULTATION: Yes normoactive bowel sounds PALPATION: Yes Soft to palpation Extremity: COMMON NORMALS: no pedal edema NARRATIVE EXTREMITY EXAM: status post left AKA, postsurgical dressing in place, not opened for exam. Neuro: COMMON NORMALS: patient oriented x3 Data : 10/03/20 05:31 09/29/20 05:50 A&P Assessment and plan (1) Dry gangrene: Status: Acute (2) H/O mechanical aortic valve replacement: Status: Acute (3) Bilateral lower leg cellulitis: Status: Acute (4) Supratherapeutic INR: now subtherapeutic Status: Acute (5) Ischemic ulcer of both feet: Status: Acute (6) Chronic anticoagulation: Status: Chronic (7) On home oxygen therapy: Status: Chronic (8) Nicotine dependence, cigarettes, with other nicotine-induced disorders: Status: Chronic (9) Severe peripheral arterial disease: Status: Chronic (10) COPD (chronic obstructive pulmonary disease): Not currently acute, chronically on oxygen at 3 L by nasal cannula with exertional hypoxemia Status: Chronic (11) Pulmonary hypertension: Status: Chronic Additional A&P Information #Dry gangrene with underlying severe peripheral vascular disease Unsuccessful attempt at revascularization peripherally Status post AKA on 09/24, tolerated well, pain is much improved. #Patient has stayed afebrile, stable leukocytosis Cellulitis noted on admission is resolved s/p vancomycin and pip/tazo 09/13-09/21 No gross signs of sepsis Blood cultures negative to date # Mechanical aortic valve, on coumadin as outpatient, supratherapeutic INR on admission, Coumadin was held, peripheral angiogram attempted once INR was less than 2, started heparin infusion after procedure on 09/21, however this needed to be discontinued due to brittany. FOBT card test was positive at bedside. No further episodes. Underwent EGD (09/24) while in the OR, gastritis, 2 superficial ulcers were noted, minimal black residual blood was noted in the stomach ulcer. Continue to hold anticoagulation until 1 week after EGD, then resume Coumadin ( 09/30). Coumadin resumed on 07/05. Mechanical aortic valve 2010 Dr. Bolton #Melena, 2 episodes on September 21, hemoglobin stable now at 9.1 no further episodes., Continue to hold anticoagulation until September 27 Upper GI endoscopy as above #Pulmonary hypertension with COPD No acute exacerbation, continue scheduled nebulization Disposition: D/c to SNF , prior Auth pending Cardiac diet DVT prophylaxis: on warfarin Full code Attestations Medical Necessity Statement*: Status post AKA, postop care, pending prior Auth for discharge back to SNF Coding Level of Care Code Acute Silver Solution Mixer for g Fwd Diagnoses Dry gangrene I96 H/O mechanical aortic valve replacement Z95.2 Bilateral lower leg cellulitis L03.116; L03.115 Supratherapeutic INR R79.1 Ischemic ulcer of both feet L97.519; L97.529 Chronic anticoagulation Z79.01 On home oxygen therapy Z99.81 Nicotine dependence, cigarettes, with other nicotine-induced disorders F17.218 Severe peripheral arterial disease I73.9 COPD (chronic obstructive pulmonary disease) J44.9 Pulmonary hypertension I27.20
--- NOTE | 2020-10-03 16:42 | PC.OT ---
Patient is agitated and paranoid per nursing. She just administered Xanax. OT services withheld this date per nursing request.
[2020-10-03] MEDS: ALPRAZolam 0.25 mg Tablet PO (16:50)
[2020-10-03] MEDS: warfarin 2 mg Tablet PO (16:50)
[2020-10-03] MEDS: atorvastatin 40 mg Tablet 80 MG PO (22:30)
[2020-10-04] VITALS (18 sets, daily range): BP systolic 100–126; BP diastolic 61–75; PULSE 62–100; RESP 16–22; TEMP 36.4–37.1; O2SAT 94–100
[2020-10-04] MEDS: oxyCODONE-APAP 10-325 mg Tablet 1 TAB PO ×7 (00:30→23:40)
[2020-10-04] MEDS: gabapentin 300 mg Capsule PO ×3 (06:13→20:16)
[2020-10-04] MEDS: metoprolol tartrate 25 mg Tablet PO ×2 (06:13→20:16)
[2020-10-04] MEDS: potassium chloride ER 10 mEq Tablet PO (06:13)
[2020-10-04] MEDS: tamsulosin 0.4 mg Capsule PO (06:13)
[2020-10-04] MEDS: morphine 4 mg/mL SDV 1 mL 2 MG IVP ×2 (06:13→09:46)
[2020-10-04] MEDS: guaiFENesin 600 mg Tablet PO ×2 (08:18→17:35)
[2020-10-04] MEDS: sennosides-docusate Tablet 1 TAB PO ×2 (08:18→17:45)
[2020-10-04] MEDS: sulfamethoxazole-trimeth DS 160-800 mg Tablet 1 TAB PO ×2 (08:18→17:36)
[2020-10-04] MEDS: pantoprazole DR 40 mg Tablet PO ×2 (08:18→17:36)
[2020-10-04] MEDS: ALPRAZolam 0.25 mg Tablet PO ×2 (09:46→20:16)
[2020-10-04] MEDS: warfarin 3 mg Tablet 1.5 MG PO (13:11)
--- NOTE | 2020-10-04 14:33 | DCPLANNER ---
Pg 2 of IM updated and reviewed with pt. No questions, copy provided.
--- NOTE | 2020-10-04 15:01 | P.PN_ITS ---
Subjective Subjective: Interval history: Patient was seen and examined this morning. No acute events overnight, he remained afebrile.Lt AKA site is clean. Medications: Reviewed: Yes Vitals/I&O/Wt Last Vital Signs Temp 97.5 F L 10/04/20 11:30 Pulse 62 10/04/20 11:30 Resp 18 10/04/20 13:11 BP 125/75 10/04/20 11:30 Pulse Ox 94 10/04/20 11:30 10/04/20 10/04/20 10/04/20 06:59 14:59 22:59 Intake Total 240 / 720 300 / 300 Output Total 350 / 2350 Balance -110 / -1630 300 / 300 Weight last 48 hrs Weight 65 kg Weight 65.589 kg Physical Exam Const: COMMON NORMALS: patient oriented x3 Chest: CHEST: Yes Symmetrical chest wall rise Resp: COMMON NORMALS: clear to auscultation bilaterally EFFORT & INSPECTION: Yes symmetric chest movement AUSCULTATION: clear to auscultation bilaterally Cardio: COMMON NORMALS: regular rate, regular rhythm, S1 normal heart sound present, S2 normal heart sound present, No gallops present (Cardio) and Peripheral pulses 2+ throughout RATE: regular rate RHYTHM: regular rhythm HEART SOUNDS: S1 normal heart sound present and S2 normal heart sound present PERIPHERAL PULSES: Peripheral pulses 2+ throughout OTHER: Mechanical click present in aortic area GI: COMMON NORMALS: Soft to palpation AUSCULTATION: Yes normoactive bowel sounds PALPATION: Yes Soft to palpation Extremity: COMMON NORMALS: no pedal edema NARRATIVE EXTREMITY EXAM: status post left AKA, postsurgical dressing in place, not opened for exam. Neuro: COMMON NORMALS: patient oriented x3 Data : 10/03/20 05:31 09/29/20 05:50 A&P Assessment and plan (1) Dry gangrene: Status: Acute (2) H/O mechanical aortic valve replacement: Status: Acute (3) Bilateral lower leg cellulitis: Status: Acute (4) Supratherapeutic INR: now subtherapeutic Status: Acute (5) Ischemic ulcer of both feet: Status: Acute (6) Chronic anticoagulation: Status: Chronic (7) On home oxygen therapy: Status: Chronic (8) Nicotine dependence, cigarettes, with other nicotine-induced disorders: Status: Chronic (9) Severe peripheral arterial disease: Status: Chronic (10) COPD (chronic obstructive pulmonary disease): Not currently acute, chronically on oxygen at 3 L by nasal cannula with exertional hypoxemia Status: Chronic (11) Pulmonary hypertension: Status: Chronic Additional A&P Information #Dry gangrene with underlying severe peripheral vascular disease Unsuccessful attempt at revascularization peripherally Status post AKA on 09/24, tolerated well, pain is much improved. #Patient has stayed afebrile, stable leukocytosis Cellulitis noted on admission is resolved s/p vancomycin and pip/tazo 09/13-09/21 No gross signs of sepsis Blood cultures negative to date # Mechanical aortic valve, on coumadin as outpatient, supratherapeutic INR on admission, Coumadin was held, peripheral angiogram attempted once INR was less than 2, started heparin infusion after procedure on 09/21, however this needed to be discontinued due to brittany. FOBT card test was positive at bedside. No further episodes. Underwent EGD (09/24) while in the OR, gastritis, 2 superficial ulcers were noted, minimal black residual blood was noted in the stomach ulcer. Continue to hold anticoagulation until 1 week after EGD, then resume Coumadin ( 09/30). Coumadin resumed on 07/05. Mechanical aortic valve 2010 Dr. 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
[2020-10-04] MEDS: atorvastatin 40 mg Tablet 80 MG PO (20:16)
[2020-10-04] MEDS: cyclobenzaprine 10 mg Tablet 5 MG PO (20:16)
[2020-10-05] VITALS (13 sets, daily range): BP systolic 103–147; BP diastolic 56–71; PULSE 75–107; RESP 16–20; TEMP 36.2–37.2; O2SAT 90–100
[2020-10-05] MEDS: oxyCODONE-APAP 10-325 mg Tablet 1 TAB PO ×6 (03:51→23:40)
--- NOTE | 2020-10-05 04:36 | PC.NURSE ---
PATIENT HAD A BOWEL MOVEMENT AND SOILED DRESSING ON AKA. THIS NURSE PRE-MEDICATED PATIENT WITH 2 MG OF DILAUDID PO. AFTER BEING CLEANED AND NEW LINENS PUT ON BED THIS NURSE WITH HELP OF Alex KENNY LPN, NEW DRESSING WAS GENTLY APPLIED. AREA PREPPED WITH BETADINE SWAB X 3 ON AND AROUND INCISION, COVERED WITH 4X4, WRAPPED WITH KURLEX AND THEN WRAPPED WITH NITA BANDAGE. WAS UNABLE TO PUT NETTED STOCKING DUE TO PATIENT NOT TOLERATING WELL AND YELLED IN PAIN THROUGH OUT DRESSING REAPPLICATION. PATIENT STILL CALLING OUT IN PAIN AFTERWARDS AND PERCOCET 10 WAS ADMINISTERED TO HELP RELIEVE PAIN. WILL CONTINUE TO ASSESS.
[2020-10-05] MEDS: pantoprazole DR 40 mg Tablet PO ×2 (08:04→17:42)
[2020-10-05] MEDS: sulfamethoxazole-trimeth DS 160-800 mg Tablet 1 TAB PO (08:04)
[2020-10-05] MEDS: metoprolol tartrate 25 mg Tablet PO ×2 (08:04→20:35)
[2020-10-05] MEDS: tamsulosin 0.4 mg Capsule PO (08:04)
[2020-10-05] MEDS: sennosides-docusate Tablet 1 TAB PO ×2 (08:04→17:42)
[2020-10-05] MEDS: guaiFENesin 600 mg Tablet PO ×2 (08:04→17:42)
[2020-10-05] MEDS: potassium chloride ER 10 mEq Tablet PO (08:04)
[2020-10-05] MEDS: gabapentin 300 mg Capsule PO ×3 (08:05→20:34)
--- NOTE | 2020-10-05 08:18 | PC.NURSE ---
Dr. Hubbard notified of bladder scan of 420ml. order given for ornelas.
--- NOTE | 2020-10-05 11:24 | P.PN_ITS ---
Subjective Subjective: Interval history: Patient was seen and examined this morning. No acute events overnight, he remained afebrile.Lt AKA site is clean. Medications: Reviewed: Yes Vitals/I&O/Wt Last Vital Signs Temp 97.2 F L 10/05/20 11:09 Pulse 80 10/05/20 11:09 Resp 18 10/05/20 11:09 BP 147/56 10/05/20 11:09 Pulse Ox 95 10/05/20 11:09 10/04/20 10/05/20 10/05/20 22:59 06:59 14:59 Intake Total 300 / 300 Output Total 950 / 950 50 / 50 Balance -950 / -650 250 / 250 Weight last 48 hrs Weight 63.684 kg Weight 65 kg Physical Exam Const: COMMON NORMALS: patient oriented x3 Chest: CHEST: Yes Symmetrical chest wall rise Resp: COMMON NORMALS: clear to auscultation bilaterally EFFORT & INSPECTION: Yes symmetric chest movement AUSCULTATION: clear to auscultation bilaterally Cardio: COMMON NORMALS: regular rate, regular rhythm, S1 normal heart sound present, S2 normal heart sound present, No gallops present (Cardio) and Peripheral pulses 2+ throughout RATE: regular rate RHYTHM: regular rhythm HEART SOUNDS: S1 normal heart sound present and S2 normal heart sound present PERIPHERAL PULSES: Peripheral pulses 2+ throughout OTHER: Mechanical click present in aortic area GI: COMMON NORMALS: Soft to palpation AUSCULTATION: Yes normoactive bowel sounds PALPATION: Yes Soft to palpation Extremity: COMMON NORMALS: no pedal edema NARRATIVE EXTREMITY EXAM: status post left AKA, postsurgical dressing in place, not opened for exam. Neuro: COMMON NORMALS: patient oriented x3 Urinary Catheter Management^: Arellano: Cath Placed During This Visit: yes Urinary Catheter Date of Insertion: 10/05/20 Urinary Catheter Time of Insertion: 08:38 Data : 10/03/20 05:31 09/29/20 05:50 A&P Assessment and plan (1) Dry gangrene: Status: Acute (2) H/O mechanical aortic valve replacement: Status: Acute (3) Bilateral lower leg cellulitis: Status: Acute (4) Supratherapeutic INR: now subtherapeutic Status: Acute (5) Ischemic ulcer of both feet: Status: Acute (6) Chronic anticoagulation: Status: Chronic (7) On home oxygen therapy: Status: Chronic (8) Nicotine dependence, cigarettes, with other nicotine-induced disorders: Status: Chronic (9) Severe peripheral arterial disease: Status: Chronic (10) COPD (chronic obstructive pulmonary disease): Not currently acute, chronically on oxygen at 3 L by nasal cannula with exertional hypoxemia Status: Chronic (11) Pulmonary hypertension: Status: Chronic Additional A&P Information #Dry gangrene with underlying severe peripheral vascular disease Unsuccessful attempt at revascularization peripherally Status post AKA on 09/24, tolerated well, pain is much improved. #Patient has stayed afebrile, stable leukocytosis Cellulitis noted on admission is resolved s/p vancomycin and pip/tazo 09/13-09/21 No gross signs of sepsis Blood cultures negative to date # Mechanical aortic valve, on coumadin as outpatient, supratherapeutic INR on admission, Coumadin was held, peripheral angiogram attempted once INR was less than 2, started heparin infusion after procedure on 09/21, however this needed to be discontinued due to brittany. FOBT card test was positive at bedside. No further episodes. Underwent EGD (09/24) while in the OR, gastritis, 2 superficial ulcers were noted, minimal black residual blood was noted in the stomach ulcer. Continue to hold anticoagulation until 1 week after EGD, then resume Coumadin ( 09/30). Coumadin resumed on 07/05. Mechanical aortic valve 2010 Dr. 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
[2020-10-05] MEDS: ALPRAZolam 0.25 mg Tablet PO ×2 (11:43→20:35)
[2020-10-05] MEDS: warfarin 2 mg Tablet PO (15:14)
[2020-10-05] MEDS: atorvastatin 40 mg Tablet 80 MG PO (20:35)
[2020-10-05] MEDS: cyclobenzaprine 10 mg Tablet 5 MG PO (20:36)
[2020-10-06] VITALS (15 sets, daily range): BP systolic 96–110; BP diastolic 56–75; PULSE 62–95; RESP 17–19; TEMP 36.7–37.2; O2SAT 90–99
[2020-10-06] MEDS: oxyCODONE-APAP 10-325 mg Tablet 1 TAB PO ×5 (03:56→18:33)
[2020-10-06] MEDS: potassium chloride ER 10 mEq Tablet PO (06:16)
[2020-10-06] MEDS: metoprolol tartrate 25 mg Tablet PO (06:16)
[2020-10-06] MEDS: gabapentin 300 mg Capsule PO ×3 (06:16→21:22)
[2020-10-06] MEDS: tamsulosin 0.4 mg Capsule PO (06:16)
[2020-10-06] MEDS: sennosides-docusate Tablet 1 TAB PO ×2 (08:16→18:20)
[2020-10-06] MEDS: pantoprazole DR 40 mg Tablet PO ×2 (08:16→18:20)
[2020-10-06] MEDS: guaiFENesin 600 mg Tablet PO ×2 (08:16→18:20)
[2020-10-06 14:06] LABS: Coronavirus Test Green County Not Detected
[2020-10-06] MEDS: warfarin 2 mg Tablet PO (15:36)
--- NOTE | 2020-10-06 20:32 | PM.PN ---
Subjective Subjective: Interval history: Patient was seen and examined this morning. No acute events overnight, he remained afebrile.Lt AKA site is clean. Medications: Reviewed: Yes Vitals/I&O/Wt Last Vital Signs Temp 99.0 F 10/06/20 20:00 Pulse 89 10/06/20 20:28 Resp 17 10/06/20 20:25 BP 96/60 10/06/20 20:00 Pulse Ox 95 10/06/20 20:25 10/06/20 10/06/20 10/06/20 06:59 14:59 22:59 Intake Total 600 / 600 350 / 950 Output Total 300 / 900 300 / 300 Balance -300 / -600 600 / 600 50 / 650 Weight last 48 hrs Weight 62.051 kg Weight 63.684 kg Physical Exam Const: COMMON NORMALS: patient oriented x3 Chest: CHEST: Yes Symmetrical chest wall rise Resp: COMMON NORMALS: clear to auscultation bilaterally EFFORT & INSPECTION: Yes symmetric chest movement AUSCULTATION: clear to auscultation bilaterally Cardio: COMMON NORMALS: regular rate, regular rhythm, S1 normal heart sound present, S2 normal heart sound present, No gallops present (Cardio) and Peripheral pulses 2+ throughout RATE: regular rate RHYTHM: regular rhythm HEART SOUNDS: S1 normal heart sound present and S2 normal heart sound present PERIPHERAL PULSES: Peripheral pulses 2+ throughout OTHER: Mechanical click present in aortic area GI: COMMON NORMALS: Soft to palpation AUSCULTATION: Yes normoactive bowel sounds PALPATION: Yes Soft to palpation Extremity: COMMON NORMALS: no pedal edema NARRATIVE EXTREMITY EXAM: status post left AKA, postsurgical dressing in place, not opened for exam. Neuro: COMMON NORMALS: patient oriented x3 Urinary Catheter Management^: Arellano: Cath Placed During This Visit: yes Reason for Continuing Indwelling Catheter: Acute Urinary Retention or Obstruction Urinary Catheter Date of Insertion: 10/05/20 Urinary Catheter Time of Insertion: 08:38 Data : 10/03/20 05:31 09/29/20 05:50 A&P Assessment and plan (1) Dry gangrene: Status: Acute (2) H/O mechanical aortic valve replacement: Status: Acute (3) Bilateral lower leg cellulitis: Status: Acute (4) Supratherapeutic INR: now subtherapeutic Status: Acute (5) Ischemic ulcer of both feet: Status: Acute (6) Chronic anticoagulation: Status: Chronic (7) On home oxygen therapy: Status: Chronic (8) Nicotine dependence, cigarettes, with other nicotine-induced disorders: Status: Chronic (9) Severe peripheral arterial disease: Status: Chronic (10) COPD (chronic obstructive pulmonary disease): Not currently acute, chronically on oxygen at 3 L by nasal cannula with exertional hypoxemia Status: Chronic (11) Pulmonary hypertension: Status: Chronic Additional A&P Information #Dry gangrene with underlying severe peripheral vascular disease Unsuccessful attempt at revascularization peripherally Status post AKA on 09/24, tolerated well, pain is much improved. #Patient has stayed afebrile, stable leukocytosis Cellulitis noted on admission is resolved s/p vancomycin and pip/tazo 09/13-09/21 No gross signs of sepsis Blood cultures negative to date # Mechanical aortic valve, on coumadin as outpatient, supratherapeutic INR on admission, Coumadin was held, peripheral angiogram attempted once INR was less than 2, started heparin infusion after procedure on 09/21, however this needed to be discontinued due to brittany. FOBT card test was positive at bedside. No further episodes. Underwent EGD (09/24) while in the OR, gastritis, 2 superficial ulcers were noted, minimal black residual blood was noted in the stomach ulcer. Coumadin was on hold for a week after EGD, then was resumed (09/30). Mechanical aortic valve 2010 Dr. Bolton #Melena, 2 episodes on September 21, hemoglobin stable now at 9.1 no further episodes. 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
[2020-10-06] MEDS: atorvastatin 40 mg Tablet 80 MG PO (21:22)
[2020-10-07] VITALS (9 sets, daily range): BP systolic 103–125; BP diastolic 66–76; PULSE 79–95; RESP 14–20; TEMP 36.4–36.8; O2SAT 96–100
[2020-10-07] MEDS: oxyCODONE-APAP 10-325 mg Tablet 1 TAB PO ×4 (00:32→11:30)
[2020-10-07] MEDS: gabapentin 300 mg Capsule PO (06:52)
[2020-10-07] MEDS: potassium chloride ER 10 mEq Tablet PO (06:52)
[2020-10-07] MEDS: tamsulosin 0.4 mg Capsule PO (06:53)
[2020-10-07] MEDS: metoprolol tartrate 25 mg Tablet PO (06:53)
[2020-10-07] MEDS: sennosides-docusate Tablet 1 TAB PO (10:05)
[2020-10-07] MEDS: pantoprazole DR 40 mg Tablet PO (10:05)
[2020-10-07] MEDS: guaiFENesin 600 mg Tablet PO (10:05)
--- NOTE | 2020-10-07 12:31 | PM.DCS ---
Discharge Providers Date of Admission: 09/13/20 21:22 Date of Discharge: October 07, 2020 Attending Provider at Admission: Cricket Madrigal MD Attending Provider at Discharge: Amrita Barker Primary Care Provider: Carmen Bernardo NP Diagnoses at Discharge Discharge Diagnosis (1) Dry gangrene: Status: Acute (2) H/O mechanical aortic valve replacement: Status: Acute (3) Bilateral lower leg cellulitis: Status: Acute (4) Supratherapeutic INR: Status: Acute (5) Ischemic ulcer of both feet: Status: Acute (6) Chronic anticoagulation: Status: Chronic Permanent problem details: coumadin, for mechanical AVR (7) On home oxygen therapy: Status: Chronic Permanent problem details: 3L BNC continuous (8) Nicotine dependence, cigarettes, with other nicotine-induced disorders: Status: Chronic (9) Severe peripheral arterial disease: Status: Chronic (10) COPD (chronic obstructive pulmonary disease): Status: Chronic (11) Pulmonary hypertension: Status: Chronic (12) Melena: Status: Acute (13) S/P AVR: Status: Chronic Permanent problem details: Mechanical Reason for Visit Reason for Visit: Sent from wound care clinic, bilateral leg wounds Hospital Course Hospital Course 70 year old male past medical history significant for hypertension, hyperlipidemia, O2 dependent chronic obstructive pulmonary disease on 3 L, pulmonary hypertension, bilateral carotid artery stenosis s/p b/l CEA, renal artery stenosis, severe peripheral artery stenosis with prior angioplasty,mechanical aortic valve replacement in 2008 on chronic Coumadin who was sent to hospital for eval of early gangrenous changes noted on multiple toes on 09/13/2020. Upon arrival to hospital patient had multiple imaging studies including a foot x-ray which showed no fractures or dislocation with osteoarthritis in both feet. X-ray right tibia-fibula did not show any acute fractures however showed extensive vascular calcifications. Lower extremity CTA was done which showed poor bilateral lower extremity runoff with poor inflow, left common femoral artery was occluded with severe stenosis of right common femoral artery and bilateral superficial femoral arteries were occluded with high-grade heavy calcified stenosis involving the popliteal arteries bilaterally with intermittent flow. Patient was seen by interventional cardiology. Peripheral angiogram was then performed which showed . Report conclusion reads critical limb ischemia with gangrenous bilateral toes through radial artery abdominal angiogram was performed, abdominal aorta has moderate atherosclerosis with distal moderate narrowing.Right and left common iliac are highly calcified but patent vessels.Right ostial external iliac has highly calcified severely stenotic eccentric lesion.Right common femoral is calcified but patent vesselRight profundofemoral is patent with luminal irregularityChronically occluded ostial SFA which reconstitute in the distal segmentRight popliteal and tibioperoneal trunk is free of disease Right anterior tibial and peroneal artery has good runoffRight posterior tibial appeared to be occluded as not visualizedLeft common iliac artery has luminal irregularity it is highly calcified vessel, ostial external iliac has moderate lesion, left common femoral is chronically occluded, left SFA is chronically occluded, left popliteal artery has luminal irregularity, left tibioperoneal trunk as luminal irregularity with distal moderate disease. Two-vessel runoff with left posterior tibial and peroneal was visualized. Left anterior tibial was not well visualized. Due to unsuccessful revasculariztion he was then take for left AKA. Post op course was stable. He was also started on antibiotics for suspected infectious process due to redness about lower extremity wound. He was treated with vancomycin and zosyn from 09/13 to 09/21. Culture results had not shown any growth. He remained stable off antibiotics. Additional complication of hospital stay included supratheraputic INR which led to episode of melena. His Coumadin was held for 1 week until hemoglobin had stabilized. This was restarted on 09/30. During this time he had undergone EGD 09/24 which showed gastritis with 2 superficial ulcers with minimal residual blood. After resuming his Coumadin INR became therapeutic and hemoglobin remained stable. Hospitalization was delayed due to placement which was arranged on 10/07/20. Physical Exam Narrative: EXAM NARRATIVE: GEN: Awake, alert and oriented, no acute distress CVS: S1S2 N RS: CTA B/L Abd: Soft, nt/nd , bs+ SPLUNK CONSULTANT: no focal neuro deficits Extremities status post left AKA, postsurgical dressing in place, not opened for exam. Urinary Catheter Management^: Arellano: Cath Placed During This Visit: yes Reason for Continuing Indwelling Catheter: Acute Urinary Retention or Obstruction Urinary Catheter Date of Insertion: 10/05/20 Urinary Catheter Time of Insertion: 08:38 Discharge Data Data Completed and Pending: Completed Studies During Hospitalization Category Date Time Status CT angio LE BI 73 706 Routine Cat Scan 09/14/20 09:[address] chest wo con 7 1250 Routine Cat Scan 09/28/20 09:24 Completed COMPOSITE BOND TECHNICIAN request for service Routin e Exams 09/20/20 16:20 Completed XR chest 1V caleb ble 13289 AM LABS Exams 09/26/20 04:00 Completed XR chest 1V caleb ble [id number] Routine Exams 09/23/20 11:10 Completed XR foot LT min 3V * [id number] Stat Exams 09/13/20 15:23 Completed XR foot RT min 3V * [id number] Stat Exams 09/13/20 15:23 Completed XR tibia fibula L T 2V [id number] Stat Exams 09/13/20 15:23 Completed XR tibia fibula R T 2V [id number] Stat Exams 09/13/20 15:23 Completed Pathology: Surgic al [PTH] Routine Pth 09/24/20 09:30 Completed CV echo complete* [id number] Routine Ultrasound 09/14/20 22:54 Completed CV guide vascular access 57460 Rout ine Ultrasound 09/17/20 21:44 Completed CV guide vascular access 35167 Rout ine Ultrasound 09/20/20 Completed Labs from last 24 hours 10/05/20 14:50 Nasal/Oral COVID-1 9 PCR Not detected Vitals: Last Vital Signs Temp 98.1 F 10/07/20 12:00 Pulse 85 10/07/20 12:00 Resp 18 10/07/20 12:00 BP 125/76 10/07/20 12:00 Pulse Ox 98 10/07/20 12:00 Discharge Plan Discharge Patient Disposition: Home Condition: Stable Prescriptions: New pantoprazole 40 mg Tablet,Delayed Release (Dr/Ec) 40 mg PO BID Qty: 60 RF: 0 Continued potassium chloride 10 mEq tablet extended release 10 meq PO DAILY@0700 RF: 0 tamsulosin 0.4 mg capsule 0.4 mg PO DAILY@0700 RF: 0 gabapentin 300 mg capsule 300 mg PO TID@ RF: 0 atorvastatin 80 mg tablet 80 mg PO DAILY@2099 RF: 0 warfarin 2 mg tablet See Rx Instructions .ROUTE .COMPLEX RF: 0 metoprolol tartrate 25 mg tablet 25 mg PO BID@0700,2099 RF: 0 budesonide-formoterol [Symbicort] 80-4.5 mcg/actuation HFA aerosol inhaler 2 puff INHALATION BID@699,2099 RF: 0 warfarin 1 mg tablet See Rx Instructions .ROUTE .COMPLEX RF: 0 Discontinued quetiapine [Seroquel] 50 mg tablet 50 mg PO BID@0700,2100 RF: 0 hydrocodone-acetaminophen 10-325 mg tablet 1 tab PO Q6H PRN (Reason: Pain) RF: 0 furosemide 40 mg tablet 40 mg PO DAILY@0700 RF: 0 amlodipine 5 mg tablet 5 mg PO DAILY@0700 RF: 0 Chantix Starting Month Box 0.5 mg (11)- 1 mg (42) tablets,dose pack 1 ea PO BID@0700,2100 RF: 0 Allergy Relief (cetirizine) 1 mg PO BID@0700,2100 RF: 0 Discharge Orders: Discharge Order (Routine); Ordered 10/07/20 Ordered By: Amrita Barker Other Ambulatory Orders: Basic Metabolic Panel (Routine) Timeframe: 3 Days Facility: [facility] - Location: Lab - Main Lab Ordered By: Amrita Barker Complete Blood Count w/Auto (Routine) Timeframe: 3 Days Location: Determined by Patient Ordered By: Amrita Barker Prothrombin Time INR (Routine) Timeframe: 1 Day Facility: [facility] - Location: Lab - Main Lab Ordered By: Amrita Barker Referrals: Carmen Bernardo NP [Primary Care Provider] - 4-7 days Olayinka Segovia MD [Physician] - 2 weeks Itzel Estrada MD [Physician] - 1 week Discharge Diet: Usual diet Discharge Activity: Increase activity as tolerated Patient Instructions: Pantoprazole (By mouth), Above the Knee Amputation (DC) Discharge Attestations Time Spent in Discharge Care*: less than 30 min Quality Metrics Clinical Quality Measures During this hospital stay, did patient experience: None Coding Level of Care Code Acute Chg FW DC note Diagnoses Dry gangrene I96 H/O mechanical aortic valve replacement Z95.2 Bilateral lower leg cellulitis L03.116; L03.115 Supratherapeutic INR R79.1 Ischemic ulcer of both feet L97.519; L97.529 Chronic anticoagulation Z79.01 On home oxygen therapy Z99.81 Nicotine dependence, cigarettes, with other nicotine-induced disorders F17.218 Severe peripheral arterial disease I73.9 COPD (chronic obstructive pulmonary disease) J44.9 Pulmonary hypertension I27.20 Melena K92.1 S/P AVR Z95.2
--- NOTE | 2020-10-07 13:02 | PC.NURSE ---
PT HAS DONE WELL THIS MORNING. MINIMAL COMPLAINTS OF PAIN. ONE SCHEDULED OXYCODONE WAS GIVEN THIS AM. PT WAS ASSESSED AND APPEARS TO BE DOING GOOD. PT IS ON 3L NC, LUNGS ARE CLEAR BUT DIMINSHED. HEART NSR. ACTIVE BOWEL SOUNDS IN ALL FOUR QUADRANTS. NO EDEMA PRESENT. SURGICAL INCISION TO L AKA IS CLEAN AND OPEN TO AIR. NO SIGNS OF INFECTION. PTS IV WAS REMOVED. DR ZUNIGA SAID TO SEND PT WITH PINZON SO PINZON WAS EMPTIED AND LEFT IN PLACE. 300ML OF URINE WAS DRAINED FROM PINZON BAG. PT IS READY FOR DISCHARGE. REPORT WAS CALLED TO RUDY DANIEL.
--- NOTE | 2020-10-07 15:35 | PC.NURSE ---
[facility] CALLED AND STATED PATIENT'S WALLET WAS MISSING. 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 MAILING THE WALLET TO FACILITY.
== END 2020-10-07 14:25 | disposition skilled nursing facility (03) | DRG 240 ==
LOC: ER 18:47 → MEDSURG 21:03 → CSU 09-20 17:14 → ICU 09-20 20:54 → MEDSURG 09-23 16:18
PROVIDERS: Family Medicine; Hospitalist; Internal Medicine; Internal Medicine Cardiovascular Disease; Student in an Organized Health Care Education/Training Program; Thoracic Surgery (Cardiothoracic Vascular Surgery); Admitting Provider Internal Medicine; Emergency Provider Family Medicine; PCP Nurse Practitioner Family; Visit Provider Hospitalist
PROC: 047K3Z1 Dilation of Right Femoral Artery using Drug-Coated Balloon, Percutaneous Approach (ICD-10-PCS; principal; 2020-09-20 16:30)
PROC: 047K3Z1 Dilation of Right Femoral Artery using Drug-Coated Balloon, Percutaneous Approach (ICD-10-PCS; 2020-09-20 16:30)
PROC: 0Y6D0Z2 Detachment at Left Upper Leg, Mid, Open Approach (ICD-10-PCS; CPT 27590; principal; 2020-09-24 07:00)
PROC: 0DJ08ZZ Inspection of Upper Intestinal Tract, Via Natural or Artificial Opening Endoscopic (ICD-10-PCS; CPT 43235; 2020-09-24 07:00)
DX: I70.263 Atherosclerosis of native arteries of extremities with gangrene, bilateral legs (principal); L03.116 Cellulitis of left lower limb; L03.115 Cellulitis of right lower limb; E87.1 Hypo-osmolality and hyponatremia; K92.1 Melena; J96.11 Chronic respiratory failure with hypoxia; E87.3 Alkalosis; L97.529 Non-pressure chronic ulcer of other part of left foot with unspecified severity; L97.519 Non-pressure chronic ulcer of other part of right foot with unspecified severity; Z98.62 Peripheral vascular angioplasty status; F17.210 Nicotine dependence, cigarettes, uncomplicated; Z99.81 Dependence on supplemental oxygen; I65.23 Occlusion and stenosis of bilateral carotid arteries; N40.0 Benign prostatic hyperplasia without lower urinary tract symptoms; Z95.2 Presence of prosthetic heart valve; J43.9 Emphysema, unspecified; Z86.73 Personal history of transient ischemic attack (TIA), and cerebral infarction without residual deficits; F32.9 Major depressive disorder, single episode, unspecified; K21.9 Gastro-esophageal reflux disease without esophagitis; E78.2 Mixed hyperlipidemia; I10 Essential (primary) hypertension; M19.90 Unspecified osteoarthritis, unspecified site; I27.20 Pulmonary hypertension, unspecified; I70.1 Atherosclerosis of renal artery; Z90.79 Acquired absence of other genital organ(s); R73.9 Hyperglycemia, unspecified; E87.6 Hypokalemia; Z91.19 Patient's noncompliance with other medical treatment and regimen; Z79.01 Long term (current) use of anticoagulants; I25.10 Atherosclerotic heart disease of native coronary artery without angina pectoris; K25.9 Gastric ulcer, unspecified as acute or chronic, without hemorrhage or perforation; K29.70 Gastritis, unspecified, without bleeding; R79.1 Abnormal coagulation profile
CPT/HCPCS: 12345; 36415; 36416; 37224; 51702; 51798; 71045; 71250; 73590; 73630; 73706; 75625; 75710; 76937; 80048; 80053; 80202; 81003; 82550; 82962; 83036; 83605; 83735; 83880; 84100; 84311; 85014; 85018; 85025; 85610; 85651; 85730; 86140; 86850; 86900; 86920; 87040; 87077; 87635; 88305; 88307; 93005; 93306; 94640; 96365; 96375; 97110; 97112; 97163; 97167; 97530; 97535; 99285; C1725; C1769; C1887; C1894; J0690; J1170; J1644; J1885; J1940; J2250; J2270; J2370; J2405; J2543; J2710; J3010; J3370; J3490; J7030; J7050; J7611; P9016; Q0163; Q9967

== ENCOUNTER 2020-10-27 03:39 | Observation (INO) | payer MEDICARE, SELFPAY ==
[2020-10-27] VITALS (16 sets, daily range): BP systolic 115–196; BP diastolic 70–99; PULSE 84–113; RESP 14–31; TEMP 36.4–37; O2SAT 2–100; BMI 21.2
--- NOTE | 2020-10-27 03:43 | XR_ITS ---
WS: [id number] Exam: XR chest 1V portable [id number] Date/Time of Exam: 10/27/2020 3:25 AM Reason For Exam: sob Comparison 09/26/2020. The lungs are hyperinflated. No infiltrates are seen. There is fibrous scarring in the upper lung zon es with prominent interstitial markings. Heart size is normal. There is dilatation and ectasia of the ascending aorta which is been noted previously. Signs of median sternotomy and cardiac valve replace ment. Regional bony structures are intact. Surgical clips in the right and left neck. XR/XR chest 1V portable [id number] IMPRESSION: 1. Pulmonary hyperinflation suggesting obstructive lung disease. Chronic inters titial changes noted. 2. No acute infiltrates are noted. Additional chronic findings as above.
--- NOTE | 2020-10-27 03:47 | ED_ITS ---
HPI - SOB/Dyspnea General: Chief Complaint: Shortness of Breath/Dyspnea Stated Complaint: AMS Time Seen by Provider: 10/27/20 03:39 Source: EMS Mode of arrival: EMS Limitations: altered mental status History of Present Illness: HPI Narrative: Damon is a 70-year-old male has a long history of COPD peripheral vascular disease and hypertension. Patient is on 4 L of oxygen at home but had increasing wheezing shortness of breath per family tonight. Patient also had increased mental status that was altered. EMS arrived patient was having audible wheezing given a breathing treatment in route. Patient does have some confusion. He is able to tell me his name but is not orientated to place or time. He follows some commands but full history is very difficult from him. Patient is quite frail appearing. He has had no known fever. Review of Systems General: Reports: ROS unobtainable due to mental status PFS ED PFSH: Medical History Bilateral carotid artery stenosis BPH (benign prostatic hyperplasia) Chronic anticoagulation coumadin, for mechanical AVR COPD (chronic obstructive pulmonary disease) CVA (cerebral vascular accident) Depression GERD (gastroesophageal reflux disease) History of PFTs (~08/2018) 08/20: severe obstructive ventilatory defect, no significant bronchodilator response, severely reduced diffusion capacity Hyperlipidemia Hypertension Nicotine dependence, cigarettes, with other nicotine-induced disorders On home oxygen therapy 3L BNC continuous Osteoarthritis Pulmonary hypertension Right renal artery stenosis >60% Severe peripheral arterial disease Surgical History History of angioplasty of peripheral vessel (~2017) in 2018, unsuccessful by Dr Putnam and later also Dr Calixto per old records, referred to [facility] [place] History of aortic valve replacement (~2008) Dr Bolton, mechanical History of CEA (carotid endarterectomy) right ~2008, left ~2010 History of ear surgery History of testicular surgery right orchiectomy for undescended testicle as a child Family History Other CAD (coronary artery disease) Diabetes Social History Smoking and tobacco status: current every day smoker cigarettes Alcohol intake: current Alcohol intake frequency: 0-2 Drinks per Day Household members: family and other Details: son + Physical Exam Const: COMMON NORMALS: negative for patient oriented x3 EXAM LIMITATIONS: altered mental status GENERAL APPEARANCE: in distress HENMT: COMMON NORMALS: normocephalic and atraumatic HEAD & SCALP: normocephalic and atraumatic Eye: COMMON NORMALS: Equal, round and reactive pupils present and EOMs intact bilaterally PUPIL: Yes Equal, round and reactive pupils present Neck/C-Spine: COMMON NORMALS: full ROM and supple Chest: COMMONS NORMALS: normal inspection of the chest and normal palpation of entire chest wall Resp: COMMON NORMALS: No retractions EFFORT & INSPECTION: Yes tachypneic, Yes respiratory distress and Yes audible wheezes AUSCULTATION: wheezes Cardio: COMMON NORMALS: regular rate, regular rhythm and No murmurs present (Cardio) RATE: regular rate RHYTHM: regular rhythm GI: COMMON NORMALS: Normal to inspection, nondistended, normoactive bowel sounds present, Soft to palpation, non-tender and no masses PALPATION: Yes Soft to palpation Extremity: NARRATIVE EXTREMITY EXAM: Distal pulses intact to right lower extremity 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 Neuro: COMMON NORMALS: moves all extremities and no focal motor deficits; negative for patient oriented x3 Psych: COMMON NORMALS: Normal thought process present and cooperative; negative for mental status grossly normal THOUGHT PROCESS: Normal thought process present Skin: COMMON NORMALS: no rashes or lesions noted and no wounds GENERAL SKIN EXAM: no rashes or lesions noted Course Vital Signs: Vital signs: Vital Signs Temperature 98.1 F 10/27/20 03:43 Pulse Rate 103 H 10/27/20 04:07 Respiratory Rate 28 H 10/27/20 04:02 Blood Pressure 145/99 10/27/20 03:58 Pulse Oximetry 99 10/27/20 04:02 MDM - SOB/Dyspnea MDM Narrative: Medical decision making narrative: Patient presents here with confusion could be due to some hypercapnia due to his COPD. Patient is on his baseline oxygen here and wheezing has improved after breathing treatment. CT he ad and x-ray here are both negative. Spoke to hospitalist will admit at this time. Lab Data: Labs: Lab Results 10/27/20 10/27/20 10/27/20 Range/Units 03:37 03:37 03:37 WBC 8.8 (4.0-10.0) 10^3/ uL RBC 3.80 L (4.1-5.3) 10^6/u L Hgb 11.7 (11.7-16.6) g/dL Hct 37.9 L (42.0-52.0) % MCV 99.7 H (80-94) fL MCH 30.8 (28.0-34.0) pg MCHC 30.9 (30.0-36.0) g/dL RDW 13.2 (12.1-15.1) % Plt Count 336 (130-400) 10^3/c mm MPV 10.0 (7.4-10.4) fL Neut % (Auto) 85.6 % Lymph % (Auto) 5.8 % Blaine % (Auto) 7.4 % Eos % (Auto) 0.7 % Baso % (Auto) 0.2 % Neut # (Auto) 7.50 (1.8-7.7) 10^3/u L Lymph # (Auto) 0.5 L (0.8-4.8) 10^3/u L Blaine # (Auto) 0.7 (0.2-0.9) 10^3/u L Eos # (Auto) 0.1 (0.0-0.8) 10^3/u L Baso # (Auto) 0.0 (0.0-0.1) 10^3/u L Nucleated RBC % (a uto) 0 % Nucleated RBCs # 0.0 /100WBC PT 29.00 H (12.1-14.9) SECO NDS INR 2.70 H (0.8-1.2) Specimen Type Sample Site ABG pH (7.35-7.45) ABG pCO2 (35-45) mmHg ABG pO2 (80.0-100.0) mmH g ABG HCO3 (22-26) mmol/L ABG Base Excess (-2.0-2.0) mmol/ L Sang Test Hematocrit (42-52) % Hgb O2 Saturation (95-100) % Carboxyhemoglobin (0.4-20.1) %THgb Methemoglobin (0.4-1.5) % Total Hemoglobin (14-18) g/dL O2 Delivery Device O2 Liters/Min % Snack Bar Cashier ID Sodium 133 L (136-145) mmol/L Potassium 4.3 (3.5-5.1) mmol/L Chloride 91 L (98-107) mmol/L Carbon Dioxide 38 H (22-29) mmol/L Anion Gap 8.3 (5-19) BUN 9 (8-23) mg/dL Creatinine 0.3 L (0.7-1.2) mg/dL GFR Calculation Not Reportable Glucose 146 H (65-115) mg/dL POC Glucose (70-110) mg/dL Calculated Osmolal ity 277 L (285-295) mOsm/k g Calcium 8.6 (8.5-10.5) mg/dL Total Bilirubin 0.4 (0.15-1.2) mg/dL AST 30 (0-40) U/L ALT 18 (0-41) U/L Alkaline Phosphata se 132 H (40-130) IU/L Ammonia (16-60) umol/L NT-Pro-B Natriuret Pep 661 H (0-125) pg/mL Total Protein 6.7 (6.6-8.7) g/dL Albumin 3.7 (3.5-5.2) g/dL Globulin 3.0 (1.3-4.6) g/dL 10/27/20 10/27/20 10/27/20 Range/Units 03:50 03:59 04:00 WBC (4.0-10.0) 10^3/ uL RBC (4.1-5.3) 10^6/u L Hgb (11.7-16.6) g/dL Hct (42.0-52.0) % MCV (80-94) fL MCH (28.0-34.0) pg MCHC (30.0-36.0) g/dL RDW (12.1-15.1) % Plt Count (130-400) 10^3/c mm MPV (7.4-10.4) fL Neut % (Auto) % Lymph % (Auto) % Blaine % (Auto) % Eos % (Auto) % Baso % (Auto) % Neut # (Auto) (1.8-7.7) 10^3/u L Lymph # (Auto) (0.8-4.8) 10^3/u L Blaine # (Auto) (0.2-0.9) 10^3/u L Eos # (Auto) (0.0-0.8) 10^3/u L Baso # (Auto) (0.0-0.1) 10^3/u L Nucleated RBC % (a uto) % Nucleated RBCs # /100WBC PT (12.1-14.9) SECO NDS INR (0.8-1.2) Specimen Type Arterial Sample Site Radial, left ABG pH 7.35 (7.35-7.45) ABG pCO2 72.5 H* (35-45) mmHg ABG pO2 118.0 H (80.0-100.0) mmH g ABG HCO3 40.1 H (22-26) mmol/L ABG Base Excess 11.8 H (-2.0-2.0) mmol/ L Sang Test Pos Hematocrit 35.9 L (42-52) % Hgb O2 Saturation 95.0 (95-100) % Carboxyhemoglobin 3.2 (0.4-20.1) %THgb Methemoglobin 0.8 (0.4-1.5) % Total Hemoglobin 11.7 L (14-18) g/dL O2 Delivery Device Nc O2 Liters/Min 4.0 % Snack Bar Cashier ID ellpe Sodium (136-145) mmol/L Potassium (3.5-5.1) mmol/L Chloride (98-107) mmol/L Carbon Dioxide (22-29) mmol/L Anion Gap (5-19) BUN (8-23) mg/dL Creatinine (0.7-1.2) mg/dL GFR Calculation Glucose (65-115) mg/dL POC Glucose 158 H (70-110) mg/dL Calculated Osmolal ity (285-295) mOsm/k g Calcium (8.5-10.5) mg/dL Total Bilirubin (0.15-1.2) mg/dL AST (0-40) U/L ALT (0-41) U/L Alkaline Phosphata se (40-130) IU/L Ammonia 46 (16-60) umol/L NT-Pro-B Natriuret Pep (0-125) pg/mL Total Protein (6.6-8.7) g/dL Albumin (3.5-5.2) g/dL Globulin (1.3-4.6) g/dL Imaging Data^: CXR: Attestation: I personally reviewed and interpreted this imaging study as follows: My impression: No acute abnormality CT Head: Radiologist's impression: [facility] [address] [place] [address] CT Scan Report Signed Patient: Damon King Unit #: [id number] : 1950 Age/Sex: 70 / M ADM Date: 10/27/20 Loc: ER Room/Bed: Attending Dr: Ordering Provider/Ordering MD: Diana Cohen MD Date of Service: 10/27/20 Procedure(s): CT head wo con* [id number] Accession Number(s): [id number] Report Number: [id number] PROCEDURE INFORMATION: Exam: CT Head Without Contrast Exam date and time: 10/27/2020 4:04 AM Age: 70 years old Clinical indication: Altered mental status/memory loss; Confusion or disorientation; Prior surgery; Patient HX: AMS. Confusion. History of CVA. Best exam obtained due to patient kyphosis and very labored breathing. ; Additional info: Ans TECHNIQUE: Imaging protocol: Computed tomography of the head without contrast. Radiation optimization: All CT scans at this facility use at least one of these dose optimization techniques: automated exposure control; mA and/or kV adjustment per patient size (includes targeted exams where dose is matched to clinical indication); or iterative reconstruction. COMPARISON: CT head wo con* [id number] 04/05/2020 11:30 PM RADIATION DOSE METRICS: Total DLP (mGy-cm): 772.13 FINDINGS: Brain: No acute intracranial hemorrhage or mass effect. There is decreased attenuation in the periventricular white matter, likely from microvascular disease. Old infarcts again seen in the occipital regions bilaterally, larger on the left. No definite acute infarct by CT. MRI could be more sensitive/specific for detection, as clinically directed. Cerebral ventricles: Ventricle size is normal for age. Bones/joints: No definite acute skull fracture. Paranasal sinuses: Mild opacity/mucosal thickening in the ethmoid sinuses. Included paranasal sinuses otherwise appear essentially clear. Mastoid air cells: No significant acute finding. CT/CT head wo con* [id number] IMPRESSION: 1. No acute intracranial hemorrhage or mass effect. 2. Changes of microvascular disease, and bilateral old occipital infarcts. 3. No definite acute infarct by CT, see above. 4. Other findings discussed above. 5. Some limitations due to artifact from patient motion. EKG Data^: EKG 1: Attestation: I personally reviewed and interpreted this EKG as follows: EKG Interpretation Date: 10/27/20 EKG interpretation time: 03:45 Interpretation: afib with rv hr [address] or t wave abnormalities qrs 132 qtc 439 Critical Care Time Critical Care Time: Critical Care Time: Yes Total Critical Care Time: 35 Attestation: This case had a high probability of a clinically significant, sudden, or life threatening deterioration of this patient's condition which required my full and direct attention, intervention and personal management. Discharge Plan Discharge Patient Disposition: Admitted As Inpatient Clinical Impression: COPD exacerbation Altered mental status Qualifiers: Altered mental status type: unspecified Qualified Code(s): R41.82 - Altered mental status, unspecified Condition: Stable Coding Level of Care Code ED Steward/Stewardess Dining Room for Chg Fwd Exam Comprehensive
[2020-10-27 03:54] LABS: Glucose Point of Care 158 mg/dL (70-110)
--- NOTE | 2020-10-27 03:54 | CTR_ITS ---
PROCEDURE INFORMATION: Exam: CT Head Without Contrast Exam date and time: 10/27/2020 4:04 AM Age: 70 years old Clinical indication: Altered mental status/memory loss; Confusion or disorientation; Prior surgery; Patient HX: AMS. Confusion. History of CVA. Best exam obtained due to patient kyphosis and very labored breathing. ; Additional info: Ans TECHNIQUE: Imaging protocol: Computed tomography of the head without contrast. Radiation optimization: All CT scans at this facility use at least one of these dose optimization techniques: automated exposure control; mA and/or kV adjustment per patient size (includes targeted exams where dose is matched to clinical indication); or iterative reconstruction. COMPARISON: CT head wo con* [id number] 04/05/2020 11:30 PM RADIATION DOSE METRICS: Total DLP (mGy-cm): 772.13 FINDINGS: Brain: No acute intracranial hemorrhage or mass effect. There is decreased attenuation in the periventricular white matter, likely from microvascular disease. Old infarcts again seen in the occipital regions bilaterally, larger on the left. No definite acute infarct by CT. MRI could be more sensitive/specific for detection, as clinically directed. Cerebral ventricles: Ventricle size is normal for age. Bones/joints: No definite acute skull fracture. Paranasal sinuses: Mild opacity/mucosal thickening in the ethmoid sinuses. Included paranasal sinuses otherwise appear essentially clear. Mastoid air cells: No significant acute finding. CT/CT head wo con* [id number] IMPRESSION: 1. No acute intracranial hemorrhage or mass effect. 2. Changes of microvascular disease, and bilateral old occipital infarcts. 3. No definite acute infarct by CT, see above. 4. Other findings discussed above. 5. Some limitations due to artifact from patient motion. Radiation Dose CTDIVOL = (mGy): DLP = 772.13 (mGy-cm)
[2020-10-27] MEDS: ipratropium-albuterol 3 mL Neb INHALATION ×2 (03:59→22:15)
[2020-10-27 04:05] LABS: Basophils % 0.2 %; Eosinophils # 0.1 10^3/uL (0.0-0.8); Eosinophils % 0.7 %; Hematocrit 37.9 % (42.0-52.0); Hemoglobin 11.7 g/dL (11.7-16.6); Lymphocytes # 0.5 10^3/uL (0.8-4.8); Lymphocytes % 5.8 %; Mean Corpuscular HGB Conc 30.9 g/dL (30.0-36.0); Mean Corpuscular Hemoglobin 30.8 pg (28.0-34.0); Mean Corpuscular Volume 99.7 fL (80-94); Monocytes # 0.7 10^3/uL (0.2-0.9); Monocytes % 7.4 %; Neutrophils % 85.6 %; Nucleated Red Blood Cells % 0 %; Platelet Count 336 10^3/cmm (130-400); Red Cell Distribution Width 13.2 % (12.1-15.1); White Blood Count 8.8 10^3/uL (4.0-10.0)
[2020-10-27 04:11] LABS: ABG PH Result 7.35 (7.35-7.45); Arterial Blood Gas Hematocrit 35.9 % (42-52); Base Excess ABG 11.8 mmol/L (-2.0-2.0); Blood Gas Allen Test Pos; Blood Gas Sample Site Radial, left; Blood Gas Sample Type Arterial; Carboxyhemoglobin 3.2 %THgb (0.4-20.1); HCO3 ABG 40.1 mmol/L (22-26); Methemoglobin 0.8 % (0.4-1.5); Oxygen Device NC; Total Hemoglobin 11.7 g/dL (14-18)
[2020-10-27 04:12] LABS: ABG PCO2 72.5 mmHg (35-45)
[2020-10-27 04:25] LABS: Ammonia 46 umol/L (16-60)
[2020-10-27 04:34] LABS: Alanine Aminotransferase 18 U/L (0-41); Albumin Level 3.7 g/dL (3.5-5.2); Alkaline Phosphatase 132 IU/L (40-130); Blood Urea Nitrogen 9 mg/dL (8-23); Calcium 8.6 mg/dL (8.5-10.5); Carbon Dioxide 38 mmol/L (22-29); Chloride 91 mmol/L (98-107); Glucose 146 mg/dL (65-115); NT Pro B Type Natriuretic Pept 661 pg/mL (0-125); Osmolality Calculated 277 mOsm/kg (285-295); Sodium 133 mmol/L (136-145); Total Bilirubin 0.4 mg/dL (0.15-1.2); Total Protein 6.7 g/dL (6.6-8.7)
[2020-10-27 04:36] LABS: Anion Gap 8.3 (5-19); Aspartate Amino Transferase 30 U/L (0-40); Potassium 4.3 mmol/L (3.5-5.1)
--- NOTE | 2020-10-27 04:52 | P.HP_ITS ---
Providers/Chief Complaint Primary Care Provider: Carmen Bernardo NP Chief Complaint: AMS History of Present Illness Damon King is a 70 year old male who has multiple comorbid conditions and was recently discharged from the hospital after left AKA, has severe peripheral vascular disease, oxygen dependent COPD uses 3 to 4 L of oxygen at home, pulmonary hypertension, renal artery stenosis, bilateral carotid stenosis status post bilateral CEA, mechanical aortic valve chronic anticoagulation with Coumadin, during his previous hospitalization EGD on 09/24 showed gastritis and 2 superficial ulcer with minimal residual blood, Coumadin was restarted after a week and he was discharged on 10/07, presented today with chief complaint of alter ed mental status. Patient recently got discharged from a [facility] on Sunday, at home he started experiencing shortness of breath with active wheezing yesterday that prompted his son to call EMS. Patient is endorsing productive cough, bringing up bloody sputum sometimes grayish. Patient is denying fever, chest pain, pain in his right leg, dysuria or change in his bowel movements. Diagnostics in the ER revealed, normal CBC, INR 2.7, hypercapnia with compensation, hyperoxemia, BNP 600, his wheezing improved after DuoNeb treatment, head CT unremarkable, chest x-ray consistent with fibrotic changes at the apices I do not see any new consolidation Some confusion was noticed by the ER physician however at the time of my evaluation did not notice any confusion he was able to tell me his name, date of , name of the hospital and above HPI Review of Systems Const: Reports: chills, body aches and fatigue; Denies: fever(s) Eyes: Denies: change in vision ENMT: Denies: throat pain Card: Denies: chest pain Resp: Reports: dyspnea, productive cough and wheezing GI: Denies: abdominal pain : Denies: flank pain Musc: Denies: neck pain Skin/Breast: Reports: skin swelling, non-healing lesions, lesions, changes in skin color and dry skin Neuro: Denies: headache(s), dizziness, confusion or Slurred speech present Psych: Denies: anxiety Endo: Denies: polyuria Ramon/Lymph: Denies: easy bruising All/Imm: Denies: urticaria Medications/Allergies Home Medications Medication Instructions Recorded Confirmed Last Taken Type atorvastatin 80 mg tablet 80 mg PO DAILY@2100 04/08/20 09/13/20 09/12/20 History budesonide-formoterol HFA 80 2 puff INHALATION BID@0700,2100 04/08/20 09/13/20 09/13/20 History mcg-4.5 mcg/actuation aerosol inhaler gabapentin 300 mg capsule 300 mg PO TID@,04/08/20 09/13/20 09/13/20 History metoprolol tartrate 25 mg tablet 25 mg PO BID@0700,2100 04/08/20 09/13/20 09/13/20 History potassium chloride 10 mEq 10 meq PO DAILY@0700 04/08/20 09/13/20 09/13/20 History tablet,extended release tamsulosin 0.4 mg capsule 0.4 mg PO DAILY@0700 04/08/20 09/13/20 09/13/20 History warfarin 2 mg tablet See Rx Instructions .ROUTE .COMPLEX 04/08/20 09/13/20 09/12/20 History warfarin See Rx Instructions .ROUTE .COMPLEX 09/13/20 09/13/20 09/13/20 History pantoprazole 40 mg PO BID #60 tab 10/07/20 Unknown Rx Allergies Allergy/AdvReac Type Severity Reaction Status Date / Time divalproex sodium AdvReac Mild nausea Verified 10/27/20 03:47 [From Depakote] PFSH Acute PFSH: Medical History Bilateral carotid artery stenosis BPH (benign prostatic hyperplasia) Chronic anticoagulation coumadin, for mechanical AVR COPD (chronic obstructive pulmonary disease) CVA (cerebral vascular accident) Depression GERD (gastroesophageal reflux disease) History of PFTs (~08/2018) 08/20: severe obstructive ventilatory defect, no significant bronchodilator response, severely reduced diffusion capacity Hyperlipidemia Hypertension Nicotine dependence, cigarettes, with other nicotine-induced disorders On home oxygen therapy 3L BNC continuous Osteoarthritis Pulmonary hypertension Right renal artery stenosis >60% Severe peripheral arterial disease Surgical History History of angioplasty of peripheral vessel (~2017) in 2018, unsuccessful by Dr Putnam and later also Dr Calixto per old records, [place] [facility] [place] of [place] valve replacement (~2008) Dr Bolton, mechanical History of CEA (carotid endarterectomy) right ~2008, left ~2010 History of ear surgery History of testicular surgery right orchiectomy for undescended testicle as a child Family History Other CAD (coronary artery disease) Diabetes Social History Smoking and tobacco status: current every day smoker cigarettes Alcohol intake: current Alcohol intake frequency: 0-2 Drinks per Day Household members: family and other Details: son + Vitals/I&O/Wt Last Vital Signs Temp 98.1 F 10/27/20 03:43 Pulse 103 H 10/27/20 04:07 Resp 28 H 10/27/20 04:02 BP 145/99 10/27/20 03:58 Pulse Ox 99 10/27/20 04:02 Weight last 48 hrs Weight 63.503 kg Physical Exam Narrative: EXAM NARRATIVE: elderly male, cooperative and pleasant during my evaluation Currently saturating well on 4 L nasal cannula Has upper airway secretions No use of respiratory accessory muscles, bilateral breath sounds with crepitations, reduced airflow bilaterally S1, S2 loud systolic mechanical aortic valve sound, clinically looks dehydrated however right leg shows edema Abdomen soft nontender Awake alert oriented x3 GCS 15 He is hard of hearing Ischemic ulcer of right toes, nonhealing ulcer, weak dorsalis pedis pulses however pulses detected with dorsalis pedis, no active sign of cellulitis, skin sloughing off throughout right leg Left leg AKA, well-healed wound Data : 10/27/20 03:37 10/27/20 03:37 Other data: CT/CT angio [facility] [id number] IMPRESSION: 1. Poor bilateral lower extremity runoff with poor inflow. 2. Single vessel runoff to the right lower extremity and two-vessel runoff to the left lower extremity. 3. Bilateral superficial femoral arteries are occluded with high-grade heavily calcified stenosis involving the popliteal arteries bilaterally with intermitte nt flow. 4. Both common iliac arteries are patent and heavily calcified. 5. Left common femoral artery is occluded. Severe stenosis right common femoral artery A&P Assessment and plan (1) COPD exacerbation: Status: Acute (2) Acute delirium: Status: Acute (3) H/O mechanical aortic valve replacement: Status: Acute (4) On home oxygen therapy: Status: Chronic (5) Nicotine dependence, cigarettes, with other nicotine-induced disorders: Status: Chronic (6) Severe peripheral arterial disease: Status: Chronic (7) COPD (chronic obstructive pulmonary disease): Status: Chronic (8) Pulmonary hypertension: Status: Chronic (9) Ischemic ulcer of right foot: Status: Acute Additional A&P Information Acute COPD exacerbation Chest x-ray consistent with fibrotic changes no new consolidation, official read is pending, has positive wheezing, upper airway secretions with resonance to his chest, would use DuoNeb with Mucomyst, hold off on antibiotics for now He was on 6 L of oxygen when I was interviewing however this was titrated down to 4 L No active signs of delirium, ER physician noticed confusion which improved after DuoNeb treatment, ABG does not show decompensated hypercapnia however PCO2 72 and bicarb seems to be at his baseline which is appropriate for chronic hypercapnia Patient refused BiPAP Would use azithromycin for anti-inflammatory effect for now, high BNP with pulmonary hypertension, clinically has very mild signs of fluid overload would use low-dose Lasix for now He is an active smoker as well which could have contributed for COPD exacerbation Mechanical aortic valve INR 2.7 continue Coumadin check INR tomorrow Ischemic ulcer of right foot Left leg AKA Nonhealing ischemic ulcers of right toes without active cellulitis, right foot Doppler showed weak pulses of dorsalis pedis, Full code Cardiac diet DVT prophylaxis not indicated due to Coumadin usage Attestations Medical Necessity Statement*: Anticipating discharge in less than 48 hours, has multiple comorbid conditions and has active wheezing, will need DuoNeb treatment and adjustment of Lasix dosage Time Spent in Patient Care: 35mins Coding Level of Care Code Acute Circus Agent for [facility] Fwd Diagnoses COPD exacerbation J44.1 Acute delirium R41.0 H/O mechanical aortic valve replacement Z95.2 On home oxygen therapy Z99.81 Nicotine dependence, cigarettes, with other nicotine-induced disorders F17.218 Severe peripheral arterial disease I73.9 COPD (chronic obstructive pulmonary disease) J44.9 Pulmonary hypertension I27.20 Ischemic ulcer of right foot L97.519
[2020-10-27 05:26] LABS: Add Urine Microscopic? YES; Bacteria Urine TRACE /hpf; Bilirubin Urine Neg (Negative); Blood Urine Neg (Negative); Glucose Urine UA Norm (Normal); Ketones Urine Negative (Negative); Leukocyte Esterase Urine Negative (Negative); Nitrate Urine Negative (Negative); Protein Urine Trace (Negative); RBC Urine 0-4 /hpf (0-2); Specific Gravity, Urine 1.025 (1.005-1.030); Sulfosalicylic Acid Urine Negative (Negative); Urine Appearance Clear (CLEAR); Urine Color Yellow (Yellow); Urobilinogen Urine Norm (Negative); WBC Urine 0-4 /hpf (0-5); pH Urine 5 (5-7)
[2020-10-27 05:27] LABS: Add Urine Culture? No; Mucus Urine 3+ /hpf
[2020-10-27 05:38] LABS: Vitamin B12 624 pg/mL (232-1245)
[2020-10-27] MEDS: metoprolol tartrate 25 mg Tablet PO ×2 (06:25→21:07)
[2020-10-27] MEDS: tamsulosin 0.4 mg Capsule PO (06:25)
--- NOTE | 2020-10-27 07:21 | PC.NURSE ---
AM ASSESSMENT PT RESTING ON RIGHT SIDE - RECENT ADMIT TO ROOM 279-2 - [address] AT 4L NC - RESP SHALLOW - PT DOES NOT AWAKE TO ASSESSMENT - PER RN HANDING PT OFF - ADMISSION RECENTLY COMPLETED WITH PT REMAINING ORIENTATED ONLY TO SELF 1:1 SITTER AT SIDE - WILL MONITOR
--- NOTE | 2020-10-27 08:52 | PC.PHAR ---
pts daughter in law roberto states they just got the pt from the assisted on sunday-pts daughter in law states the entered medications are the only medications the pt is taking-ext med history shows norvasc 5mg daily filledo n 07/26/20 90d/s-lasix 40mg po qam filled on 09/07/20 90d/s-quetiapine 50mg bid filled on 09/04/20 75d/s-chantix starting ton filled 09/04/20 28d/s-lidocaine 5% ointment as directed filled on 10/19/20 30d/s-lasix 20mg qam filled on 08/30/20 90d/s-proair inhaler -pts daughter in law states the pt has none of those medications - pts daughter in law states they had a appt with a pcp today to sort threw the meds
[2020-10-27] MEDS: azithromycin 250 mg Tablet 500 MG PO (09:14)
[2020-10-27] MEDS: amlodipine 10 mg Tablet PO (09:14)
[2020-10-27] MEDS: FUROsemide 20 mg Tablet PO (09:14)
[2020-10-27] MEDS: pantoprazole DR 40 mg Tablet PO ×2 (09:15→17:12)
[2020-10-27] MEDS: predniSONE 20 mg Tablet PO (09:15)
--- NOTE | 2020-10-27 10:14 | PC.NURSE ---
RIGHT LEG RIGHT LEG PULSES DOPPLED PER MONTY RN STUDENT
[2020-10-27] MEDS: warfarin 2 mg Tablet PO (13:27)
[2020-10-27] MEDS: acetaminophen 500 mg Tablet PO (13:27)
--- NOTE | 2020-10-27 16:36 | P.PN_ITS ---
Subjective Subjective: Interval history: Patient was seen and examined this morning.No acute event overnight.Patient says that he fells fine and dont know why he is in hospital.According to him he has not slept for few night and thats what is making him fell fatigued.Likely sleep deprivation is due to change in environment as he was recently discharged from a SNF. Vitals/I&O/Wt Last Vital Signs Temp 98.2 F 10/27/20 15:48 Pulse 107 H 10/27/20 15:48 Resp 20 H 10/27/20 15:48 BP 142/82 10/27/20 15:48 Pulse Ox 98 10/27/20 15:48 10/27/20 10/27/20 10/27/20 06:59 14:59 22:59 Output Total 200 / 200 1150 / 1150 200 / 1350 Balance -200 / -200 -1150 / -1150 -200 / -1350 Weight last 48 hrs Weight 63.503 kg Physical Exam Const: COMMON NORMALS: patient oriented x3 HENMT: COMMON NORMALS: normocephalic and atraumatic HEAD & SCALP: normocephalic and atraumatic Chest: CHEST: Yes Symmetrical chest wall rise Resp: COMMON NORMALS: clear to auscultation bilaterally EFFORT & INSPECTION: Yes symmetric chest movement AUSCULTATION: clear to auscultation bilaterally Cardio: COMMON NORMALS: regular rate, regular rhythm, S1 normal heart sound present, S2 normal heart sound present, No gallops present (Cardio), No murmurs present (Cardio), No rub (Cardio) and Peripheral pulses 2+ throughout RATE: regular rate RHYTHM: regular rhythm HEART SOUNDS: S1 normal heart sound present and S2 normal heart sound present PERIPHERAL PULSES: Peripheral pulses 2+ throughout GI: COMMON NORMALS: Normal to inspection, nondistended, normoactive bowel sounds present, Soft to palpation, non-tender, No hepatosplenomegaly present and no masses AUSCULTATION: Yes normoactive bowel sounds PALPATION: Yes Soft to palpation and Yes No hepatosplenomegaly present RECTAL EXAM: Yes deferred Extremity: COMMON NORMALS: no clubbing, cyanosis or edema and no pedal edema Neuro: COMMON NORMALS: patient oriented x3 Data : 10/27/20 03:37 10/27/20 03:37 Micro: Microbiology 10/27/20 03:57 Blood Culture - Preliminary Blood SPECIMEN COLLECTED 10/27/20 03:55 Blood Culture - Preliminary Blood SPECIMEN COLLECTED A&P Assessment and plan (1) COPD exacerbation: Currently on DuoNebs Azithromycin 500 mg daily Prednisone 20 mg p.o. daily Supplemental oxygen to maintain saturation greater than 95% Status: Acute (2) Acute delirium: Likely secondary to sleep deprivation Resolved: Status: Acute (3) H/O mechanical aortic valve replacement: INR 2.7 continue Coumadin check INR Status: Acute (4) On home oxygen therapy: Status: Chronic (5) Nicotine dependence, cigarettes, with other nicotine-induced disorders: Status: Chronic (6) Severe peripheral arterial disease: Status: Chronic (7) COPD (chronic obstructive pulmonary disease): Status: Chronic (8) Pulmonary hypertension: Status: Chronic (9) Ischemic ulcer of right foot: Status: Acute Additional A&P Information Acute COPD exacerbation Chest x-ray consistent with fibrotic changes no new consolidation, official read is pending, has positive wheezing, upper airway secretions with resonance to his chest, would use DuoNeb with Mucomyst, hold off on antibiotics for now He was on 6 L of oxygen when I was interviewing however this was titrated down to 4 L No active signs of delirium, ER physician noticed confusion which improved after DuoNeb treatment, ABG does not show decompensated hypercapnia however PCO2 72 and bicarb seems to be at his baseline which is appropriate for chronic hypercapnia Patient refused BiPAP Would use azithromycin for anti-inflammatory effect for now, high BNP with pulmonary hypertension, clinically has very mild signs of fluid overload would use low-dose Lasix for now He is an active smoker as well which could have contributed for COPD exacerb ation Mechanical aortic valve INR 2.7 continue Coumadin check INR tomorrow Ischemic ulcer of right foot Left leg AKA Nonhealing ischemic ulcers of right toes without active cellulitis, right foot Doppler showed weak pulses of dorsalis pedis, Full code Cardiac diet DVT prophylaxis not indicated due to Coumadin usage Attestations Medical Necessity Statement*: Patient needs to be in hospital for management of COPD exacerbation. Coding Level of Care Code Acute [employer] Of [employer] for Jose Roberto Washburn Diagnoses COPD exacerbation J44.1 Acute delirium R41.0 H/O mechanical aortic valve replacement Z95.2 On home oxygen therapy Z99.81 Nicotine dependence, cigarettes, with other nicotine-induced disorders F17.218 Severe peripheral arterial disease I73.9 COPD (chronic obstructive pulmonary disease) J44.9 Pulmonary hypertension I27.20 Ischemic ulcer of right foot L97.519
[2020-10-27] MEDS: guaiFENesin 600 mg Tablet PO (17:12)
[2020-10-27] MEDS: atorvastatin 40 mg Tablet 80 MG PO (21:07)
[2020-10-28 00:22] VITALS: BP 115/73; PULSE 91; RESP 19; TEMP 36.9; O2SAT 99
[2020-10-28 04:35] VITALS: BP 120/78; PULSE 108; RESP 18; TEMP 37.3; O2SAT 97
[2020-10-28 05:34] LABS: INR 3.12 (0.8-1.2)
[2020-10-28 05:50] LABS: Anion Gap 8.6 (5-19); Blood Urea Nitrogen 14 mg/dL (8-23); Calcium 8.6 mg/dL (8.5-10.5); Chloride 92 mmol/L (98-107); Glucose 123 mg/dL (65-115); Osmolality Calculated 288 mOsm/kg (285-295); Potassium 3.6 mmol/L (3.5-5.1); Sodium 138 mmol/L (136-145)
[2020-10-28 05:52] LABS: Carbon Dioxide 41 mmol/L (22-29)
[2020-10-28] MEDS: tamsulosin 0.4 mg Capsule PO (06:07)
[2020-10-28] MEDS: metoprolol tartrate 25 mg Tablet PO (06:07)
[2020-10-28 08:00] VITALS: BP 130/80; PULSE 99; RESP 18; TEMP 36.7; O2SAT 99
[2020-10-28 08:48] VITALS: PULSE 89; RESP 17; O2SAT 97
[2020-10-28] MEDS: ipratropium-albuterol 3 mL Neb INHALATION (08:48)
[2020-10-28] MEDS: pantoprazole DR 40 mg Tablet PO (09:14)
[2020-10-28] MEDS: azithromycin 250 mg Tablet 500 MG PO (09:14)
[2020-10-28] MEDS: FUROsemide 20 mg Tablet PO (09:14)
[2020-10-28] MEDS: guaiFENesin 600 mg Tablet PO (09:14)
[2020-10-28] MEDS: predniSONE 20 mg Tablet PO (09:14)
[2020-10-28] MEDS: amlodipine 10 mg Tablet PO (09:14)
--- NOTE | 2020-10-28 10:58 | P.DS_ITS ---
Discharge Providers Date of Admission: 10/27/20 04:52 Date of Discharge: October 28, 2020 Attending Provider at Admission: Cricket Madrigal MD Attending Provider at Discharge: Js Hubbard MD Primary Care Provider: Carmen Bernardo NP Diagnoses at Discharge Discharge Diagnosis (1) COPD exacerbation: Status: Resolved (2) Acute delirium: Status: Resolved (3) H/O mechanical aortic valve replacement: Status: Acute (4) On home oxygen therapy: Status: Chronic Permanent problem details: 3L BNC continuous (5) Nicotine dependence, cigarettes, with other nicotine-induced disorders: Status: Chronic (6) Severe peripheral arterial disease: Status: Chronic (7) COPD (chronic obstructive pulmonary disease): Status: Chronic (8) Pulmonary hypertension: Status: Chronic (9) Ischemic ulcer of right foot: Status: Acute Reason for Visit Reason for Visit: AMS Hospital Course Hospital Course 70 year old male who has multiple comorbid conditions and was recently discharged from the hospital after left AKA, has severe peripheral vascular disease, oxygen dependent COPD uses 3 to 4 L of oxygen at home, pulmonary hypertension, renal artery stenosis, bilateral carotid stenosis status post bilateral CEA, mechanical aortic valve chronic anticoagulation with Coumadin, during his previous hospitalization EGD on 09/24 showed gastritis and 2 superficial ulcer with minimal residual blood, Coumadin was restarted after a week and he was discharged on 10/07, was admitted for the management of Ac encephalopathy likely 2/2 sleep deprivation , he was also admitted for the management of COPD Exacerbation.He was kept on duo nebs as well as prednisone while in patient along with azithromycin.Patient responded well to the above medical management and at the time of discharge he was at his baseline mentation,ac encephalopathy has resolved. He was at his baseline oxygen requirement, he was not wheezing,denied any cough, SOB.Patient was discharged in stable condition to home.He will continue to follow His PCP as well as as outpatient. Physical Exam Const: COMMON NORMALS: patient oriented x3 HENMT: COMMON NORMALS: normocephalic and atraumatic HEAD & SCALP: normocephalic and atraumatic Chest: CHEST: Yes Symmetrical chest wall rise Resp: COMMON NORMALS: clear to auscultation bilaterally EFFORT & INSPECTION: Yes symmetric chest movement AUSCULTATION: clear to auscultation bilaterally Cardio: COMMON NORMALS: No gallops present (Cardio), No murmurs present (Cardio) and No rub (Cardio) OTHER: Mechanical aortic click GI: COMMON NORMALS: Normal to inspection, nondistended, normoactive bowel sounds present, Soft to palpation, non-tender, No hepatosplenomegaly present and no masses AUSCULTATION: Yes normoactive bowel sounds PALPATION: Yes Soft to palpation and Yes No hepatosplenomegaly present RECTAL EXAM: Yes deferred Extremity: COMMON NORMALS: no clubbing, cyanosis or edema and no pedal edema NARRATIVE EXTREMITY EXAM: Ischemic ulcer of right toes, nonhealing ulcer, skin sloughing off in the right leg Left leg AKA, well-healed wound. Neuro: COMMON NORMALS: patient oriented x3 Discharge Data Data Completed and Pending: Completed Studies During Hospitalization Category Date Time Status CT head wo con* [id number] Urgent Cat Scan 10/27/20 03:54 Completed XR chest 1V caleb ble [id number] Urgent Exams 10/27/20 03:43 Completed Pending at discharge Category Date Time Status Blood Culture Sta t Lab 10/27/20 03:57 Results Prothrombin Time INR AM LABS Lab 10/29/20 04:00 Ordered Prothrombin Time INR AM LABS Lab 10/30/20 04:00 Ordered Labs from last 24 hours 10/28/20 10/28/20 04:55 04:55 PT 32.60 H INR 3.12 H Sodium 138 Potassium 3.6 Chloride 92 L Carbon Dioxide 41 H Anion Gap 8.6 BUN 14 Creatinine 0.4 L GFR Calculation Not Reportable Glucose 123 H Calculated Osmolal ity 288 Calcium 8.6 Vitals: Last Vital Signs Temp 98.1 F 10/28/20 08:00 Pulse 89 10/28/20 08:48 Resp 17 10/28/20 08:48 BP 130/80 10/28/20 08:00 Pulse Ox 97 10/28/20 08:48 Discharge Plan Discharge Patient Disposition: Home Condition: Stable Prescriptions: Continued potassium chloride 10 mEq tablet extended release 10 meq PO DAILY RF: 0 tamsulosin 0.4 mg capsule 0.4 mg PO QAM RF: 0 gabapentin 300 mg capsule 300 mg PO TID RF: 0 atorvastatin 80 mg tablet 80 mg PO BEDTIME RF: 0 metoprolol tartrate 25 mg tablet 25 mg PO BID RF: 0 budesonide-formoterol [Symbicort] 80-4.5 mcg/actuation HFA aerosol inhaler 2 puff INHALATION BID RF: 0 pantoprazole 40 mg Tablet,Delayed Release (Dr/Ec) 40 mg PO BID Qty: 60 RF: 0 hydrocodone-acetaminophen 10-325 mg tablet 1 tab PO QID PRN (Reason: Pain) RF: 0 warfarin 2 mg tablet 2 mg PO QAM RF: 0 Discharge Orders: Discharge Order (Routine); Ordered 10/28/20 Ordered By: Js Hubbard Referrals: Carmen Bernardo NP [Primary Care Provider] - 11/02/20 2:00 pm Discharge Diet: Regular Discharge Activity: Resume usual activity Patient Instructions: COPD, Acute Delirium (DC), Altered Mental Status (GEN), COPD Stoplight, Opioid Safety Discharge Attestations Time Spent in Discharge Care*: less than 30 min Specific Discharge Activities: educating patient, educating and/or supporting family/caregiver, discussing with case management assistant/social workers/dc planners, documenting/other paperwork and evaluating patient/reviewing data Status at Discharge: Cognitive status at discharge: cognitively intact , Behavioral status at discharge: cooperative , Functional status at discharge: other assisted ambulation Overall status at discharge: patient is back to baseline Quality Metrics Clinical Quality Measures During this hospital stay, did patient experience: None Coding Level of Care Code Acute Chg FW DC note Diagnoses COPD exacerbation J44.1 Acute delirium R41.0 H/O mechanical aortic valve replacement Z95.2 On home oxygen therapy Z99.81 Nicotine dependence, cigarettes, with other nicotine-induced disorders F17.218 Severe peripheral arterial disease I73.9 COPD (chronic obstructive pulmonary disease) J44.9 Pulmonary hypertension I27.20 Ischemic ulcer of right foot L97.519
--- NOTE | 2020-10-28 11:06 | PC.CHAP ---
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 [] Patient/Family/Request visit [] Outpatient visit [] Follow-up visit [] Physician referral [] Code/Alert [] Routine visit [] Staff referral [] Actively dying [] Patient sleeping [] Family support [] [] Out of room [] Palliative care [] [] Receiving care in room [] Pre-surgical visit [] Trauma [] Long length of stay [] ICU visit [] Other: Relational/Emotional Strength [] Patient feels connected with others/family/visitors/staff [] Distress [] Loneliness/isolation [] Abandonment Spirituality of Patient [] Person of [place] [] Attends [employer] of their [place] [] Believes in Prayer [] Reads Bible or Episcopal materials [] There are Spiritual issues to be addressed 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 [] Prayer [] Active listening [] Non-anxious presence [] Spiritual/emotional support [] Crisis/trauma care [] Spiritual counseling [] Bereavement support [] Provided bereavement packet [] Provided Bible/devotional materials [] Provided toy/stuffed animal, coloring book to patient or family member [] Provided Communion [] Anointing/[place] [] Salvation [] Completed spiritual assessment [] Other: Impact on Illness or Injury [] Angry [] Fearful [] Anxious [] Often cries [] Exhaustion [] Unable to work [] Unable to attend buddhist [] Unable to walk/stand [] Unable to read [] Unable to drive [] Unable to eat/drink [] Unable to sleep [] Unable to be with family [] Patient intubated [] Other: Summary Declined gel coat sprayer visit Time spent with patient 5 mins
[2020-10-28 11:09] VITALS: BP 117/71; PULSE 103; RESP 17; TEMP 36.8; O2SAT 98
[2020-10-28 14:16] VITALS: BP 117/71; PULSE 103; RESP 17; TEMP 36.8; O2SAT 98
--- NOTE | 2020-11-01 18:13 | PC.RESP ---
Smoking Cessation and Pulmonary Rehab information sent to patient.
== END 2020-10-28 13:47 | disposition home or self-care (01) ==
LOC: ER 04:42 → MEDSURG 08:08
PROVIDERS: Admitting Provider Internal Medicine; Emergency Provider Emergency Medicine; PCP Nurse Practitioner Family; Visit Provider Internal Medicine
DX: J44.1 Chronic obstructive pulmonary disease with (acute) exacerbation (principal); R41.0 Disorientation, unspecified; Z95.2 Presence of prosthetic heart valve; Z99.81 Dependence on supplemental oxygen; F17.218 Nicotine dependence, cigarettes, with other nicotine-induced disorders; I73.9 Peripheral vascular disease, unspecified; J44.9 Chronic obstructive pulmonary disease, unspecified; I27.20 Pulmonary hypertension, unspecified; L97.519 Non-pressure chronic ulcer of other part of right foot with unspecified severity; N40.0 Benign prostatic hyperplasia without lower urinary tract symptoms; Z86.73 Personal history of transient ischemic attack (TIA), and cerebral infarction without residual deficits; K21.9 Gastro-esophageal reflux disease without esophagitis; E78.5 Hyperlipidemia, unspecified
CPT/HCPCS: 36415; 36416; 36600; 70450; 71045; 80048; 80053; 81001; 82140; 82607; 82805; 82962; 83880; 85025; 85610; 87040; 94640; 94660; 96374; 99285; G0378; J2930; J7512; J7611; Q0144

== ENCOUNTER 2020-11-02 13:57 | Inpatient (IN) | payer MEDICARE, SELFPAY ==
[2020-11-02] VITALS (67 sets, daily range): BP systolic 82–132; BP diastolic 38–81; PULSE 68–135; RESP 17–40; TEMP 36.5–36.9; O2SAT 78–100; BMI 16.7
--- NOTE | 2020-11-02 14:18 | ECG_ITS ---
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 Measurements Intervals [place] Rate: 126 P: 76 KS: 150 QRS: -68 QRSD: 105 T: 36 QT: 349 QTc: 506 Interpretive Statements Multifocal atrial tachycardia LOW QRS VOLTAGE [QRS DEFLECTION < 0.5/1.0 mV IN LIMB/CHEST LEADS] POSSIBLE RIGHT VENTRICULAR CONDUCTION DELAY [RSR (QR) IN V1/V2] ANTEROLATERAL MYOCARDIAL INFARCTION , OF INDETERMINATE AGE [40+ ms Q WAVE IN I/aVL/V3-V6] Compared to ECG 09/13/2020 15:36:12 Low QRS voltage now present Myocardial infarct finding now present Left-axis deviation no longer present Right bundle-branch block no longer present Electronically Signed On 11-03-2020 8:03:37 CDT by Marshall Oswald M.D. [id number]
--- NOTE | 2020-11-02 14:18 | XRR_ITS ---
PROCEDURE INFORMATION: Exam: XR Chest Exam date and time: 11/02/2020 2:37 PM Age: 70 years old Clinical indication: Cough and dyspnea; Additional info: Dyspnea/cough TECHNIQUE: Imaging protocol: XR of the chest. Views: 1 view. COMPARISON: CR XR chest 1V portable [id number] 10/27/2020 4:02 AM FINDINGS: Lungs: Severe emphysema. No focal lung consolidation. Surgical change in the left upper lobe. Spiculated opacity right upper lobe apex stable from recent prior. Hyperinflation of lungs. Pleural spaces: Unremarkable. No pleural effusion. No pneumothorax. Heart/Mediastinum: Prior CABG. Vasculature: Moderate volume atherosclerotic wall plaque of thoracic aorta. Bones/joints: Unremarkable. XR/XR chest 1V portable [id number] IMPRESSION: 1. No focal pneumonia is identified. 2. Severe emphysematous lung changes. 3. No significant change from comparison.
--- NOTE | 2020-11-02 14:51 | CTR_ITS ---
PROCEDURE INFORMATION: Exam: CTA Chest With Contrast Exam date and time: 11/02/2020 3:11 PM Age: 70 years old Clinical indication: Dyspnea and shortness of breath; Prior surgery; Surgery type: Open heart, valve, testicle; Patient HX: SOB, AMS, failure to thrive; Additional info: Dyspnea, PT unable to lift arms TECHNIQUE: Imaging protocol: Computed tomographic angiography of the chest with contrast. 3D rendering (Not supervised by radiologist): MIP and/or 3D reconstructed images were created by the technologist. Radiation optimization: All CT scans at this facility use at least one of these dose optimization techniques: automated exposure control; mA and/or kV adjustment per patient size (includes targeted exams where dose is matched to clinical indication); or iterative reconstruction. Contrast material: OMNI 350; Contrast volume: 95 ml; Contrast route: INTRAVENOUS (IV); COMPARISON: CT chest wo [facility] [id number] 09/28/2020 11:29 AM RADIATION DOSE METRICS: Total DLP (mGy-cm): 1100.77 FINDINGS: Pulmonary arteries: Normal. No pulmonary emboli. Aorta: Surgical changes are present at the aortic root. Proximal ascending thoracic aorta is mildly dilated up to 4.1 cm which is stable from comparison. No acute thoracic aorta dissection. Scattered atherosclerotic plaque. Lungs: Spiculated areas fibrotic interstitial scarring are noted in the lung apices. Severe bullous emphysematous changes. No focal acute pulmonary consolidation. Mild severity diffuse bronchial wall thickening. Scattered endobronchial filling defects in right lower lobe segmental bronchi most likely representing secretions. Pleural spaces: Resolution of pleural effusion seen prior. Negative for pneumothorax. Heart: No cardiac chamber enlargement. Negative for pericardial effusion. Aortic valve replacement is noted. Lymph nodes: Unremarkable. No enlarged lymph nodes. Bones/joints: Healed median sternotomy change. Soft tissues: Unremarkable. IMPRESSION: 1. Negative for pulmonary embolism. 2. No focal acute pulmonary disease. PROCEDURE INFORMATION: Exam: CT Abdomen And Pelvis With Contrast Exam date and time: 11/02/2020 3:11 PM Age: 70 years old Clinical indication: Dyspnea and shortness of breath; Prior surgery; Surgery type: Open heart, valve, testicle; Patient HX: SOB, AMS, failure to thrive; Additional info: Dyspnea, PT unable to lift arms TECHNIQUE: Imaging protocol: Computed tomography of the abdomen and pelvis with contrast. Radiation optimization: All CT scans at this facility use at least one of these dose optimization techniques: automated exposure control; mA and/or kV adjustment per patient size (includes targeted exams where dose is matched to clinical indication); or iterative reconstruction. Contrast material: OMNI 350; Contrast volume: 95 ml; Contrast route: INTRAVENOUS (IV); COMPARISON: CT chest con [id number] 09/28/2020 11:29 AM RADIATION DOSE METRICS: Total DLP (mGy-cm): 1100.77 FINDINGS: Liver: Normal. No mass. Gallbladder and bile ducts: Normal. No calcified stones. No ductal dilation. Pancreas: Atrophic changes of pancreas without focal lesion or acute peripancreatic inflammation. Spleen: Normal. No splenomegaly. Adrenal glands: Normal. No mass. Kidneys and ureters: Normal. No hydronephrosis. Stomach and bowel: Bowel loops are grossly unremarkable in appearance without focal inflammatory change or obvious focal mass. No convincing evidence of bowel obstruction. Negative for bowel perforation. Appendix: No evidence of appendicitis. Intraperitoneal space: Unremarkable. No free air. No significant fluid collection. Vasculature: Large atherosclerotic plaque volume throughout arterial system. No aneurysm. Severe stenosis is present bilateral common femoral arteries secondary to large volume bulky calcified atherosclerotic wall plaque. Left common femoral artery may be occluded. Lymph nodes: Unremarkable. No enlarged lymph nodes. Urinary bladder: Bladder is decompressed with Arellano catheter in place. Reproductive: Fluid collection in the right lower inguinal area and right scrotum, incompletely assessed; favor hydrocele. Bones/joints: Unremarkable. No acute fracture. Soft tissues: Lumbar paraspinal muscles are symmetric. Ventral abdominal wall is intact. CT/CT angio chest w abd pel w con IMPRESSION: 1. No acute findings in the abdomen or pelvis. 2. No suspicious soft tissue lesions within abdomen or pelvis. Radiation Dose CTDIVOL = (mGy): DLP = 1100.77~1100.77 (mGy-cm)
[2020-11-02 15:02] LABS: Basophils % 0.2 %; Eosinophils % 0.1 %; Hematocrit 51.3 % (42.0-52.0); Hemoglobin 15.1 g/dL (11.7-16.6); Lymphocytes # 0.4 10^3/uL (0.8-4.8); Lymphocytes % 2.3 %; Mean Corpuscular HGB Conc 29.4 g/dL (30.0-36.0); Mean Corpuscular Volume 101.8 fL (80-94); Mean Platelet Volume 10.1 fL (7.4-10.4); Monocytes % 5.7 %; Neutrophils # 16.48 10^3/uL (1.8-7.7); Neutrophils % 91.2 %; Nucleated Red Blood Cells % 0 %; Platelet Count 475 10^3/cmm (130-400); Red Blood Count 5.04 10^6/uL (4.1-5.3); Red Cell Distribution Width 13.3 % (12.1-15.1); White Blood Count 18.1 10^3/uL (4.0-10.0)
[2020-11-02 15:05] LABS: ABG PH Result 7.28 (7.35-7.45); Arterial Blood Gas Hematocrit 42.2 % (42-52); Base Excess ABG 15.8 mmol/L (-2.0-2.0); Blood Gas Allen Test Pos; Blood Gas Operator Identificat CAK; Blood Gas Sample Site Radial, left; Blood Gas Sample Type Arterial; Carboxyhemoglobin 4.1 %THgb (0.4-20.1); HCO3 ABG 47.6 mmol/L (22-26); HGB O2 Sat 76.8 % (95-100); Ionized Calcium Level - ABG 1.2 mmol/L (1.1-1.4); Methemoglobin 0.7 % (0.4-1.5); Oxygen Device NC; Oxygen Saturation ABG 80.7; PO2 ABG 52.9 mmHg (80.0-100.0); Potassium Level - ABG 4.3 mmol/L (3.5-5.0); Total Hemoglobin 13.8 g/dL (14-18)
[2020-11-02 15:23] LABS: Troponin(5th) Baseline 36 ng/L (0-15)
[2020-11-02 15:24] LABS: Lactic Sepsis W/Reflex 5.5 mmol/L (0.5-2.2)
[2020-11-02 15:30] LABS: Alanine Aminotransferase 34 U/L (0-41); Alkaline Phosphatase 147 IU/L (40-130); Aspartate Amino Transferase 34 U/L (0-40); Blood Urea Nitrogen 27 mg/dL (8-23); Calcium 9.8 mg/dL (8.5-10.5); Chloride 87 mmol/L (98-107); Creatine Phosphokinase 108 U/L (39-308); Globulin 2.5 g/dL (1.3-4.6); Glucose 183 mg/dL (65-115); Lipase 60 U/L (13-60); Magnesium 2.7 mg/dL (1.7-2.3); Osmolality Calculated 298 mOsm/kg (285-295); Sodium 139 mmol/L (136-145); Total Bilirubin 0.8 mg/dL (0.15-1.2); Total Protein 7.5 g/dL (6.6-8.7)
[2020-11-02] MEDS: iohexol 350 mg/mL 100 mL Btl IV (15:34)
--- NOTE | 2020-11-02 15:55 | CTR_ITS ---
PROCEDURE INFORMATION: Exam: CT Head Without Contrast Exam date and time: 11/02/2020 4:10 PM Age: 70 years old Clinical indication: Altered mental status/memory loss; Additional info: AMS TECHNIQUE: Imaging protocol: Computed tomography of the head without contrast. Radiation optimization: All CT scans at this facility use at least one of these dose optimization techniques: automated exposure control; mA and/or kV adjustment per patient size (includes targeted exams where dose is matched to clinical indication); or iterative reconstruction. COMPARISON: CT head wo con* [id number] 10/27/2020 4:32 AM RADIATION DOSE METRICS: Total DLP (mGy-cm): 1253.84 FINDINGS: Brain: There is moderate cerebral atrophy. There is moderate diffuse heterogeneity of the white matter attenuation, consistent with chronic white matter ischemic changes. No intracranial hemorrhage. No intracranial mass. No midline shift of brain. Fontanez matter and white matter interfaces are preserved. Bilateral occipital lobe encephalomalacia changes greater on left than right. Cerebral ventricles: No ventriculomegaly. Bones/joints: Unremarkable. No acute fracture. Paranasal sinuses: Small left maxillary sinus mucous retention cyst. No air-fluid levels. Scattered mucosal thickening throughout ethmoid air cells. Mastoid air cells: Visualized mastoid air cells are well aerated. Orbital cavity: Orbits are symmetric with unremarkable appearance. Soft tissues: Unremarkable. CT/CT head wo con* [id number] IMPRESSION: 1. Negative for acute intracranial abnormality. 2. No changes from comparison. Radiation Dose CTDIVOL = (mGy): DLP = 1253.84 (mGy-cm)
--- NOTE | 2020-11-02 15:58 | ED_ITS ---
HPI - Altered Mental Status General: Chief Complaint: Altered Mental Status Stated Complaint: SOB, AMS, NOT EATING/DRINKING Time Seen by Provider: 11/02/20 14:08 History of Present Illness: HPI narrative: 70-year-old male presents to the emergency room with altered mental status shortness of breath failure to thrive has not been eating or drinking. Patient had an [id number] amputation approximately 6 weeks ago for infection left lower leg. He is chronically on oxygen at 5 L per nasal cannula. He is not been eating or drinking well. He is having decreasing urine output. Patient is cachectic on appearance [id number] at the bedside reports she is nonresponsive and lethargic at times. MD complaint: altered mental status, confusion and decreased responsiveness Onset (ago): day(s) Severity: severe Consistency of symptoms: Getting Worse Context: history of similar presentation Associated symptoms: Deny auditory hallucinations, visual hallucinations, delusions, depression, homicidal ideation, racing thoughts or suicidal ideation Review of Systems Const: Denies: fever(s), chills, body aches, change in appetite, fatigue or malaise ENMT: Denies: throat pain, ear or mastoid pain, nasal discharge or nasal congestion Card: Denies: chest pain, edema, dyspnea on exertion or orthopnea Resp: Reports: dyspnea; Denies: productive cough or non-productive cough GI: Denies: abdominal pain, nausea, vomiting, hematemesis, coffee ground emesis, diarrhea, constipation, bloating, hematochezia or melena : Denies: flank pain, dysuria, urinary frequency or urinary urgency Skin/Breast: Denies: rash or pruritus Psych: Denies: depression, visual hallucinations, auditory hallucinations, suicidal ideation or homicidal ideation PFS ED PFSH: Medical History Acute delirium Altered mental status Bilateral carotid artery stenosis BPH (benign prostatic hyperplasia) Chronic anticoagulation coumadin, for mechanical AVR COPD (chronic obstructive pulmonary disease) COPD exacerbation CVA (cerebral vascular accident) Depression GERD (gastroesophageal reflux disease) History of PFTs (~08/2018) 08/20: severe obstructive ventilatory defect, no significant bronchodilator response, severely reduced diffusion capacity Hyperlipidemia Hypertension Ischemic ulcer of right foot Nicotine dependence, cigarettes, with other nicotine-induced disorders On home oxygen therapy 3L BNC continuous Osteoarthritis Pulmonary hypertension Right renal artery stenosis >60% Severe peripheral arterial disease Surgical History H/O mechanical aortic valve replacement History of angioplasty of peripheral vessel (~2017) in 2018, unsuccessful by Dr Putnam and later also Dr Calixto per old records, referred to [facility] History of aortic valve replacement (~2008) Dr Bolton, mechanical History of CEA (carotid endarterectomy) right ~2008, left ~2010 History of ear surgery History of testicular surgery right orchiectomy for undescended testicle as a child Family History Other CAD (coronary artery disease) Diabetes Social History Smoking and tobacco status: current every day smoker cigarettes Alcohol intake: current Alcohol intake frequency: 0-2 Drinks per Day Household members: family and other Details: son + Physical Exam Const: COMMON NORMALS: no acute distress GENERAL APPEARANCE: cooperative and comfortable ORIENTATION/CONSCIOUSNESS: Yes awake HENMT: COMMON NORMALS: normocephalic, atraumatic and hearing grossly normal bilaterally HEAD & SCALP: normocephalic and atraumatic Eye: COMMON NORMALS: Equal, round and reactive pupils present, EOMs intact bilaterally, conjunctivae normal and no scleral icterus CONJUNCTIVA: Yes conjunctivae normal PUPIL: Yes Equal, round and reactive pupils present Neck/C-Spine: COMMON NORMALS: full ROM, no lymphadenopathy, supple and no JVD Lymph: LYMPHATIC: no lymphadenopathy noted and no lymphedema noted Resp: COMMON NORMALS: normal respiratory effort, No retractions and No use of accessory muscles AUSCULTATION: rales Cardio: COMMON NORMALS: no JVD and No murmurs present (Cardio) RATE: tachycardic RHYTHM: abnormal rhythm irregularly irregular GI: COMMON NORMALS: Soft to palpation and No hepatosplenomegaly present AUSCULTATION: Yes normoactive bowel sounds PALPATION: Yes Soft to palpation, No Tenderness to palpation present (GI), No Guarding due to palpation present (GI) and Yes No hepatosplenomegaly present Extremity: COMMON NORMALS: normal to inspection, capillary refill normal, no clubbing, cyanosis or edema, no calf tenderness and no pedal edema Psych: THOUGHT CONTENT: No delusions Skin: COMMON NORMALS: no rashes or lesions noted GENERAL SKIN EXAM: no rashes or lesions noted Course Vital Signs: Vital signs: Vital Signs Temperature 98.0 F 11/05/20 11:17 Pulse Rate 101 H 11/05/20 11:17 Respiratory Rate 21 H 11/05/20 11:17 Blood Pressure 95/64 11/05/20 11:17 Pulse Oximetry 96 11/05/20 11:17 MDM - Altered Mental Status MDM Narrative: Medical decision making narrative: Patient A. fib with RVR started on Cardizem as well as BiPAP. Suspect he is septic as well. Discussed Dr. Mireles labs cultures and antibiotics ordered. Discussed CODE STATUS with family. Patient is a no code. Lab Data: Labs: Lab Results 11/02/20 11/02/20 11/02/20 Range/Units 14:32 14:32 14:32 WBC 18.1 H (4.0-10.0) 10^3/ uL RBC 5.04 (4.1-5.3) 10^6/u L Hgb 15.1 (11.7-16.6) g/dL Hct 51.3 (42.0-52.0) % MCV 101.8 H (80-94) fL MCH 30.0 (28.0-34.0) pg MCHC 29.4 L (30.0-36.0) g/dL RDW 13.3 (12.1-15.1) % Plt Count 475 H (130-400) 10^3/c mm MPV 10.1 (7.4-10.4) fL Neut % (Auto) 91.2 % Lymph % (Auto) 2.3 % [place] % (Auto) 5.7 % Eos % (Auto) 0.1 % Baso % (Auto) 0.2 % Neut # (Auto) 16.48 H (1.8-7.7) 10^3/u L Lymph # (Auto) 0.4 L (0.8-4.8) 10^3/u L [place] # (Auto) 1.0 H (0.2-0.9) 10^3/u L Eos # (Auto) 0.0 (0.0-0.8) 10^3/u L Baso # (Auto) 0.0 (0.0-0.1) 10^3/u L Nucleated RBC % (a uto) 0 % Nucleated RBCs # 0.0 /100WBC Specimen Type Sample Site O2 Sat Pulse Oxime try ABG pH (7.35-7.45) ABG pCO2 (35-45) mmHg ABG pO2 (80.0-100.0) mmH g ABG HCO3 (22-26) mmol/L ABG O2 Saturation ABG Base Excess (-2.0-2.0) mmol/ L Sang Test A-a O2 Gradient Hematocrit (42-52) % Hgb O2 Saturation (95-100) % Carboxyhemoglobin (0.4-20.1) %THgb Methemoglobin (0.4-1.5) % Total Hemoglobin (14-18) g/dL Ionized Calcium (1.1-1.4) mmol/L Respiration Rate O2 Delivery Device O2 Liters/Min % SIMV Vent Mode Mechanical Rate Spontaneous Rate FiO2 Tidal Volume PEEP Pressure Support Pressure Control CPAP Mode BiPAP Specimen Drawn By Art Model ID Crit Value Read Ba ck Blood Gas Notified Time Sodium 139 (136-145) mmol/L Potassium 5.0 (3.5-5.1) mmol/L Chloride 87 L (98-107) mmol/L Carbon Dioxide 42 H* (22-29) mmol/L Anion Gap 15.0 (5-19) BUN 27 H (8-23) mg/dL Creatinine 0.6 L (0.7-1.2) mg/dL GFR Calculation Not Reportable Glucose 183 H (65-115) mg/dL Calculated Osmolal ity 298 H (285-295) mOsm/k g Lactic Acid (0.5-2.2) mmol/L Lactic Acid (Sepsi s) (0.5-2.2) mmol/L Calcium 9.8 (8.5-10.5) mg/dL Magnesium 2.7 H (1.7-2.3) mg/dL Total Bilirubin 0.8 (0.15-1.2) mg/dL AST 34 (0-40) U/L ALT 34 (0-41) U/L Alkaline Phosphata se 147 H (40-130) IU/L Creatine Kinase 108 (39-308) U/L Troponin T Baselin e 36 H (0-15) ng/L Troponin T 120 Min [place] (0-15) ng/L Delta Troponin T (0-10) ABS# Total Protein 7.5 (6.6-8.7) g/dL Albumin 5.0 (3.5-5.2) g/dL Globulin 2.5 (1.3-4.6) g/dL Lipase 60 (13-60) U/L Urine Color (Yellow) Urine Appearance (CLEAR) Urine pH (5-7) Ur Specific Gravit y (1.005-1.030) Urine Protein (Negative) Urine Glucose (UA) (Normal) Urine Ketones (Negative) Urine Blood (Negative) Urine Nitrate (Negative) Urine Bilirubin (Negative) Urine Urobilinogen (Negative) mg/dL Ur Leukocyte [place] a[place] (Negative) Urine RBC (0-2) /hpf Urine WBC (0-5) /hpf Ur Squamous Epith Cells (0-5) /hpf Amorphous Sediment Urine Bacteria (NONE) /hpf Hyaline Casts /lpf Urine Mucus /hpf 11/02/20 11/02/20 11/02/20 Range/Units 14:32 14:41 14:45 WBC (4.0-10.0) 10^3/ uL RBC (4.1-5.3) 10^6/u L Hgb (11.7-16.6) g/dL Hct (42.0-52.0) % MCV (80-94) fL MCH (28.0-34.0) pg MCHC (30.0-36.0) g/dL RDW (12.1-15.1) % Plt Count (130-400) 10^3/c mm MPV (7.4-10.4) fL Neut % (Auto) % Lymph % (Auto) % [place] % (Auto) % Eos % (Auto) % Baso % (Auto) % Neut # (Auto) (1.8-7.7) 10^3/u L Lymph # (Auto) (0.8-4.8) 10^3/u L [place] # (Auto) (0.2-0.9) 10^3/u L Eos # (Auto) (0.0-0.8) 10^3/u L Baso # (Auto) (0.0-0.1) 10^3/u L Nucleated RBC % (a uto) % Nucleated RBCs # /100WBC Specimen Type Arterial Sample Site Radial, left O2 Sat Pulse Oxime try ABG pH 7.28 L (7.35-7.45) ABG pCO2 101.0 H* (35-45) mmHg ABG pO2 52.9 L (80.0-100.0) mmH g ABG HCO3 47.6 H (22-26) mmol/L ABG O2 Saturation 80.7 ABG Base Excess 15.8 H (-2.0-2.0) mmol/ L Sang Test Pos A-a O2 Gradient Not Reportable Hematocrit 42.2 (42-52) % Hgb O2 Saturation 76.8 L (95-100) % Carboxyhemoglobin 4.1 (0.4-20.1) %THgb Methemoglobin 0.7 (0.4-1.5) % Total Hemoglobin 13.8 L (14-18) g/dL Ionized Calcium 1.2 (1.1-1.4) mmol/L Respiration Rate O2 Delivery Device Nc O2 Liters/Min 5.0 % SIMV Vent Mode Mechanical Rate Spontaneous Rate FiO2 Tidal Volume PEEP Pressure Support Pressure Control CPAP Mode BiPAP Specimen Drawn By Art Model ID Cak Crit Value Read Ba ck Blood Gas Notified Time Sodium 141.0 (136-145) mmol/L Potassium 4.3 (3.5-5.1) mmol/L Chloride (98-107) mmol/L Carbon Dioxide (22-29) mmol/L Anion Gap (5-19) BUN (8-23) mg/dL Creatinine (0.7-1.2) mg/dL GFR Calculation Glucose 190.0 H (65-115) mg/dL Calculated Osmolal ity (285-295) mOsm/k g Lactic Acid 5.5 H* (0.5-2.2) mmol/L Lactic Acid (Sepsi s) (0.5-2.2) mmol/L Calcium (8.5-10.5) mg/dL Magnesium (1.7-2.3) mg/dL Total Bilirubin (0.15-1.2) mg/dL AST (0-40) U/L ALT (0-41) U/L Alkaline Phosphata se (40-130) IU/L Creatine Kinase (39-308) U/L Troponin T Baselin e (0-15) ng/L Troponin T 120 Min [place] (0-15) ng/L Delta Troponin T (0-10) ABS# Total Protein (6.6-8.7) g/dL Albumin (3.5-5.2) g/dL Globulin (1.3-4.6) g/dL Lipase (13-60) U/L Urine Color Yellow (Yellow) Urine Appearance Clear (CLEAR) Urine pH 5 (5-7) Ur Specific Gravit y 1.025 (1.005-1.030) Urine Protein 1+ H (Negative) Urine Glucose (UA) Norm (Normal) Urine Ketones Negative (Negative) Urine Blood Neg (Negative) Urine Nitrate Negative (Negative) Urine Bilirubin 1+ H (Negative) Urine Urobilinogen Norm (Negative) mg/dL Ur Leukocyte [place] a[place] Negative (Negative) Urine RBC 0-4 H (0-2) /hpf Urine WBC 0-4 H (0-5) /hpf Ur Squamous Epith Cells 0-4 H (0-5) /hpf Amorphous Sediment Not Reportable Urine Bacteria Trace (NONE) /hpf Hyaline Casts 0-4 H /lpf Urine Mucus 1+ /hpf 11/02/20 11/02/20 11/02/20 Range/Units 14:54 16:38 17:10 WBC (4.0-10.0) 10^3/ uL RBC (4.1-5.3) 10^6/u L Hgb (11.7-16.6) g/dL Hct (42.0-52.0) % MCV (80-94) fL MCH (28.0-34.0) pg MCHC (30.0-36.0) g/dL RDW (12.1-15.1) % Plt Count (130-400) 10^3/c mm MPV (7.4-10.4) fL Neut % (Auto) % Lymph % (Auto) % [place] % (Auto) % Eos % (Auto) % Baso % (Auto) % Neut # (Auto) (1.8-7.7) 10^3/u L Lymph # (Auto) (0.8-4.8) 10^3/u L [place] # (Auto) (0.2-0.9) 10^3/u L Eos # (Auto) (0.0-0.8) 10^3/u L Baso # (Auto) (0.0-0.1) 10^3/u L Nucleated RBC % (a uto) % Nucleated RBCs # /100WBC Specimen Type Cancelled Arterial Sample Site Cancelled Radial, left O2 Sat Pulse Oxime try Cancelled ABG pH Cancelled 7.37 (7.35-7.45) ABG pCO2 Cancelled 82.6 H* (35-45) mmHg ABG pO2 Cancelled 96.4 (80.0-100.0) mmH g ABG HCO3 Cancelled 47.8 H (22-26) mmol/L ABG O2 Saturation Cancelled 98.0 ABG Base Excess Cancelled 18.0 H (-2.0-2.0) mmol/ L Sang Test Cancelled Pos A-a O2 Gradient Cancelled 11.5 H Hematocrit Cancelled 42.0 (42-52) % Hgb O2 Saturation Cancelled 93.8 L (95-100) % Carboxyhemoglobin Cancelled 3.4 (0.4-20.1) %THgb Methemoglobin Cancelled 0.8 (0.4-1.5) % Total Hemoglobin Cancelled 13.7 L (14-18) g/dL Ionized Calcium Cancelled 1.2 (1.1-1.4) mmol/L Respiration Rate Cancelled O2 Delivery Device Cancelled Bipap O2 Liters/Min Cancelled % SIMV Cancelled Vent Mode Cancelled Mechanical Rate Cancelled Spontaneous Rate Cancelled FiO2 Cancelled 40.0 Tidal Volume Cancelled PEEP Cancelled Pressure Support Cancelled Pressure Control Cancelled CPAP Cancelled Mode BiPAP Cancelled Specimen Drawn By Cancelled Art Model ID Cancelled Cak Crit Value Read Ba ck Cancelled Blood Gas Notified Time Cancelled Sodium Cancelled 141.0 (136-145) mmol/L Potassium Cancelled 4.5 (3.5-5.1) mmol/L Chloride (98-107) mmol/L Carbon Dioxide (22-29) mmol/L Anion Gap (5-19) BUN (8-23) mg/dL Creatinine (0.7-1.2) mg/dL GFR Calculation Glucose Cancelled 155.0 H (65-115) mg/dL Calculated Osmolal ity (285-295) mOsm/k g Lactic Acid (0.5-2.2) mmol/L Lactic Acid (Sepsi s) (0.5-2.2) mmol/L Calcium (8.5-10.5) mg/dL Magnesium (1.7-2.3) mg/dL Total Bilirubin (0.15-1.2) mg/dL AST (0-40) U/L ALT (0-41) U/L Alkaline Phosphata se (40-130) IU/L Creatine Kinase (39-308) U/L Troponin T Baselin e (0-15) ng/L Troponin T 120 Min [place] 28.82 H (0-15) ng/L Delta Troponin T -7.18 L (0-10) ABS# Total Protein (6.6-8.7) g/dL Albumin (3.5-5.2) g/dL Globulin (1.3-4.6) g/dL Lipase (13-60) U/L Urine Color (Yellow) Urine Appearance (CLEAR) Urine pH (5-7) Ur Specific Gravit y (1.005-1.030) Urine Protein (Negative) Urine Glucose (UA) (Normal) Urine Ketones (Negative) Urine Blood (Negative) Urine Nitrate (Negative) Urine Bilirubin (Negative) Urine Urobilinogen (Negative) mg/dL Ur Leukocyte [place] a[place] (Negative) Urine RBC (0-2) /hpf Urine WBC (0-5) /hpf Ur Squamous Epith Cells (0-5) /hpf Amorphous Sediment Urine Bacteria (NONE) /hpf Hyaline Casts /lpf Urine Mucus /hpf 11/02/20 Range/Units 17:10 WBC (4.0-10.0) 10^3/ uL RBC (4.1-5.3) 10^6/u L Hgb (11.7-16.6) g/dL Hct (42.0-52.0) % MCV (80-94) fL MCH (28.0-34.0) pg MCHC (30.0-36.0) g/dL RDW (12.1-15.1) % Plt Count (130-400) 10^3/c mm MPV (7.4-10.4) fL Neut % (Auto) % Lymph % (Auto) % [place] % (Auto) % Eos % (Auto) % Baso % (Auto) % Neut # (Auto) (1.8-7.7) 10^3/u L Lymph # (Auto) (0.8-4.8) 10^3/u L [place] # (Auto) (0.2-0.9) 10^3/u L Eos # (Auto) (0.0-0.8) 10^3/u L Baso # (Auto) (0.0-0.1) 10^3/u L Nucleated RBC % (a uto) % Nucleated RBCs # /100WBC Specimen Type Sample Site O2 Sat Pulse Oxime try ABG pH (7.35-7.45) ABG pCO2 (35-45) mmHg ABG pO2 (80.0-100.0) mmH g ABG HCO3 (22-26) mmol/L ABG O2 Saturation ABG Base Excess (-2.0-2.0) mmol/ L Sang Test A-a O2 Gradient Hematocrit (42-52) % Hgb O2 Saturation (95-100) % Carboxyhemoglobin (0.4-20.1) %THgb Methemoglobin (0.4-1.5) % Total Hemoglobin (14-18) g/dL Ionized Calcium (1.1-1.4) mmol/L Respiration Rate O2 Delivery Device O2 Liters/Min % SIMV Vent Mode Mechanical Rate Spontaneous Rate FiO2 Tidal Volume PEEP Pressure Support Pressure Control CPAP Mode BiPAP Specimen Drawn By Art Model ID Crit Value Read Ba ck Blood Gas Notified Time Sodium (136-145) mmol/L Potassium (3.5-5.1) mmol/L Chloride (98-107) mmol/L Carbon Dioxide (22-29) mmol/L Anion Gap (5-19) BUN (8-23) mg/dL Creatinine (0.7-1.2) mg/dL GFR Calculation Glucose (65-115) mg/dL Calculated Osmolal ity (285-295) mOsm/k g Lactic Acid (0.5-2.2) mmol/L Lactic Acid (Sepsi s) 10.0 H* (0.5-2.2) mmol/L Calcium (8.5-10.5) mg/dL Magnesium (1.7-2.3) mg/dL Total Bilirubin (0.15-1.2) mg/dL AST (0-40) U/L ALT (0-41) U/L Alkaline Phosphata se (40-130) IU/L Creatine Kinase (39-308) U/L Troponin T Baselin e (0-15) ng/L Troponin T 120 Min [place] (0-15) ng/L Delta Troponin T (0-10) ABS# Total Protein (6.6-8.7) g/dL Albumin (3.5-5.2) g/dL Globulin (1.3-4.6) g/dL Lipase (13-60) U/L Urine Color (Yellow) Urine Appearance (CLEAR) Urine pH (5-7) Ur Specific Gravit y (1.005-1.030) Urine Protein (Negative) Urine Glucose (UA) (Normal) Urine Ketones (Negative) Urine Blood (Negative) Urine Nitrate (Negative) Urine Bilirubin (Negative) Urine Urobilinogen (Negative) mg/dL Ur Leukocyte [place] (Negative) Urine RBC (0-2) /hpf Urine WBC (0-5) /hpf Ur Squamous Epith Cells (0-5) /hpf Amorphous Sediment Urine Bacteria (NONE) /hpf Hyaline Casts /lpf Urine Mucus /hpf Discharge Plan Discharge Patient Disposition: Admitted As Inpatient Admit Provider: Suzie Mireles Clinical Impression: Sepsis, Atrial fibrillation with RVR, COPD exacerbation, Hypercapnic respiratory failure, Chronic anticoagulation Condition: Stable Coding Level of Care Code ED Manager Product Support for Jose Roberto Washburn
[2020-11-02 16:07] LABS: Carbon Dioxide 42 mmol/L (22-29)
--- NOTE | 2020-11-02 16:18 | ECG_ITS ---
[facility] Test Date: 2020-11-02 Pat Name: Damon King Department: Room: Gender: Male Rn Emergency Room: : 1950 Requested By: Gurinder Demarco Order Number: [id number] MD: Marshall Oswald M.D. Measurements Intervals [place] Rate: 130 P: MD: QRS: 140 QRSD: 118 T: -20 QT: 351 QTc: 518 Interpretive Statements ATRIAL FIBRILLATION WITH RAPID VENTRICULAR RESPONSE INCOMPLETE RIGHT BUNDLE BRANCH BLOCK [90+ ms QRS DURATION, TERMINAL R IN V1/V2, 40+ ms S IN I/aVL/V4/V5/V6] POSSIBLE RIGHT VENTRICULAR HYPERTROPHY [SOME/ALL OF: PROMINENT R IN V1, LATE TRANSITION, RAD, ANDRE, SSS] POSSIBLE ANTERIOR MYOCARDIAL INFARCTION , PROBABLY OLD [30 ms Q WAVE IN V3/V4, OR R < 0.2 mV IN V4] Compared to ECG 11/02/2020 14:28:18 Incomplete right bundle-branch block now present Sinus tachycardia no longer present Myocardial infarct finding still present Electronically Signed On 11-03-2020 10:02:48 CDT by Marshall Oswald M.D. [id number]
[2020-11-02 16:19] LABS: Add Urine Microscopic? YES; Bilirubin Urine 1+ (Negative); Blood Urine Neg (Negative); Glucose Urine UA Norm (Normal); Ketones Urine Negative (Negative); Leukocyte Esterase Urine Negative (Negative); Nitrate Urine Negative (Negative); Protein Urine 1+ (Negative); Specific Gravity, Urine 1.025 (1.005-1.030); Urine Appearance Clear (CLEAR); Urine Color Yellow (Yellow); Urobilinogen Urine Norm (Negative); pH Urine 5 (5-7)
[2020-11-02 16:20] LABS: Bacteria Urine TRACE /hpf; Hyaline Casts Urine 0-4 /lpf; Mucus Urine 1+ /hpf; RBC Urine 0-4 /hpf (0-2); Squamous Epithelial Cell Urine 0-4 /hpf (0-5); WBC Urine 0-4 /hpf (0-5)
[2020-11-02] MEDS: levofloxacin-dextrose 5 % 500 MG/100 ML PREMIX 100 MG IV (16:37)
[2020-11-02 16:43] LABS: Reflex Lactate Order REFLEX LACTIC ORDERD
[2020-11-02 16:50] LABS: ABG PH Result 7.37 (7.35-7.45); Alveolar-Arterial Oxygen Gradi 11.5 mmHg (5-10); Blood Gas Allen Test Pos; Blood Gas Operator Identificat CAK; Blood Gas Sample Site Radial, left; Blood Gas Sample Type Arterial; Carboxyhemoglobin 3.4 %THgb (0.4-20.1); HCO3 ABG 47.8 mmol/L (22-26); HGB O2 Sat 93.8 % (95-100); Ionized Calcium Level - ABG 1.2 mmol/L (1.1-1.4); Methemoglobin 0.8 % (0.4-1.5); Oxygen Device BIPAP; PO2 ABG 96.4 mmHg (80.0-100.0); Potassium Level - ABG 4.5 mmol/L (3.5-5.0); Total Hemoglobin 13.7 g/dL (14-18)
[2020-11-02 16:51] LABS: ABG PCO2 82.6 mmHg (35-45)
--- NOTE | 2020-11-02 18:06 | PM.HP ---
Providers/Chief Complaint Admitting Physician: Suzie Mireles MD Primary Care Provider: Carmen Bernardo NP Chief Complaint: SOB, AMS, NOT EATING/DRINKING History of Present Illness Damon King is a 70 year old male brought by family from home with c/o not being able to eat or drink for one week due to increasing nausea, abdominal bloating and discomfort. At the smita time iwth increasing 02 requirements at home, baseline 3lpm, now up to 5lpm. On way to [facility] office today, patient became unresponsive, solorzano colored with sp02 drop in the 60s, therefore brought to ER, here noted to be obtunded, ABG with respiratory acidosis, hypercapnea, elevated lactate at 5, CTA chest without PE, CT abd/pelvis without signs of mesenteric ischemia. Recent history reviewed from previous notes. Review of Systems General: Reports: ROS unobtainable due to mental status Medications/Allergies Home Medications Medication Instructions Recorded Confirmed Last Taken Type atorvastatin 80 mg tablet 80 mg PO BEDTIME 04/08/20 11/02/20 11/01/20 History budesonide-formoterol HFA 80 2 puff INHALATION BID 04/08/20 11/02/20 11/01/20 History mcg-4.5 mcg/actuation aerosol inhaler gabapentin 300 mg capsule 300 mg PO BID 04/08/20 11/02/20 11/01/20 History metoprolol tartrate 25 mg tablet 25 mg PO BID 04/08/20 11/02/20 11/01/20 History potassium chloride 10 mEq 10 meq PO DAILY 04/08/20 11/02/20 11/01/20 History tablet,extended release tamsulosin 0.4 mg capsule 0.4 mg PO DAILY 04/08/20 11/02/20 11/01/20 History pantoprazole 40 mg PO BID #60 tab 10/07/20 11/02/20 11/01/20 Rx hydrocodone-acetaminophen 1 tab PO QID PRN 10/27/20 11/02/20 Unknown History warfarin 2 mg PO DAILY 10/27/20 11/02/20 11/01/20 History amlodipine 5 mg PO DAILY 11/02/20 11/02/20 11/01/20 History furosemide [Lasix] 40 mg PO DAILY 11/02/20 11/02/20 Unknown History Allergies Allergy/AdvReac Type Severity Reaction Status Date / Time divalproex sodium AdvReac Mild nausea Verified 10/27/20 03:47 [From Depakote] PFSH Acute PFSH: Medical History Acute delirium Altered mental status Bilateral carotid artery stenosis BPH (benign prostatic hyperplasia) Chronic anticoagulation coumadin, for mechanical AVR COPD (chronic obstructive pulmonary disease) COPD exacerbation CVA (cerebral vascular accident) Depression GERD (gastroesophageal reflux disease) History of PFTs (~08/2018) 08/20: severe obstructive ventilatory defect, no significant bronchodilator response, severely reduced diffusion capacity Hyperlipidemia Hypertension Ischemic ulcer of right foot Nicotine dependence, cigarettes, with other nicotine-induced disorders On home oxygen therapy 3L BNC continuous Osteoarthritis Pulmonary hypertension Right renal artery stenosis >60% Severe peripheral arterial disease Surgical History H/O mechanical aortic valve replacement History of angioplasty of peripheral vessel (~2017) in 2018, unsuccessful by Dr Putnam and later also Dr Calixto per old records, referred to [facility] [place] History of aortic valve replacement (~2008) Dr Bolton, mechanical History of CEA (carotid endarterectomy) right ~2008, left ~2010 History of ear surgery History of testicular surgery right orchiectomy for undescended testicle as a child Family History Other CAD (coronary artery disease) Diabetes Social History Smoking and tobacco status: current every day smoker cigarettes Alcohol intake: current Alcohol intake frequency: 0-2 Drinks per Day Household members: family and other Details: son + Vitals/I&O/Wt Last Vital Signs Temp 97.7 F 11/02/20 14:52 Pulse 68 11/02/20 15:13 Resp 26 H 11/02/20 14:13 BP 132/77 11/02/20 14:13 Pulse Ox 99 11/02/20 15:13 Weight last 48 hrs Weight 49.895 kg Physical Exam Narrative: EXAM NARRATIVE: General: Seen on transfer to ICU, off Bipap, 02 sat 60s, with Bipap up to 90% , orinted x 1-2 HEENT: PERRLA, pupils bilaterally equal and reactive, pallors not present Chest: Reduced sir entry B/L CVS: S1-S2 regular, no murmurs, no tachycardia, no gallops, no rubs Abdomen: Soft, nontender, no organomegaly, bowel sounds present Neuro: No focal motor deficits grossly, Extremities: s/p left AKA, healed well, dry gangrene affecting right side toes, unchanged since last admission Data : 11/03/20 04:03 11/03/20 04:03 Other Labs: Laboratory Results WBC 14.1 10^3/uL (4.0-10.0) H 11/03/20 04:03 RBC 4.11 10^6/uL (4.1-5.3) 11/03/20 04:03 Hgb 12.3 g/dL (11.7-16.6) 11/03/20 04:03 Hct 40.1 % (42.0-52.0) L 11/03/20 04:03 MCV 97.6 fL (80-94) H 11/03/20 04:03 MCH 29.9 pg (28.0-34.0) 11/03/20 04:03 MCHC 30.7 g/dL (30.0-36.0) 11/03/20 04:03 RDW 13.6 % (12.1-15.1) 11/03/20 04:03 Plt Count 339 10^3/cmm (130-400) 11/03/20 04:03 MPV 10.1 fL (7.4-10.4) 11/03/20 04:03 Neut % (Auto) 96.1 % 11/03/20 04:03 Lymph % (Auto) 1.6 % 11/03/20 04:03 Meagher % (Auto) 1.7 % 11/03/20 04:03 Eos % (Auto) 0.1 % 11/03/20 04:03 Baso % (Auto) 0.1 % 11/03/20 04:03 Neut # (Auto) 13.54 10^3/uL (1.8-7.7) H 11/03/20 04:03 Lymph # (Auto) 0.2 10^3/uL (0.8-4.8) L 11/03/20 04:03 Meagher # (Auto) 0.2 10^3/uL (0.2-0.9) 11/03/20 04:03 Eos # (Auto) 0.0 10^3/uL (0.0-0.8) 11/03/20 04:03 Baso # (Auto) 0.0 10^3/uL (0.0-0.1) 11/03/20 04:03 Nucleated RBC % (auto) 0 % 11/03/20 04:03 Nucleated RBCs # 0.0 /100WBC 11/03/20 04:03 PT 49.70 SECONDS (12.1-14.9) H 11/02/20 19:06 INR 5.38 (0.8-1.2) H* 11/02/20 19:06 Specimen Type Arterial 11/03/20 04:40 Sample Site Brachial, left 11/03/20 04:40 O2 Sat Pulse Oximetry Cancelled 11/02/20 14:54 ABG pH 7.47 (7.35-7.45) H 11/03/20 04:40 ABG pCO2 67.4 mmHg (35-45) H* 11/03/20 04:40 ABG pO2 66.8 mmHg (80.0-100.0) L 11/03/20 04:40 ABG HCO3 45.2 mmol/L (22-26) H 11/03/20 04:40 ABG O2 Saturation 98.0 11/02/20 16:38 ABG Base Excess 18.2 mmol/L (-2.0-2.0) H 11/03/20 04:40 Sang Test N/a 11/03/20 04:40 A-a O2 Gradient 11.5 mmHg (5-10) H 11/02/20 16:38 Hematocrit 38.3 % (42-52) L 11/03/20 04:40 Hgb O2 Saturation 93.8 % (95-100) L 11/02/20 16:38 Carboxyhemoglobin 3.4 %THgb (0.4-20.1) 11/02/20 16:38 Methemoglobin 0.8 % (0.4-1.5) 11/02/20 16:38 Total Hemoglobin 13.7 g/dL (14-18) L 11/02/20 16:38 Sodium 141.0 mmol/L (131-143) 11/02/20 16:38 Potassium 4.5 mmol/L (3.5-5.0) 11/02/20 16:38 Glucose 155.0 mg/dL (70-115) H 11/02/20 16:38 Ionized Calcium 1.2 mmol/L (1.1-1.4) 11/02/20 16:38 Respiration Rate Cancelled 11/02/20 14:54 O2 Delivery Device Bipap 11/03/20 04:40 O2 Liters/Min Cancelled 11/02/20 14:54 SIMV Cancelled 11/02/20 14:54 Vent Mode Cancelled 11/02/20 14:54 Mechanical Rate Cancelled 11/02/20 14:54 Spontaneous Rate Cancelled 11/02/20 14:54 FiO2 50.0 % 11/03/20 04:40 Tidal Volume Cancelled 11/02/20 14:54 PEEP Cancelled 11/02/20 14:54 Pressure Support Cancelled 11/02/20 14:54 Pressure Control Cancelled 11/02/20 14:54 CPAP Cancelled 11/02/20 14:54 Mode BiPAP Cancelled 11/02/20 14:54 Specimen Drawn By Cancelled 11/02/20 14:54 Prosthetics Technician ID Hinja 11/03/20 04:40 Crit Value Read Back Cancelled 11/02/20 14:54 Blood Gas Notified Time Cancelled 11/02/20 14:54 Sodium 140 mmol/L (136-145) 11/03/20 04:03 Potassium 4.9 mmol/L (3.5-5.1) 11/03/20 04:03 Chloride 94 mmol/L (98-107) L 11/03/20 04:03 Carbon Dioxide 43 mmol/L (22-29) H* 11/03/20 04:03 Anion Gap 7.9 (5-19) 11/03/20 04:03 BUN 19 mg/dL (8-23) 11/03/20 04:03 Creatinine 0.5 mg/dL (0.7-1.2) L 11/03/20 04:03 GFR Calculation Not Reportable 11/03/20 04:03 Glucose 251 mg/dL (65-115) H 11/03/20 04:03 Calculated Osmolality 301 mOsm/kg (285-295) H 11/03/20 04:03 Lactic Acid 5.5 mmol/L (0.5-2.2) H* 11/02/20 14:32 Lactic Acid (Sepsis) 10.0 mmol/L (0.5-2.2) H* 11/02/20 17:10 Lactate 1.6 mmol/L (0.5-2.2) 11/03/20 04:03 Calcium 8.4 mg/dL (8.5-10.5) L 11/03/20 04:03 Magnesium 2.7 mg/dL (1.7-2.3) H 11/02/20 14:32 Total Bilirubin 0.6 mg/dL (0.15-1.2) 11/03/20 04:03 AST 29 U/L (0-40) 11/03/20 04:03 ALT 27 U/L (0-41) 11/03/20 04:03 Alkaline Phosphatase 109 IU/L (40-130) 11/03/20 04:03 Creatine Kinase 108 U/L (39-308) 11/02/20 14:32 Troponin T Baseline 36 ng/L (0-15) H 11/02/20 14:32 Troponin T 120 Minute 28.82 ng/L (0-15) H 11/02/20 17:10 Delta Troponin T -7.18 ABS# (0-10) L 11/02/20 17:10 Troponin T Hi Sens 6Hr 36.10 ng/L (0-15) H 11/02/20 20:19 Troponin T Hi Sens 6Hr Delta 0.10 ng/L (0-12) 11/02/20 20:19 Total Protein 6.1 g/dL (6.6-8.7) L 11/03/20 04:03 Albumin 3.9 g/dL (3.5-5.2) 11/03/20 04:03 Globulin 2.2 g/dL (1.3-4.6) 11/03/20 04:03 Lipase 60 U/L (13-60) 11/02/20 14:32 Procalcitonin 0.10 ng/mL (0-0.5) 11/03/20 04:03 Urine Color Yellow (Yellow) 11/02/20 14:41 Urine Appearance Clear (CLEAR) 11/02/20 14:41 Urine pH 5 (5-7) 11/02/20 14:41 Ur Specific Dingle 1.025 (1.005-1.030) 11/02/20 14:41 Urine Protein 1+ (Negative) H 11/02/20 14:41 Urine Glucose (UA) Norm (Normal) 11/02/20 14:41 Urine Ketones Negative (Negative) 11/02/20 14:41 Urine Blood Neg (Negative) 11/02/20 14:41 Urine Nitrate Negative (Negative) 11/02/20 14:41 Urine Bilirubin 1+ (Negative) H 11/02/20 14:41 Urine Urobilinogen Norm mg/dL (Negative) 11/02/20 14:41 Ur Leukocyte Esterase Negative (Negative) 11/02/20 14:41 Urine RBC 0-4 /hpf (0-2) H 11/02/20 14:41 Urine WBC 0-4 /hpf (0-5) H 11/02/20 14:41 Ur Squamous Epith Cells 0-4 /hpf (0-5) H 11/02/20 14:41 Amorphous Sediment Not Reportable 11/02/20 14:41 Urine Bacteria Trace /hpf (NONE) 11/02/20 14:41 Hyaline Casts 0-4 /lpf H 11/02/20 14:41 Urine Mucus 1+ /hpf 11/02/20 14:41 SARS-CoV-2 Ag (Rapid) Negative (Negative) 11/02/20 19:47 Impressions Chest X-Ray 11/02/20 14:18 IMPRESSION: 1. No focal pneumonia is identified. 2. Severe emphysematous lung changes. 3. No significant change from comparison. Chest/Abdomen/Pelvis CT 11/02/20 14:51 IMPRESSION: 1. No acute findings in the abdomen or pelvis. 2. No suspicious soft tissue lesions within abdomen or pelvis. Radiation Dose CTDIVOL = (mGy): DLP = 1100.77~1100.77 (mGy-cm) Head CT 11/02/20 15:55 IMPRESSION: 1. Negative for acute intracranial abnormality. 2. No changes from comparison. Radiation Dose CTDIVOL = (mGy): DLP = 1253.84 (mGy-cm) Micro: Microbiology 11/02/20 16:38 Blood Culture - Preliminary Blood SPECIMEN COLLECTED 11/02/20 14:32 Blood Culture - Preliminary Blood SPECIMEN COLLECTED Attestation for Other Data: I personally reviewed and interpreted the following: A&P Assessment and plan (1) Sepsis: meets criteria by way of leukocytosis, tachycardia and elevated lactate IVF d5 NS to continue as started in [facility] ER EMpiric ZOsyn source unclear at this time , CT Chest withotu consolidation, CT abd/pelvis without gross abdominal source trend lactate Status: Acute Qualifiers: Sepsis type: sepsis due to unspecified organism Sepsis acute organ dysfunction status: with acute organ dysfunction Severe sepsis acute organ dysfunction type: acute respiratory failure Acute respiratory failure type: with hypercapnia Severe sepsis shock status: without septic shock Qualified Code(s): A41.9 - Sepsis, unspecified organism; R65.20 - Severe sepsis without septic shock; J96.02 - Acute respiratory failure with hypercapnia (2) Atrial fibrillation with RVR: CUrrently on Cardizem infusion Status: Acute (3) COPD exacerbation: duonebs q4h manoj + budesonide BID iv methylprednisone 60 mg iv q8h Status: Acute (4) Hypercapnic respiratory failure: ACute on chronic related to COPD exacerbation, rx as above Status: Acute Qualifiers: Chronicity: acute on chronic Qualified Code(s): J96.22 - Acute and chronic respiratory failure with hypercapnia (5) S/P AVR: Status: Chronic (6) Chronic anticoagulation: check INR Resume coumadin based on INR numbers Status: Chronic (7) Hypertension: Status: Chronic Qualifiers: Hypertension type: essential hypertension Qualified Code(s): I10 - Essential (primary) hypertension Additional A&P Information DVT ppx: Check INR, on coumadin DNR/DNI, okay for pressors Attestations Medical Necessity Statement*: >2midnight needed for management of hypercapneic respiratory failure, positive pressure ventilation with BIpap , high risk of resiratory arrest Critical Care Time: The high probability of a clinically significant, sudden or life threatening deterioration of the patient's [respiratory,cardiac] system(s) required my full and direct attention, intervention and personal management. The critical care time is as shown. This time is in addition to time spent performing any reported procedures but includes the following: [x] Data and vital sign review and interpretation [x] Patient assessment, examination and intervention [x] Documentation [x] Medication orders and management Critical Care Time (min): 45 Coding Level of Care Code Acute Oxidized Finish Plater for g Fwd Diagnoses Sepsis A41.9; R65.20; J96.02 Sepsis type: sepsis due to unspecified organism Sepsis acute organ dysfunction status: with acute organ dysfunction Severe sepsis acute organ dysfunction type: acute respiratory failure Acute respiratory failure type: with hypercapnia Severe sepsis shock status: without septic shock Atrial fibrillation with RVR I48.91 COPD exacerbation J44.1 Hypercapnic respiratory failure J96.22 Chronicity: acute on chronic S/P AVR Z95.2 Chronic anticoagulation Z79.01 Hypertension I10 Hypertension type: essential hypertension
[2020-11-02 18:09] LABS: Troponin 5 2HR 28.82 ng/L (0-15)
[2020-11-02 18:10] LABS: Troponin 5 2HR Delta -7.18 ABS# (0-10)
[2020-11-02] MEDS: D5-NS 0.45% + KCL 20 mEq 20 MEQ/1,000 ML BAG 100 MEQ IV (18:38)
[2020-11-02] MEDS: piperacillin-tazobactam 3.375 GM in sodium chloride 0.9% (plus) 50 ML IV (19:30)
[2020-11-02] MEDS: pantoprazole 40 mg SDV IVP (19:31)
[2020-11-02 19:43] LABS: INR 5.38 (0.8-1.2)
[2020-11-02 20:13] LABS: SARS Covid-2 Antigen Negative (Negative)
[2020-11-02] MEDS: ipratropium-albuterol 3 mL Neb INHALATION (20:34)
[2020-11-02] MEDS: budesonide 0.5 mg/2 mL Neb INHALATION (20:34)
[2020-11-03] VITALS (84 sets, daily range): BP systolic 102–151; BP diastolic 55–97; PULSE 72–128; RESP 15–42; TEMP 36.6–37.1; O2SAT 81–100
[2020-11-03] MEDS: ipratropium-albuterol 3 mL Neb INHALATION ×7 (01:19→23:54)
[2020-11-03] MEDS: piperacillin-tazobactam 3.375 GM in sodium chloride 0.9% (plus) 50 ML IV ×3 (03:17→19:22)
[2020-11-03] MEDS: D5-NS 0.45% + KCL 20 mEq 20 MEQ/1,000 ML BAG 100 MEQ IV (03:17)
[2020-11-03 04:31] LABS: Basophils % 0.1 %; Eosinophils % 0.1 %; Hematocrit 40.1 % (42.0-52.0); Hemoglobin 12.3 g/dL (11.7-16.6); Lymphocytes # 0.2 10^3/uL (0.8-4.8); Lymphocytes % 1.6 %; Mean Corpuscular HGB Conc 30.7 g/dL (30.0-36.0); Mean Corpuscular Hemoglobin 29.9 pg (28.0-34.0); Mean Corpuscular Volume 97.6 fL (80-94); Mean Platelet Volume 10.1 fL (7.4-10.4); Monocytes # 0.2 10^3/uL (0.2-0.9); Monocytes % 1.7 %; Neutrophils # 13.54 10^3/uL (1.8-7.7); Neutrophils % 96.1 %; Nucleated Red Blood Cells % 0 %; Platelet Count 339 10^3/cmm (130-400); Red Blood Count 4.11 10^6/uL (4.1-5.3); Red Cell Distribution Width 13.6 % (12.1-15.1); White Blood Count 14.1 10^3/uL (4.0-10.0)
[2020-11-03 04:43] LABS: Blood Gas Sample Site Brachial, left
[2020-11-03 04:55] LABS: Alanine Aminotransferase 27 U/L (0-41); Albumin Level 3.9 g/dL (3.5-5.2); Alkaline Phosphatase 109 IU/L (40-130); Anion Gap 7.9 (5-19); Aspartate Amino Transferase 29 U/L (0-40); Blood Urea Nitrogen 19 mg/dL (8-23); Calcium 8.4 mg/dL (8.5-10.5); Chloride 94 mmol/L (98-107); Globulin 2.2 g/dL (1.3-4.6); Glucose 251 mg/dL (65-115); Osmolality Calculated 301 mOsm/kg (285-295); Potassium 4.9 mmol/L (3.5-5.1); Sodium 140 mmol/L (136-145); Total Bilirubin 0.6 mg/dL (0.15-1.2); Total Protein 6.1 g/dL (6.6-8.7)
[2020-11-03 04:57] LABS: Lactate (Lactic Acid level) 1.6 mmol/L (0.5-2.2)
[2020-11-03 05:03] LABS: Carbon Dioxide 43 mmol/L (22-29)
[2020-11-03] MEDS: budesonide 0.5 mg/2 mL Neb INHALATION ×2 (07:20→21:01)
[2020-11-03] MEDS: metoprolol tartrate 25 mg Tablet PO ×2 (08:24→17:18)
[2020-11-03] MEDS: tamsulosin 0.4 mg Capsule PO (08:24)
--- NOTE | 2020-11-03 10:31 | PM.PN ---
Subjective Subjective: Interval history: Awake alert and oriented this morning, interactive, states breathing is improving, lactic acidosis is now resolved, blood gas improved. Currently on nasal cannula at 6 L/min. Cardizem infusion continues at 14mg/hr Medications: Reviewed: Yes Vitals/I&O/Wt Last Vital Signs Temp 97.8 F 11/03/20 08:00 Pulse 106 H 11/03/20 08:00 Resp 30 H 11/03/20 08:00 BP 137/62 11/03/20 08:00 Pulse Ox 96 11/03/20 08:00 11/02/20 11/03/20 11/03/20 22:59 06:59 14:59 Intake Total 1596.85 / 1596.85 1063.35 / 2660.20 Output Total 0 / 0 550 / 550 Balance 1596.85 / 1596.85 513.35 / 2110.20 Weight last 48 hrs Weight 49.895 kg Physical Exam Narrative: EXAM NARRATIVE: GEN: Awake, alert and oriented, no acute distress CVS: S1S2 N RS: CTA B/L Abd: Soft, nt/nd , bs+ CLINICAL DOCUMENT IMPROVEMENT EDUCATOR: no focal neuro deficits EXT: unchanged Left AKA, gangrenous digits right foot Urinary Catheter Management^: Arellano: Cath Placed During This Visit: yes Reason for Continuing Indwelling Catheter: Accurate Measurement of Urinary Output in Critically Ill Patients Urinary Catheter Date of Insertion: 11/02/20 Urinary Catheter Time of Insertion: 18:24 Data : 11/03/20 04:03 11/03/20 04:03 Micro: Microbiology 11/02/20 16:38 Blood Culture - Preliminary Blood SPECIMEN COLLECTED 11/02/20 14:32 Blood Culture - Preliminary Blood SPECIMEN COLLECTED A&P Assessment and plan (1) Sepsis: meets criteria by way of leukocytosis, tachycardia and elevated lactate IVF d5 1/2 NS, discontinue today, better hydrated, lactate normalized , encourage po intake, swallow eval EMpiric ZOsyn to continue source unclear at this time , CT Chest withotu consolidation, CT abd/pelvis without gross abdominal source, UA not c/w UTI, blood cx pending Status: Acute Qualifiers: Sepsis type: sepsis due to unspecified organism Sepsis acute organ dysfunction status: with acute organ dysfunction Severe sepsis acute organ dysfunction type: acute respiratory failure Acute respiratory failure type: with hypercapnia Severe sepsis shock status: without septic shock Qualified Code(s): A41.9 - Sepsis, unspecified organism; R65.20 - Severe sepsis without septic shock; J96.02 - Acute respiratory failure with hypercapnia (2) Atrial fibrillation with RVR: Currently on Cardizem infusion , started overlap with po metoprolol Continue to hold coumadin as INR supratherapeutic Status: Acute (3) COPD exacerbation: duonebs q4h manoj + budesonide BID iv methylprednisone 60 mg iv q8h Status: Acute (4) Hypercapnic respiratory failure: ACute on chronic related to COPD exacerbation, rx as above Status: Acute Qualifiers: Chronicity: acute on chronic Qualified Code(s): J96.22 - Acute and chronic respiratory failure with hypercapnia (5) S/P AVR: Status: Chronic (6) Chronic anticoagulation: INR supratherapuetic at 5, no bleeding. HOLD coumadin until INR <2.5 Resume coumadin based on INR numbers Status: Chronic (7) Hypertension: Status: Chronic Qualifiers: Hypertension type: essential hypertension Qualified Code(s): I10 - Essential (primary) hypertension Additional A&P Information DVT ppx: supratherapuetic INR DNR/DNI, okay for pressors Mechanical soft diet to be resumed, swallow eval, suspect patient may be aspirating Transfer to [facility] Attestations Medical Necessity Statement*: Afib with RVR on cardizem infusion, needs optimization of respiratory status Critical Care Time: The high probability of a clinically significant, sudden or life threatening deterioration of the patient's [cardiac, respiratory] system(s) required my full and direct attention, intervention and personal management. The critical care time is as shown. This time is in addition to time spent performing any reported procedures but includes the following: [x] Data and vital sign review and interpretation [x] Patient assessment, examination and intervention [x] Documentation [x] Medication orders and management Critical Care Time (min): 35 Coding Level of Care Code Acute Energy Auditor for [facility] Fwd Diagnoses Sepsis A41.9; R65.20; J96.02 Sepsis type: sepsis due to unspecified organism Sepsis acute organ dysfunction status: with acute organ dysfunction Severe sepsis acute organ dysfunction type: acute respiratory failure Acute respiratory failure type: with hypercapnia Severe sepsis shock status: without septic shock Atrial fibrillation with RVR I48.91 COPD exacerbation J44.1 Hypercapnic respiratory failure J96.22 Chronicity: acute on chronic S/P AVR Z95.2 Chronic anticoagulation Z79.01 Hypertension I10 Hypertension type: essential hypertension
[2020-11-03 14:40] LABS: Arterial Blood Gas Hematocrit 39.3 % (42-52); Blood Gas Allen Test Pos; Blood Gas Operator Identificat Anonymous; Blood Gas Sample Type Arterial
--- NOTE | 2020-11-03 17:11 | PC.NURSE ---
Patient with increased agitation throughout the day. Doctor and family notified. Patient took off all telemetry leads, o2 monitor, and blood pressure cuff. Patient refused to let this nurse put leads back on despite education for need of cardiac monitoring. Patient not easily redirectable.
[2020-11-03] MEDS: gabapentin 300 mg Capsule PO (19:22)
[2020-11-03] MEDS: atorvastatin 40 mg Tablet 80 MG PO (20:43)
[2020-11-04] VITALS (35 sets, daily range): BP systolic 92–139; BP diastolic 51–96; PULSE 85–124; RESP 16–37; TEMP 36.6–37; O2SAT 85–100
[2020-11-04] MEDS: ipratropium-albuterol 3 mL Neb INHALATION ×5 (03:58→20:47)
[2020-11-04 04:34] LABS: Basophils % 0.2 %; Hematocrit 40.7 % (42.0-52.0); Hemoglobin 12.3 g/dL (11.7-16.6); Lymphocytes # 0.2 10^3/uL (0.8-4.8); Lymphocytes % 1.1 %; Mean Corpuscular HGB Conc 30.2 g/dL (30.0-36.0); Mean Corpuscular Hemoglobin 30.3 pg (28.0-34.0); Mean Corpuscular Volume 100.2 fL (80-94); Mean Platelet Volume 10.4 fL (7.4-10.4); Monocytes # 0.4 10^3/uL (0.2-0.9); Monocytes % 2.1 %; Neutrophils # 18.03 10^3/uL (1.8-7.7); Neutrophils % 95.6 %; Nucleated Red Blood Cells % 0 %; Platelet Count 318 10^3/cmm (130-400); Red Blood Count 4.06 10^6/uL (4.1-5.3); Red Cell Distribution Width 13.4 % (12.1-15.1); White Blood Count 18.8 10^3/uL (4.0-10.0)
[2020-11-04 04:40] LABS: INR 3.92 (0.8-1.2)
[2020-11-04 04:52] LABS: Alanine Aminotransferase 23 U/L (0-41); Albumin Level 3.5 g/dL (3.5-5.2); Alkaline Phosphatase 90 IU/L (40-130); Anion Gap 4.5 (5-19); Aspartate Amino Transferase 18 U/L (0-40); Blood Urea Nitrogen 12 mg/dL (8-23); Calcium 8.3 mg/dL (8.5-10.5); Chloride 97 mmol/L (98-107); Glucose 194 mg/dL (65-115); Osmolality Calculated 301 mOsm/kg (285-295); Potassium 4.5 mmol/L (3.5-5.1); Sodium 143 mmol/L (136-145); Total Bilirubin 0.6 mg/dL (0.15-1.2); Total Protein 5.5 g/dL (6.6-8.7)
[2020-11-04 04:56] LABS: Carbon Dioxide 46 mmol/L (22-29)
[2020-11-04] MEDS: piperacillin-tazobactam 3.375 GM in sodium chloride 0.9% (plus) 50 ML IV ×3 (05:35→20:09)
[2020-11-04] MEDS: gabapentin 300 mg Capsule PO ×2 (08:22→17:28)
[2020-11-04] MEDS: tamsulosin 0.4 mg Capsule PO (08:23)
[2020-11-04] MEDS: metoprolol tartrate 25 mg Tablet PO ×2 (08:23→17:28)
[2020-11-04] MEDS: budesonide 0.5 mg/2 mL Neb INHALATION ×2 (09:32→20:47)
[2020-11-04] MEDS: morphine 4 mg/mL SDV 1 mL 2 MG IVP (11:23)
--- NOTE | 2020-11-04 11:33 | PC.NURSE ---
PT lungs are sounding more wet, I&O were evaluated and it appears that the pt has had over 4 L of fluid in and only 500 out in urine. His urine is very cloudy and odorous. Dr. Mireles notified.
[2020-11-04] MEDS: FUROsemide 10 mg/mL SDV 4mL 40 MG IVP (13:28)
--- NOTE | 2020-11-04 19:58 | P.PN_ITS ---
Subjective Subjective: Interval history: no acute vents, cardizem drip turned off last evening,. HR ~100 , tachypenic, saturation down to 85% . Blood cx + GPR and GPC Medications: Reviewed: Yes Vitals/I&O/Wt Last Vital Signs Temp 98.2 F 11/04/20 16:00 Pulse 114 H 11/04/20 17:00 Resp 24 H 11/04/20 17:00 BP 107/70 11/04/20 17:00 Pulse Ox 94 11/04/20 17:00 11/04/20 11/04/20 11/04/20 06:59 14:59 22:59 Intake Total 50 / 1447.15 290 / 290 240 / 530 Output Total 350 / 1000 300 / 300 950 / 1250 Balance -300 / 447.15 -10 / -10 -710 / -720 Physical Exam Narrative: EXAM NARRATIVE: GEN: Awake, alert and oriented, no acute distress CVS: S1S2 N RS: B/L crackles Abd: Soft, nt/nd , bs+ ELECTRICAL POWER STATION TECHNICIAN: no focal neuro deficits EXT: unchanged Left AKA, gangrenous digits right foot Urinary Catheter Management^: Arellano: Cath Placed During This Visit: yes Reason for Continuing Indwelling Catheter: Accurate Measurement of Urinary Output in Critically Ill Patients Urinary Catheter Date of Insertion: 11/02/20 Urinary Catheter Time of Insertion: 18:24 Data : 11/04/20 04:15 11/04/20 04:15 Micro: Microbiology 11/02/20 14:32 Blood Culture - Preliminary Blood Gram positive elver Gram positive cocci 11/02/20 16:38 Blood Culture - Preliminary Blood NEGATIVE TO DATE A&P Assessment and plan (1) Sepsis: meets criteria by way of leukocytosis, tachycardia and elevated lactate IVF d5 1/2 NS, discontinue today, better hydrated, lactate normalized , encourage po intake, swallow eval EMpiric ZOsyn to continue source unclear at this time , CT Chest withotu consolidation, CT abd/pelvis without gross abdominal source, UA not c/w UTI, blood cx today with 2/4 GPC and GPR, may be contaminants, repeat blood cx, start vancomycin Status: Acute Qualifiers: Sepsis type: sepsis due to unspecified organism Sepsis acute organ dy sfunction status: with acute organ dysfunction Severe sepsis acute organ d ysfunction type: acute respiratory failure Acute respiratory failure type: with hypercapnia Severe sepsis shock status: without septic shock Qualified Code(s): A41.9 - Sepsis, unspecified organism; R65.20 - Severe sepsis without septic shock; J96.02 - Acute respiratory failure with hypercapnia (2) Atrial fibrillation with RVR: Currently off Cardizem infusion , increase po metoprolol to 50 BID Continue to hold coumadin as INR supratherapeutic Status: Acute (3) COPD exacerbation: duonebs q4h manoj + budesonide BID iv methylprednisone 60 mg iv q8h Status: Acute (4) Hypercapnic respiratory failure: ACute on chronic related to COPD exacerbation, rx as above Status: Acute Qualifiers: Chronicity: acute on chronic Qualified Code(s): J96.22 - Acute and chronic respiratory failure with hypercapnia (5) S/P AVR: Status: Chronic (6) Chronic anticoagulation: INR supratherapuetic at 5, no bleeding. HOLD coumadin until INR <2.5 Resume coumadin based on INR numbers Status: Chronic (7) Hypertension: Status: Chronic Qualifiers: Hypertension type: essential hypertension Qualified Code(s): I10 - Essential (primary) hypertension Additional A&P Information DVT ppx: supratherapuetic INR DNR/DNI, okay for pressors Mechanical soft diet to be resumed, swallow eval, suspect patient may be aspirating Dispo: hospice referral given advanced comorbidities, COPD, severe PAD Attestations Medical Necessity Statement*: iv lasix today, added vanc for + blood cx, hospice referral Coding Level of Care Code Acute Regular Senior Care Provider for [facility] Fwd Diagnoses Sepsis A41.9; R65.20; J96.02 Sepsis type: sepsis due to unspecified organism Sepsis acute organ dysfunction status: with acute organ dysfunction Severe sepsis acute organ dysfunction type: acute respiratory failure Acute respiratory failure type: with hypercapnia Severe sepsis shock status: without septic shock Atrial fibrillation with RVR I48.91 COPD exacerbation J44.1 Hypercapnic respiratory failure J96.22 Chronicity: acute on chronic S/P AVR Z95.2 Chronic anticoagulation Z79.01 Hypertension I10 Hypertension type: essential hypertension
[2020-11-04] MEDS: atorvastatin 40 mg Tablet 80 MG PO (20:09)
[2020-11-04] MEDS: vancomycin 1,000 MG in sodium chloride 0.9% 250 ML 250 MG IV (20:50)
--- NOTE | 2020-11-04 23:48 | PC.NURSE ---
Patient calm and cooperative, wanting to go home on hospice, vitals are all stable, called report at 2250 and patient transferred to CSU around 2300, patient transferred too his new bed here in the ICU and tolerated it all well.
[2020-11-05] VITALS (11 sets, daily range): BP systolic 95–111; BP diastolic 61–73; PULSE 95–125; RESP 17–32; TEMP 36.4–36.7; O2SAT 94–97
[2020-11-05] MEDS: ipratropium-albuterol 3 mL Neb INHALATION ×3 (00:22→08:10)
[2020-11-05] MEDS: vancomycin 1,000 MG in sodium chloride 0.9% 250 ML 250 MG IV (04:40)
[2020-11-05 05:39] LABS: INR 2.96 (0.8-1.2)
[2020-11-05 05:47] LABS: Basophils % 0.1 %; Hematocrit 38.9 % (42.0-52.0); Hemoglobin 11.8 g/dL (11.7-16.6); Lymphocytes # 0.2 10^3/uL (0.8-4.8); Mean Corpuscular HGB Conc 30.3 g/dL (30.0-36.0); Mean Corpuscular Hemoglobin 30.1 pg (28.0-34.0); Mean Corpuscular Volume 99.2 fL (80-94); Mean Platelet Volume 10.5 fL (7.4-10.4); Monocytes # 0.5 10^3/uL (0.2-0.9); Neutrophils # 17.01 10^3/uL (1.8-7.7); Neutrophils % 95.1 %; Nucleated Red Blood Cells % 0 %; Platelet Count 284 10^3/cmm (130-400); Red Blood Count 3.92 10^6/uL (4.1-5.3); Red Cell Distribution Width 13.4 % (12.1-15.1); White Blood Count 17.9 10^3/uL (4.0-10.0)
[2020-11-05] MEDS: piperacillin-tazobactam 3.375 GM in sodium chloride 0.9% (plus) 50 ML IV (05:56)
[2020-11-05 06:05] LABS: Alanine Aminotransferase 23 U/L (0-41); Albumin Level 3.2 g/dL (3.5-5.2); Alkaline Phosphatase 80 IU/L (40-130); Aspartate Amino Transferase 15 U/L (0-40); Blood Urea Nitrogen 12 mg/dL (8-23); Calcium 8.3 mg/dL (8.5-10.5); Chloride 90 mmol/L (98-107); Globulin 1.9 g/dL (1.3-4.6); Glucose 287 mg/dL (65-115); Osmolality Calculated 304 mOsm/kg (285-295); Potassium 4.5 mmol/L (3.5-5.1); Sodium 142 mmol/L (136-145); Total Bilirubin 0.5 mg/dL (0.15-1.2); Total Protein 5.1 g/dL (6.6-8.7)
[2020-11-05 06:15] LABS: Anion Gap 5.5 (5-19); Carbon Dioxide 51 mmol/L (22-29)
[2020-11-05] MEDS: tamsulosin 0.4 mg Capsule PO (08:03)
[2020-11-05] MEDS: gabapentin 300 mg Capsule PO (08:03)
[2020-11-05] MEDS: metoprolol tartrate 50 mg Tablet PO (08:03)
[2020-11-05] MEDS: morphine 4 mg/mL SDV 1 mL 2 MG IVP (08:04)
[2020-11-05] MEDS: budesonide 0.5 mg/2 mL Neb INHALATION (08:10)
--- NOTE | 2020-11-05 08:31 | PC.RESP ---
SMOKING CESSATION AND PULMONARY REHAB INFORMATION SENT TO PATIENT.
--- NOTE | 2020-11-05 10:29 | P.DS_ITS ---
Discharge Providers Date of Admission: 11/02/20 18:35 Date of Discharge: November 05, 2020 Attending Provider at Admission: Suzie Mireles MD Attending Provider at Discharge: Suzie Mireles MD Primary Care Provider: Carmen Bernardo NP Diagnoses at Discharge Discharge Diagnosis (1) Sepsis: Status: Acute Qualifiers: Acute respiratory failure type: with hypercapnia Sepsis acute organ dysfunction status: with acute organ dysfunction Sepsis type: sepsis due to unspecified organism Severe sepsis acute organ dysfunction type: acute respiratory failure Severe sepsis shock status: without septic shock Qualified Code(s): A41.9 - Sepsis, unspecified organism; R65.20 - Severe sepsis without septic shock; J96.02 - Acute respiratory failure with hypercapnia (2) Atrial fibrillation with RVR: Status: Acute (3) COPD exacerbation: Status: Acute (4) Hypercapnic respiratory failure: Status: Acute Qualifiers: Chronicity: acute on chronic Qualified Code(s): J96.22 - Acute and chronic respiratory failure with hypercapnia (5) S/P AVR: Status: Chronic Permanent problem details: Mechanical (6) Chronic anticoagulation: Status: Chronic Permanent problem details: coumadin, for mechanical AVR (7) Hypertension: Status: Chronic Qualifiers: Hypertension type: essential hypertension Qualified Code(s): I10 - Essential (primary) hypertension Reason for Visit Reason for Visit: SOB, AMS, NOT EATING/DRINKING Hospital Course Hospital Course Damon King is a 70 year old male brought by family from home with c/o not being able to eat or drink for one week due to increasing nausea, abdominal bloating and discomfort. At the smita time iwth increasing 02 requirements at home, baseline 3lpm, now up to 5lpm. On way to [facility] office today, patient became unresponsive, solorzano colored with sp02 drop in the 60s, therefore brought to ER, here noted to be obtunded, ABG with respiratory acidosis, hypercapnea, elevated lactate at 5, CTA chest without PE, CT abd/pelvis without signs of mesenteric ischemia. Initially met criteria for sepsis by way of leukocytosis tachycardia and elevated lactate, he was treated with empiric Zosyn, however extensive source evaluation did not reveal an obvious cause. CT chest was without consolidation, CT abdomen pelvis without gross abdominal source, UA not consistent with UTI, blood culture reported with 2 out of 4 GPC NG HI's, likely to be contaminants. For his A. fib with RVR he was initially on Cardizem infusion, that was titrated off and metoprolol was increased to 50 twice daily. Coumadin was held as INR was supratherapeutic at 5. This has trended down to 2.9 at the time of discharge. For his COPD exacerbation he received DuoNebs budesonide IV meds Bryan and also was on continuous BiPAP support. He improved with these interventions. In view of his multiple comorbidities, CHF COPD and severe PAD hospice referral was provided after talking to the patient and his family, patient is now being discharged with home hospice. 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: no focal neuro deficits Urinary Catheter Management^: Arellano: Cath Placed During This Visit: yes Reason for Continuing Indwelling Catheter: Hospice/Comfort/Palliative Care Urinary Catheter Date of Insertion: 11/02/20 Urinary Catheter Time of Insertion: 18:24 Discharge Data Data Completed and Pending: Completed Studies During Hospitalization Category Date Time Status CT angio chest w abd pel w con Stat Cat Scan 11/02/20 14:[address] head wo con* 7 0450 Stat Cat Scan 11/02/20 15:55 Completed XR chest 1V caleb ble [id number] Stat Exams 11/02/20 14:18 Completed Pending at discharge Category Date Time Status Blood Culture AM LABS Lab 11/05/20 04:39 Results Blood Culture Sta t Lab 11/02/20 16:38 Results Vancomycin Trough Timed Lab 11/05/20 12:00 Ordered Labs from last 24 hours 11/05/20 11/05/20 11/05/20 04:39 04:39 04:39 WBC 17.9 H RBC 3.92 L Hgb 11.8 Hct 38.9 L MCV 99.2 H MCH 30.1 MCHC 30.3 RDW 13.4 Plt Count 284 MPV 10.5 H Neut % (Auto) 95.1 Lymph % (Auto) 1.0 [place] % (Auto) 3.0 Eos % (Auto) 0.0 Baso % (Auto) 0.1 Neut # (Auto) 17.01 H Lymph # (Auto) 0.2 L [place] # (Auto) 0.5 Eos # (Auto) 0.0 Baso # (Auto) 0.0 Nucleated RBC % (a uto) 0 Nucleated RBCs # 0.0 PT 31.30 H INR 2.96 H Sodium 142 Potassium 4.5 Chloride 90 L Carbon Dioxide 51 H* Anion Gap 5.5 BUN 12 Creatinine 0.5 L GFR Calculation Not Reportable Glucose 287 H Calculated Osmolal ity 304 H Calcium 8.3 L Total Bilirubin 0.5 AST 15 ALT 23 Alkaline Phosphata se 80 Total Protein 5.1 L Albumin 3.2 L Globulin 1.9 Vitals: Last Vital Signs Temp 97.5 F L 11/05/20 07:18 Pulse 107 H 11/05/20 08:23 Resp 18 11/05/20 08:17 BP 111/73 11/05/20 07:18 Pulse Ox 95 11/05/20 08:17 Discharge Plan Discharge Patient Disposition: Hospice - Home Condition: Stable Prescriptions: New prednisone 20 mg tablet 20 mg PO DAILY 5 Days Qty: 5 RF: 0 Continued potassium chloride 10 mEq tablet extended release 10 meq PO DAILY RF: 0 tamsulosin 0.4 mg capsule 0.4 mg PO DAILY RF: 0 gabapentin 300 mg capsule 300 mg PO BID RF: 0 atorvastatin 80 mg tablet 80 mg PO BEDTIME RF: 0 metoprolol tartrate 25 mg tablet 25 mg PO BID RF: 0 budesonide-formoterol [Symbicort] 80-4.5 mcg/actuation HFA aerosol inhaler 2 puff INHALATION BID RF: 0 Lasix 40 mg Tablet 40 mg PO DAILY RF: 0 amlodipine 5 mg Tablet 5 mg PO DAILY RF: 0 pantoprazole 40 mg Tablet,Delayed Release (Dr/Ec) 40 mg PO BID Qty: 60 RF: 0 hydrocodone-acetaminophen 10-325 mg tablet 1 tab PO QID PRN (Reason: Pain) RF: 0 warfarin 2 mg tablet 2 mg PO DAILY RF: 0 Discharge Orders: Discharge Order (Routine); Ordered 11/05/20 Ordered By: Suzie Mireles Referrals: Carmen Bernardo, MIKE [Primary Care Provider] - 7-10 days (YOU HAVE A FOLLOW UP APPOINTMENT WITH [facility] ON SundayOctober AT 1000. IF YOU HAVE ANY QUESTIONS OR NEED TO RESCHEDULE PLEASE CALL [phone].) Patient Instructions: Atrial Fibrillation, COPD, Prednisone (By mouth), Sepsis (DC), Hypertension (DC), COPD Stoplight Discharge Attestations Time Spent in Discharge Care*: greater than 30 min Specific Discharge Activities: educating patient, educating and/or supporting family/caregiver and discussing with correctional casework specialist/social workers/dc planners Status at Discharge: Cognitive status at discharge: cognitively intact , Behavioral status at discharge: cooperative , Quality Metrics Clinical Quality Measures During this hospital stay, did patient experience: None Coding Level of Care Code Acute Chg FW DC note Diagnoses Sepsis A41.9; R65.20; J96.02 Acute respiratory failure type: with hypercapnia Sepsis acute organ dysfunction status: with acute organ dysfunction Sepsis type: sepsis due to unspecified organism Severe sepsis acute organ dysfunction type: acute respiratory failure Severe sepsis shock status: without septic shock Atrial fibrillation with RVR I48.91 COPD exacerbation J44.1 Hypercapnic respiratory failure J96.22 Chronicity: acute on chronic S/P AVR Z95.2 Chronic anticoagulation Z79.01 Hypertension I10 Hypertension type: essential hypertension
--- NOTE | 2020-11-05 12:58 | PC.CHAP ---
Pastoral Care Encounter/Spiritual Assessment Type of Contact [] Declined private banker visit [] Patient/Family/Request visit [] Outpatient visit [] Follow-up visit [] Physician referral [] Code/Alert [xx] Routine visit [] Staff referral [] Actively dying [] Patient sleeping [] Family support [] [] Out of room [] Palliative care [] [] Receiving care in room [] Pre-surgical visit [] Trauma [] Long length of stay [] ICU visit [] Other: Relational/Emotional Strength [xx] Patient feels connected with others/family/visitors/staff [] Distress [] Loneliness/isolation [] Abandonment Spirituality of Patient [xx] Person of Yomaira [] Attends Caodaism of their [place] [xx] Believes in Prayer [] Reads Bible or Mandaeism materials [] There are Spiritual issues to be addressed Operations Intelligence Superintendent 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 [xx] Prayer [xx] Active listening [xx] Non-anxious presence [] Spiritual/emotional support [] Crisis/trauma care [] Spiritual counseling [] Bereavement support [] Provided bereavement packet [] Provided Bible/devotional materials [] Provided toy/stuffed animal, coloring book to patient or family member [] Provided Communion [] Anointing/[place] [] Salvation [xx] Completed spiritual assessment [] Other: Impact on Illness or Injury [] Angry [] Fearful [] Anxious [] Often cries [] Exhaustion [] Unable to work [] Unable to attend episcopal [] Unable to walk/stand [] Unable to read [] Unable to drive [] Unable to eat/drink [] Unable to sleep [] Unable to be with family [] Patient intubated [] Other: Summary Patient expects to be discharged soon. He was not very talkative but did want prayer. Time spent with patient 4 minutes
--- NOTE | 2020-11-05 13:05 | DCPLANNER ---
Pg 2 of IM updated and reviewed with pt. No questions, copy provided.
--- NOTE | 2020-11-05 13:35 | PC.NURSE ---
discharge instructions given and explained.pt verb understanding of instructions.discharged home to hospice via a/j transportation
== END 2020-11-05 13:34 | disposition hospice, home (50) | DRG 871 ==
LOC: ER 16:33 → ICU 18:54 → CSU 11-04 23:18
PROVIDERS: Admitting Provider Student in an Organized Health Care Education/Training Program; Emergency Provider Family Medicine; PCP Nurse Practitioner Family; Visit Provider Student in an Organized Health Care Education/Training Program
DX: A41.9 Sepsis, unspecified organism (principal); J96.22 Acute and chronic respiratory failure with hypercapnia; E87.2 Acidosis; J44.1 Chronic obstructive pulmonary disease with (acute) exacerbation; R65.20 Severe sepsis without septic shock; Z95.2 Presence of prosthetic heart valve; I73.9 Peripheral vascular disease, unspecified; Z98.62 Peripheral vascular angioplasty status; N40.0 Benign prostatic hyperplasia without lower urinary tract symptoms; Z86.73 Personal history of transient ischemic attack (TIA), and cerebral infarction without residual deficits; F32.9 Major depressive disorder, single episode, unspecified; K21.9 Gastro-esophageal reflux disease without esophagitis; E78.5 Hyperlipidemia, unspecified; I10 Essential (primary) hypertension; F17.210 Nicotine dependence, cigarettes, uncomplicated; Z99.81 Dependence on supplemental oxygen; M19.90 Unspecified osteoarthritis, unspecified site; I27.20 Pulmonary hypertension, unspecified; I70.1 Atherosclerosis of renal artery; I48.91 Unspecified atrial fibrillation; Z66 Do not resuscitate; Z79.01 Long term (current) use of anticoagulants; Z79.891 Long term (current) use of opiate analgesic
CPT/HCPCS: 36415; 36600; 51702; 70450; 71045; 71275; 74177; 80051; 80053; 81001; 82330; 82550; 82803; 82805; 83605; 83690; 83735; 84145; 84484; 85025; 85610; 87040; 87426; 92526; 92610; 93005; 94640; 94660; 94664; 96365; 96366; 96367; 96375; 99291; C9113; J1940; J1956; J2270; J2543; J2930; J3370; J3490; J7050; J7626; Q9967